=== PATIENT | female | born 1960 | race Two or more races ===

== ENCOUNTER 2020-06-26 14:01 | Outpatient (REF) | payer MEDICARE, MEDICAID, SELFPAY ==
--- NOTE | 2020-06-26 14:07 | MM_ITS ---
EXAMINATION: MM SCREENING DIGITAL BREAST TOMOSYNTHESIS, BILATERAL CLINICAL INFORMATION: Screening. Asymptomatic. The lifetime risk of breast cancer based on the Tyrer-Cuzick Model is 5.3%. COMPARISON: Mammography: August 06, 2018 and studies dating back to March 30, 2012 TECHNIQUE: Digital breast tomosynthesis is performed in both the craniocaudal and mediolateral oblique views along with computer-aided detection (CAD). Synthesized 2D images are generated from the tomosynthesis. FINDINGS: There are scattered areas of fibroglandular density (ACR BI-RADS breast composition Category b). There are no significant masses, abnormal calcifications, or other abnormalities. MM/MM tomosynthesis screening BI IMPRESSION: There are no significant changes from prior study. ASSESSMENT: BI-RADS 1: Negative RECOMMENDATION: Routine annual mammography screening. This patient's information was entered into a reminder system with a target due date for their next mammogram.
== END 2020-06-26 14:02 | disposition home or self-care (01) ==
LOC: HO.MAMMO 14:01
PROVIDERS: PCP Nurse Practitioner Family; Visit Provider Nurse Practitioner Family
DX: Z12.31 Encounter for screening mammogram for malignant neoplasm of breast (principal)
CPT/HCPCS: 77063; 77067

== ENCOUNTER 2020-08-30 14:37 | Outpatient (REF) | payer MEDICARE, MEDICAID, SELFPAY | END 2020-08-30 14:38 | disposition home or self-care (01) | LOC: HO.LAB 14:37 | PROVIDERS: PCP Nurse Practitioner Family; Visit Provider Internal Medicine | DX: Z20.828 Contact with and (suspected) exposure to other viral communicable diseases (principal) | CPT/HCPCS: 36415; C9803; U0003 ==

== ENCOUNTER 2020-09-06 16:05 | Outpatient (REF) | payer MEDICARE, MEDICAID, SELFPAY | END 2020-09-06 16:06 | disposition home or self-care (01) | LOC: HO.LAB 16:05 | PROVIDERS: Visit Provider Internal Medicine | DX: Z20.822 Contact with and (suspected) exposure to COVID-19 (principal) | CPT/HCPCS: 36415; C9803; U0003 ==

== ENCOUNTER → 2020-10-16 14:38 | Outpatient (BNVA) | payer MEDICARE, MEDICAID, SELFPAY | PROVIDERS: PCP Nurse Practitioner Family; Visit Provider Urology | DX: Z76.89 Persons encountering health services in other specified circumstances (principal) | CPT/HCPCS: Q3014 ==

== ENCOUNTER 2021-04-09 13:24 | Emergency (ER) | payer OTHER, MEDICARE, MEDICAID, SELFPAY ==
[2021-04-09 14:34] VITALS: BP 124/81; PULSE 82; RESP 18; TEMP 36.1; O2SAT 99; BMI 34.9
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
== END 2021-04-09 17:03 | disposition home or self-care (01) ==
PROVIDERS: Emergency Provider Emergency Medicine; PCP Internal Medicine
DX: S39.012D Strain of muscle, fascia and tendon of lower back, subsequent encounter (principal); V49.60XD Unspecified car occupant injured in collision with unspecified motor vehicles in traffic accident, subsequent encounter; M54.6 Pain in thoracic spine
CPT/HCPCS: 99283

== ENCOUNTER 2021-06-12 17:49 | Emergency (ER) | payer MEDICARE, MEDICAID, SELFPAY ==
--- NOTE | ~2021-06-12 | CT_ITS ---
EXAMINATION: CT HEAD WITHOUT CONTRAST CLINICAL INFORMATION: Trauma COMPARISON: None TECHNIQUE: Contiguous axial imaging was performed from the skull base to vertex without intravenous administration of contrast. This CT examination was performed using dose optimization techniques as appropriate, variously including the following: *Automated exposure control *Adjustment of mA and/or kV according to patient size (this includes techniques or standardized protocols for targeted exams where dose is matched to indication/reason for exam; i.e. extremities or head) *Use of iterative reconstruction technique DLP: 770 mGy-cm FINDINGS: There is no evidence of acute intracranial hemorrhage or territorial infarction. No abnormal mass effect or midline shift is seen. Cruz to white matter differentiation is well preserved. No extra-axial fluid collections are identified. The ventricles are normal in size. There is no abnormal attenuation within the brain parenchyma. The osseous structures and soft tissues are normal. Mucous retention cyst or polyps in the maxillary sinuses CT/CT head/brain wo con IMPRESSION: No acute intracranial pathology.
[2021-06-12 17:58] VITALS: BP 137/80; PULSE 91; RESP 18; TEMP 35.9; O2SAT 98; BMI 33.6
[2021-06-12] MEDS: Butalb/Acetamin/Caff 50/325/40 TABLET 1 TAB PO (19:34)
[2021-06-12 20:42] VITALS: BP 138/89; PULSE 80; RESP 20; TEMP 36.9; O2SAT 98
--- NOTE | 2021-06-12 21:16 | ED.HEATRA ---
HPI - Head Injury General Chief complaint: Head Injury Stated complaint: Fall/Head injury Time Seen by Provider: 06/12/21 18:58 Source: patient Mode of arrival: ambulatory History of Present Illness HPI Narrative: 60-year-old female with a past medical history of asthma, arthritis, diabetes, renal calculi, presenting to the ED complaining of right occipital headache, mild nausea/ photophobia, neck and low back pain s/p mechanical fall off chair last night. Patient reports stood on chair to grab something on shelf and fell backwards, hitting head on table. Denies vomiting, vision change/loss, CP/SOB, abdominal pain, numbness, tingling, weakness, urinary incontinence/retention. Denies taking anticoagulation MD Complaint: head injury Related Data Home Medications Medication Instructions Recorded Confirmed dulaglutide 0.75 mg/0.5 mL 0.75 mg SUBCUT QWEEK 10/16/20 10/18/20 subcutaneous pen injector gabapentin 300 mg capsule 300 mg PO TID 10/16/20 10/18/20 ibuprofen 800 mg tablet 800 mg PO TID 10/16/20 10/18/20 lisinopril 10 mg tablet 10 mg PO DAILY 10/16/20 10/18/20 meclizine 12.5 mg tablet 12.5 mg PO BID PRN 10/16/20 10/18/20 tramadol 50 mg tablet 50 mg PO BID PRN 10/16/20 10/18/20 zolpidem 5 mg tablet 5 mg PO BEDTIME 10/16/20 10/18/20 metformin 500 mg tablet 500 mg PO BID 10/18/20 10/18/20 Previous Rx's Medication Instructions Recorded allopurinol 100 mg tablet 100 mg PO DAILY 90 Days #90 tab 01/22/21 pyridoxine (vitamin B6) 50 mg 50 mg PO DAILY 90 Days #90 tab 03/01/21 tablet cyclobenzaprine 10 mg tablet 10 mg PO TID PRN #10 tab 04/09/21 ibuprofen 600 mg tablet 600 mg PO Q8H PRN #14 tab 04/09/21 lidocaine 5 % topical patch 1 patch TOPICAL DAILY #15 ea 04/09/21 (Lidoderm) tramadol 50 mg tablet 50 mg PO Q8H PRN #6 tab 04/09/21 Allergies Allergy/AdvReac Type Severity Reaction Status Date / Time duloxetine [From Cymbalta] Allergy Intermediate Itching Verified 06/12/21 17:58 pollen extracts [POLLEN] Allergy Mild SINUS Verified 06/12/21 17:58 PROBLEMS Review of Systems Review of Systems: Constitutional: No Fever, No Chills, No Fatigue, No Malaise ENT/Mouth: No Ear Pain, No Nasal Congestion, No Sinus Pain, No sore throat, No Rhinorrhea, No Swallowing Difficulty Eyes: No Eye Pain, No Swelling, No Redness, + mild photophobia, No Vision Changes Cardiovascular: No Chest Pain, No SOB Respiratory: No Cough, No Dyspnea Gastrointestinal: + Nausea, No Vomiting, No Diarrhea, No Constipation, No Abdominal pain Genitourinary: No Dysuria, No Urinary Frequency, No Hematuria,No Urinary Incontinence/retention No Urgency, No Flank Pain Musculoskeletal: + joint pain, No Myalgias, No Joint Swelling Skin: No Skin Lesions, No rash Neuro: No Weakness, No Numbness, No Paresthesias, No Loss of Consciousness, No Dizziness, + Headache Yes all other systems are reviewed and are negative Neurologic: Denies Abnormal speech present and Denies Sensory deficit (Neuro) [facility] Past Medical History Attestation statement: The following information was validated with the patient. Medical History (Updated 06/12/21 @ 21:18 by PAZ Vasquez) Arthritis Asthma Bilateral nephrolithiasis Constipation Diabetes History of postoperative nausea and vomiting HTN (hypertension) Lab test negative for COVID-19 virus Renal calculi Surgical History H/O colonoscopy Hx of cystoscopy Hx of hand surgery Hx of lithotripsy Social History Social History (Updated 10/16/20 @ 14:42 by Gianna Rodriguez Fred) Are you a primary point of care specialist to a significant other at home: No Do you presently have visiting nurse or other home services: No Advance Directives: No Advance Directives Information Provided: No Patient : No Physical Exam Vital Signs: Vital Signs: Last Vital Signs Temp 98.5 F 06/12/21 20:42 Pulse 80 06/12/21 20:42 Resp 20 06/12/21 20:42 BP 138/89 06/12/21 20:42 Pulse Ox 98 06/12/21 20:42 Body Mass Index 33.6 Const: General: cooperative, healthy appearing, no acute distress, well developed, alert, awake and Physically active Orientation/consciousness: patient oriented x3 Limitations: no limitations HENMT: Other: + hematoma noted to right occipital region that is tender to palpation. No ecchymosis, no skull depression/step-off, no laceration Head: No Duran's sign and No raccoon eyes Ears: hearing grossly normal bilaterally General nose exam: Normal external nose present Face and sinus: Yes normal facial exam Mouth: Normal oral and palatal mucosa present Throat: Yes posterior oropharynx normal and Yes uvula midline Eyes: General: appearance normal, both eyes and all related structures EOM: EOMs intact bilaterally Neck: Other: No midline cervical spinous tenderness/step-off or deformity Neck: Yes normal visual inspection and Yes no meningeal signs Resp: Effort & Inspection: normal respiratory effort and no respiratory distress Cardio: Rate: regular rate GI: Inspection: Yes normal to inspection Palpation (GI): Soft to palpation and nontender Back/Spine/Pelvis: Other: No midline thoracic/lumbar spinous tenderness. + bilateral lumbar MSK tenderness to palpation Skin: Rashes: no rashes Wounds: no wounds Neuro: Other: SILT. No saddle anesthesia, ambulating with steady gait, strength intact throughout General: patient oriented x3, gait normal, tone normal, moves all extremities, no meningeal signs, no focal motor deficits and CN's II-XI intact bilaterally Cranial nerves: Yes CN's II-XII intact bilaterally Cognition (Neuro): normal cognition Speech: No Abnormal speech present Gait exam (Neuro): Normal gait present Motor exam (neuro): 5/5 motor strength present throughout Sensory Exam: No Sensory deficit (Neuro) Coordination: [id number] test normal Romberg Test: Negative Extrem: General: Yes normal to inspection Course Course Course Narrative: CT head/brain wo con IMPRESSION: No acute intracranial pathology >> results discussed with patient including worrisome signs and symptoms and strict return precautions MDM - Head Injury MDM Narrative Medical decision making narrative: 60-year-old female with a past medical history of asthma, arthritis, diabetes, renal calculi, presenting to the ED complaining of right occipital headache, mild nausea/ photophobia, neck and low back pain s/p mechanical fall off chair last night. On exam VSS, NAD/well-appearing, no focal neuro deficits, no midline spinous tenderness throughout, no red flag symptoms. Lower concern for ICH/fracture but will obtain head CT due to falling from a height. Low concern for cauda equina/cord compression, likely MSK pain Plan: Head CT Medical Records Attestation: I reviewed the patient's medical records. Lab Data Attestation: I reviewed the patient's lab results. Discharge Plan Discharge Clinical Impression: Closed head injury Qualifiers: Encounter type: initial encounter Qualified Code(s): S09.90XA - Unspecified injury of head, initial encounter Patient Disposition: Home, Self-Care Instructions: Head Injury (ED) Additional Instructions: Your head CT was unremarkable. Take Tylenol and Motrin at home for headache Ice painful area Please follow-up with her doctor If you develop constant worsening headache, nausea/vomiting, lightheadedness/dizziness or weakness food return to the ED Prescriptions: No Action allopurinol 100 mg tablet 100 mg PO DAILY 90 Days Qty: 90 RF: 2 pyridoxine (vitamin B6) 50 mg tablet 50 mg PO DAILY 90 Days Qty: 90 RF: 1 metformin 500 mg tablet 500 mg PO BID RF: 0 cyclobenzaprine 10 mg tablet 10 mg PO TID PRN (Reason: muscle spasm) Qty: 10 RF: 0 lidocaine [Lidoderm] 5 % adhesive patch,medicated 1 patch topical DAILY Qty: 15 RF: 0 ibuprofen 600 mg tablet 600 mg PO Q8H PRN (Reason: pain) Qty: 14 RF: 0 tramadol 50 mg tablet 50 mg PO Q8H PRN (Reason: pain) Qty: 6 RF: 0 Referrals: Lesa Talbot NP [Primary Care Provider] - 2 days
== END 2021-06-12 21:33 | disposition home or self-care (01) ==
PROVIDERS: Emergency Provider Emergency Medicine; PCP Nurse Practitioner Family
DX: S09.90XA Unspecified injury of head, initial encounter (principal); E11.9 Type 2 diabetes mellitus without complications; I10 Essential (primary) hypertension; J45.909 Unspecified asthma, uncomplicated; W07.XXXA Fall from chair, initial encounter; Y93.9 Activity, unspecified; Y92.9 Unspecified place or not applicable; Y99.9 Unspecified external cause status
CPT/HCPCS: 70450; 99284

== ENCOUNTER 2021-11-08 12:46 | Emergency (ER) | payer MEDICARE, MEDICAID, SELFPAY ==
[2021-11-08 13:08] VITALS: BP 162/87; PULSE 74; RESP 18; TEMP 36.8; O2SAT 98; BMI 33.0
--- NOTE | 2021-11-08 13:36 | ED_ITS ---
HPI - General Adult General Chief complaint: Headache Stated complaint: throat/left ear pain/severe headaches Time Seen by Provider: 11/08/21 13:14 Source: patient Mode of arrival: ambulatory Limitations: no limitations History of Present Illness HPI narrative: Patient is a 61 year old female presenting to the emergency department today with left ear pain and a sore throat. Patient states that starting 2 days ago she began having a sore throat and a left ear ache. Patient denies any dizziness, lightheadedness, abdominal pain, nausea, vomiting, fever, chills, blurry vision, double vision, loss of vision, chest pain, difficulty breathing, shortness of breath, back pain, night sweats, pain with urination, increased urinary frequency, increased urinary urgency, blood in her urine or stool, syncope or a near syncopal episode, recent trauma or falls, bowel incontinence, bladder incontinence, bowel retention, bladder retention, or any other complaints at this time. Onset (ago): day(s) (2) Radiation: non-radiation Severity: mild Severity scale (1-10): 3 Quality: dull Pain Consistency: constant Relieving factors: none Exacerbating factors: none Associated symptoms: denies other symptoms Related Data Home Medications Medication Instructions Recorded Confirmed dulaglutide 0.75 mg/0.5 mL 0.75 mg SUBCUT QWEEK 10/16/20 10/18/20 subcutaneous pen injector gabapentin 300 mg capsule 300 mg PO TID 10/16/20 10/18/20 ibuprofen 800 mg tablet 800 mg PO TID 10/16/20 10/18/20 lisinopril 10 mg tablet 10 mg PO DAILY 10/16/20 10/18/20 meclizine 12.5 mg tablet 12.5 mg PO BID PRN 10/16/20 10/18/20 tramadol 50 mg tablet 50 mg PO BID PRN 10/16/20 10/18/20 zolpidem 5 mg tablet 5 mg PO BEDTIME 10/16/20 10/18/20 metformin 500 mg tablet 500 mg PO BID 10/18/20 10/18/20 Previous Rx's Medication Instructions Recorded allopurinol 100 mg tablet 100 mg PO DAILY 90 Days #90 tab 01/22/21 pyridoxine (vitamin B6) 50 mg 50 mg PO DAILY 90 Days #90 tab 03/01/21 tablet cyclobenzaprine 10 mg tablet 10 mg PO TID PRN #10 tab 04/09/21 ibuprofen 600 mg tablet 600 mg PO Q8H PRN #14 tab 04/09/21 lidocaine 5 % topical patch 1 patch TOPICAL DAILY #15 ea 04/09/21 (Lidoderm) tramadol 50 mg tablet 50 mg PO Q8H PRN #6 tab 04/09/21 amoxicillin 875 mg tablet 875 mg PO BID 7 Days #14 tab 11/08/21 Allergies Allergy/AdvReac Type Severity Reaction Status Date / Time duloxetine [From Cymbalta] Allergy Intermediate Itching Verified 06/12/21 17:58 pollen extracts [POLLEN] Allergy Mild SINUS Verified 06/12/21 17:58 PROBLEMS Review of Systems Constitutional: Constitutional: Reports no additional constitutional complaints, Denies chills, Denies fever(s) and Denies night sweats Eyes: Eyes: Reports no additional eye complaints, Denies blurry vision, Denies change in vision, Denies diplopia, Denies eye discharge, Denies loss of vision and Denies eye pain ENT: Denies dizziness and Reports sore throat Comments: left ear pain Cardiovascular: Cardiovascular: Reports no additional cardiovascular complaints, Denies chest pain, Denies lightheadedness, Denies Loss of Consciousness and Denies dyspnea Respiratory: Respiratory: Reports no additional respiratory complaints and Denies dyspnea Gastrointestinal: Gastrointestinal: Reports no additional gastrointestinal complaints, Denies abdominal pain, Denies melena, Denies hematochezia, Denies change in bowel habits and Denies change in stool character Genitourinary: Genitourinary: Denies hematuria, Denies urinary frequency, Denies dysuria, Denies urinary incontinence, Denies urinary hesitancy and Denies urinary urgency Musculoskeletal: Musculoskeletal: Reports no additional musculoskeletal complaints, Denies numbness and Denies tingling Neurologic: Denies dizziness, Denies loss of vision, Denies numbness and Denies tingling Psychiatric: Psychiatric: Reports no additional psychiatric complaints Endocrine: Endocrine: Reports no additional endocrine complaints Hematologic/Lymphatic: Hematologic/Lymphatic: Reports no additional hematologic/lymphatic complaints Allergic/Immunologic: Allergic/Immunologic: Reports no additional allergic/immunologic complaints PMFSH Past Medical History Attestation statement: The following information was validated with the patient. Source: old records reviewed Medical History Arthritis Asthma Bilateral nephrolithiasis Constipation Diabetes History of postoperative nausea and vomiting HTN (hypertension) Lab test negative for COVID-19 virus Renal calculi Surgical History H/O colonoscopy Hx of cystoscopy Hx of hand surgery Hx of lithotripsy Social History Social History Are you a primary laboratory animal care veterinarian to a significant other at home: No Do you presently have visiting nurse or other home services: No Advance Directives: No Advance Directives Information Provided: No Physical Exam ED Vital Signs: Vital Signs - 24 hr 11/08/21 13:08 Temperature 98.3 F Pulse Rate 74 Respiratory Rate 18 Blood Pressure 162/87 H Pulse Oximetry 98 BMI result Body Mass Index 33.0 Const General: cooperative, no acute distress, alert and awake Nutritional Appearance: well nourished Orientation/consciousness: patient oriented x3 Limitations: no limitations HENMT Head: Yes normal to inspection and Yes atraumatic Ears: hearing grossly normal bilaterally, external ears normal and TM abnormal erythematous on the left General nose exam: Normal external nose present, no nasal discharge noted and no epistaxis Face and sinus: Yes normal facial exam, No abrasion and No laceration Mouth: Normal oral and palatal mucosa present, no drooling and no muffled voice Eyes General: appearance normal, both eyes and all related structures Periorbital: periorbital findings normal Eyelids: Yes eyelids normal Conjunctivae: conjunctivae normal Pupils: Equal, round and reactive pupils present EOM: EOMs intact bilaterally Neck Neck: Yes normal visual inspection, Yes full ROM and Yes no lymphadenopathy Chest Chest palpation & inspection: normal inspection of the chest Resp Effort & Inspection: normal respiratory effort and able to speak in complete sentences Auscultation: clear to auscultation bilaterally Cardio Rate: regular rate Rhythm: regular rhythm GI Inspection: Yes normal to inspection Neuro General: patient oriented x3 and moves all extremities Cranial nerves: Yes Equal, round and reactive pupils present Cognition (Neuro): normal cognition Motor exam (neuro): 5/5 motor strength present throughout Sensory Exam: Normal double simultaneous stimulation for sensation Coordination: [id number] test normal Extrem General: Yes normal to inspection, Yes full ROM and Yes capillary refill normal Psych Appearance: grossly normal Mental Status: mental status grossly normal Affect: normal affect Attitude: cooperative Thought process: Normal thought process present Thought content: Normal thought content present Insight: Good insight present (Psych) Medical Decision Making MDM Narrative Medical decision making narrative: Patient is a 61 year old female presenting to the emergency department today with left ear pain and a sore throat. Patient's physical exam showed erythema to the left TM but was otherwise unremarkable. Patient's rapid COVID-19 and influenza swabs were negative. I explained my physical exam findings as well as all test results to the patient. I answered all questions asked by the patient. I stressed the importance of the patient taking her medication as prescribed. I stressed the importance of the patient following up with her primary care prov ider. I stressed the importance of the patient returning to the emergency department immediately if her symptoms were to worsen or if she were to develop any dizziness, shortness of breath, difficulty breathing, chest pain, blurry vision, loss of vision, nausea, vomiting, abdominal pain, fever, chills, back pain, or any other complaints. Patient verbalized agreement and understanding with this treatment plan and discharge. Differential Diagnosis Differential Diagnosis: otitis media, viral illness Medical Records Medical records reviewed: Yes I reviewed the patient's medical records. Lab Data Lab results reviewed: Yes I reviewed the patient's lab results. Labs: Lab Results 11/08/21 11/08/21 Range/Units 13:36 13:36 COVID-19 ([place]) Negative (Negative) COVID-19 Clin Com See Note Influenza Type A (JAMES) Negative (Negative) Influenza Type B (JAMES) Negative (Negative) Influenza A & B Note See Note Discharge Plan Discharge Clinical Impression: Otitis media, Headache Patient Disposition: Home, Self-Care Instructions: Ear Infection (ED), Acute Headache (DC) Additional Instructions: Call [phone] to follow up with an ENT specialist. Follow up with your primary care provider. Return to the emergency department immediately if your symptoms worsen or if you develop any dizziness, shortness of breath, difficulty breathing, chest pain, blurry vision, loss of vision, nausea, vomiting, abdominal pain, fever, chills, back pain, or any other complaints. Prescriptions: New amoxicillin 875 mg tablet 875 mg PO BID 7 Days Qty: 14 0RF No Action allopurinol 100 mg tablet 100 mg PO DAILY 90 Days Qty: 90 2RF pyridoxine (vitamin B6) 50 mg tablet 50 mg PO DAILY 90 Days Qty: 90 1RF metformin 500 mg tablet 500 mg PO BID 0RF cyclobenzaprine 10 mg tablet 10 mg PO TID PRN (Reason: muscle spasm) Qty: 10 0RF lidocaine [Lidoderm] 5 % adhesive patch,medicated 1 patch topical DAILY Qty: 15 0RF Rx Instructions: leave on most painful area for up to 12 hrs ibuprofen 600 mg tablet 600 mg PO Q8H PRN (Reason: pain) Qty: 14 0RF tramadol 50 mg tablet 50 mg PO Q8H PRN (Reason: pain) Qty: 6 0RF Referrals: Lesa Talbot FLATTENING MACHINE OPERATOR [Primary Care Provider] - 2 days Interventions: ED Discharge Assessment Last Done: 11/08/21 14:17 Discharge Date/Time: 11/08/21 14:19 Print Language: Salvadorean
[2021-11-08 13:57] LABS: COVID-19 Test Negative (Negative); Influenza A Negative (Negative); Influenza B2 Negative (Negative)
== END 2021-11-08 14:19 | disposition home or self-care (01) ==
PROVIDERS: Physician Assistant Medical; Emergency Provider Emergency Medicine; PCP Nurse Practitioner Family
DX: R51.9 Headache, unspecified (principal); H66.92 Otitis media, unspecified, left ear; Z20.822 Contact with and (suspected) exposure to COVID-19; I10 Essential (primary) hypertension
CPT/HCPCS: 87502; 87635; 99283

== ENCOUNTER → 2021-12-25 09:10 | Outpatient (RCR) | payer MEDICARE, MEDICAID, SELFPAY | END | disposition home or self-care (01) | LOC: HO.PTCHIC 05-29 14:51 | PROVIDERS: PCP Nurse Practitioner Family; Visit Provider Orthopaedic Surgery | DX: M89.49 Other hypertrophic osteoarthropathy, multiple sites (principal); Z11.59 Encounter for screening for other viral diseases | CPT/HCPCS: 36415; 97014; 97110; 97140; C9803; U0003 ==

== ENCOUNTER 2022-04-02 12:06 | Outpatient (REF) | payer MEDICARE, MEDICAID, SELFPAY ==
[2022-04-02 13:35] LABS: Hematocrit 43.3 % (37.0-47.0); Hemoglobin 14.2 g/dl (12.0-16.0); Mean Corpuscular HGB Conc 32.8 g/dl (31.0-35.0); Mean Corpuscular Hemoglobin 30.1 pg (27.0-33.0); Mean Corpuscular Volume 91.7 fL (80.0-98.0); Mean Platelet Volume 10.4 fL (9.4-12.3); Platelet Count 399 X10*3/uL (160-400); Red Blood Count 4.72 X10*6/uL (4.20-5.50); Red Cell Distribution Width 12.2 % (11.0-16.0); White Blood Count 10.5 X10*3/uL (4.8-10.8)
[2022-04-02 14:09] LABS: Estimated Average Glucose 154 mg/dL
[2022-04-02 14:15] LABS: Alanine Aminotransferase 42 U/L (0-31); Alkaline Phosphatase 97 U/L (39-117); Anion Gap 19 (12-20); Aspartate Amino Transferase 39 U/L (5-31); Bilirubin Total 0.5 mg/dL (0.0-1.0); Blood Urea Nitrogen 12 mg/dL (9-16); C Reactive Protein 0.91 mg/dL (< or = 0.50); Calcium 9.5 mg/dL (8.4-10.2); Carbon Dioxide 24 mmol/L (22-29); Chloride 101 mmol/L (96-108); Cholesterol 221 mg/dL; Estimated Glomerular Filt Rate > 60; Glucose Fasting 164 mg/dL (60-99); HDL Cholesterol 49 mg/dL; LDL Cholesterol Calculated 132 mg/dl; Potassium 4.6 mmol/L (3.3-5.1); Rheumatoid Factor < 15.0 IU/mL (<15.0); Sodium 139 mmol/L (135-145); Total Protein 6.8 g/dL (6.5-8.0); Triglycerides 203 mg/dL; Uric Acid 5.4 mg/dL (2.4-5.7)
[2022-04-02 14:39] LABS: Vitamin D 25-OH Total 31.9 ng/mL (>30)
[2022-04-03 18:31] LABS: Cyclic Citrullinated Peptide <16 UNITS
== END 2022-04-02 12:07 | disposition home or self-care (01) ==
LOC: HO.LAB 12:06
PROVIDERS: PCP Nurse Practitioner Family; Visit Provider Nurse Practitioner Family
DX: E78.2 Mixed hyperlipidemia (principal); E55.9 Vitamin D deficiency, unspecified; I10 Essential (primary) hypertension; E11.9 Type 2 diabetes mellitus without complications; M25.50 Pain in unspecified joint; M10.9 Gout, unspecified
CPT/HCPCS: 36415; 80053; 80061; 82306; 83036; 84550; 85027; 86140; 86200; 86431

== ENCOUNTER 2022-05-06 12:58 | Emergency (ER) | payer MEDICARE, MEDICAID, SELFPAY ==
--- NOTE | 2022-05-06 | ECG_ITS ---
Test Reason : lest sided chest pain Blood Pressure : / mmHG Vent. Rate : 086 BPM Atrial Rate : 086 BPM P-R Int : 146 ms QRS Dur : 086 ms QT Int : 352 ms P-R-T Axes : 056 069 044 degrees QTc Int : 421 ms Poor data quality, interpretation may be adversely affected Normal sinus rhythm Normal ECG When compared with ECG of 04-OCT-2011 21:49, Questionable change in QRS axis Referred By: Vinny Gonsales Electronically Signed By:ADA CHERRY
--- NOTE | ~2022-05-06 | XR_ITS ---
EXAMINATION: XR RIBS, LEFT CLINICAL INFORMATION: Fall, trauma, pain COMPARISON: Chest radiographs 05/04/2020, 06/13/2019 TECHNIQUE: Frontal view chest is performed along with 3 views of the left ribs for a total of 4 views. FINDINGS: There is no visible rib fracture or rib destructive process. The lungs are clear. There is no pneumothorax or pleural reaction. No airspace consolidation or groundglass opacity or effusion. The costophrenic sulci are clear. The heart is normal in size. The hilar and mediastinal contours are unremarkable. There are 2 orthopedic anchors again seen overlying the left humeral head similar to prior exams. XR/XR ribs LT min 3V w CXR1V IMPRESSION: -No visible left rib fracture or rib destructive process. -No pneumothorax, airspace opacity, or effusion.
[2022-05-06 14:59] VITALS: BP 119/78; PULSE 91; RESP 16; TEMP 36.6; O2SAT 98; BMI 34.1
[2022-05-06] MEDS: Acetaminophen 325 MG TABLET 650 MG PO (15:09)
[2022-05-06 15:34] LABS: MANUAL DIFF FLAG NO
[2022-05-06 15:35] LABS: Basophils Absolute Auto 0.1 X10*3/uL (0.0-0.2); Basophils Percent Auto 0.5 % (0-2); Eosinophils Absolute Auto 0.1 X10*3/uL (0.0-0.4); Hematocrit 41.7 % (37.0-47.0); Hemoglobin 13.5 g/dl (12.0-16.0); Imm Gran Abs Auto 0.15 X10*3/uL (0.00-0.03); Lymphocytes Absolute Auto 3.6 X10*3/uL (1.2-4.9); Mean Corpuscular HGB Conc 32.4 g/dl (31.0-35.0); Mean Corpuscular Hemoglobin 30.2 pg (27.0-33.0); Mean Corpuscular Volume 93.3 fL (80.0-98.0); Mean Platelet Volume 9.4 fL (9.4-12.3); Monocytes Percent Auto 7.1 % (2-11); Neutrophils Absolute Auto 9.4 x10*3/uL (2.0-8.3); Neutrophils Percent Auto 65.4 % (45-73); Platelet Count 371 X10*3/uL (160-400); Red Blood Count 4.47 X10*6/uL (4.20-5.50); Red Cell Distribution Width 13.1 % (11.0-16.0); White Blood Count 14.4 X10*3/uL (4.8-10.8)
[2022-05-06 16:00] LABS: Troponin-I High Sensitivity < 3.5 ng/L (<3.5-17.0)
--- NOTE | 2022-05-06 17:32 | ED_ITS ---
HPI - Chest Pain General Chief Complaint: Chest Pain Stated Complaint: fall from bed/ rib pain Time Seen by Provider: 05/06/22 17:32 Source: patient Mode of arrival: ambulatory Limitations: no limitations History of Present Illness HPI narrative: 61-year-old female who presents emergency department for evaluation of left- sided chest pain after falling. The patient states that at around 11:00 which got out of bed she tripped on her blankets falling forward. She states she landed flat on her chest. She did not hit her face or her head when she fell. She states that she immediately developed left-sided chest pain. The patient points to her left lateral aspect of her chest when asked to localize the pain. She states the pain is a constant, sharp pain which is worse with breathing, coughing and movement. The pain is 10/10. She states that she has had no headache, nausea, vomiting numbness or weakness since the fall. She states that over the past 3 days she has had a cough which is mainly nonproductive. She has also noted right ear pain x3 days. The patient does have arthritis of her shoulders and knees and takes gabapentin and tramadol. MD complaint: chest pain Onset (ago): hour(s) (6) Timing of current episode: constant Prior episodes: No Onset: other (Occurred after fallen) Pain location: left chest (Lateral aspect) Pain radiation: none Severity: severe Pain scale (0-10): 10 Quality: sharp Relieving factors: movement and other (Breathing, cough) Exacerbating factors: nothing Context: other (Occurred after fall) Treatment prior to arrival: none Risk Factors Coronary artery disease risk factors: diabetes Related Data On Oral Contraceptives: No Home Medications Medication Instructions Recorded Confirmed dulaglutide 0.75 mg/0.5 mL 0.75 mg subcut QWEEK 10/16/20 10/18/20 subcutaneous pen injector gabapentin 300 mg capsule 300 mg PO TID 10/16/20 10/18/20 ibuprofen 800 mg tablet 800 mg PO TID 10/16/20 10/18/20 lisinopril 10 mg tablet 10 mg PO DAILY 10/16/20 10/18/20 meclizine 12.5 mg tablet 12.5 mg PO BID PRN nausea 10/16/20 10/18/20 tramadol 50 mg tablet 50 mg PO BID PRN Pain 10/16/20 10/18/20 zolpidem 5 mg tablet 5 mg PO BEDTIME 10/16/20 10/18/20 metformin 500 mg tablet 500 mg PO BID 10/18/20 10/18/20 Previous Rx's Medication Instructions Recorded allopurinol 100 mg tablet 100 mg PO DAILY 90 days #90 tabs 01/22/21 pyridoxine (vitamin B6) 50 mg 50 mg PO DAILY 90 days #90 tabs 03/01/21 tablet cyclobenzaprine 10 mg tablet 10 mg PO TID PRN muscle spasm #10 04/09/21 tabs ibuprofen 600 mg tablet 600 mg PO Q8H PRN pain #14 tabs 04/09/21 lidocaine 5 % topical patch 1 patch topical DAILY #15 ea 04/09/21 (Lidoderm) tramadol 50 mg tablet 50 mg PO Q8H PRN pain #6 tabs 04/09/21 amoxicillin 875 mg tablet 875 mg PO BID 7 days #14 tabs 11/08/21 oxycodone 5 mg tablet 5 mg PO Q4H PRN pain #14 tabs 05/06/22 Allergies Allergy/AdvReac Type Severity Reaction Status Date / Time duloxetine [From Cymbalta] Allergy Intermediate Itching Verified 06/12/21 17:58 pollen extracts [POLLEN] Allergy Mild SINUS Verified 06/12/21 17:58 PROBLEMS Review of Systems Review of Systems: Yes all other systems are reviewed and are negative [facility] Past Medical History [facility] Narrative: Social history: Patient denies tobacco, alcohol and drug use. Medical History Arthritis Asthma Bilateral nephrolithiasis Constipation Diabetes History of postoperative nausea and vomiting HTN (hypertension) Lab test negative for COVID-19 virus Renal calculi Surgical History H/O colonoscopy Hx of cystoscopy Hx of hand surgery Hx of lithotripsy Social History Social History Are you a primary home care specialist to a significant other at home: No Do you presently have visiting nurse or other home services: No Advance Directives: No Advance Directives Information Provided: No Physical Exam Vital Signs: Vital Signs: Last Vital Signs Temp 98 F 05/06/22 14:59 Pulse 91 05/06/22 14:59 Resp 16 05/06/22 14:59 BP 119/78 05/06/22 14:59 Pulse Ox 98 05/06/22 14:59 O2 Del Method 05/06/22 14:59 BMI result Body Mass Index 34.1 Const: Other: Awake, alert, female patient, appears to be in distress secondary to her left- sided chest pain. HEENT: Head: Yes normal to inspection, Yes normocephalic and Yes atraumatic Ears: external ears normal General nose exam: Normal external nose present Face and sinus: Yes normal facial exam Mouth: Normal oral and palatal mucosa present Throat: Yes posterior oropharynx normal Eyes: General: appearance normal, both eyes and all related structures Pupils: Equal, round and reactive pupils present Neck: Neck: Yes normal visual inspection, Yes no lymphadenopathy, Yes trachea midline and Yes supple Chest: Other: Patient has a area of ecchymosis to her left breast, tender palpation over this area Chest palpation & inspection: normal inspection of the chest and tender ness (Left anterior chest) Resp: Effort & Inspection: normal respiratory effort and able to speak in complete sentences Auscultation: clear to auscultation bilaterally Cardio: Rate: regular rate Rhythm: regular rhythm Heart sounds: S1 normal heart sound present, S2 normal heart sound present and no murmurs GI: Inspection: Yes normal to inspection Palpation (GI): Soft to palpation, nontender and no guarding Auscultation: normal bowel sounds : General: Yes no CVA tenderness Back/Spine/Pelvis: Back: no CVA tenderness Skin: General skin exam: no rashes or lesions noted Neuro: Cranial nerves: Yes Equal, round and reactive pupils present Cognition (Neuro): normal cognition Extrem: General: Yes normal to inspection Psych: Appearance: grossly normal Speech and movement: Normal speech and movement present Affect: normal affect Attitude: cooperative Course Course Course Narrative: 61-year-old female who presents emergency department for evaluation of accidental trip and fall at 11:00 on the day presentation with injury to her chest from the fall pain. Patient's physical examination did reveal localize left lateral chest wall tenderness with ecchymosis to her left breast. The patient's laboratory evaluation revealed a below detectable limits high sensitivity troponin I. Chest x-ray with left rib series revealed no pneumothorax, no pneumonia and no nondisplaced rib fractures. CT scan of the head revealed no acute findings. Twelve EKG was unremarkable. Patient's presentation is consistent with nondisplaced rib fractures of her left chest. The patient was wrapped with a 6 in Yash wrap to create a rib belt. I told her if this Yash wrap was helping then she can purchase a rib belt for any pharmacy. She was given ibuprofen, Tylenol and oxycodone 10 mg orally every 4-6 hours as needed for pain not relieved by ibuprofen Tylenol. She was given printed and verbal instructions and is reviewed with her and her daughter prior to discharge. MDM - Chest Pain Lab Data Result diagrams: 05/06/22 15:22 Labs: Lab Results 05/06/22 05/06/22 Range/Units 15:22 15:22 WBC 14.4 H (4.8-10.8) X10*3/uL RBC 4.47 (4.20-5.50) X10*6/uL Hgb 13.5 (12.0-16.0) g/dl Hct 41.7 (37.0-47.0) % MCV 93.3 (80.0-98.0) fL MCH 30.2 (27.0-33.0) pg MCHC 32.4 (31.0-35.0) g/dl RDW 13.1 (11.0-16.0) % Plt Count 371 (160-400) X10*3/uL MPV 9.4 (9.4-12.3) fL Immature Gran % (Auto) 1.0 H (0.0-0.4) % Neut % (Auto) 65.4 (45-73) % Lymph % (Auto) 25.0 (20-40) % Schuyler % (Auto) 7.1 (2-11) % Eos % (Auto) 1.0 (0-4) % Baso % (Auto) 0.5 (0-2) % Lymph # (Auto) 3.6 (1.2-4.9) X10*3/uL Schuyler # (Auto) 1.0 (0.1-1.2) X10*3/uL Eos # (Auto) 0.1 (0.0-0.4) X10*3/uL Baso # (Auto) 0.1 (0.0-0.2) X10*3/uL Abs Immat Gran (auto) 0.15 H (0.00-0.03) X10*3/uL Absolute Neuts (auto) 9.4 H (2.0-8.3) x10*3/uL Absolute Nucleated RBC 0.000 (0.0-0.012) X10*3/uL Nucleated RBC % (auto) 0.0 (0.0-0.2) /100WBC Troponin I High Sens < 3.5 (<3.5-17.0) ng/L Discharge Plan Discharge Clinical Impression: Fracture, rib Qualifiers: Encounter type: initial encounter Rib fracture type: multiple ribs Fracture type: closed Laterality: left Qualified Code(s): S22.42XA - Multiple fractures of ribs, left side, initial encounter for closed fracture Fall Qualifiers: Encounter type: initial encounter Qualified Code(s): W19.XXXA - Unspecified fall, initial encounter Patient Disposition: Home, Self-Care Instructions: Rib Fracture (ED) Additional Instructions: The CT scan of your head revealed no broken bones/fracture of your skull and no bleeding in the brain. Your chest x-ray revealed no evidence of pneumonia or a popped lung (pneumothorax) Your left-sided rib x-rays did not reveal any displaced rib fractures however your examination is consistent with nondisplaced rib fractures. I wrapped the with a 6 in Yash wrap to create a rib belt. If this is helping then you can continue to use the Yash wrap or you can purchase a rib belt from any pharmacy. Take ibuprofen 200 mg pills, 3 pills every 6 hours as needed for pain. Take Tylenol (acetaminophen) 500 mg pills, 2 pills every 4-6 hours as needed for pain. For pain not relieved by ibuprofen or Tylenol take oxycodone 5 mg pills, 1 pill every 4 to 6 hours as needed for pain. Do not drive or work while taking this medication since they can cause sleepiness. Oxycodone is a narcotic medication that can be addicting. If you are concerned about addiction you can ask the pharmacist for less pills or do not get this prescription filled. While your taking oxycodone you need to stop taking your tramadol since this is also narcotic medication and the 2 medications together can make you very sleepy and can affect your breathing. Follow-up with your doctor in 2 days. Please return to the emergency department if your symptoms get worse or if you develop any symptoms that are concerning to you. Prescriptions: New oxycodone 5 mg tablet 5 mg PO Q4H PRN (Reason: pain) Qty: 14 0RF Rx Instructions: Patient may request partial fill; Partial Fill upon patient request. No Action allopurinol 100 mg tablet 100 mg PO DAILY 90 Days Qty: 90 2RF pyridoxine (vitamin B6) 50 mg tablet 50 mg PO DAILY 90 Days Qty: 90 1RF metformin 500 mg tablet 500 mg PO BID cyclobenzaprine 10 mg tablet 10 mg PO TID PRN (Reason: muscle spasm) Qty: 10 0RF lidocaine [Lidoderm] 5 % adhesive patch,medicated 1 patch topical DAILY Qty: 15 0RF Rx Instructions: leave on most painful area for up to 12 hrs ibuprofen 600 mg tablet 600 mg PO Q8H PRN (Reason: pain) Qty: 14 0RF tramadol 50 mg tablet 50 mg PO Q8H PRN (Reason: pain) Qty: 6 0RF amoxicillin 875 mg tablet 875 mg PO BID 7 Days Qty: 14 0RF
[2022-05-06] MEDS: oxyCODONE HCl Immed Release 5 MG TABLET 10 MG PO (17:55)
[2022-05-06] MEDS: Ibuprofen 600 MG TABLET PO (18:09)
== END 2022-05-06 18:31 | disposition home or self-care (01) ==
PROVIDERS: Emergency Medicine; Emergency Provider Emergency Medicine Emergency Medical Services; PCP Nurse Practitioner Family
DX: S22.42XA Multiple fractures of ribs, left side, initial encounter for closed fracture (principal); W06.XXXA Fall from bed, initial encounter; E11.9 Type 2 diabetes mellitus without complications; I10 Essential (primary) hypertension; Y93.84 Activity, sleeping; Y92.032 Bedroom in apartment as the place of occurrence of the external cause; Y99.9 Unspecified external cause status; Z79.84 Long term (current) use of oral hypoglycemic drugs; Z79.899 Other long term (current) drug therapy
CPT/HCPCS: 36415; 71101; 84484; 85025; 93005; 99283

== ENCOUNTER 2022-05-25 14:26 | Emergency (ER) | payer MEDICARE, MEDICAID, SELFPAY ==
--- NOTE | ~2022-05-25 | XR_ITS ---
EXAMINATION: XR RIBS, LEFT, PA CHEST CLINICAL INFORMATION: Shortness of breath, pain. COMPARISON: 05/06/2022 chest and rib radiographs. TECHNIQUE: 3 views of the left ribs were obtained along with a PA view of the chest. A skin marker overlies the inferior left ribs. FINDINGS: Lungs are clear. No consolidation, pneumothorax, or pleural effusion. The cardiomediastinal silhouette and pulmonary vasculature are normal. There is a minimally displaced fracture of the lateral left seventh rib. XR/XR ribs LT min 3V w CXR1V IMPRESSION: 1. No acute cardiopulmonary process. 2. Acute left lateral seventh rib fracture.
[2022-05-25 14:29] VITALS: BP 134/70; PULSE 112; RESP 20; TEMP 36.6; O2SAT 98; BMI 34.0
--- NOTE | 2022-05-25 17:06 | ED.GENADULT ---
HPI - General Adult General Chief complaint: General Medical Stated complaint: Rib pain Time Seen by Provider: 05/25/22 17:06 Source: patient Mode of arrival: ambulatory Limitations: no limitations History of Present Illness HPI narrative: Patient is a 61 year old female presenting to the emergency department today with left sided rib pain. Patient states that 2 weeks ago, she was seen for a left sided broken rib. Patient states that she ran out of medication and she is still having a lot of pain. Patient denies any dizziness, lightheadedness, abdominal pain, nausea, vomiting, fever, chills, blurry vision, double vision, loss of vision, chest pain, difficulty breathing, shortness of breath, back pain, night sweats, pain with urination, increased urinary frequency, increased urinary urgency, blood in her urine or stool, syncope or a near syncopal episode, bowel incontinence, bladder incontinence, bowel retention, bladder retention, or any other complaints at this time. Onset (ago): week(s) (2) Location: left (torso) Radiation: non-radiation Severity: mild Severity scale (1-10): 2 Quality: dull Pain Consistency: constant Relieving factors: none Exacerbating factors: other (deep breaths) Associated symptoms: denies other symptoms Treatments prior to arrival: none Related Data Home Medications Medication Instructions Recorded Confirmed dulaglutide 0.75 mg/0.5 mL 0.75 mg subcut QWEEK 10/16/20 10/18/20 subcutaneous pen injector gabapentin 300 mg capsule 300 mg PO TID 10/16/20 10/18/20 ibuprofen 800 mg tablet 800 mg PO TID 10/16/20 10/18/20 lisinopril 10 mg tablet 10 mg PO DAILY 10/16/20 10/18/20 meclizine 12.5 mg tablet 12.5 mg PO BID PRN nausea 10/16/20 10/18/20 tramadol 50 mg tablet 50 mg PO BID PRN Pain 10/16/20 10/18/20 zolpidem 5 mg tablet 5 mg PO BEDTIME 10/16/20 10/18/20 metformin 500 mg tablet 500 mg PO BID 10/18/20 10/18/20 Previous Rx's Medication Instructions Recorded allopurinol 100 mg tablet 100 mg PO DAILY 90 days #90 tabs 01/22/21 pyridoxine (vitamin B6) 50 mg 50 mg PO DAILY 90 days #90 tabs 03/01/21 tablet cyclobenzaprine 10 mg tablet 10 mg PO TID PRN muscle spasm #10 04/09/21 tabs ibuprofen 600 mg tablet 600 mg PO Q8H PRN pain #14 tabs 04/09/21 lidocaine 5 % topical patch 1 patch topical DAILY #15 ea 04/09/21 (Lidoderm) tramadol 50 mg tablet 50 mg PO Q8H PRN pain #6 tabs 04/09/21 amoxicillin 875 mg tablet 875 mg PO BID 7 days #14 tabs 11/08/21 oxycodone 5 mg tablet 5 mg PO Q4H PRN pain #14 tabs 05/06/22 oxycodone 5 mg tablet 5 mg PO Q4H PRN pain #14 tabs 05/25/22 Allergies Allergy/AdvReac Type Severity Reaction Status Date / Time duloxetine [From Cymbalta] Allergy Intermediate Itching Verified 06/12/21 17:58 pollen extracts [POLLEN] Allergy Mild SINUS Verified 06/12/21 17:58 PROBLEMS Review of Systems Constitutional: Constitutional: Reports no additional constitutional complaints, Denies chills, Denies fever(s) and Denies night sweats Eyes: Eyes: Reports no additional eye complaints, Denies blurry vision, Denies change in vision, Denies diplopia, Denies eye discharge, Denies loss of vision and Denies eye pain ENT: Denies dizziness Cardiovascular: Cardiovascular: Reports no additional cardiovascular complaints, Denies chest pain, Denies lightheadedness, Denies Loss of Consciousness and Denies dyspnea Respiratory: Respiratory: Reports no additional respiratory complaints and Denies dyspnea Gastrointestinal: Gastrointestinal: Reports no additional gastrointestinal complaints, Denies abdominal pain, Denies melena, Denies hematochezia, Denies change in bowel habits and Denies change in stool character Genitourinary: Genitourinary: Denies hematuria, Denies urinary frequency, Denies dysuria, Denies urinary incontinence, Denies urinary hesitancy and Denies urinary urgency Musculoskeletal: Musculoskeletal: Reports no additional musculoskeletal complaints, Denies numbness and Denies tingling Comments: left sided torso pain Neurologic: Denies dizziness, Denies loss of vision, Denies numbness and Denies tingling Psychiatric: Psychiatric: Reports no additional psychiatric complaints Endocrine: Endocrine: Reports no additional endocrine complaints Hematologic/Lymphatic: Hematologic/Lymphatic: Reports no additional hematologic/lymphatic complaints Allergic/Immunologic: Allergic/Immunologic: Reports no additional allergic/immunologic complaints [facility] Past Medical History Attestation statement: The following information was validated with the patient. Source: old records reviewed Medical History Arthritis Asthma Bilateral nephrolithiasis Constipation Diabetes History of postoperative nausea and vomiting HTN (hypertension) Lab test negative for COVID-19 virus Renal calculi Surgical History H/O colonoscopy Hx of cystoscopy Hx of hand surgery Hx of lithotripsy Social History Social History Are you a primary reservoir caretaker to a significant other at home: No Do you presently have visiting nurse or other home services: No Advance Directives: No Advance Directives Information Provided: Yes Physical Exam ED Vital Signs: Vital Signs - 24 hr 05/25/22 14:29 Temperature 97.9 F Pulse Rate 112 H Respiratory Rate 20 Blood Pressure 134/70 Pulse Oximetry 98 Oxygen Delivery Method Room Air BMI result Body Mass Index 34.0 Const General: cooperative, no acute distress, alert and awake Nutritional Appearance: well nourished Orientation/consciousness: patient oriented x3 Limitations: no limitations HENMT Head: Yes normal to inspection and Yes atraumatic Ears: hearing grossly normal bilaterally and external ears normal General nose exam: Normal external nose present, no nasal discharge noted and no epistaxis Face and sinus: Yes normal facial exam, No abrasion and No laceration Mouth: Normal oral and palatal mucosa present, no drooling and no muffled voice Eyes General: appearance normal, both eyes and all related structures Periorbital: periorbital findings normal Eyelids: Yes eyelids normal Conjunctivae: conjunctivae normal Pupils: Equal, round and reactive pupils present EOM: EOMs intact bilaterally Neck Neck: Yes normal visual inspection, Yes full ROM and Yes no lymphadenopathy Chest Chest palpation & inspection: normal inspection of the chest Resp Effort & Inspection: normal respiratory effort and able to speak in complete sentences Auscultation: clear to auscultation bilaterally Cardio Rate: regular rate Rhythm: regular rhythm GI Inspection: Yes normal to inspection Neuro General: patient oriented x3 and moves all extremities Cranial nerves: Yes Equal, round and reactive pupils present Cognition (Neuro): normal cognition Motor exam (neuro): 5/5 motor strength present throughout Sensory Exam: Normal double simultaneous stimulation for sensation Coordination: [id number] test normal Extrem General: Yes normal to inspection, Yes full ROM and Yes capillary refill normal Psych Appearance: grossly normal Mental Status: mental status grossly normal Affect: normal affect Attitude: cooperative Thought process: Normal thought process present Thought content: Normal thought content present Insight: Good insight present (Psych) Medical Decision Making MDM Narrative Medical decision making narrative: Patient is a 61 year old female presenting to the emergency department today with left sided rib pain. Patient's physical exam was unremarkable. Patient's chest x-ray showed a left 7th rib fracture. I explained my physical exam findings as well as all test results to the patient. I answered all questions asked by the patient. I stressed the importance of the patient taking her medication as prescribed. I stressed the importance of the patient following up with her primary care provider. I stressed the importance of the patient returning to the emergency department immediately if her symptoms were to worsen or if she were to develop any dizziness, shortness of breath, difficulty breathing, chest pain, blurry vision, loss of vision, nausea, vomiting, abdominal pain, fever, chills, back pain, or any other complaints. Patient verbalized agreement and understanding with this treatment plan and discharge. Differential Diagnosis Differential Diagnosis: rib fracture Medical Records Medical records reviewed: Yes I reviewed the patient's medical records. Imaging Data Chest x-ray: Attestation: I personally reviewed and interpreted this imaging study as follows: My impression: Left 7th rib fracture. Radiologist's impression: EXAMINATION: XR RIBS, LEFT, PA CHEST CLINICAL INFORMATION: Shortness of breath, pain. COMPARISON: 05/06/2022 chest and rib radiographs. TECHNIQUE: 3 views of the left ribs were obtained along with a PA view of the chest. A skin marker overlies the inferior left ribs. FINDINGS: Lungs are clear. No consolidation, pneumothorax, or pleural effusion. The cardiomediastinal silhouette and pulmonary vasculature are normal. There is a minimally displaced fracture of the lateral left seventh rib. XR/XR ribs LT min 3V w CXR1V IMPRESSION: 1. No acute cardiopulmonary process. 2. Acute left lateral seventh rib fracture. Dictated By: Casper Reyes MD Signed By: Electronically signed by Casper Reyes MD 05/25/22 1547 Discharge Plan Discharge Clinical Impression: Fracture of rib Patient Disposition: Home, Self-Care Instructions: Rib Fracture (ED) Additional Instructions: Follow up with your primary care provider. Return to the emergency department immediately if your symptoms worsen or if you develop any dizziness, shortness of breath, difficulty breathing, chest pain, blurry vision, loss of vision, nausea, vomiting, abdominal pain, fever, chills, back pain, or any other complaints. Prescriptions: New oxycodone 5 mg tablet 5 mg PO Q4H PRN (Reason: pain) Qty: 14 0RF Rx Instructions: Partial Fill upon patient request. No Action allopurinol 100 mg tablet 100 mg PO DAILY 90 Days Qty: 90 2RF pyridoxine (vitamin B6) 50 mg tablet 50 mg PO DAILY 90 Days Qty: 90 1RF metformin 500 mg tablet 500 mg PO BID cyclobenzaprine 10 mg tablet 10 mg PO TID PRN (Reason: muscle spasm) Qty: 10 0RF lidocaine [Lidoderm] 5 % adhesive patch,medicated 1 patch topical DAILY Qty: 15 0RF Rx Instructions: leave on most painful area for up to 12 hrs ibuprofen 600 mg tablet 600 mg PO Q8H PRN (Reason: pain) Qty: 14 0RF tramadol 50 mg tablet 50 mg PO Q8H PRN (Reason: pain) Qty: 6 0RF oxycodone 5 mg tablet 5 mg PO Q4H PRN (Reason: pain) Qty: 14 0RF Rx Instructions: Patient may request partial fill; Partial Fill upon patient request. amoxicillin 875 mg tablet 875 mg PO BID 7 Days Qty: 14 0RF Referrals: Lesa Talbot NP [Primary Care Provider] - Interventions: ED Discharge Assessment Last Done: 05/25/22 17:25 Discharge Date/Time: 05/25/22 17:27 Print Language: Malay
[2022-05-25] MEDS: Ketorolac Tromethamine 15 MG/ML VIAL IM (17:21)
== END 2022-05-25 17:27 | disposition home or self-care (01) ==
PROVIDERS: Emergency Provider Internal Medicine; PCP Nurse Practitioner Family
DX: S22.42XA Multiple fractures of ribs, left side, initial encounter for closed fracture (principal); R06.02 Shortness of breath; X58.XXXA Exposure to other specified factors, initial encounter; Y93.9 Activity, unspecified; Y92.9 Unspecified place or not applicable; Y99.9 Unspecified external cause status; Z79.899 Other long term (current) drug therapy
CPT/HCPCS: 71101; 96372; 99283; 99284; J1885

== ENCOUNTER 2022-08-19 14:27 | Outpatient (REF) | payer MEDICARE, MEDICAID, SELFPAY ==
--- NOTE | ~2022-08-19 | XR_ITS ---
EXAMINATION: CHEST X-RAY AND LEFT RIB X-RAY CLINICAL INFORMATION: Left-sided chest wall pain COMPARISON: Previous chest and left rib x-ray May 2022 TECHNIQUE: 3 views of the left ribs and 2 views of the chest FINDINGS: There is a healing left anterior lateral seventh rib fracture. There is some focal pleural thickening or periosteal reaction adjacent to the anterior lateral left fifth rib. The cardiac and mediastinal contours are stable. The lungs are clear. There is no pleural effusion or pneumothorax. There are degenerative changes of the spine. There are postsurgical changes to the left shoulder. XR/XR ribs LT 2V IMPRESSION: Healing left anterior lateral seventh rib fracture.
--- NOTE | ~2022-08-19 | XR_ITS ---
EXAMINATION: CHEST X-RAY AND LEFT RIB X-RAY CLINICAL INFORMATION: Left-sided chest wall pain COMPARISON: Previous chest and left rib x-ray May 2022 TECHNIQUE: 3 views of the left ribs and 2 views of the chest FINDINGS: There is a healing left anterior lateral seventh rib fracture. There is some focal pleural thickening or periosteal reaction adjacent to the anterior lateral left fifth rib. The cardiac and mediastinal contours are stable. The lungs are clear. There is no pleural effusion or pneumothorax. There are degenerative changes of the spine. There are postsurgical changes to the left shoulder. XR/XR chest 2V IMPRESSION: Healing left anterior lateral seventh rib fracture.
== END 2022-08-19 14:28 | disposition home or self-care (01) ==
LOC: HO.XRAY 14:27
PROVIDERS: PCP Nurse Practitioner Family; Visit Provider Internal Medicine
DX: R07.89 Other chest pain (principal)
CPT/HCPCS: 71046; 71100

== ENCOUNTER 2022-10-24 12:50 | Emergency (ER) | payer MEDICARE, MEDICAID, SELFPAY ==
--- NOTE | ~2022-10-24 | CT_ITS ---
EXAMINATION: CT ABDOMEN AND PELVIS WITHOUT CONTRAST CLINICAL INFORMATION: Right flank pain. History of calculi. COMPARISON: Renal ultrasound 03/27/[address] 12/26/2018. TECHNIQUE: Multidetector volumetric imaging was performed from the superior aspect of the liver through the pubic symphysis. Sagittal and coronal reformatted images were obtained on the technologist's workstation. This CT examination was performed using dose optimization techniques as appropriate, variously including the following: *Automated exposure control *Adjustment of mA and/or kV according to patient size (this includes techniques or standardized protocols for targeted exams where dose is matched to indication/reason for exam; i.e. extremities or head) *Use of iterative reconstruction technique DLP: 596 mGy-cm FINDINGS: LUNG BASES: The visualized lung bases are unremarkable. LIVER, GALLBLADDER, AND BILIARY TREE: The liver is normal in size, shape, and attenuation. No focal hepatic lesion or biliary ductal dilatation is present. The gallbladder is contracted with no evidence of radiopaque gallstones, gallbladder wall thickening, or obvious pericholecystic inflammatory changes. PANCREAS: Unremarkable. SPLEEN: Unremarkable. ADRENAL GLANDS: Unremarkable. KIDNEYS AND URETERS: The kidneys are normal in size, shape, and attenuation. No hydronephrosis or hydroureter. Right lower pole 0.3 cm calculus is 13 cm from the posterior axillary line. Left upper pole 0.4 cm calculus is 10 cm from the posterior axillary line. BLADDER: Unremarkable. GASTROINTESTINAL TRACT: The stomach is unremarkable. Normal caliber small bowel. No obstruction. Normal appendix. No colonic wall thickening or inflammation. No free air or free fluid. ABDOMINAL WALL: No significant hernia is appreciated. LYMPH NODES: Normal. VASCULAR: Normal caliber aorta with mild atherosclerotic calcifications. Circumaortic left renal vein. PELVIC VISCERA: The uterus and adnexa are unremarkable. OSSEOUS STRUCTURES: No acute or suspicious osseous abnormality. Degenerative changes throughout the spine. Vacuum disc phenomenon at L5-S1. Degenerative changes along the sacroiliac joints. CT/CT abdomen pelvis wo IV con IMPRESSION: No acute findings in the abdomen or pelvis. No hydronephrosis. Nonobstructing bilateral renal calculi. Fleischner guidelines were followed.
--- NOTE | ~2022-10-24 | CT_ITS ---
EXAMINATION: CT ABDOMEN AND PELVIS WITH CONTRAST CLINICAL INFORMATION: Possible acute abdomen. COMPARISON: 10/24/2022 TECHNIQUE: Multidetector volumetric images were obtained from the superior aspect of the liver through the pubic symphysis following administration 85 mL of Omnipaque 350 intravenous contrast. Sagittal and coronal reformatted images were obtained on the technologist's workstation. Oral contrast: No This CT examination was performed using dose optimization techniques as appropriate, variously including the following: *Automated exposure control *Adjustment of mA and/or kV according to patient size (this includes techniques or standardized protocols for targeted exams where dose is matched to indication/reason for exam; i.e. extremities or head) *Use of iterative reconstruction technique DLP: 680 mGy-cm FINDINGS: LUNG BASES: The visualized lung bases are unremarkable. LIVER, GALLBLADDER, AND BILIARY TREE: The liver is normal in size, shape, and attenuation. No focal hepatic lesion or biliary ductal dilatation is present. The gallbladder is unremarkable with no evidence of radiopaque gallstones, gallbladder wall thickening, or obvious pericholecystic inflammatory changes. PANCREAS: Unremarkable. SPLEEN: Unremarkable. ADRENAL GLANDS: Unremarkable. KIDNEYS AND URETERS: The kidneys are normal in size, shape, and attenuation. No hydronephrosis or hydroureter. Right lower pole 0.3 cm calculus is 12 cm from the posterior axillary line. Left upper pole 0.4 cm calculus is 8 cm from the posterior axillary line. BLADDER: Unremarkable. GASTROINTESTINAL TRACT: The stomach is unremarkable. Normal caliber of the small bowel. No obstruction. No colonic wall thickening or inflammation. Normal appendix. No free air. No free fluid. ABDOMINAL WALL: No significant hernia is appreciated. LYMPH NODES: Normal. VASCULAR: Normal caliber aorta with mild atherosclerotic calcification. Circumaortic left renal vein. PELVIC VISCERA: The uterus and adnexa are unremarkable. OSSEOUS STRUCTURES: No acute or suspicious osseous abnormality. Degenerative change throughout the spine. Vacuum disc phenomenon at the lumbar spine. Diffuse disc space loss and facet arthropathy. CT/CT abdomen pelvis w IV con IMPRESSION: 1. No acute findings in the abdomen or pelvis. No inflammatory changes. No free air. 2. Nonobstructing bilateral renal calculi. Fleischner guidelines were followed.
--- NOTE | 2022-10-24 12:57 | ED_ITS ---
HPI - Abdominal Pain General Chief Complaint: Urogenital-Female <Lana Torres CNP - Last Filed: 10/24/22 13:02> Stated Complaint: R flank pain/Kidney stone? <Lana Torres CNP - Last Filed: 10/24/22 13:02> Time Seen by Provider: 10/24/22 14:22 <Lana Torres CNP - Last Filed: 10/24/22 13:02> Source: patient <PAZ Moreno - Last Filed: 10/24/22 19:18> Mode of arrival: ambulatory <PAZ Moreno - Last Filed: 10/24/22 19:18> Limitations: no limitations <PAZ Moreno - Last Filed: 10/24/22 19:18> History of Present Illness HPI narrative: Patient is a 62 year old assigned female at with a history of kidney stones presenting to the emergency department today with right sided flank pain. Patient states that before COVID she was following with Dr. Carlin the urologist and was told then she needed stent to help pass some kidney stones but she did not follow through with it. Patient states that starting last night she began to have right flank pain, nausea, and blood in her urine. Patient denies any dizziness, lightheadedness, vomiting, fever, chills, blurry vision, double vision, loss of vision, chest pain, difficulty breathing, shortness of breath, back pain, night sweats, pain with urination, increased urinary frequency, increased urinary urgency, blood in her stool, syncope or a near syncopal episode, recent trauma or falls, bowel incontinence, bladder incontinence, bowel retention, bladder retention, or any other complaints at this time. <PAZ Moreno - Last Filed: 10/24/22 19:18> MD elicited complaint: flank pain <PAZ Moreno - Last Filed: 10/24/22 19:18> Pertinent past history: kidney stones <PAZ Moreno - Last Filed: 10/24/22 19:18> Onset (ago): day(s) (1) <PAZ Moreno Last Filed: 10/24/22 19:18> Pain Consistency: constant <PAZ Moreno - Last Filed: 10/24/22 19:18> Location: R flank <PAZ Moreno - Last Filed: 10/24/22 19:18> Severity: moderate <PAZ Moreno - Last Filed: 10/24/22 19:18> Pain scale (0-10): 5 <PAZ Moreno - Last Filed: 10/24/22 19:18> Quality: stabbing <PAZ Moreno - Last Filed: 10/24/22 19:18> Exacerbating factors: nothing <PAZ Moreno - Last Filed: 10/24/22 19:18> Relieving factors: nothing <PAZ Moreno - Last Filed: 10/24/22 19:18> Associated symptoms: nausea and hematuria <PAZ Moreno - Last Filed: 10/24/22 19:18> Related Data Home Medications: Home Medications Medication Instructions Recorded Confirmed dulaglutide 0.75 mg/0.5 mL 0.75 mg subcut QWEEK 10/16/20 10/18/20 subcutaneous pen injector gabapentin 300 mg capsule 300 mg PO TID 10/16/20 10/18/20 ibuprofen 800 mg tablet 800 mg PO TID 10/16/20 10/18/20 lisinopril 10 mg tablet 10 mg PO DAILY 10/16/20 10/18/20 meclizine 12.5 mg tablet 12.5 mg PO BID PRN nausea 10/16/20 10/18/20 tramadol 50 mg tablet 50 mg PO BID PRN Pain 10/16/20 10/18/20 zolpidem 5 mg tablet 5 mg PO BEDTIME 10/16/20 10/18/20 metformin 500 mg tablet 500 mg PO BID 10/18/20 10/18/20 Previous Rx's Medication Instructions Recorded allopurinol 100 mg tablet 100 mg PO DAILY 90 days #90 tabs 01/22/21 pyridoxine (vitamin B6) 50 mg 50 mg PO DAILY 90 days #90 tabs 03/01/21 tablet cyclobenzaprine 10 mg tablet 10 mg PO TID PRN muscle spasm #10 04/09/21 tabs ibuprofen 600 mg tablet 600 mg PO Q8H PRN pain #14 tabs 04/09/21 lidocaine 5 % topical patch 1 patch topical DAILY #15 ea 04/09/21 (Lidoderm) tramadol 50 mg tablet 50 mg PO Q8H PRN pain #6 tabs 04/09/21 amoxicillin 875 mg tablet 875 mg PO BID 7 days #14 tabs 11/08/21 oxycodone 5 mg tablet 5 mg PO Q4H PRN pain #14 tabs 05/06/22 oxycodone 5 mg tablet 5 mg PO Q4H PRN pain #14 tabs 05/25/22 <Lana Torres CNP - Last Filed: 10/24/22 13:02> Allergies/Adverse Reactions: Allergies Allergy/AdvReac Type Severity Reaction Status Date / Time duloxetine [From Cymbalta] Allergy Intermediate Itching Verified 10/24/22 13:02 pollen extracts [POLLEN] Allergy Mild SINUS Verified 10/24/22 13:02 PROBLEMS <Lana Torres CNP - Last Filed: 10/24/22 13:02> Review of Systems Constitutional: Reports no additional constitutional complaints, Denies chills, Denies fever(s) and Denies night sweats <PAZ Moreno - Last Filed: 10/24/22 19:18> Eyes: Reports no additional eye complaints, Denies blurry vision, Denies change in vision, Denies diplopia, Denies eye discharge, Denies loss of vision and Denies eye pain <PAZ Moreno - Last Filed: 10/24/22 19:18> Denies dizziness <PAZ Moreno - Last Filed: 10/24/22 19:18> Cardiovascular: Reports no additional cardiovascular complaints, Denies chest pain, Denies lightheadedness, Denies Loss of Consciousness and Denies dyspnea <PAZ Moreno - Last Filed: 10/24/22 19:18> Respiratory: Reports no additional respiratory complaints and Denies dyspnea <PAZ Moreno - Last Filed: 10/24/22 19:18> Gastrointestinal: Reports no additional gastrointestinal complaints, Denies abdominal pain, Denies melena, Denies hematochezia, Denies change in bowel habits, Denies change in stool character and Reports nausea <PAZ Moreno - Last Filed: 10/24/22 19:18> Genitourinary: Reports hematuria, Denies urinary frequency, Denies dysuria, Reports flank pain (right), Denies urinary incontinence, Denies urinary hesitancy and Denies urinary urgency <PAZ Moreno - Last Filed: 10/24/22 19:18> Musculoskeletal: Reports no additional musculoskeletal complaints, Denies numbness and Denies tingling <PAZ Moreno - Last Filed: 10/24/22 19:18> Denies dizziness, Denies loss of vision, Denies numbness and Denies tingling <PAZ Moreno - Last Filed: 10/24/22 19:18> Psychiatric: Reports no additional psychiatric complaints <PAZ Moreno - Last Filed: 10/24/22 19:18> Endocrine: Reports no additional endocrine complaints <PAZ Moreno - Last Filed: 10/24/22 19:18> Hematologic/Lymphatic: Reports no additional hematologic/lymphatic complaints <PAZ Moreno - Last Filed: 10/24/22 19:18> Allergic/Immunologic: Reports no additional allergic/immunologic complaints <PAZ Moreno - Last Filed: 10/24/22 19:18> [facility] Past Medical History Attestation statement: The following information was validated with the patient. <PAZ Moreno - Last Filed: 10/24/22 19:18> Source: old records reviewed and nursing notes reviewed <PAZ Moreno - Last Filed: 10/24/22 19:18> Medical History: Medical History Arthritis Asthma Bilateral nephrolithiasis Constipation Diabetes History of postoperative nausea and vomiting HTN (hypertension) Lab test negative for COVID-19 virus Renal calculi <Lana Torres CNP - Last Filed: 10/24/22 13:02> Surgical History: Surgical History H/O colonoscopy Hx of cystoscopy Hx of hand surgery Hx of lithotripsy <Lana Torres CNP - Last Filed: 10/24/22 13:02> Social History Social History: Social History Are you a primary rn acute care to a significant other at home: No Do you presently have visiting nurse or other home services: No Smoked in Last 30 Days: No Use of substances other than those prescribed or required for medical reasons: No Any prior treatment program specific to substance use: No Advance Directives: Yes Advance Directives Information Provided: Yes Advance Directives on File: No Patient : No <Lana Torres CNP - Last Filed: 10/24/22 13:02> Physical Exam ED Vital Signs: Vital Signs - 24 hr 10/24/22 12:59 10/24/22 16:34 Temperature 97.8 F 98.9 F Pulse Rate 91 70 Respiratory Rate 18 16 Blood Pressure 137/71 109/62 Pulse Oximetry 97 96 Oxygen Delivery Method Room Air Room Air BMI result Body Mass Index 34.0 <Lana Torres CNP - Last Filed: 10/24/22 13:02> Vital Signs - 24 hr 10/24/22 12:59 10/24/22 16:34 Temperature 97.8 F 98.9 F Pulse Rate 91 70 Respiratory Rate 18 16 Blood Pressure 137/71 109/62 Pulse Oximetry 97 96 Oxygen Delivery Method Room Air Room Air BMI result Body Mass Index 34.0 <PAZ Moreno - Last Filed: 10/24/22 19:18> Const General: cooperative, no acute distress, alert and awake <PAZ Moreno - Last Filed: 10/24/22 19:18> Nutritional Appearance: well nourished <PAZ Moreno - Last Filed: 10/24/22 19:18> Orientation/consciousness: patient oriented x3 <PAZ Mroeno - Last Filed: 10/24/22 19:18> Limitations: no limitations <PAZ Moreno - Last Filed: 10/24/22 19:18> HENMT Head: Yes normal to inspection and Yes atraumatic <PAZ Moreno - Last Filed: 10/24/22 19:18> Ears: hearing grossly normal bilaterally and external ears normal <PAZ Teresa - Last Filed: 10/24/22 19:18> General nose exam: Normal external nose present, no nasal discharge noted and no epistaxis < PAZ Moreno - Last Filed: 10/24/22 19:18> Face and sinus: Yes normal facial exam, No abrasion and No laceration <Julieth Martinez MA - Last Filed: 10/24/22 19:18> Mouth: Normal oral and palatal mucosa present, no drooling and no muffled voice <Julieth Martinez MA - Last Filed: 10/24/22 19:18> Eyes General: appearance normal, both eyes and all related structures <Julieth Martinez MA - Last Filed: 10/24/22 19:18> Periorbital: periorbital findings normal <Julieth Martinez MA - Last Filed: 10/24/22 19:18> Eyelids: Yes eyelids normal <Julieth Martinez MA - Last Filed: 10/24/22 19:18> Conjunctivae: conjunctivae normal <Julieth Martinez MA - Last Filed: 10/24/22 19:18> Pupils: Equal, round and reactive pupils present <Julieth Martinez MA - Last Filed: 10/24/22 19:18> EOM: EOMs intact bilaterally <Julieth Martinez MA - Last Filed: 10/24/22 19:18> Neck Neck: Yes normal visual inspection, Yes full ROM and Yes no lymphadenopathy <Julieth Martinez MA - Last Filed: 10/24/22 19:18> Chest Chest palpation & inspection: normal inspection of the chest <Julieth Martinez MA - Last Filed: 10/24/22 19:18> Resp Effort & Inspection: normal respiratory effort and able to speak in complete sentences <Julieth Martinez MA - Last Filed: 10/24/22 19:18> Auscultation: clear to auscultation bilaterally <Julieth Martinez MA - Last Filed: 10/24/22 19:18> Cardio Rate: regular rate <Julieth Martinez MA - Last Filed: 10/24/22 19:18> Rhythm: regular rhythm <Julieth Martinez MA - Last Filed: 10/24/22 19:18> GI Inspection: Yes normal to inspection <Julieth Martinez MA - Last Filed: 10/24/22 19:18> Palpation (GI): Soft to palpation, not firm, nontender, no guarding and not rigid <Julieth Martinez MA - Last Filed: 10/24/22 19:18> General: Yes no CVA tenderness <Julieth Mclaughlinmel PA - Last Filed: 10/24/22 19:18> Back/Spine/Pelvis Back: no CVA tenderness <Julieth Mclaughlinmel PA - Last Filed: 10/24/22 19:18> Neuro General: patient oriented x3 and moves all extremities <Julieth Mclaughlinmel PA - Last Filed: 10/24/22 19:18> Cranial nerves: Yes Equal, round and reactive pupils present <Julieth Mclaughlinmel PA - Last Filed: 10/24/22 19:18> Cognition (Neuro): normal cognition <Julieth Mclaughlinmel PA - Last Filed: 10/24/22 19:18> Motor exam (neuro): 5/5 motor strength present throughout <Julieth Mclaughlinmel PA - Last Filed: 10/24/22 19:18> Sensory Exam: Normal double simultaneous stimulation for sensation <Juliethtelly Mclaughlinmel PA - Last Filed: 10/24/22 19:18> Coordination: [id number] test normal <Julieth Martinez PA - Last Filed: 10/24/22 19:18> Extrem General: Yes normal to inspection, Yes full ROM and Yes capillary refill normal <Julieth Michelle PA - Last Filed: 10/24/22 19:18> Psych Appearance: grossly normal <Juliethtelly Mclaughlinmel PA - Last Filed: 10/24/22 19:18> Mental Status: mental status grossly normal <Juliethtelly MclaughlinPAZ leal - Last Filed: 10/24/22 19:18> Affect: normal affect <PAZ Moreno - Last Filed: 10/24/22 19:18> Attitude: cooperative <Julieth Martinez PA - Last Filed: 10/24/22 19:18> Thought process: Normal thought process present <PAZ Moreno - Last Filed: 10/24/22 19:18> Thought content: Normal thought content present <PAZ Moreno - Last Filed: 19:18> Insight: Good insight present (Psych) <PAZ Moreno - Last Filed: 10/24/22 19:18> Course Course Course Narrative: This is an RME: Additional HPI, ROS, PE not included below will be deferred to primary provider. Patient is a 62-year-old female who presents to the emergency department for evaluation of right flank pain with reported history of nephrolithiasis. She states she has been seen in the past by urology at [facility], Dr. Carlin. Pain began last night, feels consistent with prior episodes, has associated hematuria, dysuria, nausea. Denies fevers, chills. Plan: labs, U/A, CT abdomen and pelvis <Lana Torres CNP - Last Filed: 10/24/22 13:02> Medical Decision Making Medical Decision Making [facility] Narrative: Patient is a 62 year old assigned female at with a history of kidney stones presenting to the emergency department today with right sided flank pain. Patient's physical exam showed an individual with right flank pain who was obviously uncomfortable. Patient's blood work showed a mildly elevated WBC count however, this is likely attributed to a stress reaction rather than an acute infectious pathology. Patient's clinical presentation is not consistent with sepsis (@1430). Patient's urine showed no acute process. Patient's abdominal / pelvic CT without contrast showed no acute process. Patient's abdominal / pelvic CT with IV contrast also showed no acute process. Patient was given IV Dilaudid and Toradol which helped her pain significantly. I explained my physical exam findings as well as all test results to the patient. I answered all questions asked by the patient. I stressed the importance of the patient taking her medication as prescribed. I stressed the importance of the patient following up with her primary care provider and her urologist. I stressed the importance of the patient returning to the emergency department immediately if her symptoms were to worsen or if she were to develop any dizziness, shortness of breath, difficulty breathing, chest pain, blurry vision, loss of vision, nausea, vomiting, abdominal pain, fever, chills, back pain, or any other complaints. Patient verbalized agreement and understanding with this treatment plan and discharge. <PAZ Moreno - Last Filed: 10/24/22 19:18> Differential Diagnosis Differential Diagnoses: The differential diagnosis associated with the presentation includes <PAZ Moreno - Last Filed: 10/24/22 19:18> flank pain, recently passed kidney stone <PAZ Moreno - Last Filed: 10/24/22 19:18> Lab Data [facility] Lab Attestation statement: I reviewed the patient's lab results. <PAZ Moreno - Last Filed: 10/24/22 19:18> Result Diagrams: 10/24/22 14:07 10/24/22 14:07 <Lana Torres CNP - Last Filed: 10/24/22 13:02> Labs: Lab Results 10/24/22 10/24/22 10/24/22 Range/Units 14:07 14:07 14:14 WBC 15.3 H (4.8-10.8) X10*3/uL RBC 4.48 (4.20-5.50) X10*6/uL Hgb 14.0 (12.0-16.0) g/dl Hct 42.1 (37.0-47.0) % MCV 94.0 (80.0-98.0) fL MCH 31.3 (27.0-33.0) pg MCHC 33.3 (31.0-35.0) g/dl RDW 12.4 (11.0-16.0) % Plt Count 432 H (160-400) X10*3/uL MPV 9.5 (9.4-12.3) fL Immature Gran % (Auto) 0.6 H (0.0-0.4) % Neut % (Auto) 65.1 (45-73) % Lymph % (Auto) 25.2 (20-40) % [place] % (Auto) 7.4 (2-11) % Eos % (Auto) 0.8 (0-4) % Baso % (Auto) 0.9 (0-2) % Lymph # (Auto) 3.9 (1.2-4.9) X10*3/uL [place] # (Auto) 1.1 (0.1-1.2) X10*3/uL Eos # (Auto) 0.1 (0.0-0.4) X10*3/uL Baso # (Auto) 0.1 (0.0-0.2) X10*3/uL Abs Immat Gran (auto) 0.09 H (0.00-0.03) X10*3/uL Absolute Neuts (auto) 9.9 H (2.0-8.3) x10*3/uL Absolute Nucleated RBC 0.000 (0.0-0.012) X10*3/uL Nucleated RBC % (auto) 0.0 (0.0-0.2) /100WBC Sodium 139 (135-145) mmol/L Potassium 4.8 (3.3-5.1) mmol/L Chloride 105 (96-108) mmol/L Carbon Dioxide 26 (22-29) mmol/L Anion Gap 13 (12-20) BUN 25 H (9-16) mg/dL Creatinine 0.85 (0.5-1.4) mg/dL Estim Creat Clear Calc 68.1 Estimated GFR > 60 Random Glucose 208 H (60-115) mg/dL Calcium 9.5 (8.4-10.2) mg/dL Total Bilirubin 0.5 (0.0-1.0) mg/dL AST 32 H (5-31) U/L ALT 63 H (0-31) U/L Alkaline Phosphatase 100 (39-117) U/L Total Protein 6.5 (6.5-8.0) g/dL Albumin 4.0 (3.5-5.0) g/dL Urine Color Yellow Urine Appearance Clear Urine pH 6.0 (5.0-9.0) Ur Specific [place] >= 1.030 H (1.005-1.025) Urine Protein Trace (Neg-Trace) mg/dL Urine Glucose (UA) 100 H (Negative) mg/dL Urine Ketones Trace (Negative) mg/dL Urine Blood Negative (Negative) Urine Nitrite Negative (Negative) Ur Leukocyte Esterase Negative (Negative) <Lana Torres CNP - Last Filed: 10/24/22 13:02> Lab Results 10/24/22 10/24/22 10/24/22 Range/Units 14:07 14:07 14:14 WBC 15.3 H (4.8-10.8) X10*3/uL RBC 4.48 (4.20-5.50) X10*6/uL Hgb 14.0 (12.0-16.0) g/dl Hct 42.1 (37.0-47.0) % MCV 94.0 (80.0-98.0) fL MCH 31.3 (27.0-33.0) pg MCHC 33.3 (31.0-35.0) g/dl RDW 12.4 (11.0-16.0) % Plt Count 432 H (160-400) X10*3/uL MPV 9.5 (9.4-12.3) fL Immature Gran % (Auto) 0.6 H (0.0-0.4) % Neut % (Auto) 65.1 (45-73) % Lymph % (Auto) 25.2 (20-40) % [place] % (Auto) 7.4 (2-11) % Eos % (Auto) 0.8 (0-4) % Baso % (Auto) 0.9 (0-2) % Lymph # (Auto) 3.9 (1.2-4.9) X10*3/uL [place] # (Auto) 1.1 (0.1-1.2) X10*3/uL Eos # (Auto) 0.1 (0.0-0.4) X10*3/uL Baso # (Auto) 0.1 (0.0-0.2) X10*3/uL Abs Immat Gran (auto) 0.09 H (0.00-0.03) X10*3/uL Absolute Neuts (auto) 9.9 H (2.0-8.3) x10*3/uL Absolute Nucleated RBC 0.000 (0.0-0.012) X10*3/uL Nucleated RBC % (auto) 0.0 (0.0-0.2) /100WBC Sodium 139 (135-145) mmol/L Potassium 4.8 (3.3-5.1) mmol/L Chloride 105 (96-108) mmol/L Carbon Dioxide 26 (22-29) mmol/L Anion Gap 13 (12-20) BUN 25 H (9-16) mg/dL Creatinine 0.85 (0.5-1.4) mg/dL Estim Creat Clear Calc 68.1 Estimated GFR > 60 Random Glucose 208 H (60-115) mg/dL Calcium 9.5 (8.4-10.2) mg/dL Total Bilirubin 0.5 (0.0-1.0) mg/dL AST 32 H (5-31) U/L ALT 63 H (0-31) U/L Alkaline Phosphatase 100 (39-117) U/L Total Protein 6.5 (6.5-8.0) g/dL Albumin 4.0 (3.5-5.0) g/dL Urine Color Yellow Urine Appearance Clear Urine pH 6.0 (5.0-9.0) Ur Specific [place] >= 1.030 H (1.005-1.025) Urine Protein Trace (Neg-Trace) mg/dL Urine Glucose (UA) 100 H (Negative) mg/dL Urine Ketones Trace (Negative) mg/dL Urine Blood Negative (Negative) Urine Nitrite Negative (Negative) Ur Leukocyte Esterase Negative (Negative) <PAZ Moreno - Last Filed: 10/24/22 19:18> Independent Interpretation I performed an independent interpretation of an: CT Scan <PAZ Moreno - Last Filed: 10/24/22 19:18> Interpretation: My interpretation is in agreement with the radiologist's impression of these imaging studies. EXAMINATION: CT ABDOMEN AND PELVIS WITHOUT CONTRAST? CLINICAL INFORMATION: Right flank pain. History of calculi.? COMPARISON: Renal ultrasound 03/27/[address] 12/26/2018.? TECHNIQUE: Multidetector volumetric imaging was performed from the superior aspect of the liver through the pubic symphysis. Sagittal and coronal reformatted images were obtained on the technologist's workstation.? This CT examination was performed using dose optimization techniques as appropriate, variously including the following: *Automated exposure control *Adjustment of mA and/or kV according to patient size (this includes techniques or standardized protocols for targeted exams where dose is matched to indication/reason for exam; i.e. extremities or head) *Use of iterative reconstruction technique DLP: 596 mGy-cm FINDINGS: LUNG BASES: The visualized lung bases are unremarkable.? LIVER, GALLBLADDER, AND BILIARY TREE: The liver is normal in size, shape, and attenuation. No focal hepatic lesion or biliary ductal dilatation is present. The gallbladder is contracted with no evidence of radiopaque gallstones, gallbladder wall thickening, or obvious pericholecystic inflammatory changes.? PANCREAS: Unremarkable.? SPLEEN: Unremarkable.? ADRENAL GLANDS: Unremarkable.? KIDNEYS AND URETERS: The kidneys are normal in size, shape, and attenuation. No hydronephrosis or hydroureter. Right lower pole 0.3 cm calculus is 13 cm from the posterior axillary line. Left upper pole 0.4 cm calculus is 10 cm from the posterior axillary line. BLADDER: Unremarkable.? GASTROINTESTINAL TRACT: The stomach is unremarkable. Normal caliber small bowel. No obstruction. Normal appendix. No colonic wall thickening or inflammation. No free air or free fluid.? ABDOMINAL WALL: No significant hernia is appreciated.? LYMPH NODES: Normal. VASCULAR: Normal caliber aorta with mild atherosclerotic calcifications. Circumaortic left renal vein. PELVIC VISCERA: The uterus and adnexa are unremarkable.? OSSEOUS STRUCTURES: No acute or suspicious osseous abnormality. Degenerative changes throughout the spine. Vacuum disc phenomenon at L5-S1. Degenerative changes along the sacroiliac joints.? CT/CT abdomen pelvis wo IV con IMPRESSION: No acute findings in the abdomen or pelvis. No hydronephrosis. Nonobstructing bilateral renal calculi. ? Fleischner guidelines were followed. Dictated By: Wilmer Mayer MD Signed By: Electronically signed by Wilmer Mayer MD 10/24/22 7217 EXAMINATION: CT ABDOMEN AND PELVIS WITH CONTRAST? CLINICAL INFORMATION: Possible acute abdomen.? COMPARISON: 10/24/2022? TECHNIQUE: Multidetector volumetric images were obtained from the superior aspect of the liver through the pubic symphysis following administration 85 mL of Omnipaque 350 intravenous contrast. Sagittal and coronal reformatted images were obtained on the technologist's workstation.? Oral contrast: No This CT examination was performed using dose optimization techniques as appropriate, variously including the following: *Automated exposure control *Adjustment of mA and/or kV according to patient size (this includes techniques or standardized protocols for targeted exams where dose is matched to indication/reason for exam; i.e. extremities or head) *Use of iterative reconstruction technique DLP: 680 mGy-cm FINDINGS: LUNG BASES: The visualized lung bases are unremarkable.? LIVER, GALLBLADDER, AND BILIARY TREE: The liver is normal in size, shape, and attenuation. No focal hepatic lesion or biliary ductal dilatation is present. The gallbladder is unremarkable with no evidence of radiopaque gallstones, gallbladder wall thickening, or obvious pericholecystic inflammatory changes.? PANCREAS: Unremarkable.? SPLEEN: Unremarkable.? ADRENAL GLANDS: Unremarkable.? KIDNEYS AND URETERS: The kidneys are normal in size, shape, and attenuation. No hydronephrosis or hydroureter. Right lower pole 0.3 cm calculus is 12 cm from the posterior axillary line. Left upper pole 0.4 cm calculus is 8 cm from the posterior axillary line. BLADDER: Unremarkable.? GASTROINTESTINAL TRACT: The stomach is unremarkable. Normal caliber of the small bowel. No obstruction. No colonic wall thickening or inflammation. Normal appendix. No free air. No free fluid.? ABDOMINAL WALL: No significant hernia is appreciated.? LYMPH NODES: Normal. VASCULAR: Normal caliber aorta with mild atherosclerotic calcification. Circumaortic left renal vein. PELVIC VISCERA: The uterus and adnexa are unremarkable.? OSSEOUS STRUCTURES: No acute or suspicious osseous abnormality. Degenerative change throughout the spine. Vacuum disc phenomenon at the lumbar spine. Diffuse disc space loss and facet arthropathy.? CT/CT abdomen pelvis w IV con IMPRESSION: 1.? No acute findings in the abdomen or pelvis. No inflammatory changes. No free air. 2.? Nonobstructing bilateral renal calculi. ? Fleischner guidelines were followed. Dictated By: Wilmer Mayer MD Signed By: Electronically signed by Wilmer Mayer MD 10/24/22 1607 <PAZ Moreno - Last Filed: 10/24/22 19:18> Medications Administered Discontinued Medications Generic Name Dose Route Start Last Admin Trade Name Freq PRN Reason Stop Dose Admin Hydromorphone HCl 1 mg 10/24/22 14:48 10/24/22 14:56 Hydromorphone Hcl 1 Mg/Ml Syringe IVPUSH 10/24/22 14:49 1 mg ONCE ONE Administration Protocol Iohexol 100 ml 10/24/22 15:19 10/24/22 15:20 Iohexol 350 Mg/Ml 100 Ml Infus..Btl IV 10/24/22 15:20 85 ml ONCE ONE Administration Ketorolac Tromethamine 15 mg 10/24/22 16:23 10/24/22 16:27 Ketorolac Tromethamine 15 Mg/Ml Vial IVPUSH 10/24/22 16:24 15 mg ONCE ONE Administration Ondansetron HCl 4 mg 10/24/22 14:48 10/24/22 14:56 Ondansetron Hcl 4 Mg/2 Ml Vial IVPUSH 10/24/22 14:49 4 mg ONCE ONE Administration <Lana Torres CNP - Last Filed: 10/24/22 13:02> Medications Administered Discontinued Medications Generic Name Dose Route Start Last Admin Trade Name Freq PRN Reason Stop Dose Admin Hydromorphone HCl 1 mg 10/24/22 14:48 10/24/22 14:56 Hydromorphone Hcl 1 Mg/Ml Syringe IVPUSH 10/24/22 14:49 1 mg ONCE ONE Administration Protocol Iohexol 100 ml 10/24/22 15:19 10/24/22 15:20 Iohexol 350 Mg/Ml 100 Ml Infus..Btl IV 10/24/22 15:20 85 ml ONCE ONE Administration Ketorolac Tromethamine 15 mg 10/24/22 16:23 10/24/22 16:27 Ketorolac Tromethamine 15 Mg/Ml Vial IVPUSH 10/24/22 16:24 15 mg ONCE ONE Administration Ondansetron HCl 4 mg 10/24/22 14:48 10/24/22 14:56 Ondansetron Hcl 4 Mg/2 Ml Vial IVPUSH 10/24/22 14:49 4 mg ONCE ONE Administration <PAZ Moreno - Last Filed: 10/24/22 19:18> Discharge Plan Discharge Clinical Impression: Flank pain <Lana Torres CNP - Last Filed: 10/24/22 13:02> Patient Disposition: Home, Self-Care <Lana Torres CNP - Last Filed: 10/24/22 13:02> Instructions: Kidney Stones (ED) <Lana Torres CNP - Last Filed: 10/24/22 13:02> Additional Instructions: Follow up with your primary care provider and your urologist, Dr. Carlin. Return to the emergency department immediately if your symptoms worsen or if you develop any dizziness, shortness of breath, difficulty breathing, chest pain, blurry vision, loss of vision, nausea, vomiting, abdominal pain, fever, chills, back pain, or any other complaints. <Lana Torres CNP - Last Filed: 10/24/22 13:02> Prescriptions: No Action allopurinol 100 mg tablet 100 mg PO DAILY 90 Days Qty: 90 2RF pyridoxine (vitamin B6) 50 mg tablet 50 mg PO DAILY 90 Days Qty: 90 1RF metformin 500 mg tablet 500 mg PO BID cyclobenzaprine 10 mg tablet 10 mg PO TID PRN (Reason: muscle spasm) Qty: 10 0RF lidocaine [Lidoderm] 5 % adhesive patch,medicated 1 patch topical DAILY Qty: 15 0RF Rx Instructions: leave on most painful area for up to 12 hrs ibuprofen 600 mg tablet 600 mg PO Q8H PRN (Reason: pain) Qty: 14 0RF tramadol 50 mg tablet 50 mg PO Q8H PRN (Reason: pain) Qty: 6 0RF oxycodone 5 mg tablet 5 mg PO Q4H PRN (Reason: pain) Qty: 14 0RF Rx Instructions: Patient may request partial fill; Partial Fill upon patient request. amoxicillin 875 mg tablet 875 mg PO BID 7 Days Qty: 14 0RF oxycodone 5 mg tablet 5 mg PO Q4H PRN (Reason: pain) Qty: 14 0RF Rx Instructions: Partial Fill upon patient request. <Lana Torres CNP - Last Filed: 10/24/22 13:02> Referrals: [facility] [Provider Group] Lesa Talbot NP [Primary Care Provider] - <Lana Torres CNP - Last Filed: 10/24/22 13:02> Interventions: ED Discharge Assessment Last Done: 10/24/22 16:35 <Lana Torres CNP - Last Filed: 10/24/22 13:02> Discharge Date/Time: 10/24/22 16:35 <Lana Torres CNP - Last Filed: 10/24/22 13:02> Print Language: [place]an <Lana Torres CNP - Last Filed: 10/24/22 13:02>
[2022-10-24 12:59] VITALS: BP 137/71; PULSE 91; RESP 18; TEMP 36.6; O2SAT 97; BMI 34.0
[2022-10-24 14:09] LABS: MANUAL DIFF FLAG NO
[2022-10-24 14:12] LABS: Basophils Absolute Auto 0.1 X10*3/uL (0.0-0.2); Basophils Percent Auto 0.9 % (0-2); Eosinophils Absolute Auto 0.1 X10*3/uL (0.0-0.4); Eosinophils Percent Auto 0.8 % (0-4); Hematocrit 42.1 % (37.0-47.0); Imm Gran Abs Auto 0.09 X10*3/uL (0.00-0.03); Imm Gran Pct Auto 0.6 % (0.0-0.4); Lymphocytes Absolute Auto 3.9 X10*3/uL (1.2-4.9); Lymphocytes Percent Auto 25.2 % (20-40); Mean Corpuscular HGB Conc 33.3 g/dl (31.0-35.0); Mean Corpuscular Hemoglobin 31.3 pg (27.0-33.0); Mean Platelet Volume 9.5 fL (9.4-12.3); Monocytes Absolute Auto 1.1 X10*3/uL (0.1-1.2); Monocytes Percent Auto 7.4 % (2-11); Neutrophils Absolute Auto 9.9 x10*3/uL (2.0-8.3); Neutrophils Percent Auto 65.1 % (45-73); Platelet Count 432 X10*3/uL (160-400); Red Blood Count 4.48 X10*6/uL (4.20-5.50); Red Cell Distribution Width 12.4 % (11.0-16.0); White Blood Count 15.3 X10*3/uL (4.8-10.8)
[2022-10-24 14:25] LABS: Appearance Urine Clear; Color Urine Yellow; Glucose Urine UA 100 mg/dL (Negative); Leukocyte Esterase Urine Negative (Negative); Nitrite Urine Negative (Negative); Specific Gravity - Urine >= 1.030 (1.005-1.025); Urine Blood Negative (Negative); Urine Ketones Trace mg/dL (Negative); Urine Protein Trace mg/dL (Neg-Trace)
[2022-10-24 14:34] LABS: Alanine Aminotransferase 63 U/L (0-31); Alkaline Phosphatase 100 U/L (39-117); Anion Gap 13 (12-20); Aspartate Amino Transferase 32 U/L (5-31); Bilirubin Total 0.5 mg/dL (0.0-1.0); Blood Urea Nitrogen 25 mg/dL (9-16); Calcium 9.5 mg/dL (8.4-10.2); Carbon Dioxide 26 mmol/L (22-29); Chloride 105 mmol/L (96-108); Creatinine Clr Calc Pharmacy 68.1; Estimated Glomerular Filt Rate > 60; Glucose Random 208 mg/dL (60-115); Potassium 4.8 mmol/L (3.3-5.1); Sodium 139 mmol/L (135-145); Total Protein 6.5 g/dL (6.5-8.0)
[2022-10-24] MEDS: ondansetron HCL 4 MG/2 ML VIAL IVPUSH (14:56)
[2022-10-24] MEDS: HYDROmorphone HCl 1 MG/ML SYRINGE IVPUSH (14:56)
[2022-10-24] MEDS: iohexoL 350 MG/ML 100 ML INFUS..BTL IV (15:20)
[2022-10-24] MEDS: Ketorolac Tromethamine 15 MG/ML VIAL IVPUSH (16:27)
[2022-10-24 16:34] VITALS: BP 109/62; PULSE 70; RESP 16; TEMP 37.2; O2SAT 96
== END 2022-10-24 16:35 | disposition home or self-care (01) ==
PROVIDERS: Nurse Practitioner Family; Emergency Provider Emergency Medicine Emergency Medical Services; PCP Nurse Practitioner Family
DX: R10.9 Unspecified abdominal pain (principal); R10.31 Right lower quadrant pain; Z87.442 Personal history of urinary calculi; Z79.899 Other long term (current) drug therapy
CPT/HCPCS: 36415; 74176; 74177; 80053; 81003; 85025; 96374; 96375; 99284; J1170; J1885; J2405; Q9967

== ENCOUNTER 2022-11-10 18:07 | Emergency (ER) | payer MEDICARE, MEDICAID, SELFPAY ==
[2022-11-10 19:04] VITALS: BP 116/75; PULSE 114; RESP 20; TEMP 36.1; BMI 34.0
--- NOTE | 2022-11-10 19:04 | ED_ITS ---
HPI - Back Pain/Injury General Chief Complaint: Back Pain/Injury Stated Complaint: pinched nerve lower back Source: patient Mode of arrival: ambulatory Limitations: no limitations History of Present Illness HPI Narrative: This is a 62-year-old female presenting to the emergency department with complaints of a traumatic left-sided flank pain with radiation into the buttocks, patient tells me this feels like her typical back pain that she has an right-hand side however today having it on the left, worse with movement better rest. Denies numbness, tingling, weakness, saddle paresthesias, urine/bowel incontinence/retention, fevers, chills, nausea, vomiting, abdominal pain, urinary symptoms, constipation, chest pain, shortness of breath. No blunt trauma to the area. Related Data Home Medications Medication Instructions Recorded Confirmed dulaglutide 0.75 mg/0.5 mL 0.75 mg subcut QWEEK 10/16/20 10/18/20 subcutaneous pen injector gabapentin 300 mg capsule 300 mg PO TID 10/16/20 10/18/20 ibuprofen 800 mg tablet 800 mg PO TID 10/16/20 10/18/20 lisinopril 10 mg tablet 10 mg PO DAILY 10/16/20 10/18/20 meclizine 12.5 mg tablet 12.5 mg PO BID PRN nausea 10/16/20 10/18/20 tramadol 50 mg tablet 50 mg PO BID PRN Pain 10/16/20 10/18/20 zolpidem 5 mg tablet 5 mg PO BEDTIME 10/16/20 10/18/20 metformin 500 mg tablet 500 mg PO BID 10/18/20 10/18/20 Previous Rx's Medication Instructions Recorded allopurinol 100 mg tablet 100 mg PO DAILY 90 days #90 tabs 01/22/21 pyridoxine (vitamin B6) 50 mg 50 mg PO DAILY 90 days #90 tabs 03/01/21 tablet cyclobenzaprine 10 mg tablet 10 mg PO TID PRN muscle spasm #10 04/09/21 tabs ibuprofen 600 mg tablet 600 mg PO Q8H PRN pain #14 tabs 04/09/21 lidocaine 5 % topical patch 1 patch topical DAILY #15 ea 04/09/21 (Lidoderm) tramadol 50 mg tablet 50 mg PO Q8H PRN pain #6 tabs 04/09/21 amoxicillin 875 mg tablet 875 mg PO BID 7 days #14 tabs 11/08/21 oxycodone 5 mg tablet 5 mg PO Q4H PRN pain #14 tabs 05/06/22 oxycodone 5 mg tablet 5 mg PO Q4H PRN pain #14 tabs 05/25/22 cyclobenzaprine 10 mg tablet 10 mg PO BEDTIME PRN muscle spasm 11/10/22 #7 tabs ketorolac 10 mg tablet 10 mg PO TID PRN pain 5 days #15 11/10/22 tabs lidocaine 5 % topical patch 1 patch topical DAILY PRN pain #15 11/10/22 ea prednisone 20 mg tablet 40 mg PO DAILY 5 days #10 tabs 11/10/22 Allergies Allergy/AdvReac Type Severity Reaction Status Date / Time duloxetine [From Cymbalta] Allergy Intermediate Itching Verified 11/10/22 19:07 pollen extracts [POLLEN] Allergy Mild SINUS Verified 11/10/22 19:07 PROBLEMS Review of Systems Review of Systems: Constitutional : No Weight loss, No Fever, No Chills, ENT/Mouth : No Hearing loss, No Ear Pain, No Nasal Congestion, No Sinus Pain, No Hoarseness, No sore throat, No Rhinorrhea, No Swallowing Difficulty Cardiovascular : No Chest Pain, No SOB Respiratory : No Cough, No Dyspnea Gastrointestinal : No Nausea, No Vomiting, No Diarrhea, No abdominal Pain, No Hematochezia, No Melena Genitourinary : No Dysuria, No Urinary Frequency, No Hematuria, No Urinary Incontinence, Musculoskeletal : positive back pain Skin : No Skin Lesions, No rash Neuro : No Weakness, No Numbness, No Paresthesias, no loss of bowel or bladder incontinence, no saddle anesthesia Yes all other systems are reviewed and are negative [facility] Past Medical History Attestation statement: The following information was validated with the patient. Source: old records reviewed and nursing notes reviewed Medical History Arthritis Asthma Bilateral nephrolithiasis Constipation Diabetes History of postoperative nausea and vomiting HTN (hypertension) Lab test negative for COVID-19 virus Renal calculi Surgical History H/O colonoscopy Hx of cystoscopy Hx of hand surgery Hx of lithotripsy Social History Social History Are you a primary healthcare educator to a significant other at home: No Do you presently have visiting nurse or other home services: No Physical Exam Vital Signs: Vital Signs: vss Appearance: Alert.? Oriented X3.? No acute distress.? Patient appears uncomfortable Head: Normocephalic, atraumatic, no step-offs or deformities Eyes: Pupils equal, round and reactive to light.? CVS: Normal heart rate and rhythm.? Pulses normal.?(on my exam patient is not tachycardic heart rate 90.) Respiratory: No respiratory distress.? Breath sounds normal.? Abdomen: Soft and nontender.? Skin: Skin warm and dry.? Normal skin color.? Normal skin turgor.? Extremities: No lower extremity edema.? No calf ttp. 5/5 strength to bilateral upper and lower extremities Back: No midline tenderness, no C-spine tenderness, full range of motion, no CVA tenderness bilaterally + pain to L. lumbar paraspinous muscles with radiation into left buttocks. Positive straight leg raise on the left. Neuro: Oriented X 3.? No motor deficit.? No sensory deficit. CN 2-12 intact . Ambulating with steady gait with normal coordination. No saddle paresthesias. Course Reevaluation(s) Reevaluation #1: Patient given Toradol and Lidoderm patch. Will be discharged home with same. Educated patient on diagnosis and treatment plan, answered all question, patient verbalizes understanding. At this time patient will be discharged home, advised to return with new or worsening symptoms. Educated on worrisome signs and symptoms and when to return. At this time I feel comfortable discharge home. Time: 19:11 Medical Decision Making Medical Decision Making [facility] Narrative: 190 62-year-old female presents with left lumbar back pain with radiation to left lower extremity above the knee, has been going on for few days. No red flag symptoms. No urinary symptoms. Physical exam significant for pain to L. lumbar paraspinous muscles with radiation into left buttocks. No midline tenderness. No saddle paresthesias. Ambulatory with steady gait normal coordination. Normal reflexes to lower extremities. Likely lumbar radiculopathy versus sciatica versus herniated disc. No signs of epidural abscess or cauda equina. Unlikely compression fracture, dislocation, subluxations this injuries atraumatic. No urinary symptoms, unlikely UTI, cystitis or pyelonephritis. Tachycardia likely secondary to pain Plan at this time Toradol, Lidoderm patch. Pain is atraumatic therefore no need for imaging at this time. Patient states Toradol has worked in the past. Differential Diagnosis Differential Diagnoses: The differential diagnosis associated with the presentation includes Likely lumbar radiculopathy versus sciatica versus herniated disc. No signs of epidural abscess or cauda equina. Unlikely compression fracture, dislocation, subluxations this injuries atraumatic. No urinary symptoms, unlikely UTI, cystitis or pyelonephritis. Tachycardia likely secondary to pain Admission/Observation Consideration of admission/observation: Escalation of care including admission/observation considered Not indicated Tests considered The following testing was considered but not selected: Considered imaging of back however no red flag symptoms, neuro nonfocal, no trauma. No need for x-ray or MRI. Prescription Management I considered prescription management with: Pain Medication Core Measures AMI core measures followed: Yes Measure exclusions: not indicated Critical Care Time Critical Care Time Critical Care Time: No Discharge Plan Discharge Clinical Impression: Left lumbar radiculopathy Patient Disposition: Home, Self-Care Instructions: Acute Low Back Pain (ED), Back Pain (ED), Lower Back Exercises (ED), Lumbar Radiculopathy (ED) Additional Instructions: Take your medications as prescribed. If you were prescribed antibiotics today, it is important that you take your medication to their entirety, do not skip any doses, do not finish them early. Follow-up with your primary care provider this week. Return to the emergency department with new or worsening symptoms. Such as fevers, chills, chest pain, shortness of breath, nausea, vomiting, dizziness, headache, vision changes, lethargy In case of emergency call 911 Prescriptions: New cyclobenzaprine 10 mg tablet 10 mg PO BEDTIME PRN (Reason: muscle spasm) Qty: 7 0RF ketorolac 10 mg tablet 10 mg PO TID PRN (Reason: pain) 5 Days Qty: 15 0RF lidocaine 5 % adhesive patch,medicated 1 patch topical DAILY PRN (Reason: pain) Qty: 15 0RF Rx Instructions: leave on most painful area for up to 12 hrs prednisone 20 mg tablet 40 mg PO DAILY 5 Days Qty: 10 0RF No Action allopurinol 100 mg tablet 100 mg PO DAILY 90 Days Qty: 90 2RF pyridoxine (vitamin B6) 50 mg tablet 50 mg PO DAILY 90 Days Qty: 90 1RF metformin 500 mg tablet 500 mg PO BID cyclobenzaprine 10 mg tablet 10 mg PO TID PRN (Reason: muscle spasm) Qty: 10 0RF lidocaine [Lidoderm] 5 % adhesive patch,medicated 1 patch topical DAILY Qty: 15 0RF Rx Instructions: leave on most painful area for up to 12 hrs ibuprofen 600 mg tablet 600 mg PO Q8H PRN (Reason: pain) Qty: 14 0RF tramadol 50 mg tablet 50 mg PO Q8H PRN (Reason: pain) Qty: 6 0RF oxycodone 5 mg tablet 5 mg PO Q4H PRN (Reason: pain) Qty: 14 0RF Rx Instructions: Patient may request partial fill; Partial Fill upon patient request. amoxicillin 875 mg tablet 875 mg PO BID 7 Days Qty: 14 0RF oxycodone 5 mg tablet 5 mg PO Q4H PRN (Reason: pain) Qty: 14 0RF Rx Instructions: Partial Fill upon patient request. Referrals: [facility] [Provider Group] - 2 days Physician,Unknown J [Primary Care Provider] - 2 days Stand Alone Forms: Work/School Release
[2022-11-10] MEDS: Ketorolac Tromethamine 15 MG/ML VIAL 30 MG IM (19:32)
[2022-11-10] MEDS: Lidocaine 4 % Patch ADH..PATCH 1 PATCH TRANSDERMA (19:33)
== END 2022-11-10 20:03 | disposition home or self-care (01) ==
PROVIDERS: Emergency Provider Internal Medicine; PCP Nurse Practitioner Family
DX: M54.16 Radiculopathy, lumbar region (principal); R10.9 Unspecified abdominal pain
CPT/HCPCS: 96372; 99283; 99284; J1885

== ENCOUNTER → 2022-11-11 08:44 | Outpatient (BNVA) | payer MEDICARE, MEDICAID, SELFPAY | PROVIDERS: PCP Nurse Practitioner Family; Visit Provider Nurse Practitioner Family | DX: N20.0 Calculus of kidney (principal) | CPT/HCPCS: 99202 ==

== ENCOUNTER 2022-11-26 13:19 | Outpatient (REF) | payer MEDICARE, MEDICAID, SELFPAY ==
[2022-11-29 15:44] LABS: HCV RNA PCR Qn <1.18 NOT DETECTED Log IU/mL (NOT DETECTED); HCV RNA PCR Qn <15 NOT DETECTED IU/mL (NOT DETECTED)
== END 2022-11-26 13:20 | disposition home or self-care (01) ==
LOC: HO.LAB 13:19
PROVIDERS: PCP Nurse Practitioner Family; Visit Provider Nurse Practitioner Family
DX: R76.8 Other specified abnormal immunological findings in serum (principal)
CPT/HCPCS: 36415; 87522; 87902

== ENCOUNTER 2022-12-17 18:29 | Emergency (ER) | payer MEDICARE, MEDICAID, SELFPAY ==
[2022-12-17 19:11] VITALS: BP 149/91; PULSE 80; RESP 18; TEMP 36; O2SAT 98; BMI 34.0
--- NOTE | 2022-12-17 19:11 | ED.GENADULT ---
HPI - General Adult General Chief complaint: Nausea/Vomiting/Diarrhea <PAZ Damon Last Filed: 12/17/22 19:15> Stated complaint: dehydration/vomiting/dizziness/weakness <PAZ Damon Last Filed: 12/17/22 19:15> Time Seen by Provider: 12/17/22 21:26 <PAZ Damon Last Filed: 12/17/22 19:15> Source: patient <DO Marychuy Santos Last Filed: 12/17/22 22:02> Mode of arrival: ambulatory <DO Marychuy Santos Last Filed: 12/17/22 22:02> Limitations: no limitations <DO Marychuy Santos Last Filed: 12/17/22 22:02> History of Present Illness HPI narrative: 62 year old female presents to the ER with vomiting diarrhea and concerned she is dehydrated. Seen in triage labs drawn which look okay. She denies fever chills or abdomional pain. NO falls or injuries. She states this has gone on for three weeks. <DO Marychuy Santos Last Filed: 12/17/22 22:02> Onset (ago): week(s) <DO Marychuy Santos Last Filed: 12/17/22 22:02> Related Data Home medications: Home Medications Medication Instructions Recorded Confirmed dulaglutide 0.75 mg/0.5 mL 0.75 mg subcut QWEEK 10/16/20 10/18/20 subcutaneous pen injector gabapentin 300 mg capsule 300 mg PO TID 10/16/20 10/18/20 lisinopril 10 mg tablet 10 mg PO DAILY 10/16/20 10/18/20 meclizine 12.5 mg tablet 12.5 mg PO BID PRN nausea 10/16/20 10/18/20 tramadol 50 mg tablet 50 mg PO BID PRN Pain 10/16/20 10/18/20 metformin 500 mg tablet 500 mg PO BID 10/18/20 10/18/20 lorazepam 0.5 mg tablet 0.5 mg PO anxiety 11/11/22 simvastatin 40 mg tablet 40 mg PO BEDTIME 11/11/22 Previous Rx's Medication Instructions Recorded allopurinol 100 mg tablet 100 mg PO DAILY 90 days #90 tabs 01/22/21 pyridoxine (vitamin B6) 50 mg 50 mg PO DAILY 90 days #90 tabs 03/01/21 tablet cyclobenzaprine 10 mg tablet 10 mg PO TID PRN muscle spasm #10 04/09/21 tabs ibuprofen 600 mg tablet 600 mg PO Q8H PRN pain #14 tabs 04/09/21 oxycodone 5 mg tablet 5 mg PO Q4H PRN pain #14 tabs 05/25/22 ketorolac 10 mg tablet 10 mg PO TID PRN pain 5 days #15 11/10/22 tabs lidocaine 5 % topical patch 1 patch topical DAILY PRN pain #15 11/10/22 ea ondansetron 4 mg disintegrating 4 mg PO Q6H #14 tabs 12/17/22 tablet <PAZ Damon Last Filed: 12/17/22 19:15> Allergies/adverse reactions: Allergies Allergy/AdvReac Type Severity Reaction Status Date / Time duloxetine [From Cymbalta] Allergy Intermediate Itching Verified 11/11/22 09:37 pollen extracts [POLLEN] Allergy Mild SINUS Verified 11/11/22 09:37 PROBLEMS <PAZ Damon Last Filed: 12/17/22 19:15> Review of Systems Review of Systems: Review of systems: General: Patient denies any fever chills recent illness or falls Musculoskeletal: Denies back pain or body aches or other injuries HEENT: denies headache, runny nose, ear pain Respiratory: denies shortness of breath, cough Cardiovascular: no chest pain or palpitations : denies dysuria, frequency Abdomen: diarrhea nausea vomiting denies abdominal pain Extremities: no swelling, no pain Skin: no diaphoresis <Austen Guerrero DO - Last Filed: 12/17/22 22:02> Yes all other systems are reviewed and are negative <Austen Guerrero DO - Last Filed: 12/17/22 22:02> [facility] Past Medical History Medical History: Medical History Arthritis Asthma Bilateral nephrolithiasis Constipation Diabetes History of postoperative nausea and vomiting HTN (hypertension) Lab test negative for COVID-19 virus Renal calculi <PAZ Damon Last Filed: 12/17/22 19:15> Surgical History: Surgical History H/O colonoscopy Hx of cystoscopy Hx of hand surgery Hx of lithotripsy <PAZ Damon - Last Filed: 12/17/22 19:15> Social History Social History: Social History Are you a primary acute care physician to a significant other at home: No Do you presently have visiting nurse or other home services: No Advance Directives: No Advance Directives Information Provided: No <PAZ Damon - Last Filed: 12/17/22 19:15> Physical Exam ED Vital Signs: Vital Signs - 24 hr 12/17/22 19:11 12/17/22 21:30 12/17/22 21:57 Temperature 96.8 F 97.6 F 98.4 F Pulse Rate 80 77 72 Respiratory Rate 18 18 16 Blood Pressure 149/91 H 144/87 H 135/87 Pulse Oximetry 98 98 97 Oxygen Delivery Method Room Air Room Air Room Air BMI result Body Mass Index 34.0 <PAZ Damon - Last Filed: 12/17/22 19:15> Vital Signs - 24 hr 12/17/22 19:11 12/17/22 21:30 12/17/22 21:57 Temperature 96.8 F 97.6 F 98.4 F Pulse Rate 80 77 72 Respiratory Rate 18 18 16 Blood Pressure 149/91 H 144/87 H 135/87 Pulse Oximetry 98 98 97 Oxygen Delivery Method Room Air Room Air Room Air BMI result Body Mass Index 34.0 <Austen Guerrero DO - Last Filed: 12/17/22 22:02> General: Well-appearing well-nourished in no signs of distress HEENT: Normocephalic atraumatic Neck: No signs of JVD, no masses no tenderness or lymphadenopathy Cardiovascular: Regular rate and rhythm Respiratory: Clear to auscultation bilaterally Abdomen: Soft nontender no masses rectal exam performed guiac negative quality assurance tech confirmed. Extremities: Normal pedal pulses no signs of edema Skin: Dry warm no rashes Back: No tenderness full ROM <Austen Guerrero DO - Last Filed: 12/17/22 22:02> Course Course Course Narrative: This is an RME: Additional HPI, ROS, PE not included below will be deferred to primary provider. 62 year old F presents with diarrhea and vomiting that started 3 days ago. Patient reports she is unable to keep anything down. Patient reports she recently started ozempic and her symptoms started soon after. PE: global weakness Plan: labs <PAZ Damon - Last Filed: 12/17/22 19:15> Medications Administered Discontinued Medications Generic Name Dose Route Start Last Admin Trade Name Freq PRN Reason Stop Dose Admin Ondansetron HCl 4 mg 12/17/22 21:27 12/17/22 21:33 Ondansetron Odt 4 Mg Tab.Rapdis TRANSLINGU 12/17/22 21:28 4 mg ONCE ONE Administration <PAZ Damon - Last Filed: 12/17/22 19:15> Medications Administered Discontinued Medications Generic Name Dose Route Start Last Admin Trade Name Freq PRN Reason Stop Dose Admin Ondansetron HCl 4 mg 12/17/22 21:27 12/17/22 21:33 Ondansetron Odt 4 Mg Tab.Rapdis TRANSLINGU 12/17/22 21:28 4 mg ONCE ONE Administration <Austen Guerrero DO - Last Filed: 12/17/22 22:02> Medical Decision Making Medical Decision Making MDM Narrative: I will give patient some Zofran trial rehydration. Patient tolerated oral medications urine did result patient has quite a few epithelial cells I do think this is not a UTI she has no urinary symptoms I will discharge patient home with PCP follow-up. <Austen Guerrero DO - Last Filed: 12/17/22 22:02> Differential Diagnosis Differential Diagnoses: The differential diagnosis associated with the presentation includes <DO Marychuy Santos Last Filed: 12/17/22 22:02> Dehydration medication reaction as she did switch diabetes medications this could lead to her diarrhea as well as vomiting. <Austen Guerrero DO - Last Filed: 12/17/22 22:02> Admission/Observation Consideration of admission/observation: Escalation of care including admission/observation considered <Austen Guerrero DO - Last Filed: 12/17/22 22:02> Lab Data Result Diagrams: 12/17/22 19:56 12/17/22 19:56 <PAZ Damon - Last Filed: 12/17/22 19:15> Labs: Lab Results 12/17/22 12/17/22 12/17/22 Range/Units 19:56 19:56 19:56 WBC 13.3 H (4.8-10.8) X10*3/uL RBC 5.05 (4.20-5.50) X10*6/uL Hgb 15.7 (12.0-16.0) g/dl Hct 47.5 H (37.0-47.0) % MCV 94.1 (80.0-98.0) fL MCH 31.1 (27.0-33.0) pg MCHC 33.1 (31.0-35.0) g/dl RDW 12.5 (11.0-16.0) % Plt Count 415 H (160-400) X10*3/uL MPV 9.9 (9.4-12.3) fL Immature Gran % (Auto) 0.5 H (0.0-0.4) % Neut % (Auto) 62.9 (45-73) % Lymph % (Auto) 28.4 (20-40) % [place] % (Auto) 7.2 (2-11) % Eos % (Auto) 0.3 (0-4) % Baso % (Auto) 0.7 (0-2) % Lymph # (Auto) 3.8 (1.2-4.9) X10*3/uL [place] # (Auto) 1.0 (0.1-1.2) X10*3/uL Eos # (Auto) 0.0 (0.0-0.4) X10*3/uL Baso # (Auto) 0.1 (0.0-0.2) X10*3/uL Abs Immat Gran (auto) 0.06 H (0.00-0.03) X10*3/uL Absolute Neuts (auto) 8.3 (2.0-8.3) x10*3/uL Absolute Nucleated RBC 0.000 (0.0-0.012) X10*3/uL Nucleated RBC % (auto) 0.0 (0.0-0.2) /100WBC Sodium 137 (135-145) mmol/L Potassium 5.4 H (3.3-5.1) mmol/L Chloride 101 (96-108) mmol/L Carbon Dioxide 26 (22-29) mmol/L Anion Gap 15 (12-20) BUN 11 (9-16) mg/dL Creatinine 0.84 (0.5-1.4) mg/dL Estim Creat Clear Calc 68.9 Estimated GFR > 60 Random Glucose 131 H (60-115) mg/dL Calcium 10.5 H D (8.4-10.2) mg/dL Magnesium 1.9 (1.6-2.6) mg/dL Total Bilirubin 0.5 (0.0-1.0) mg/dL AST 40 H (5-31) U/L ALT 61 H (0-31) U/L Alkaline Phosphatase 85 (39-117) U/L B-Natriuretic Peptide < 10 (<100) pg/mL Total Protein 7.1 (6.5-8.0) g/dL Albumin 4.3 (3.5-5.0) g/dL Lipase 27 (8-78) U/L Urine Color Urine Appearance Urine pH (5.0-9.0) Ur Specific [place] (1.005-1.025) Urine Protein (Neg-Trace) mg/dL Urine Glucose (UA) (Negative) mg/dL Urine Ketones (Negative) mg/dL Urine Blood (Negative) Urine Nitrite (Negative) Ur Leukocyte Esterase (Negative) Urine RBC (0-2) /HPF Urine WBC (0-5) /HPF Ur Squamous Epith Cells (0-2) /HPF Urine Bacteria (None Seen) Hyaline Casts (0-2) /LPF 12/17/22 Range/Units 21:28 WBC (4.8-10.8) X10*3/uL RBC (4.20-5.50) X10*6/uL Hgb (12.0-16.0) g/dl Hct (37.0-47.0) % MCV (80.0-98.0) fL MCH (27.0-33.0) pg MCHC (31.0-35.0) g/dl RDW (11.0-16.0) % Plt Count (160-400) X10*3/uL MPV (9.4-12.3) fL Immature Gran % (Auto) (0.0-0.4) % Neut % (Auto) (45-73) % Lymph % (Auto) (20-40) % [place] % (Auto) (2-11) % Eos % (Auto) (0-4) % Baso % (Auto) (0-2) % Lymph # (Auto) (1.2-4.9) X10*3/uL [place] # (Auto) (0.1-1.2) X10*3/uL Eos # (Auto) (0.0-0.4) X10*3/uL Baso # (Auto) (0.0-0.2) X10*3/uL Abs Immat Gran (auto) (0.00-0.03) X10*3/uL Absolute Neuts (auto) (2.0-8.3) x10*3/uL Absolute Nucleated RBC (0.0-0.012) X10*3/uL Nucleated RBC % (auto) (0.0-0.2) /100WBC Sodium (135-145) mmol/L Potassium (3.3-5.1) mmol/L Chloride (96-108) mmol/L Carbon Dioxide (22-29) mmol/L Anion Gap (12-20) BUN (9-16) mg/dL Creatinine (0.5-1.4) mg/dL Estim Creat Clear Calc Estimated GFR Random Glucose (60-115) mg/dL Calcium (8.4-10.2) mg/dL Magnesium (1.6-2.6) mg/dL Total Bilirubin (0.0-1.0) mg/dL AST (5-31) U/L ALT (0-31) U/L Alkaline Phosphatase (39-117) U/L B-Natriuretic Peptide (<100) pg/mL Total Protein (6.5-8.0) g/dL Albumin (3.5-5.0) g/dL Lipase (8-78) U/L Urine Color Yellow Urine Appearance Clear Urine pH 6.5 (5.0-9.0) Ur Specific [place] 1.015 (1.005-1.025) Urine Protein Negative (Neg-Trace) mg/dL Urine Glucose (UA) Negative (Negative) mg/dL Urine Ketones Negative (Negative) mg/dL Urine Blood Negative (Negative) Urine Nitrite Negative (Negative) Ur Leukocyte Esterase Moderate (2+) H (Negative) Urine RBC 0-2 (0-2) /HPF Urine WBC 21-50 H (0-5) /HPF Ur Squamous Epith Cells 11-20 (0-2) /HPF Urine Bacteria 2+ (None Seen) Hyaline Casts 0-2 (0-2) /LPF <PAZ Damon - Last Filed: 12/17/22 19:15> Lab Results 12/17/22 12/17/22 12/17/22 Range/Units 19:56 19:56 19:56 WBC 13.3 H (4.8-10.8) X10*3/uL RBC 5.05 (4.20-5.50) X10*6/uL Hgb 15.7 (12.0-16.0) g/dl Hct 47.5 H (37.0-47.0) % MCV 94.1 (80.0-98.0) fL MCH 31.1 (27.0-33.0) pg MCHC 33.1 (31.0-35.0) g/dl RDW 12.5 (11.0-16.0) % Plt Count 415 H (160-400) X10*3/uL MPV 9.9 (9.4-12.3) fL Immature Gran % (Auto) 0.5 H (0.0-0.4) % Neut % (Auto) 62.9 (45-73) % Lymph % (Auto) 28.4 (20-40) % [place] % (Auto) 7.2 (2-11) % Eos % (Auto) 0.3 (0-4) % Baso % (Auto) 0.7 (0-2) % Lymph # (Auto) 3.8 (1.2-4.9) X10*3/uL [place] # (Auto) 1.0 (0.1-1.2) X10*3/uL Eos # (Auto) 0.0 (0.0-0.4) X10*3/uL Baso # (Auto) 0.1 (0.0-0.2) X10*3/uL Abs Immat Gran (auto) 0.06 H (0.00-0.03) X10*3/uL Absolute Neuts (auto) 8.3 (2.0-8.3) x10*3/uL Absolute Nucleated RBC 0.000 (0.0-0.012) X10*3/uL Nucleated RBC % (auto) 0.0 (0.0-0.2) /100WBC Sodium 137 (135-145) mmol/L Potassium 5.4 H (3.3-5.1) mmol/L Chloride 101 (96-108) mmol/L Carbon Dioxide 26 (22-29) mmol/L Anion Gap 15 (12-20) BUN 11 (9-16) mg/dL Creatinine 0.84 (0.5-1.4) mg/dL Estim Creat Clear Calc 68.9 Estimated GFR > 60 Random Glucose 131 H (60-115) mg/dL Calcium 10.5 H D (8.4-10.2) mg/dL Magnesium 1.9 (1.6-2.6) mg/dL Total Bilirubin 0.5 (0.0-1.0) mg/dL AST 40 H (5-31) U/L ALT 61 H (0-31) U/L Alkaline Phosphatase 85 (39-117) U/L B-Natriuretic Peptide < 10 (<100) pg/mL Total Protein 7.1 (6.5-8.0) g/dL Albumin 4.3 (3.5-5.0) g/dL Lipase 27 (8-78) U/L Urine Color Urine Appearance Urine pH (5.0-9.0) Ur Specific [place] (1.005-1.025) Urine Protein (Neg-Trace) mg/dL Urine Glucose (UA) (Negative) mg/dL Urine Ketones (Negative) mg/dL Urine Blood (Negative) Urine Nitrite (Negative) Ur Leukocyte Esterase (Negative) Urine RBC (0-2) /HPF Urine WBC (0-5) /HPF Ur Squamous Epith Cells (0-2) /HPF Urine Bacteria (None Seen) Hyaline Casts (0-2) /LPF 12/17/22 Range/Units 21:28 WBC (4.8-10.8) X10*3/uL RBC (4.20-5.50) X10*6/uL Hgb (12.0-16.0) g/dl Hct (37.0-47.0) % MCV (80.0-98.0) fL MCH (27.0-33.0) pg MCHC (31.0-35.0) g/dl RDW (11.0-16.0) % Plt Count (160-400) X10*3/uL MPV (9.4-12.3) fL Immature Gran % (Auto) (0.0-0.4) % Neut % (Auto) (45-73) % Lymph % (Auto) (20-40) % [place] % (Auto) (2-11) % Eos % (Auto) (0-4) % Baso % (Auto) (0-2) % Lymph # (Auto) (1.2-4.9) X10*3/uL [place] # (Auto) (0.1-1.2) X10*3/uL Eos # (Auto) (0.0-0.4) X10*3/uL Baso # (Auto) (0.0-0.2) X10*3/uL Abs Immat Gran (auto) (0.00-0.03) X10*3/uL Absolute Neuts (auto) (2.0-8.3) x10*3/uL Absolute Nucleated RBC (0.0-0.012) X10*3/uL Nucleated RBC % (auto) (0.0-0.2) /100WBC Sodium (135-145) mmol/L Potassium (3.3-5.1) mmol/L Chloride (96-108) mmol/L Carbon Dioxide (22-29) mmol/L Anion Gap (12-20) BUN (9-16) mg/dL Creatinine (0.5-1.4) mg/dL Estim Creat Clear Calc Estimated GFR Random Glucose (60-115) mg/dL Calcium (8.4-10.2) mg/dL Magnesium (1.6-2.6) mg/dL Total Bilirubin (0.0-1.0) mg/dL AST (5-31) U/L ALT (0-31) U/L Alkaline Phosphatase (39-117) U/L B-Natriuretic Peptide (<100) pg/mL Total Protein (6.5-8.0) g/dL Albumin (3.5-5.0) g/dL Lipase (8-78) U/L Urine Color Yellow Urine Appearance Clear Urine pH 6.5 (5.0-9.0) Ur Specific [place] 1.015 (1.005-1.025) Urine Protein Negative (Neg-Trace) mg/dL Urine Glucose (UA) Negative (Negative) mg/dL Urine Ketones Negative (Negative) mg/dL Urine Blood Negative (Negative) Urine Nitrite Negative (Negative) Ur Leukocyte Esterase Moderate (2+) H (Negative) Urine RBC 0-2 (0-2) /HPF Urine WBC 21-50 H (0-5) /HPF Ur Squamous Epith Cells 11-20 (0-2) /HPF Urine Bacteria 2+ (None Seen) Hyaline Casts 0-2 (0-2) /LPF <Austen Guerrero DO - Last Filed: 12/17/22 22:02> Discharge Plan Discharge Clinical Impression: Drug-induced nausea and vomiting, Diarrhea, Dehydration <PAZ Damon - Last Filed: 12/17/22 19:15> Patient Disposition: Home, Self-Care <PAZ Damon - Last Filed: 12/17/22 19:15> Instructions: Dehydration (ED), Acute Nausea and Vomiting (ED), Acute Diarrhea (ED) <PAZ Damon - Last Filed: 12/17/22 19:15> Additional Instructions: Please call follow-up to . please take the Zofran as needed for nausea vomiting if you have any other concerns please do not hesitate to come back to emergency department. <PAZ Damon - Last Filed: 12/17/22 19:15> Prescriptions: New ondansetron 4 mg tablet,disintegrating 4 mg PO Q6H Qty: 14 0RF No Action allopurinol 100 mg tablet 100 mg PO DAILY 90 Days Qty: 90 2RF pyridoxine (vitamin B6) 50 mg tablet 50 mg PO DAILY 90 Days Qty: 90 1RF metformin 500 mg tablet 500 mg PO BID cyclobenzaprine 10 mg tablet 10 mg PO TID PRN (Reason: muscle spasm) Qty: 10 0RF ibuprofen 600 mg tablet 600 mg PO Q8H PRN (Reason: pain) Qty: 14 0RF oxycodone 5 mg tablet 5 mg PO Q4H PRN (Reason: pain) Qty: 14 0RF Rx Instructions: Partial Fill upon patient request. ketorolac 10 mg tablet 10 mg PO TID PRN (Reason: pain) 5 Days Qty: 15 0RF lidocaine 5 % adhesive patch,medicated 1 patch topical DAILY PRN (Reason: pain) Qty: 15 0RF Rx Instructions: leave on most painful area for up to 12 hrs tramadol 50 mg tablet 50 mg PO BID PRN (Reason: Pain) Trulicity 0.75 mg/0.5 mL pen injector 0.75 mg subcut QWEEK meclizine 12.5 mg tablet 12.5 mg PO BID PRN (Reason: nausea) gabapentin 300 mg capsule 300 mg PO TID lisinopril 10 mg tablet 10 mg PO DAILY lorazepam 0.5 mg tablet 0.5 mg PO simvastatin 40 mg tablet 40 mg PO BEDTIME <PAZ Damon - Last Filed: 12/17/22 19:15>
[2022-12-17 20:18] LABS: MANUAL DIFF FLAG NO
[2022-12-17 20:19] LABS: Basophils Absolute Auto 0.1 X10*3/uL (0.0-0.2); Basophils Percent Auto 0.7 % (0-2); Eosinophils Percent Auto 0.3 % (0-4); Hematocrit 47.5 % (37.0-47.0); Hemoglobin 15.7 g/dl (12.0-16.0); Imm Gran Abs Auto 0.06 X10*3/uL (0.00-0.03); Imm Gran Pct Auto 0.5 % (0.0-0.4); Lymphocytes Absolute Auto 3.8 X10*3/uL (1.2-4.9); Lymphocytes Percent Auto 28.4 % (20-40); Mean Corpuscular HGB Conc 33.1 g/dl (31.0-35.0); Mean Corpuscular Hemoglobin 31.1 pg (27.0-33.0); Mean Corpuscular Volume 94.1 fL (80.0-98.0); Mean Platelet Volume 9.9 fL (9.4-12.3); Monocytes Percent Auto 7.2 % (2-11); Neutrophils Absolute Auto 8.3 x10*3/uL (2.0-8.3); Neutrophils Percent Auto 62.9 % (45-73); Platelet Count 415 X10*3/uL (160-400); Red Blood Count 5.05 X10*6/uL (4.20-5.50); Red Cell Distribution Width 12.5 % (11.0-16.0); White Blood Count 13.3 X10*3/uL (4.8-10.8)
[2022-12-17 20:49] LABS: Alanine Aminotransferase 61 U/L (0-31); Albumin Level 4.3 g/dL (3.5-5.0); Alkaline Phosphatase 85 U/L (39-117); Anion Gap 15 (12-20); Aspartate Amino Transferase 40 U/L (5-31); Bilirubin Total 0.5 mg/dL (0.0-1.0); Blood Urea Nitrogen 11 mg/dL (9-16); Calcium 10.5 mg/dL (8.4-10.2); Carbon Dioxide 26 mmol/L (22-29); Chloride 101 mmol/L (96-108); Creatinine Clr Calc Pharmacy 68.9; Estimated Glomerular Filt Rate > 60; Glucose Random 131 mg/dL (60-115); Lipase 27 U/L (8-78); Magnesium 1.9 mg/dL (1.6-2.6); Potassium 5.4 mmol/L (3.3-5.1); Sodium 137 mmol/L (135-145); Total Protein 7.1 g/dL (6.5-8.0)
[2022-12-17 21:10] LABS: B Type Natriuretic Peptide < 10 pg/mL (<100)
[2022-12-17 21:30] VITALS: BP 144/87; PULSE 77; RESP 18; TEMP 36.4; O2SAT 98
[2022-12-17] MEDS: Ondansetron ODT 4 MG TAB.RAPDIS TRANSLINGU (21:33)
[2022-12-17 21:43] LABS: Appearance Urine Clear; Color Urine Yellow; Glucose Urine UA Negative (Negative); Leukocyte Esterase Urine Moderate (2+) (Negative); Nitrite Urine Negative (Negative); PH 6.5 (5.0-9.0); Specific Gravity - Urine 1.015 (1.005-1.025); UMIC TRIGGER UACC YES; Urine Blood Negative (Negative); Urine Ketones Negative (Negative); Urine Protein Negative (Neg-Trace)
[2022-12-17 21:55] LABS: Bacteria Urine 2+ (None Seen); Hyaline Casts Urine 0-2 /LPF (0-2); RBC Urine 0-2 /HPF (0-2); UACC Culture Trigger YES; WBC Urine 21-50 /HPF (0-5)
[2022-12-17 21:57] VITALS: BP 135/87; PULSE 72; RESP 16; TEMP 36.9; O2SAT 97
== END 2022-12-17 22:14 | disposition home or self-care (01) ==
PROVIDERS: Physician Assistant; Emergency Provider Student in an Organized Health Care Education/Training Program; PCP Nurse Practitioner Family
DX: E86.0 Dehydration (principal); R11.2 Nausea with vomiting, unspecified; R19.7 Diarrhea, unspecified; R06.02 Shortness of breath; Z79.899 Other long term (current) drug therapy
CPT/HCPCS: 36415; 80053; 81001; 83690; 83735; 83880; 85025; 87086; 99283

== ENCOUNTER 2023-02-16 12:48 | Outpatient (REF) | payer MEDICARE, MEDICAID, SELFPAY ==
--- NOTE | ~2023-02-16 | US_ITS ---
EXAMINATION: US RETROPERITONEAL LIMITED (RENAL ONLY) CLINICAL INFORMATION: Calculus of kidney. COMPARISON: CT abdomen and pelvis with contrast 10/24/2022. Ultrasound retroperitoneal limited (renal only) 03/27/2020 and 04/04/2019. X-ray abdomen KUB 04/27/2019 and 04/13/2019. TECHNIQUE: Real-time imaging of the kidneys. FINDINGS: RIGHT KIDNEY: 10.9 x 5.0 x 4.8 cm (SAG x AP x TRV). The kidney is normal in size, contour, and echogenicity. Renal cortical thickness is normal. No focal parenchymal lesions or hydronephrosis. At the lower pole, a 5 mm nonobstructing calculus is seen. LEFT KIDNEY: 11.4 x 5.1 x 5.5 cm (SAG x AP x TRV). The kidney is normal in size, contour, and echogenicity. Renal cortical thickness is normal. No focal parenchymal lesions or hydronephrosis. At the upper pole, a 6 mm nonobstructing calculus is seen. US/US renal BI IMPRESSION: There are nonobstructing bilateral renal calculi, as detailed. No hydronephrosis is noted.
== END 2023-02-16 12:49 | disposition home or self-care (01) ==
LOC: HO.US 12:48
PROVIDERS: PCP Nurse Practitioner Family; Visit Provider Nurse Practitioner Family
DX: N20.0 Calculus of kidney (principal)
CPT/HCPCS: 76775

== ENCOUNTER 2023-03-12 15:25 | Outpatient (AMB) | payer OTHER, MEDICAID, SELFPAY ==
--- NOTE | 2023-03-12 15:26 | MHC.OFFVIS ---
Intake Intake Visit Reasons: 3m/US(SET) Intake Note: Patient presents for follow up kidney stones (imaging 02/16) Urology Medications: vitamin b6 Blood Thinner: none Dump Grounds Checker Required: No Accompanied by: Self / Same As Patient Allergies duloxetine [From Cymbalta] Allergy (Intermediate, Verified 03/12/23 15:30) Itching pollen extracts [POLLEN] Allergy (Mild, Verified 03/12/23 15:30) SINUS PROBLEMS HPI HPI Comments History of Present Illness Details Vinita is a pleasant 62-year-old female patient of Dr. Talbot who is accompanied by her daughter at todays visit. She has a past medical history of arthritis, asthma, nephrolithiasis, constipation, diabetes, and hypertension. She presents to the office today for a follow up of her recurrent nephrolithiasis. Of note, patient was seen approximately 3 months ago for ongoing nephrolithiasis at which time a renal ultrasound was ordered for further assessment evaluation. These results reviewed with the patient today. Right kidney with no lesions or hydronephrosis. At the lower pole of 5 mm nonobstructing calculus is seen. Left kidney with no lesions or hydronephrosis. At the upper pole a 6 mm nonobstructing calculus is seen. Patient has surgical history for nephrolithiasis. 01/09 calcium oxalate-monohydrate 80%. Prior treatments include 01/09 right ureteroscopy distal, 03/11 left ureteroscopy, / right ESWL. When asked patient continues with bilateral intermittent flank pain right sided greater than left. She otherwise denies urinary urgency, urinary frequency, incontinence, nocturia, hematuria, dysuria, foul smelling urine, changes to urinary stream, fever, and or chills. In office urinalysis results reviewed with the patient today. Discussed obtaining KUB for further assessment evaluation. Patient is agreeable. PFSH Medical History Arthritis Asthma Bilateral nephrolithiasis Constipation Diabetes History of postoperative nausea and vomiting HTN (hypertension) Lab test negative for COVID-19 virus Renal calculi Surgical History H/O colonoscopy Hx of cystoscopy Hx of hand surgery Hx of lithotripsy Social History Are you a primary clinical care coordinator to a significant other at home: No Do you presently have visiting nurse or other home services: No Review of Systems Const Reports as per HPI Eyes Reports no additional complaints ENT Reports no additional complaints Card Reports as per HPI Resp Reports as per HPI GI Reports as per HPI Reports as per HPI Musc Reports no additional complaints Neuro Reports no additional complaints Psych Reports no additional complaints Endo Reports as per HPI Jose/Lymph Reports no additional complaints Aller/Immun Reports no additional complaints Physical Exam Const General: cooperative, healthy appearing, comfortable, no acute distress, well developed, alert and awake Orientation/consciousness: patient oriented x3 Limitations: no limitations HEENT Head: Yes normal to inspection, Yes normocephalic and Yes atraumatic Ears: hearing grossly normal bilaterally Eyes General: appearance normal, both eyes and all related structures Neck Neck: Yes normal visual inspection and Yes trachea midline Chest Chest palpation & inspection: normal inspection of the chest Resp Effort & Inspection: normal respiratory effort and able to speak in complete sentences Cardio Rate: regular rate GI Inspection: Yes normal to inspection General: Yes no CVA tenderness Back/Spine/Pelvis Back: no CVA tenderness Skin General skin exam: no rashes or lesions noted Neuro General: patient oriented x3 Extrem General: Yes normal to inspection Psych Appearance: grossly normal and well kempt Mental Status: mental status grossly normal Speech and movement: Normal speech and movement present and Clear speech present Affect: normal affect Attitude: cooperative Thought process: Normal thought process present Thought content: Normal thought content present Insight: Fair insight present (Psych) Judgement: Fair judgement present (Psych) Results AMB Urinalysis, Automated UA Leukoctes 70 Donald/uL Last Edit by [employer] Yuliana on 03/12/23 15:45 UA Nitrite Last Edit by [employer] on 03/12/23 15:45 UA Urobilinogen 0.2 mg/dL Last Edit by quitchen on 03/12/23 15:45 UA Protein 30 mg/dL Last Edit by [employer] on 03/12/23 15:45 UA pH 6.0 Last Edit by [employer] on 03/12/23 15:45 UA Blood 0 Segundo/uL Last Edit by [employer] Yuliana on 03/12/23 15:45 UA Specific [place] 1.030 Last Edit by Brittani Fierromil on 03/12/23 15:45 UA Ketone Last Edit by [employer] Srimil on 03/12/23 15:45 UA Bilirubin 0 mg/dL Last Edit by [employer]ahch[employer] Srimil on 03/12/23 15:45 UA Glucose 0 mg/dL Last Edit by Brittani Srimil on 03/12/23 15:45 Results Reviewed Results Reviewed: Laboratory Last Values Urine pH (Auto) 6.0 03/12/23 15:32 Specific [place] (Auto) 1.030 03/12/23 15:32 Urine Protein (Auto) 30 mg/dL 03/12/23 15:32 Glucose (UA)(Auto) 0 mg/dL 03/12/23 15:32 Urine Blood (Auto) 0 Segundo/uL 03/12/23 15:32 Urine Bilirubin (Auto) 0 mg/dL 03/12/23 15:32 Urine Urobilinogen (Auto) 0.2 mg/dL 03/12/23 15:32 Leukocyte Esterase (Auto) 70 Donald/uL 03/12/23 15:32 Date of Service: 02/16/23 EXAMINATION: US RETROPERITONEAL LIMITED (RENAL ONLY)? FINDINGS: RIGHT KIDNEY: 10.9 x 5.0 x 4.8 cm (SAG x AP x TRV). The kidney is normal in size, contour, and echogenicity. Renal cortical thickness is normal. No focal parenchymal lesions or hydronephrosis. At the lower pole, a 5 mm nonobstructing calculus is seen. LEFT KIDNEY: 11.4 x 5.1 x 5.5 cm (SAG x AP x TRV). The kidney is normal in size, contour, and echogenicity. Renal cortical thickness is normal. No focal parenchymal lesions or hydronephrosis. At the upper pole, a 6 mm nonobstructing calculus is seen. IMPRESSION: There are nonobstructing bilateral renal calculi, as detailed. No hydronephrosis is noted. Assessment & Plan Assessment & Plan (1) Bilateral nephrolithiasis: Code(s): N20.0 - Calculus of kidney (2) Flank pain: Code(s): R10.9 - Unspecified abdominal pain Plan In office urinalysis results reviewed with the patient today; as noted above. Recent renal imaging results reviewed with the patient today; as noted above. Patient continues to report bilateral intermittent flank pain right side greater than left. Will obtain KUB for further assessment evaluation. Continue vitamin B6 as discussed and prescribed. Continue adding 1 oz of lemon juice to water daily. Continue drinking plenty of water daily. Follow-up in 1-2 weeks with imaging to be completed prior or sooner with any issues, concerns, and or questions. Orders: Orders XR KUB 03/12/23 N20.0 - Calculus of kidney AMB Urinalysis Automated 03/12/23 Z13.9 - Encounter for screening, unspecified Patient Instructions: The patient had an opportunity to ask questions regarding the treatment plan. All questions were answered. Physical exam, labs, and imaging were discussed and reviewed in detail. As well as risks, benefits, and discussion of treatment choices. No major barriers to understanding were identified. The patient expressed understanding and agreement with the above treatment plan. The patient was made aware they should contact our office by phone for worsening of their current condition, the appearance of new symptoms, or with any questions or concerns. Compliance is encouraged with any medications and follow up testing that is ordered. It is a privilege to be allowed the opportunity to participate in? your urological care.? Again, if you have any questions or concerns If you have any questions or concerns please do not hesitate to contact me. The office is [phone]. This note is constructed using voice recognition software. While every effort has been made to ensure accuracy clipper machine errors may have been included. Yours sincerely, DARREN Bradshaw Coding Level of Care Code Est Pt Level 3 (58735) Diagnoses Bilateral nephrolithiasis N20.0 Flank pain R10.9
== END 2023-03-12 15:54 | disposition home or self-care (01) ==
PROVIDERS: Visit Provider Nurse Practitioner Family
DX: N20.0 Calculus of kidney (principal); R10.9 Unspecified abdominal pain
CPT/HCPCS: 99213

== ENCOUNTER → 2023-03-12 15:25 | Outpatient (BNVA) | payer OTHER, SELFPAY | PROVIDERS: Visit Provider Nurse Practitioner Family | DX: N20.0 Calculus of kidney (principal); R10.9 Unspecified abdominal pain | CPT/HCPCS: 99212 ==

== ENCOUNTER 2023-03-27 12:16 | Outpatient (REF) | payer MEDICARE, MEDICAID, SELFPAY ==
--- NOTE | ~2023-03-27 | XR_ITS ---
EXAMINATION: XR ABDOMEN COMPLETE CLINICAL INDICATION: Renal stones COMPARISON: KUB 04/27/2019, CT of abdomen pelvis 10/24/2022 TECHNIQUE: AP view of the abdomen. FINDINGS: Lines or devices: None. Nonobstructive bowel gas pattern. Mild colonic stool burden. Supine technique limits evaluation for extraluminal air although no secondary findings are appreciated. 4 mm calcification overlying the right lower renal pole which may reflect a stone and several calcifications overlying the left upper renal shadow measuring up to 5 mm which may reflect stones. Atherosclerotic vascular calcifications in the pelvis. Calcified phleboliths in the pelvis similar to remote priors. XR/XR KUB IMPRESSION: 4 mm calcification overlying the right lower renal pole which may reflect a stone and several calcifications overlying the left upper renal shadow measuring up to 5 mm which may reflect stones.
== END 2023-03-27 12:17 | disposition home or self-care (01) ==
LOC: HO.XRAY 12:16
PROVIDERS: PCP Nurse Practitioner Family; Visit Provider Nurse Practitioner Family
DX: N20.0 Calculus of kidney (principal)
CPT/HCPCS: 74018

== ENCOUNTER 2023-04-02 14:20 | Outpatient (AMB) | payer MEDICARE, MEDICAID, SELFPAY ==
--- NOTE | 2023-04-02 14:20 | MHC.OFFVIS ---
Intake Intake Visit Reasons: 2w/KUB Intake Note: Patient presents for tele visit follow up bilateral nephrolithiasis/KUB (imaging 03/27) Urology Medications: Vitamin B6 Blood Thinner: none Craft Coordinator Required: No Allergies duloxetine [From Cymbalta] Allergy (Intermediate, Verified 04/02/23 14:41) Itching pollen extracts [POLLEN] Allergy (Mild, Verified 04/02/23 14:41) SINUS PROBLEMS Medication List - Last Reconciled 04/02/23 by MARQUITA Bradshaw- allopurinol 100 mg PO DAILY 90 days cyclobenzaprine 10 mg PO TID PRN dulaglutide 0.75 mg subcut QWEEK escitalopram oxalate 0 mg PO fluticasone propion-salmeterol 250-50 mcg/dose (Advair Diskus) 1 ea inhalation BID fluticasone propionate 50 mcg/actuation 2 sprays intranasal DAILY PRN gabapentin 300 mg PO TID ibuprofen 600 mg PO Q8H PRN ketorolac 10 mg PO TID PRN 5 days lidocaine 5% 1 patch topical DAILY PRN lisinopril 10 mg PO DAILY lorazepam 0.5 mg PO meclizine 12.5 mg PO BID PRN melatonin 5 mg PO BEDTIME metformin 500 mg PO BID ondansetron 4 mg PO Q6H oxycodone 5 mg PO Q4H PRN pyridoxine (vitamin B6) 50 mg PO DAILY 90 days semaglutide (Ozempic) 0.25 mg subcut QWEEK simvastatin 40 mg PO BEDTIME tramadol 50 mg PO BID PRN HPI HPI Comments History of Present Illness Details Vinita is a pleasant 62-year-old female patient of Dr. Talbot who is accompanied by her daughter at todays visit. She has a past medical history of arthritis, asthma, nephrolithiasis, constipation, diabetes, and hypertension. She is being followed up on today via telehealth for her recurrent nephrolithiasis. Of note, patient was seen approximately 2 weeks ago at which time a KUB was ordered for further assessment evaluation. These results were reviewed with the patient today. 4 mm calcification overlying the right lower renal pole which may reflect a stone and several calcifications overlying the left upper renal shadow measuring up to 5 mm which may reflect stones. When asked patient continues with bilateral intermittent flank pain right sided greater than left. She otherwise denies urinary urgency, urinary frequency, incontinence, nocturia, hematuria, dysuria, foul smelling urine, changes to urinary stream, fever, and or chills. Patient has surgical history for nephrolithiasis. 01/09 calcium oxalate-monohydrate 80%. Prior treatments include 01/09 right ureteroscopy distal, 03/11 left ureteroscopy, 04/11 right ESWL. When asked patient continues with bilateral intermittent flank pain right sided greater than left. However, states this is not bothersome at this time and episodes are very infrequent. She otherwise denies urinary urgency, urinary frequency, incontinence, nocturia, hematuria, dysuria, foul smelling urine, changes to urinary stream, fever, and or chills. She discusses needing to test herself for COVID as her son was at her house approximately 2 days ago in just tested positive for COVID. Discussed surgical intervention verses surveillance monitoring of nephrolithiasis at length. Patient otherwise denies any issues or concerns at this time. [facility] Medical History Arthritis Asthma Bilateral nephrolithiasis Constipation Diabetes History of postoperative nausea and vomiting HTN (hypertension) Lab test negative for COVID-19 virus Renal calculi Surgical History H/O colonoscopy Hx of cystoscopy Hx of hand surgery Hx of lithotripsy Social History Are you a primary home care manager rn to a significant other at home: No Do you presently have visiting nurse or other home services: No Review of Systems Const Reports as per HPI Eyes Reports no additional complaints ENT Reports no additional complaints Card Reports as per HPI Resp Reports as per HPI GI Reports as per HPI Reports as per HPI Musc Reports no additional complaints Neuro Reports no additional complaints Psych Reports no additional complaints Endo Reports as per HPI Jose/Lymph Reports no additional complaints Aller/Immun Reports no additional complaints Physical Exam Const General: cooperative Resp Effort & Inspection: able to speak in complete sentences Psych Speech and movement: Clear speech present Attitude: cooperative Thought process: Normal thought process present Insight: Good insight present (Psych) Judgement: Good judgement present (Psych) Results Reviewed Results Reviewed: Date of Service: 03/27/23 EXAMINATION: XR ABDOMEN COMPLETE FINDINGS: Lines or devices: None. Nonobstructive bowel gas pattern. Mild colonic stool burden. Supine technique limits evaluation for extraluminal air although no secondary findings are appreciated. 4 mm calcification overlying the right lower renal pole which may reflect a stone and several calcifications overlying the left upper renal shadow measuring up to 5 mm which may reflect stones. Atherosclerotic vascular calcifications in the pelvis. Calcified phleboliths in the pelvis similar to remote priors. IMPRESSION: 4 mm calcification overlying the right lower renal pole which may reflect a stone and several calcifications overlying the left upper renal shadow measuring up to 5 mm which may reflect stones. Assessment & Plan Assessment & Plan (1) Bilateral nephrolithiasis: Code(s): N20.0 - Calculus of kidney Plan Recent KUB imaging results reviewed with the patient today; as noted above. Discussed at length surgical intervention verses surveillance monitoring of nephrolithiasis. Discussed, educated, and encouraged on the importance of drinking plenty of water daily. Continue adding 1 oz of lemon juice to water daily. Continue vitamin B6 as discussed and prescribed. All questions were answered. Will continue with surveillance monitoring Renal ultrasound in 6 months. Follow-up in 6 months with imaging to be completed prior; or sooner with any issues, concerns, and or questions. Orders: Orders US renal BI 6 Months N20.0 - Calculus of kidney Patient Instructions: The patient had an opportunity to ask questions regarding the treatment plan. All questions were answered. Physical exam, labs, and imaging were discussed and reviewed in detail. As well as risks, benefits, and discussion of treatment choices. No major barriers to understanding were identified. The patient expressed understanding and agreement with the above treatment plan. The patient was made aware they should contact our office by phone for worsening of their current condition, the appearance of new symptoms, or with any questions or concerns. Compliance is encouraged with any medications and follow up testing that is ordered. It is a privilege to be allowed the opportunity to participate in? your urological care.? Again, if you have any questions or concerns If you have any questions or concerns please do not hesitate to contact me. The office is [phone]. This note is constructed using voice recognition software. While every effort has been made to ensure accuracy small business director errors may have been included. Yours sincerely, DARREN Bradshaw Telehealth Telehealth Location of provider rendering services: practice address Location of patient: address on file Patient Identification confirmed using: Name, : Yes Telehealth method: voice only Patient verbally consented to treatment: Yes Patient verbally consented to billing insurance company: Yes Patient informed of any privacy concerns related to visit: Yes Minutes spent on Phone/Video with Pt.: 15 Coding Level of Care Code Tele New Pt Level 3 (79778) Diagnoses Bilateral nephrolithiasis N20.0
== END 2023-04-02 14:50 | disposition home or self-care (01) ==
LOC: HO.HUSH 14:20
PROVIDERS: PCP Nurse Practitioner Family; Visit Provider Nurse Practitioner Family
DX: N20.0 Calculus of kidney (principal)
CPT/HCPCS: 99442

== ENCOUNTER → 2023-04-02 14:20 | Outpatient (BNVA) | payer MEDICARE, MEDICAID, SELFPAY | PROVIDERS: PCP Nurse Practitioner Family; Visit Provider Nurse Practitioner Family ==

== ENCOUNTER 2023-09-03 12:21 | Outpatient (REF) | payer MEDICARE, MEDICAID, SELFPAY ==
--- NOTE | ~2023-09-03 | US_ITS ---
EXAMINATION: US RETROPERITONEAL LIMITED (RENAL ONLY) CLINICAL INFORMATION: Calculus of kidney. COMPARISON: Renal ultrasound 02/16/2023. CT abdomen and pelvis with contrast 10/24/2022. Renal ultrasound 03/27/2020. TECHNIQUE: Real-time imaging of the kidneys. FINDINGS: RIGHT KIDNEY: 10.4 x 5.0 x 4.1 cm (SAG x AP x TRV). The kidney is normal in size, contour, and echogenicity. Renal cortical thickness is normal. No focal parenchymal lesions or hydronephrosis. There are 3 calculi, the largest measuring 5 mm in the lower pole. LEFT KIDNEY: 11.2 x 4.8 x 4.3 cm (SAG x AP x TRV). The kidney is normal in size, contour, and echogenicity. Renal cortical thickness is normal. No focal parenchymal lesions or hydronephrosis. There are 2 calculi, largest measuring 6 mm in the upper pole. US/US renal BI IMPRESSION: Nonobstructing bilateral renal calculi as measured above.
== END 2023-09-03 12:22 | disposition home or self-care (01) ==
LOC: HO.US 12:21
PROVIDERS: PCP Student in an Organized Health Care Education/Training Program; Visit Provider Nurse Practitioner Family
DX: N20.0 Calculus of kidney (principal)
CPT/HCPCS: 76775

== ENCOUNTER 2023-10-02 13:40 | Outpatient (REF) | payer MEDICARE, MEDICAID, SELFPAY | END 2023-10-02 13:41 | disposition home or self-care (01) | LOC: HO.LAB 13:40 | PROVIDERS: PCP Nurse Practitioner Family; Visit Provider Nurse Practitioner Family | DX: N39.0 Urinary tract infection, site not specified (principal); N20.0 Calculus of kidney; Z79.84 Long term (current) use of oral hypoglycemic drugs; Z79.899 Other long term (current) drug therapy | CPT/HCPCS: 81003; 87086; 99212 ==

== ENCOUNTER 2023-10-02 13:40 | Outpatient (AMB) | payer MEDICARE, MEDICAID, SELFPAY ==
--- NOTE | 2023-10-02 13:45 | A.OFFVIS_ITS ---
Intake Intake Visit Reasons: 6 mo follow up/ US(set) Intake Note: Patient presents for follow up visit bilateral nephrolithiasis and ultrasound Imagin09/03/23 Urology Medications: Vitamin B6 Blood Thinner: none Patient stated she has no pain when she urinates, however she always has pain in the right lower back. 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 Accompanied by: Self / Same As Patient Allergies duloxetine [From Cymbalta] Allergy (Intermediate, Verified 10/02/23 18:04) Itching pollen extracts [POLLEN] Allergy (Mild, Verified 10/02/23 18:04) SINUS PROBLEMS Medication List - Last Reconciled 10/02/23 by MARQUITA Bradshaw- allopurinol 100 mg PO DAILY 90 days cyclobenzaprine 10 mg PO TID PRN escitalopram oxalate 0 mg PO fluticasone propion-salmeterol 250-50 mcg/dose (Advair Diskus) 1 ea inhalation BID fluticasone propionate 50 mcg/actuation 2 sprays intranasal DAILY PRN gabapentin 300 mg PO TID ibuprofen 600 mg PO Q8H PRN lidocaine 5% 1 patch topical DAILY PRN lisinopril 10 mg PO DAILY lorazepam 0.5 mg PO meclizine 12.5 mg PO BID PRN melatonin 5 mg PO BEDTIME metformin 500 mg PO BID ondansetron 4 mg PO Q6H pyridoxine (vitamin B6) 50 mg PO DAILY 90 days semaglutide (Ozempic) 0.25 mg subcut QWEEK simvastatin 40 mg PO BEDTIME HPI HPI Comments History of Present Illness Details Vinita is a pleasant 62-year-old female patient of Dr. Talbot. She has a past medical history of arthritis, asthma, nephrolithiasis, constipation, diabetes, and hypertension. She presents to the office today for a follow up of her nephrolithiasis. Recent renal imaging results reviewed with the patient today. Right kidney with no lesions and or hydronephrosis. There are 3 calculi the largest measuring approximately 5 mm in the lower pole. Left kidney with no lesions or hydronephrosis. There are 2 calculi largest measuring 6 mm in the upper pole. In discussion with the patient today she reports to be doing and feeling well. She denies any bothersome urinary issues or concerns. In office urinalysis with 2+ leukocytes negative nitrates. She denies any UTI like symptoms. When asked she does report ongoing chronic low back pain however denies urinary urgency, urinary frequency, incontinence, nocturia, hematuria, dysuria, foul smelling urine, changes to urinary stream, fever, and or chills. Patient has surgical history for nephrolithiasis. 01/09 calcium oxalate- monohydrate 80%. Prior treatments include 01/09 right ureteroscopy distal, 03/11 left ureteroscopy, 04/11 right ESWL. Discussed further treatment options versus surveillance monitoring. When asked she reports compliance with vitamin B6 as prescribed. She otherwise denies any other issues or concerns at this time. [facility] Medical History HTN (hypertension) History of postoperative nausea and vomiting Arthritis Renal calculi Lab test negative for COVID-19 virus Diabetes Constipation Asthma Bilateral nephrolithiasis Surgical History H/O colonoscopy Hx of hand surgery Hx of cystoscopy Hx of lithotripsy Social History Are you a primary medical care administrator to a significant other at home: No Do you presently have visiting nurse or other home services: No Review of Systems Const Reports as per HPI Eyes Reports no additional complaints ENT Reports no additional complaints Card Reports as per HPI Resp Reports as per HPI GI Reports as per HPI Reports as per HPI Musc Reports no additional complaints Neuro Reports no additional complaints Psych Reports no additional complaints Endo Reports as per HPI Jose/Lymph Reports no additional complaints Aller/Immun Reports no additional complaints Physical Exam Const General: cooperative, healthy appearing, comfortable, no acute distress, well developed, alert and awake Orientation/consciousness: patient oriented x3 Limitations: no limitations HEENT Head: Yes normal to inspection, Yes normocephalic and Yes atraumatic Ears: hearing grossly normal bilaterally Eyes General: appearance normal, both eyes and all related structures Neck Neck: Yes normal visual inspection and Yes trachea midline Chest Chest palpation & inspection: normal inspection of the chest Resp Effort & Inspection: able to speak in complete sentences Cardio Rate: regular rate GI Inspection: Yes normal to inspection General: Yes no CVA tenderness Back/Spine/Pelvis Back: no CVA tenderness Skin General skin exam: no rashes or lesions noted Neuro General: patient oriented x3 Extrem General: Yes normal to inspection Psych Appearance: grossly normal and well kempt Mental Status: mental status grossly normal Speech and movement: Clear speech present Affect: normal affect Attitude: cooperative Thought process: Normal thought process present Thought content: Normal thought content present Insight: Fair insight present (Psych) Judgement: Fair judgement present (Psych) Results AMB Urinalysis, Automated UA Leukoctes 125 Donald/uL Last Edit by Almita Cardenaspurnima Cardenas [facility] [address] on 10/02/23 14:02 UA Nitrite Negative Last Edit by Almita Cardenaspurnima Cardenas [facility] [address] on 10/02/23 14: 02 UA Urobilinogen 0.2 mg/dL Last Edit by [facility] [address] on 4 14:02 UA Protein 15 mg/dL Last Edit by Almita Cardenaspurnima Cardenas [facility] [address] on 10/02/23 14:0 2 UA pH 6.0 Last Edit by Almita Cardenaspurnima Cardenas [facility] [address] on 10/02/23 14:02 UA Blood 0 Segundo/uL Last Edit by Almita Cardenaspurnima Cardenas [facility] [address] on 10/02/23 14:02 UA Specific [place] 1.025 Last Edit by [facility] [address] on 14:02 UA Ketone Positive Last Edit by Almita Cardenaspurnima Cardenas [facility] on 10/02/23 14:0 2 5mg/dl Almitaann Cardenas 10/02/23 14:02 UA Bilirubin 0 mg/dL Last Edit by Almita Cardenaspurnima Cardensa [facility] on 10/02/23 14: 02 UA Glucose 0 mg/dL Last Edit by Almita Cardenaspurnima Cardenas [facility] on 10/02/23 14:02 Results Reviewed Results Reviewed: Laboratory Last Values Urine pH (Auto) 6.0 10/02/23 13:53 Specific [place] (Auto) 1.025 10/02/23 13:53 Urine Protein (Auto) 15 mg/dL 10/02/23 13:53 Glucose (UA)(Auto) 0 mg/dL 10/02/23 13:53 Urine Ketones (Auto) Positive 10/02/23 13:53 Urine Blood (Auto) 0 Segundo/uL 10/02/23 13:53 Urine Nitrite (Auto) Negative 10/02/23 13:53 Urine Bilirubin (Auto) 0 mg/dL 10/02/23 13:53 Urine Urobilinogen (Auto) 0.2 mg/dL 10/02/23 13:53 Leukocyte Esterase (Auto) 125 Donald/uL 10/02/23 13:53 Date of Service: 09/03/23 EXAMINATION: US RETROPERITONEAL LIMITED (RENAL ONLY) FINDINGS: RIGHT KIDNEY: 10.4 x 5.0 x 4.1 cm (SAG x AP x TRV). The kidney is normal in size, contour, and echogenicity. Renal cortical thickness is normal. No focal parenchymal lesions or hydronephrosis. There are 3 calculi, the largest measuring 5 mm in the lower pole. LEFT KIDNEY: 11.2 x 4.8 x 4.3 cm (SAG x AP x TRV). The kidney is normal in size, contour, and echogenicity. Renal cortical thickness is normal. No focal parenchymal lesions or hydronephrosis. There are 2 calculi, largest measuring 6 mm in the upper pole. IMPRESSION: Nonobstructing bilateral renal calculi as measured above. Assessment & Plan Assessment & Plan (1) Bilateral nephrolithiasis: Code(s): N20.0 - Calculus of kidney Plan In office urinalysis results reviewed with the patient today; as noted above; will send for urine culture; will treat pending results. Recent renal ultrasound results reviewed with the patient today; as noted above. Will continue with surveillance monitoring as discussed. Discussed at length further treatment options versus surveillance monitoring. Patient currently denies any bothersome urinary issues or concerns. Patient reports be happy with current voiding parameters. Continue vitamin B6 as discussed and prescribed. Follow-up in 3 months; if not sooner with any issues, concerns, and or questions. Orders: Orders AMB Urinalysis Automated Today R33.9 - Retention of urine, unspecified Urine Culture Today N39.0 - Urinary tract infection, site not specified Patient Instructions: The patient had an opportunity to ask questions regarding the treatment plan. All questions were answered. Physical exam, labs, and imaging were discussed and reviewed in detail. As well as risks, benefits, and discussion of treatment choices. No major barriers to understanding were identified. The patient expressed understanding and agreement with the above treatment plan. The patient was made aware they should contact our office by phone for worsening of their current condition, the appearance of new symptoms, or with any questions or concerns. Compliance is encouraged with any medications and follow up testing that is ordered. It is a privilege to be allowed the opportunity to participate in? your urological care.? Again, if you have any questions or concerns If you have any questions or concerns please do not hesitate to contact me. The office is [phone]. This note is constructed using voice recognition software. While every effort has been made to ensure accuracy operations mgr errors may have been included. Yours sincerely, DARREN Bradshaw Coding Level of Care Code Est Pt Level 3 (77254) Diagnoses Bilateral nephrolithiasis N20.0
== END 2023-10-02 14:27 | disposition home or self-care (01) ==
PROVIDERS: PCP Nurse Practitioner Family; Visit Provider Nurse Practitioner Family
DX: N20.0 Calculus of kidney (principal)
CPT/HCPCS: 99213

== ENCOUNTER 2023-11-03 15:28 | Outpatient (REF) | payer MEDICARE, MEDICAID, SELFPAY ==
--- NOTE | ~2023-11-03 | MM_ITS ---
EXAMINATION: MM SCREENING DIGITAL BREAST TOMOSYNTHESIS, BILATERAL CLINICAL INFORMATION: Screening. Asymptomatic. COMPARISON: Mammography: This study is compared with prior exams dating back to 2017. TECHNIQUE: Digital breast tomosynthesis is performed in both the craniocaudal and mediolateral oblique views along with computer-aided detection (CAD). Synthesized 2D images are generated from the tomosynthesis. FINDINGS: There are scattered areas of fibroglandular density (ACR BI-RADS breast composition Category b). There are no significant masses, abnormal calcifications, or other abnormalities. There is a tissue marker in the left breast from prior benign percutaneous biopsy. MM/MM tomosynthesis screening BI IMPRESSION: No mammographic evidence of malignancy. ASSESSMENT: BI-RADS BI-RADS 2 - Benign Findings RECOMMENDATION: Routine annual mammography screening. 1 year F/U This examination should not preclude the clinical evaluation of a suspicious palpable abnormality. This patient's information was entered into a reminder system with a target due date for their next mammogram.
== END 2023-11-03 15:29 | disposition home or self-care (01) ==
LOC: HO.MAMMO 15:28
PROVIDERS: PCP Nurse Practitioner Family; Visit Provider Nurse Practitioner Family
DX: Z12.31 Encounter for screening mammogram for malignant neoplasm of breast (principal)
CPT/HCPCS: 77063; 77067

== ENCOUNTER → 2023-11-03 15:30 | Outpatient (BNV) | payer MEDICARE, MEDICAID, SELFPAY | PROVIDERS: PCP Nurse Practitioner Family; Visit Provider Radiology Diagnostic Radiology | DX: Z12.31 Encounter for screening mammogram for malignant neoplasm of breast (principal) | CPT/HCPCS: 77063; 77067 ==

== ENCOUNTER 2023-12-31 13:05 | Outpatient (AMB) | payer MEDICARE, MEDICAID, SELFPAY ==
--- NOTE | 2023-12-31 13:43 | A.OFFVIS_ITS ---
Intake Visit Reasons: 3m/PVR Intake Note: Patient is Present for PVR/ Urology Med:Vitamin B6 Antibiotic Allergy:None Blood Thinner: None Todays PVR:0 Allergies duloxetine [From Cymbalta] Allergy (Intermediate, Verified 12/31/23 14:14) Itching pollen extracts [POLLEN] Allergy (Mild, Verified 12/31/23 14:14) SINUS PROBLEMS HPI Comments Details: Vinita is a pleasant 63-year-old female patient of Dr. Talbot. She has a past medical history of arthritis, asthma, nephrolithiasis, constipation, diabetes, and hypertension. She presents to the office today for a follow up of her nephrolithiasis and lower urinary tract symptoms. In discussion with the patient today she reports to be doing and feeling well. She reports her upcoming right shoulder surgery within the next couple months. She currently denies any bothersome urinary issues or concerns. During last office visit urine was sent for urine culture for further assessment evaluation. These results were reviewed with the patient today. 10/17 urine culture: Mixed bacteria kyle. In office urinalysis results reviewed with the patient today. When asked she reports compliance with allopurinol and vitamin B6 as prescribed. Previous workup has included a renal ultrasound noting right kidney with no lesions and or hydronephrosis. There are 3 calculi the largest measuring approximately 5 mm in the lower pole. Left kidney with no lesions or hydronephrosis. There are 2 calculi largest measuring 6 mm in the upper pole. In discussion with the patient today she reports to be doing and feeling well. She denies any bothersome urinary issues or concerns. She denies urinary urgency, urinary frequency, incontinence, nocturia, hematuria, dysuria, foul smelling urine, changes to urinary stream, fever, and or chills. Patient has surgical history for nephrolithiasis. 01/09 calcium oxalate-monohydrate 80%. Prior treatments include 01/09 right ureteroscopy distal, 03/11 left ureteroscopy, / right ESWL. She otherwise denies any other issues or concerns at this time. [facility] Medical History HTN (hypertension) History of postoperative nausea and vomiting Arthritis Renal calculi Lab test negative for COVID-19 virus Diabetes Constipation Asthma Bilateral nephrolithiasis Surgical History H/O colonoscopy Hx of hand surgery Hx of cystoscopy Hx of lithotripsy Social History Are you a primary healthcare applications analyst to a significant other at home: No Do you presently have visiting nurse or other home services: No Review of Systems Const Reports as per [facility] Eyes Reports no additional complaints ENT Reports no additional complaints Card Reports as per HPI Resp Reports as per HPI GI Reports as per HPI Reports as per HPI Musc Reports as per HPI Neuro Reports no additional complaints Psych Reports no additional complaints Endo Reports as per HPI Jose/Lymph Reports no additional complaints Aller/Immun Reports no additional complaints Physical Exam Const General: cooperative, healthy appearing, comfortable, no acute distress, well developed, alert and awake Orientation/consciousness: patient oriented x3 Limitations: no limitations HEENT Head: Yes normal to inspection, Yes normocephalic and Yes atraumatic Ears: hearing grossly normal bilaterally Eyes General: appearance normal, both eyes and all related structures Neck Neck: Yes normal visual inspection and Yes trachea midline Chest Chest palpation & inspection: normal inspection of the chest Resp Effort & Inspection: able to speak in complete sentences Cardio Rate: regular rate GI Inspection: Yes normal to inspection General: Yes no CVA tenderness Back/Spine/Pelvis Back: no CVA tenderness Skin General skin exam: no rashes or lesions noted Neuro General: patient oriented x3 Extrem General: Yes normal to inspection Psych Appearance: grossly normal and well kempt Mental Status: mental status grossly normal Speech and movement: Clear speech present Affect: normal affect Attitude: cooperative Thought process: Normal thought process present Thought content: Normal thought content present Insight: Fair insight present (Psych) Judgement: Fair judgement present (Psych) Office Procedures Post Void Residual Post Residual Void Post Void Residual (PVR): 0 [id number] Void Residual by ultrasound Results AMB Urinalysis, Automated UA Leukoctes 0 Donald/uL Last Edit by TIMOTEO Duque on 12/31/23 13:51 UA Nitrite Negative Last Edit by TIMOTEO Duque on 12/31/23 13:51 UA Urobilinogen 0.2 mg/dL Last Edit by TIMOTEO Duque on 12/31/23 13:5 1 UA Protein 15 mg/dL Last Edit by TIMOTEO Duque on 12/31/23 13:51 UA pH 6.0 Last Edit by Gianna Rodriguez A on 12/31/23 13:51 UA Blood 0 Segundo/uL Last Edit by Gianna Rodriguez A on 12/31/23 13:51 UA Specific [place] 1.025 Last Edit by Gianna Rodriguez A on 12/31/23 13: 51 UA Ketone Positive Last Edit by Gianna Rodriguez A on 12/31/23 13:51 UA Bilirubin 0 mg/dL Last Edit by Gianna Rodriguez A on 12/31/23 13:51 UA Glucose 0 mg/dL Last Edit by Gianna Rodriguez A on 12/31/23 13:51 Results Reviewed Results Reviewed: Laboratory Last Values Urine pH (Auto) 6.0 12/31/23 13:46 Specific [place] (Auto) 1.025 12/31/23 13:46 Urine Protein (Auto) 15 mg/dL 12/31/23 13:46 Glucose (UA)(Auto) 0 mg/dL 12/31/23 13:46 Urine Ketones (Auto) Positive 12/31/23 13:46 Urine Blood (Auto) 0 Segundo/uL 12/31/23 13:46 Urine Nitrite (Auto) Negative 12/31/23 13:46 Urine Bilirubin (Auto) 0 mg/dL 12/31/23 13:46 Urine Urobilinogen (Auto) 0.2 mg/dL 12/31/23 13:46 Leukocyte Esterase (Auto) 0 Donald/uL 12/31/23 13:46 Assessment & Plan Assessment & Plan (1) Bilateral nephrolithiasis: Code(s): N20.0 - Calculus of kidney Category: Medical Plan In office urinalysis results reviewed with the patient today; as noted above Patient currently denies any bothersome urinary issues or concerns. Patient reports be happy with current voiding parameters. Continue allopurinol and vitamin B6 as discussed and prescribed. Will obtain renal ultrasound in 3 months. Discussed, educated, and stressed the importance of drinking water daily. Continue adding 1 oz of lemon juice to water daily. Follow-up in 3 months with imaging to be completed prior; if not sooner with any issues, concerns, and or questions. Orders: Orders US renal BI 3 Months N20.0 - Calculus of kidney AMB Urinalysis Automated Today Z13.9 - Encounter for screening, unspecified AMB Post Void Residual by ultrasound Today Z13.9 - Encounter for screening, unspecified Patient Instructions: The patient had an opportunity to ask questions regarding the treatment plan. All questions were answered. Physical exam, labs, and imaging were discussed and reviewed in detail. As well as risks, benefits, and discussion of treatment choices. No major barriers to understanding were identified. The patient expressed understanding and agreement with the above treatment plan. The patient was made aware they should contact our office by phone for worsening of their current condition, the appearance of new symptoms, or with any questions or concerns. Compliance is encouraged with any medications and follow up testing that is ordered. It is a privilege to be allowed the opportunity to participate in? your urological care.? Again, if you have any questions or concerns If you have any questions or concerns please do not hesitate to contact me. The office is [phone]. This note is constructed using voice recognition software. While every effort has been made to ensure accuracy director specialty errors may have been included. Yours sincerely, DARREN Bradshaw Coding Level of Care Code Est Pt Level 3 (19336) Diagnoses Bilateral nephrolithiasis N20.0 CPT Codes Post Residual Void - PVR CPT Code: 77279-Cwsx Void Residual by ultrasound ([id number])
== END 2023-12-31 14:16 | disposition home or self-care (01) ==
PROVIDERS: PCP Nurse Practitioner Family; Visit Provider Nurse Practitioner Family
DX: N20.0 Calculus of kidney (principal); Z13.9 Encounter for screening, unspecified
CPT/HCPCS: 99213

== ENCOUNTER → 2023-12-31 13:05 | Outpatient (BNVA) | payer MEDICARE, MEDICAID, SELFPAY | PROVIDERS: PCP Nurse Practitioner Family; Visit Provider Nurse Practitioner Family | DX: N20.0 Calculus of kidney (principal) | CPT/HCPCS: 51798; 81003; 99212 ==

== ENCOUNTER 2024-01-06 16:55 | Emergency (ER) | payer MEDICARE, MEDICAID, SELFPAY ==
[2024-01-06 18:14] VITALS: BP 134/90; PULSE 106; RESP 20; TEMP 36.2; O2SAT 100; BMI 28.4
--- NOTE | 2024-01-06 18:17 | ED.GENADULT ---
HPI - General Adult General Chief complaint: Neck Pain/Injury Stated complaint: nerve pain in neck and back Related Data Home Medications ?Medication ?Instructions ?Recorded ?Confirmed gabapentin 300 mg capsule 300 mg PO TID 10/16/20 10/02/23 lisinopril 10 mg tablet 10 mg PO DAILY 10/16/20 10/02/23 meclizine 12.5 mg tablet 12.5 mg PO BID PRN nausea 10/16/20 10/02/23 metformin 500 mg tablet 500 mg PO BID 10/18/20 10/02/23 lorazepam 0.5 mg tablet 0.5 mg PO anxiety 11/11/22 10/02/23 simvastatin 40 mg tablet 40 mg PO BEDTIME 11/11/22 10/02/23 escitalopram oxalate 10 mg tablet 0 mg PO 03/12/23 10/02/23 fluticasone 250 mcg-salmeterol 50 1 ea inhalation BID 03/12/23 10/02/23 mcg/dose blistr powdr for inhalation (Advair Diskus) fluticasone propionate 50 2 spray intranasal DAILY PRN 03/12/23 10/02/23 mcg/actuation nasal allergies spray,suspension melatonin 5 mg tablet 5 mg PO BEDTIME 03/12/23 10/02/23 semaglutide 0.25 mg or 0.5 mg (2 0.25 mg subcut QWEEK 03/12/23 10/02/23 mg/3 mL) subcutaneous pen injector (Ozempic) Previous Rx's ?Medication ?Instructions ?Recorded allopurinol 100 mg tablet 100 mg PO DAILY 90 days #90 tabs 01/22/21 pyridoxine (vitamin B6) 50 mg 50 mg PO DAILY 90 days #90 tabs 03/01/21 tablet cyclobenzaprine 10 mg tablet 10 mg PO TID PRN muscle spasm #10 04/09/21 tabs ibuprofen 600 mg tablet 600 mg PO Q8H PRN pain #14 tabs 04/09/21 lidocaine 5 % topical patch 1 patch topical DAILY PRN pain #15 11/10/22 ea ondansetron 4 mg disintegrating 4 mg PO Q6H #14 tabs 12/17/22 tablet Allergies Allergy/AdvReac Type Severity Reaction Status Date / Time duloxetine [From Cymbalta] Allergy Intermediate Itching Verified 01/06/24 18:15 pollen extracts [POLLEN] Allergy Mild SINUS Verified 01/06/24 18:15 PROBLEMS PMFSH Past Medical History Medical History HTN (hypertension) History of postoperative nausea and vomiting Arthritis Renal calculi Lab test negative for COVID-19 virus Diabetes Constipation Asthma Bilateral nephrolithiasis Surgical History H/O colonoscopy Hx of hand surgery Hx of cystoscopy Hx of lithotripsy Social History Social History Are you a primary lawn care professional to a significant other at home: No Do you presently have visiting nurse or other home services: No Advance Directives: No Advance Directives Information Provided: No Physical Exam ED Vital Signs: Vital Signs - 24 hr 01/06/24 18:14 Temperature 97.2 F Pulse Rate 106 H Respiratory Rate 20 Blood Pressure 134/90 H Pulse Oximetry 100 Oxygen Delivery Method Room Air BMI result Body Mass Index 28.4 Course Course Course Narrative: This is a rapid medical exam performed by Hannah Murphy NP: Additional HPI, ROS, PE not included below will be deferred to primary provider. Patient is a 63-year-old female with history of HTN, arthritis, renal calculi, DM, asthma presenting to the emergency department with complaint of pinched nerve in neck and lower back. States that she has been seen here for same in the past and symptoms improved with IM Toradol. She denies any recent falls or other trauma. Discharge Plan Discharge Clinical Impression: Diagnosis unknown Patient Disposition: Left W/O Completing Treatment Prescriptions: No Action allopurinol 100 mg tablet 100 mg PO DAILY 90 Days Qty: 90 2RF pyridoxine (vitamin B6) 50 mg tablet 50 mg PO DAILY 90 Days Qty: 90 1RF metformin 500 mg tablet 500 mg PO BID cyclobenzaprine 10 mg tablet 10 mg PO TID PRN (Reason: muscle spasm) Qty: 10 0RF ibuprofen 600 mg tablet 600 mg PO Q8H PRN (Reason: pain) Qty: 14 0RF lidocaine 5 % adhesive patch,medicated 1 patch topical DAILY PRN (Reason: pain) Qty: 15 0RF Rx Instructions: leave on most painful area for up to 12 hrs ondansetron 4 mg tablet,disintegrating 4 mg PO Q6H Qty: 14 0RF meclizine 12.5 mg tablet 12.5 mg PO BID PRN (Reason: nausea) gabapentin 300 mg capsule 300 mg PO TID lisinopril 10 mg tablet 10 mg PO DAILY lorazepam 0.5 mg tablet 0.5 mg PO simvastatin 40 mg tablet 40 mg PO BEDTIME Ozempic 0.25 mg or 0.5 mg (2 mg/3 mL) pen injector 0.25 mg subcut QWEEK fluticasone propionate 50 mcg/actuation spray,suspension 2 spray intranasal DAILY PRN (Reason: allergies) fluticasone propion-salmeterol [Advair Diskus] 250-50 mcg/dose blister with device 1 ea inhalation BID melatonin 5 mg tablet 5 mg PO BEDTIME escitalopram oxalate 10 mg tablet 0 mg PO Discharge Date/Time: 01/06/24 22:02
== END 2024-01-06 22:02 | disposition left against medical advice (07) ==
PROVIDERS: Emergency Provider Emergency Medicine
DX: M79.2 Neuralgia and neuritis, unspecified (principal); I10 Essential (primary) hypertension; E11.9 Type 2 diabetes mellitus without complications
CPT/HCPCS: 99281

== ENCOUNTER → 2024-02-09 13:47 | Outpatient (REF) | payer MEDICARE, MEDICAID, SELFPAY ==
--- NOTE | 2024-02-09 13:50 | CA_ITS ---
Transthoracic Echocardiogram Patient (Last, First, Middle): Vinita Recinos M Gender: Female Date of : 1960 Age: 63 Procedure Date: 02/09/2024 Procedure Type: Transthoracic Echocardiogram Location: OP Height: 154.94 cm Weight: 74.84 kg BSA: 1.74 m2 Heart Rate: bpm BP: 128 / 80 mmHg Cycle Touring Guide: Referring MD: Ann Watkins MD Symptoms: I10 HTN, Z82.49 FAMILY HISTORY OF CARDIOMYOPATHY Study Quality: Adequate ECG Rhythm: Sinus Conclusions: - The left ventricular systolic function is normal. The calculated ejection fraction is 55% by biplane method. - No obvious valvular pathology seen on this study. Findings Left Ventricle Normal left ventricular cavity size. There is mildly increased left ventricular wall thickness. The left ventricular systolic function is normal. The calculated ejection fraction is 55% by biplane method. There is no evidence of regional wall motion abnormalities. Evidence suggests grade I (mild) diastolic dysfunction. Right Ventricle Normal right ventricular cavity size and systolic function. Atria Both atria are normal in size. Aortic Valve The aortic valve was not well visualized. There is no aortic valve stenosis. There is no aortic valve regurgitation. Mitral Valve The mitral valve appears normal. There is no mitral valve regurgitation. There is no mitral valve stenosis. Pulmonic Valve The pulmonic valve is likely normal. Tricuspid Valve There is trace tricuspid valve regurgitation. There is no evidence of pulmonary hypertension. Great Vessels The asc aorta is normal in size. Venous The inferior vena cava is normal in size and collapses greater than 50% with inspiration. Pericardium/Pleural There is no evidence of pericardial effusion. Prior Study Comparison No prior study available for comparison. Recommendations, Care & Conclusions No obvious valvular pathology seen on this study. Measurements 2D Linear Measurements IVSd: 1.14 0.6-0.9/0.6-1.0 cm LVIDd: 3.61 3.9-5.3/4.2-5.9 cm LVIDd Index: 2.07 2.4-3.2/2.2-3.1 cm/m2 LVIDs: 2.19 2.0-3.6 cm LVPWd: 1.04 0.7-1.1 cm Ao Root: 3.30 2.1-3.5 cm LA Diam: 3.50 2.7-3.8/3.0-4.0 cm LAIDs Index: 2.01 1.5-2.3 cm/m2 LV Mass: 152.94 67-162/88-224 g LV Mass Index: 87.90 43-95/49-115 g/m2 LVOT Diam: 1.90 3.0+(-)1.3 cm 2D Systolic Function EF 4C: 57.20 >55% EF 2C: 53.30 >55% EF BiP: 55.20 >55% Mitral Valve MV Pk E: 0.62 MV PK A: 0.86 MV Decel Time: 143.00 E/A: 0.70 E'Lateral: 5.98 E'Medial: 4.24 E/E' Med: 14.70 E/E' Lat: 10.40 PHT: 42.00 MVA PHT: 5.24 Decel Winkler: 4.37 Aortic Valve AoV Pk Mayco: 1.35 AoV Mn Mayco: 0.89 AoV VTI: 0.27 AoV Pk Grad: 7.00 Aov Mn Grad: 4.00 JAM Cont.VTI: 2.23 LVOT LVOT Pk Mayco: 0.95 LVOT Mn Mayco: 0.59 LVOT VTI: 0.21 LVOT Pk Grad: 4.00 LVOT Mn Grad: 2.00 LVOT Diam: 1.90 LVOT Area: 2.84 Diastolic Function MV Pk E: 0.62 MV Pk A: 0.86 E/A: 0.70 E'Medial: 4.24 E/E' Med: 14.70 E' Laterial: 5.98 E/E' Lat: 10.40 Right Ventricle TAPSE (mm): 21.00 TVS' Mayco: 13.00 Tricuspid Valve TR Pk Mayco: 1.99 TR Pk Grad: 16.00 RA Press: 3.00 RVSP: 19.00 Great Vessels Aorta Ao Root-2D: 3.30 2.0-3.7 cm Ao Asc: 3.10 2.1-3.4 cm Pulmonary Valve PV Pk Mayco: 0.86 Peak PV Grad: 3.00 Updated in Other Vendor System with Status of Final Davis Santana MD electronically signed on 02/10/2024 8:35:22 AM with status of Final
== END ==
LOC: HO.CARD 13:47
PROVIDERS: Visit Provider Student in an Organized Health Care Education/Training Program
DX: I10 Essential (primary) hypertension (principal); Z82.49 Family history of ischemic heart disease and other diseases of the circulatory system
CPT/HCPCS: 93306

== ENCOUNTER → 2024-02-09 13:50 | Outpatient (BNV) | payer MEDICARE, MEDICAID, SELFPAY | PROVIDERS: Visit Provider Internal Medicine | DX: I10 Essential (primary) hypertension (principal); I51.89 Other ill-defined heart diseases; Z82.49 Family history of ischemic heart disease and other diseases of the circulatory system | CPT/HCPCS: 93306 ==

== ENCOUNTER 2024-02-21 13:08 | Inpatient (IN) | payer MEDICARE, MEDICAID, SELFPAY ==
--- NOTE | ~2024-02-21 | XR_ITS ---
EXAMINATION: XR SHOULDER, RIGHT. XR FOREARM, RIGHT. XR ELBOW, RIGHT. CLINICAL INFORMATION: Injury and pain COMPARISON: None. TECHNIQUE: 3 views of the right shoulder. 3 views of the right elbow. AP and lateral views of the right forearm. FINDINGS: Right shoulder: Superior subluxation of the humeral head and chronic erosion along the undersurface of the acromion likely reflects chronic rotator cuff arthropathy. No acute fracture or malalignment. Prominent marginal osteophytes lung the humeral head and neck junction. Right elbow and forearm: There is a large elbow joint effusion. Although no definite fracture is demonstrated, the presence of the effusion in the setting of trauma a suspicious for an occult fracture. There are moderate degenerative changes with marginal osteophytes as well as enthesopathy of the medial and lateral epicondyles. No forearm fracture or malalignment. XR/XR elbow RT 2V IMPRESSION: RIGHT SHOULDER: Chronic rotator cuff arthropathy with no acute osseous abnormality. RIGHT ELBOW/FOREARM: 1. Large elbow joint effusion. Although no definite fracture is demonstrated, the presence of the effusion is suspicious for an occult fracture. Consider further evaluation with CT. 2. Moderate degenerative changes of the elbow.
--- NOTE | ~2024-02-21 | CT_ITS ---
EXAMINATION: CT right elbow. CLINICAL INFORMATION: Bursitis or septic joint. COMPARISON: Plain film exam right elbow February 21, 2024 TECHNIQUE: Axial images obtained 10 through the elbow. Coronal and sagittal reformatted images are performed at CT scanner. Exam limited by patient positioning. FINDINGS: No fracture. No dislocation. No bone destruction. Joint effusion is better seen on plain film study February 21, 2024. There are marginal bone spurs of the distal humerus the ulna and the radius at the elbow joint spaces. No periarticular calcification. CT/CT elbow RT w IV con IMPRESSION: 1. No acute osseous abnormality of the right elbow. 2. Mild degenerative changes of the elbow joint.
--- NOTE | ~2024-02-21 | XR_ITS ---
EXAMINATION: XR SHOULDER, RIGHT. XR FOREARM, RIGHT. XR ELBOW, RIGHT. CLINICAL INFORMATION: Injury and pain COMPARISON: None. TECHNIQUE: 3 views of the right shoulder. 3 views of the right elbow. AP and lateral views of the right forearm. FINDINGS: Right shoulder: Superior subluxation of the humeral head and chronic erosion along the undersurface of the acromion likely reflects chronic rotator cuff arthropathy. No acute fracture or malalignment. Prominent marginal osteophytes lung the humeral head and neck junction. Right elbow and forearm: There is a large elbow joint effusion. Although no definite fracture is demonstrated, the presence of the effusion in the setting of trauma a suspicious for an occult fracture. There are moderate degenerative changes with marginal osteophytes as well as enthesopathy of the medial and lateral epicondyles. No forearm fracture or malalignment. XR/XR forearm RT 2V IMPRESSION: RIGHT SHOULDER: Chronic rotator cuff arthropathy with no acute osseous abnormality. RIGHT ELBOW/FOREARM: 1. Large elbow joint effusion. Although no definite fracture is demonstrated, the presence of the effusion is suspicious for an occult fracture. Consider further evaluation with CT. 2. Moderate degenerative changes of the elbow.
--- NOTE | ~2024-02-21 | XR_ITS ---
EXAMINATION: XR SHOULDER, RIGHT. XR FOREARM, RIGHT. XR ELBOW, RIGHT. CLINICAL INFORMATION: Injury and pain COMPARISON: None. TECHNIQUE: 3 views of the right shoulder. 3 views of the right elbow. AP and lateral views of the right forearm. FINDINGS: Right shoulder: Superior subluxation of the humeral head and chronic erosion along the undersurface of the acromion likely reflects chronic rotator cuff arthropathy. No acute fracture or malalignment. Prominent marginal osteophytes lung the humeral head and neck junction. Right elbow and forearm: There is a large elbow joint effusion. Although no definite fracture is demonstrated, the presence of the effusion in the setting of trauma a suspicious for an occult fracture. There are moderate degenerative changes with marginal osteophytes as well as enthesopathy of the medial and lateral epicondyles. No forearm fracture or malalignment. XR/XR shoulder RT min 2V IMPRESSION: RIGHT SHOULDER: Chronic rotator cuff arthropathy with no acute osseous abnormality. RIGHT ELBOW/FOREARM: 1. Large elbow joint effusion. Although no definite fracture is demonstrated, the presence of the effusion is suspicious for an occult fracture. Consider further evaluation with CT. 2. Moderate degenerative changes of the elbow.
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
[2024-02-21 13:34] VITALS: BP 136/86; PULSE 100; RESP 18; TEMP 36.3; O2SAT 96; BMI 30.7
[2024-02-21] MEDS: Acetaminophen 325 MG TABLET 975 MG PO (15:02)
[2024-02-21 17:36] LABS: MANUAL DIFF FLAG NO
[2024-02-21 17:38] LABS: Basophils Absolute Auto 0.1 X10*3/uL (0.0-0.2); Basophils Percent Auto 0.5 % (0-2); Eosinophils Percent Auto 0.2 % (0-4); Hematocrit 35.3 % (37.0-47.0); Hemoglobin 12.1 g/dl (12.0-16.0); Imm Gran Abs Auto 0.05 X10*3/uL (0.00-0.03); Imm Gran Pct Auto 0.3 % (0.0-0.4); Lymphocytes Absolute Auto 1.7 X10*3/uL (1.2-4.9); Lymphocytes Percent Auto 11.4 % (20-40); Mean Corpuscular HGB Conc 34.3 g/dl (31.0-35.0); Mean Corpuscular Hemoglobin 31.2 pg (27.0-33.0); Mean Platelet Volume 9.8 fL (9.4-12.3); Monocytes Absolute Auto 1.2 X10*3/uL (0.1-1.2); Monocytes Percent Auto 7.6 % (2-11); Neutrophils Absolute Auto 12.1 x10*3/uL (2.0-8.3); Platelet Count 435 X10*3/uL (160-400); Red Blood Count 3.88 X10*6/uL (4.20-5.50); Red Cell Distribution Width 11.8 % (11.0-16.0); White Blood Count 15.1 X10*3/uL (4.8-10.8)
[2024-02-21 17:50] LABS: Lactic Acid 0.8 mmol/L (0.5-2.0)
[2024-02-21] MEDS: 0.9 % Sodium Chloride 1,000 ML 999 ML IV (17:54)
[2024-02-21] MEDS: Ketorolac Tromethamine 15 MG/ML VIAL IVPUSH (17:54)
[2024-02-21 17:58] LABS: Alanine Aminotransferase 26 U/L (0-31); Albumin Level 3.6 g/dL (3.5-5.0); Alkaline Phosphatase 68 U/L (39-117); Anion Gap 13 (12-20); Aspartate Amino Transferase 28 U/L (5-31); Bilirubin Direct 0.2 mg/dL (0.0-0.5); Bilirubin Total 0.5 mg/dL (0.0-1.0); Blood Urea Nitrogen 13 mg/dL (9-16); C Reactive Protein 16.05 mg/dL (< or = 0.50); Calcium 9.8 mg/dL (8.4-10.2); Carbon Dioxide 23 mmol/L (22-29); Chloride 103 mmol/L (96-108); Creatinine Clr Calc Pharmacy 82.1; Estimated Glomerular Filt Rate > 60; Glucose Random 159 mg/dL (60-115); Potassium 3.6 mmol/L (3.3-5.1); Sodium 135 mmol/L (135-145); Total Protein 7.1 g/dL (6.5-8.0); Uric Acid 4.3 mg/dL (2.4-5.7)
[2024-02-21 18:14] LABS: Erythrocyte Sedimentation Rate 84 MM/HR (0-20)
[2024-02-21] MEDS: Morphine Sulfate 4 MG/ML CARTRIDGE IVPUSH ×2 (18:31→21:28)
[2024-02-21] MEDS: vancomycin HCL 1,000 MG, vancomycin HCL 750 MG in 0.9 % Sodium Chloride 500 ML 267.5 MG IV (18:35)
[2024-02-21] MEDS: iohexoL 350 MG/ML 100 ML INFUS..BTL IV (18:53)
[2024-02-21 22:07] LABS: MN% 3.1 %; PMN% 96.9 %; RBC Synovial Fluid 0.074 X10*6/uL
--- NOTE | 2024-02-21 22:14 | P.HPHOSP_ITS ---
History of Present Illness Date of Service: 02/21/24 Attending physician on admission: Ricco Mcleod Chief Complaint: Right elbow swelling and pain Pt is a 63-year-old female with a PMH significant for?HTN, HLD, [id number] type 2 diabetes, asthma, and peripheral neuropathy who presents to the ED with?elbow swelling and pain x1 week. Patient reports 1st noticed pain in her right shoulders which soon migrated to her right elbow. Patient is set to have right shoulder replacement surgery in March secondary to chronic arthritis. Denies any known trauma or injury to shoulder or elbow. No recent illnesses. Throughout the week pain and swelling of elbow increased, and patient became unable to fully extend or flex her elbow. Describes pain as a ?burning? sensation. Has also noticed swelling that extends throughout her forearm. Feels pain radiating up toward show and down towards wrist with movement of her elbow. Yesterday reported measured a fever of 101.0. Given the persistence of symptoms today, patient decided come to the ED for further evaluation. Denies any other systemic symptoms. Chronic peripheral neuropathy of RUE at baseline. Chronic nausea secondary to Ozempic use, at baseline. Chronic shortness of breath at baseline. No chest pain/pressure, palpitations. Denies vomiting, diarrhea, abdominal pain. In the ED pt was afebrile but tachycardic up to 100, vitals otherwise WNL. Labs were significant for leukocytosis of 15.1, ESR 84, and CRP 16.05 otherwise grossly unremarkable. Stable H& H. No significant electrolyte abnormalities. Renal and hepatic function baseline. Lactic acid WNL at 0.8. Right elbow synovial fluid pending. X-ray of elbow found large elbow joint effusion with no definitive fracture. X-ray of right shoulder and forearm negative for acute osseous abnormality. Right elbow CT found no acute osseous abnormality of the right elbow but showed mild degenerative changes. Joint effusion better seen on plain film. Pt was treated with acetaminophen, ketorolac, IVF, morphine, and vancomycin. Pt will be admitted to the hospital for treatment and further evaluation of right elbow joint effusion concerning for septic arthritis versus septic bursitis vs gout flare. [facility] Medical History HTN (hypertension) History of postoperative nausea and vomiting Arthritis Renal calculi Lab test negative for COVID-19 virus Diabetes Constipation Asthma Bilateral nephrolithiasis Surgical History H/O colonoscopy Hx of hand surgery Hx of cystoscopy Hx of lithotripsy Social History Are you a primary intensive care unit registered nurse to a significant other at home: No Do you presently have visiting nurse or other home services: No Meds Allergies Allergy/AdvReac Type Severity Reaction Status Date / Time duloxetine [From Cymbalta] Allergy Intermediate Itching Verified 02/21/24 13:34 pollen extracts [POLLEN] Allergy Mild SINUS Verified 02/21/24 13:34 PROBLEMS Home Medications ?Medication ?Instructions ?Recorded ?Confirmed ?Last Taken ?Type gabapentin 300 mg capsule 300 mg PO TID 10/16/20 10/02/23 Unknown History lisinopril 10 mg tablet 10 mg PO DAILY 10/16/20 10/02/23 Unknown History meclizine 12.5 mg tablet 12.5 mg PO BID PRN nausea 10/16/20 10/02/23 Unknown History metformin 500 mg tablet 500 mg PO BID 10/18/20 10/02/23 Unknown History lorazepam 0.5 mg tablet 0.5 mg PO anxiety 11/11/22 10/02/23 Unknown History simvastatin 40 mg tablet 40 mg PO BEDTIME 11/11/22 10/02/23 Unknown History escitalopram oxalate 10 mg tablet 0 mg PO 03/12/23 10/02/23 Unknown History fluticasone 250 mcg-salmeterol 50 1 ea inhalation BID 03/12/23 10/02/23 Unknown History mcg/dose blistr powdr for inhalation (Advair Diskus) fluticasone propionate 50 2 spray intranasal DAILY PRN 03/12/23 10/02/23 Unknown History mcg/actuation nasal allergies spray,suspension melatonin 5 mg tablet 5 mg PO BEDTIME 03/12/23 10/02/23 Unknown History semaglutide 0.25 mg or 0.5 mg (2 0.25 mg subcut QWEEK 03/12/23 10/02/23 Unknown History mg/3 mL) subcutaneous pen injector (Ozempic) Physical Exam 2 Vital Signs and Narrative: Vital Signs: Last Vital Signs Temp 97.3 F 02/21/24 13:34 Pulse 100 02/21/24 13:34 Resp 18 02/21/24 13:34 BP 136/86 02/21/24 13:34 Pulse Ox 96 02/21/24 13:34 O2 Del Method Room Air 02/21/24 13:34 BMI result Body Mass Index 30.7 General: AOx3, no acute distress Resp: CTA bilaterally CVS: S1, S2, RRR GI: +BS, NT, no distention Skin: Warm, dry Neuro: Cranial nerves II-XII grossly intact bilaterally. Motor grossly intact bilaterally Extremities: Minor swelling around right elbow extending to mid forearm. Elbow diffusely tender to palpation. Little warmth or erythema of elbow noted, though area covered in Betadine. ROM of elbow significantly reduced secondary to pain. Right financial aid advisor preserved. As pictured below. Psych: Appropriate affect Results Labs 02/21/24 17:24 02/21/24 17:24 Labs: Laboratory Results - last 24 hr 02/21/24 02/21/24 17:24 21:46 MCV 91.0 MCH 31.2 MCHC 34.3 RDW 11.8 Plt Count 435 H MPV 9.8 Immature Gran % (Auto) 0.3 Neut % (Auto) 80.0 H Lymph % (Auto) 11.4 L Bailey % (Auto) 7.6 Eos % (Auto) 0.2 Baso % (Auto) 0.5 Lymph # (Auto) 1.7 Bailey # (Auto) 1.2 Eos # (Auto) 0.0 Baso # (Auto) 0.1 Abs Immat Gran (auto) 0.05 H Absolute Neuts (auto) 12.1 H Absolute Nucleated RBC 0.000 Nucleated RBC % (auto) 0.0 ESR 84 H Anion Gap 13 Estim Creat Clear Calc 82.1 Estimated GFR > 60 Random Glucose 159 H Lactic Acid 0.8 Uric Acid 4.3 Calcium 9.8 D Total Bilirubin 0.5 Direct Bilirubin 0.2 AST 28 ALT 26 Alkaline Phosphatase 68 Total Creatine Kinase 96 C-Reactive Protein 16.05 H Total Protein 7.1 Albumin 3.6 Synovial Source right elbow Imaging Radiologist's Impressions: Impressions Elbow X-Ray 02/21/24 13:58 IMPRESSION: RIGHT SHOULDER: Chronic rotator cuff arthropathy with no acute osseous abnormality. RIGHT ELBOW/FOREARM: 1. Large elbow joint effusion. Although no definite fracture is demonstrated, the presence of the effusion is suspicious for an occult fracture. Consider further evaluation with CT. 2. Moderate degenerative changes of the elbow. Forearm X-Ray 02/21/24 13:58 IMPRESSION: RIGHT SHOULDER: Chronic rotator cuff arthropathy with no acute osseous abnormality. RIGHT ELBOW/FOREARM: 1. Large elbow joint effusion. Although no definite fracture is demonstrated, the presence of the effusion is suspicious for an occult fracture. Consider further evaluation with CT. 2. Moderate degenerative changes of the elbow. Shoulder X-Ray 02/21/24 13:58 IMPRESSION: RIGHT SHOULDER: Chronic rotator cuff arthropathy with no acute osseous abnormality. RIGHT ELBOW/FOREARM: 1. Large elbow joint effusion. Although no definite fracture is demonstrated, the presence of the effusion is suspicious for an occult fracture. Consider further evaluation with CT. 2. Moderate degenerative changes of the elbow. Elbow CT 02/21/24 18:50 IMPRESSION: 1. No acute osseous abnormality of the right elbow. 2. Mild degenerative changes of the elbow joint. Assessment and Plan (1) Effusion of right elbow: Status: Acute Plan Pt is a 63-year-old female with a PMH significant for?HTN, HLD, nne-[id number]-[id number] type 2 diabetes, asthma, and peripheral neuropathy who presents to the ED with?elbow swelling and pain x1 week. Pt will be admitted to the hospital for treatment and further evaluation of right elbow joint effusion concerning for septic arthritis versus septic bursitis vs gout flare. Right elbow joint pain and swelling XR and CT showing large elbow joint effusion but no acute osseous abnormality Patient with no known trauma or injury to the area Concerning for septic arthritis vs septic bursitis vs gout Patient meets sepsis criteria: Suspected infection, tachycardia, leukocytosis; lactic acid WNL Patient is started on broad-spectrum antibiotics in the ED Will treat with vancomycin and Zosyn, started 02/21/2024 Analgesics for pain management Follow synovial fluid analysis and cultures Orthopedic consult NPO after midnight for possible washout in the morning HTN Continue lisinopril HLD Continue statin Akg-qzjyfsp-pqgkqrlcw type 2 diabetes Hold metformin Sliding-scale insulin, diabetic diet once no longer NPO Peripheral neuropathy Continue gabapentin Full Code Attending:?Dr. Daniel DVT Prophylaxis: Pneumatic compression due to possible surgical procedure in the morning Med rec pending Pt will require a hospitalization of at least two nights for treatment of?right elbow effusion concerning for septic arthritis versus septic bursitis versus gout flare. Patient will require hospitalization for administration of IV antibiotics, analgesics, and specialist consultation with Orthopedics. Quality Stroke Does the patient have a stroke diagnosis?: No VTE Prior VTE?: No VTE Risk Level:: Medical - moderate - high VTE Device Contraindication: N/A - Device Ordered VTE Drug Contraindication: Treatment Not Indicated
[2024-02-21 22:40] LABS: BF Shift QC OK YES; Monocytes Synovial Fluid 2 %; Neutrophils Synovial Fluid 98 %
[2024-02-21 22:51] VITALS: BP 130/74; PULSE 85; RESP 16; TEMP 36.7; O2SAT 98
--- NOTE | 2024-02-21 23:07 | PC.NURSE ---
63 year old female coming from home after a right elbow injury involving a family member who pulled her arm during a medical emergency 1 week prior to arrival. Since then the patient had had limited range of motion to her right elbow with swelling. today the area appears red and warm to touch. pt blood work was significant for WBC of 15.1, ESR 84, and CRP 16.05, lactic was negative. XR was taken with joint effusion present. CT confirmed no fx to elbow. pt was given vancomycin 1750 in addition to 1L IVF. Cultures were drawn and Vanco 1750 was initiated. pt was given APAP, Toradol, Morphine, as well as local anessthetics. NALINI Fernandes aspirated approx 3mls of fluid from right elbow effusion, pending micro results. Sling was provided to pt for comfort. 20G IV present in Left forearm. pt as A&O x4 calm and cooperative, independent with ADL's. PZA Allen evaluated pt, plan is for admission for management of septic arthritis vs septic bursitis.
[2024-02-22] MEDS: Piperacillin Sodium/Tazobactam 3.375 GM in 0.9 % Sodium Chloride 50 ML IV ×2 (00:28→06:55)
[2024-02-22 02:55] VITALS: BP 107/59; PULSE 95; RESP 16; TEMP 37; O2SAT 95
--- NOTE | 2024-02-22 07:12 | PHA.PROG ---
Admission Date/Time: February 21, 2024 23:09 Indication: BONE AND JOINT Weight in k.7 kg Adjusted body weight in Kg: Thayne body weight in Kg: Obesity Dosing Indication % IBW: Serum Creatinine - Last 168 Hours 02/21/24 17:24 Creatinine 0.66 Estimated CrCl and GFR - Last 168 Hours 02/21/24 17:24 Estim Creat Clear Calc 82.1 Estimated GFR > 60 Vancomycin Loading Dose: 1750 MG Current Vancomycin Dosing Regimen: 750 MG Q8H Vancomycin Monitoring using AUC goal of 400 - 600 range with trough as surrogate marker: ABV=477 TROUGH=18.8 Date and Time for next Vancomycin Level to be drawn: 02/22/24@2100 Pharmacist Comments on Vancomycin Plan: Due to indication of bone and joint infection, starting vanco therapy aggressively to get pt to optimum level, may need to adjust once level come back after 3 doses. Vancomycin dosing will take advantage of [employer] as a clinical decision support tool that uses Bayesian modeling to calculate individual patient's pharmacokinetic parameters and forecast the patient's drug concentration time course with the target goal AUC 24 range of 400 - 600 mg/L/hr.
[2024-02-22] MEDS: Morphine Sulfate 4 MG/ML CARTRIDGE IVPUSH (07:21)
[2024-02-22] MEDS: vancomycin HCL 750 MG in 0.9 % Sodium Chloride 250 ML 265 MG IV (08:38)
[2024-02-22] MEDS: 0.9 % Sodium Chloride Flush 3 ML SYRINGE IVFLUSH (08:45)
[2024-02-22 09:50] VITALS: BP 121/72; PULSE 83; RESP 14; TEMP 36.3; O2SAT 96
[2024-02-22 09:51] LABS: Glucose, Whole Blood 110 mg/dL (60-115)
--- NOTE | 2024-02-22 09:52 | PM.CNOR ---
History of Present Illness HPI Consult date: 02/22/24 Chief complaint: R elbow swelling Narrative: 63 yo female admitted to the medical service with right elbow swelling, concerns for septic arthritis. Patient chart mentions h//o gout Patient denies trauma or recent illness Denies fever or chills joint was aspirated in the ED and medicine admited the patient and placed ortho consult Review of Systems Review of Systems: Yes all other systems are reviewed and are negative PMFSH Past Medical History Medical History HTN (hypertension) History of postoperative nausea and vomiting Arthritis Renal calculi Lab test negative for COVID-19 virus Diabetes Constipation Asthma Bilateral nephrolithiasis Surgical History Surgical History H/O colonoscopy Hx of hand surgery Hx of cystoscopy Hx of lithotripsy Social History Social History Are you a primary healthcare financial analyst to a significant other at home: No Do you presently have visiting nurse or other home services: No Smoked in Last 30 Days: No Advance Directives: No Advance Directives Information Provided: Yes Do you have a plan to hurt others: No Plan Patient : No Meds Allergies Allergy/AdvReac Type Severity Reaction Status Date / Time duloxetine [From Cymbalta] Allergy Intermediate Itching Verified 02/21/24 13:34 pollen extracts [POLLEN] Allergy Mild SINUS Verified 02/21/24 13:34 PROBLEMS Active Medications: Current Medications Acetaminophen (Acetaminophen 325 Mg Tablet) 650 mg PO Q6H PRN PRN Reason: Pain, Mild (Pain Scale 1-3), fever or headache Benzonatate (Benzonatate 100 Mg Capsule) 100 mg PO TID PRN PRN Reason: Cough Calcium Carbonate (Calcium Carbonate 750 Mg Tab.Chew) 750 mg PO Q4H PRN PRN Reason: Heartburn Glucose (Glucose Gel 15 Gm Gel..Gram.) 15 gm PO Q15M PRN; Protocol PRN Reason: per Hypoglycemia Standing Ord. Piperacillin Sod/Tazobactam (Sod 3.375 gm/ Sodium Chloride) 50 mls @ 100 mls/hr IV Q6H GAB Last Infusion: 02/22/24 08:37 Dose: Infused Vancomycin HCl 750 mg/ Sodium (Chloride) 265 mls @ 265 mls/hr IV Q8H [facility] Last Admin: 02/22/24 08:38 Dose: 265 mls/hr Dextrose (D10) 250 mls @ 750 mls/hr IV Q15M PRN; Protocol PRN Reason: per Hypoglycemia Standing Ord. Insulin Human Lispro (Insulin Lispro 100 Unit/Ml 3 Ml Vial) 0 unit SUBCUT QIDACHS [facility]; Protocol Magnesium Hydroxide (Milk Of Magnesia 30 Ml Oral.Susp) 30 ml PO DAILY PRN PRN Reason: Constipation Melatonin (Melatonin 3 Mg Tablet) 6 mg PO BEDTIME PRN PRN Reason: Insomnia Morphine Sulfate (Morphine Sulfate 4 Mg/Ml Cartridge) 4 mg IVPUSH Q4H PRN; Protocol PRN Reason: Pain, Severe (Pain Scale 7-10) Last Admin: 02/22/24 07:21 Dose: 4 mg Ondansetron HCl (Ondansetron Hcl 4 Mg/2 Ml Vial) 4 mg IVPUSH Q8H PRN PRN Reason: Nausea and Vomiting Pharmacy Consult (Consult Rx Vancomycin Dosing) 1 each MISCELLANE DAILY PRN PRN Reason: Consult order Sodium Chloride (0.9 % Sodium Chloride Flush 3 Ml Syringe) 3 ml IVFLUSH [facility] Last Admin: 02/22/24 08:45 Dose: 3 ml Home Medications ?Medication ?Instructions ?Recorded ?Confirmed ?Last Taken ?Type gabapentin 300 mg capsule 300 mg PO TID 10/16/20 10/02/23 Unknown History lisinopril 10 mg tablet 10 mg PO DAILY 10/16/20 10/02/23 Unknown History metformin 500 mg tablet 500 mg PO BID 10/18/20 10/02/23 Unknown History lorazepam 0.5 mg tablet 0.5 mg PO anxiety 11/11/22 10/02/23 Unknown History simvastatin 40 mg tablet 40 mg PO BEDTIME 11/11/22 10/02/23 Unknown History escitalopram oxalate 10 mg tablet 0 mg PO 03/12/23 10/02/23 Unknown History fluticasone 250 mcg-salmeterol 50 1 ea inhalation BID 03/12/23 10/02/23 Unknown History mcg/dose blistr powdr for inhalation (Advair Diskus) fluticasone propionate 50 2 spray intranasal DAILY PRN 03/12/23 10/02/23 Unknown History mcg/actuation nasal allergies spray,suspension melatonin 5 mg tablet 5 mg PO BEDTIME 03/12/23 10/02/23 Unknown History albuterol sulfate 90 mcg/actuation 2 puff inhalation Q4H PRN 02/22/24 Unknown History aerosol inhaler (Ventolin HFA) Shortness Of Breath Or Wheezing famotidine 20 mg tablet 20 mg PO BID 02/22/24 Unknown History meclizine 12.5 mg tablet 12.5 - 25 mg PO BID PRN nausea 02/22/24 Unknown History semaglutide 2 mg/dose (8 mg/3 mL) 2 mg subcut QWEEK 02/22/24 Unknown History subcutaneous pen injector (Ozempic) tramadol 50 mg tablet 50 mg PO Q4H PRN Pain 02/22/24 Unknown History Physical Exam Vital Signs: Vital Signs: Last Vital Signs Temp 97.3 F 02/22/24 09:50 Pulse 83 02/22/24 09:50 Resp 14 02/22/24 09:50 BP 121/72 02/22/24 09:50 Pulse Ox 96 02/22/24 09:50 O2 Del Method Room Air 02/22/24 09:50 BMI result Body Mass Index 30.7 Const: General: cooperative and no acute distress Orientation/consciousness: patient oriented x3 Resp: Effort & Inspection: normal respiratory effort and able to speak in complete sentences Cardio: Peripheral pulses: Peripheral pulses 2+ throughout Neuro: General: patient oriented x3 Extrem: Other: Right elbow normal to inspection No redness Mild swelling around the elbow i am able to range the elbow with mild discomfot NVI Results Labs 02/21/24 17:24 02/21/24 17:24 Labs: Abnormal lab results 02/21/24 Range/Units 17:24 WBC 15.1 H (4.8-10.8) X10*3/uL RBC 3.88 L D (4.20-5.50) X10*6/uL Hct 35.3 L D (37.0-47.0) % Plt Count 435 H (160-400) X10*3/uL Neut % (Auto) 80.0 H (45-73) % Lymph % (Auto) 11.4 L (20-40) % Abs Immat Gran (auto) 0.05 H (0.00-0.03) X10*3/uL Absolute Neuts (auto) 12.1 H (2.0-8.3) x10*3/uL ESR 84 H (0-20) MM/HR Random Glucose 159 H (60-115) mg/dL C-Reactive Protein 16.05 H (< or = 0.50) mg/dL H & H 02/21/24 Range/Units 17:24 Hgb 12.1 D (12.0-16.0) g/dl Hct 35.3 L D (37.0-47.0) % All other labs normal. Diagnostic results Elbow x-ray: image reviewed (RIGHT ELBOW/FOREARM: 1. Large elbow joint effusion. Although no definite fracture is demonstrated, the presence of the effusion is suspicious for an occult fracture. Consider further evaluation with CT. 2. Moderate degenerative changes of the elbow. ) Elbow CT: image reviewed (CT elbow RT w IV con IMPRESSION: 1. No acute osseous abnormality of the right elbow. 2. Mild degenerative changes of the elbow joint. ) Assessment and Plan (1) Pseudogout of right elbow: Status: Acute Plan Name: Vinita Recinos Age/Sex: 63/F : 1960 Unit#: [id number] Attend Dr: Leo Tariq MD Re02/21/24 Status: ADM IN Location: [place] [id number] Disch: Specimen: [id number] Collected: 02/21/24 Status: RES Req#: [id number] Received: 02/21/24 Source: Elbow Aspi Sp Desc: Right Subm Dr: Cande Fernandes Ordered: Syn[employer]ld Cult/Cry Procedure Result Verified Gram stain Final 02/22/24 Gram stain results: 4+ polys 4+ red blood cells No organisms seen Anaerobic Culture Preliminary 02/22/24 No growth to date. Appearance Final 02/22/24-813 Appearance Bloody Crystals Final 02/22/24 Crystals 1+ intracellular calcium pyrophosphate crystals Synovial fluid culture Preliminary 02/22/24-844 No growth to date. Aspirate consistant with pseudogout Recommend NSAIDS/Steroids Compression No further othopedic intervention Can see Rheumatology out patient Procedures Date of Service Date of Service: 02/22/24
[2024-02-22 10:43] LABS: Creatinine Clr Calc Pharmacy 79.7; Estimated Glomerular Filt Rate > 60
[2024-02-22] MEDS: Acetaminophen 325 MG TABLET 650 MG PO (10:49)
--- NOTE | 2024-02-22 11:04 | PM.DS ---
DS: Providers Provider Date of Service: 02/22/24 Date of admission: 02/21/24 23:09 Date of discharge: 02/22/24 Primary care physician: Unknown Physician Consults: 02/21/24 23:37 Consult to Orthopedics Routine Consulting Provider: [facility] Orthopedic Surgeons Reason for consultation: R. elbow joint effusion, ?septic arthri vs bursitis vs gout DS: Diagnosis Discharge Diagnosis (1) Pseudogout of right elbow: Status: Acute DS: Summary Hospital Course Hospital Course: From the history and physical by the admitting hospitalist, PAZ Paz, 02/21/24: Pt is a 63-year-old female with a PMH significant for?HTN, HLD, [id number] type 2 diabetes, asthma, and peripheral neuropathy who presents to the ED with?elbow swelling and pain x1 week. Patient reports 1st noticed pain in her right shoulders which soon migrated to her right elbow. Patient is set to have right shoulder replacement surgery in March secondary to chronic arthritis. Denies any known trauma or injury to shoulder or elbow. No recent illnesses. Throughout the week pain and swelling of elbow increased, and patient became unable to fully extend or flex her elbow. Describes pain as a ?burning? sensation. Has also noticed swelling that extends throughout her forearm. Feels pain radiating up toward show and down towards wrist with movement of her elbow. Yesterday reported measured a fever of 101.0. Given the persistence of symptoms today, patient decided come to the ED for further evaluation. Denies any other systemic symptoms. Chronic peripheral neuropathy of RUE at baseline. Chronic nausea secondary to Ozempic use, at baseline. Chronic shortness of breath at baseline. No chest pain/pressure, palpitations. Denies vomiting, diarrhea, abdominal pain. In the ED pt was afebrile but tachycardic up to 100, vitals otherwise WNL. Labs were significant for leukocytosis of 15.1, ESR 84, and CRP 16.05 otherwise grossly unremarkable. Stable H& H. No significant electrolyte abnormalities. Renal and hepatic function baseline. Lactic acid WNL at 0.8. Right elbow synovial fluid pending. X-ray of elbow found large elbow joint effusion with no definitive fracture. X-ray of right shoulder and forearm negative for acute osseous abnormality. Right elbow CT found no acute osseous abnormality of the right elbow but showed mild degenerative changes. Joint effusion better seen on plain film. Pt was treated with acetaminophen, ketorolac, IVF, morphine, and vancomycin. Pt will be admitted to the hospital for treatment and further evaluation of right elbow joint effusion concerning for septic arthritis versus septic bursitis vs gout flare. Crystal analysis of the aspirated synovial fluid revealed intracellular calcium pyrophosphate crystals consistent with pseudogout. Orthopedic Surgery was consulted and agreed with the diagnosis of pseudogout rather than septic arthritis. She was discharged home on naproxen [and to continue home dosing of tramadol] and should have outpatient Rheumatology consultation. Time Attestation Discharge Coordination Time (in mins): 35 Quality: Safe Use of Opioids Does Pt have an Active Cancer Diagnosis on the Problem List?: No Quality: Stroke Does the patient have a stroke diagnosis?: No Physical Exam Vital Signs: Vital Signs: Last Vital Signs Temp 97.3 F 02/22/24 09:50 Pulse 83 02/22/24 09:50 Resp 14 02/22/24 09:50 BP 121/72 02/22/24 09:50 Pulse Ox 96 02/22/24 09:50 O2 Del Method Room Air 02/22/24 09:50 BMI result Body Mass Index 30.7 Gen: in no acute distress HEENT: sclera anicteric, moist mucus membranes Neck: supple Lungs: clear to auscultation bilaterally Heart: regular rate and rhythm, no murmurs Abd: soft, non-tender, non-distended Ext: R elbow with some swelling, no redness; ROM limited by pain Skin: warm/well-perfused Neuro: alert and oriented x3, no focal findings Psych: appropriate affect DS: Data Data Completed and Pending Completed studies during hospitalization [Text1]: Laboratory Results WBC 15.1 X10*3/uL (4.8-10.8) H 02/21/24 17:24 RBC 3.88 X10*6/uL (4.20-5.50) L D 02/21/24 17:24 Hgb 12.1 g/dl (12.0-16.0) D 02/21/24 17:24 Hct 35.3 % (37.0-47.0) L D 02/21/24 17:24 MCV 91.0 fL (80.0-98.0) 02/21/24 17:24 MCH 31.2 pg (27.0-33.0) 02/21/24 17:24 MCHC 34.3 g/dl (31.0-35.0) 02/21/24 17:24 RDW 11.8 % (11.0-16.0) 02/21/24 17:24 Plt Count 435 X10*3/uL (160-400) H 02/21/24 17:24 MPV 9.8 fL (9.4-12.3) 02/21/24 17:24 Immature Gran % (Auto) 0.3 % (0.0-0.4) 02/21/24 17:24 Neut % (Auto) 80.0 % (45-73) H 02/21/24 17:24 Lymph % (Auto) 11.4 % (20-40) L 02/21/24 17:24 [place] % (Auto) 7.6 % (2-11) 02/21/24 17:24 Eos % (Auto) 0.2 % (0-4) 02/21/24 17:24 Baso % (Auto) 0.5 % (0-2) 02/21/24 17:24 Lymph # (Auto) 1.7 X10*3/uL (1.2-4.9) 02/21/24 17:24 [place] # (Auto) 1.2 X10*3/uL (0.1-1.2) 02/21/24 17:24 Eos # (Auto) 0.0 X10*3/uL (0.0-0.4) 02/21/24 17:24 Baso # (Auto) 0.1 X10*3/uL (0.0-0.2) 02/21/24 17:24 Abs Immat Gran (auto) 0.05 X10*3/uL (0.00-0.03) H 02/21/24 17:24 Absolute Neuts (auto) 12.1 x10*3/uL (2.0-8.3) H 02/21/24 17:24 Absolute Nucleated RBC 0.000 X10*3/uL (0.0-0.012) 02/21/24 17:24 Nucleated RBC % (auto) 0.0 /100WBC (0.0-0.2) 02/21/24 17:24 ESR 84 MM/HR (0-20) H 02/21/24 17:24 Sodium 135 mmol/L (135-145) 02/21/24 17:24 Potassium 3.6 mmol/L (3.3-5.1) 02/21/24 17:24 Chloride 103 mmol/L (96-108) 02/21/24 17:24 Carbon Dioxide 23 mmol/L (22-29) 02/21/24 17:24 Anion Gap 13 (12-20) 02/21/24 17:24 BUN 13 mg/dL (9-16) 02/21/24 17:24 Creatinine 0.68 mg/dL (0.5-1.4) 02/22/24 10:16 Estim Creat Clear Calc 79.7 02/22/24 10:16 Estimated GFR > 60 02/22/24 10:16 POC Glucose 110 mg/dL (60-115) 02/22/24 09:45 Random Glucose 159 mg/dL (60-115) H 02/21/24 17:24 Lactic Acid 0.8 mmol/L (0.5-2.0) 02/21/24 17:24 Uric Acid 4.3 mg/dL (2.4-5.7) 02/21/24 17:24 Calcium 9.8 mg/dL (8.4-10.2) D 02/21/24 17:24 Total Bilirubin 0.5 mg/dL (0.0-1.0) 02/21/24 17:24 Direct Bilirubin 0.2 mg/dL (0.0-0.5) 02/21/24 17:24 AST 28 U/L (5-31) 02/21/24 17:24 ALT 26 U/L (0-31) 02/21/24 17:24 Alkaline Phosphatase 68 U/L (39-117) 02/21/24 17:24 Total Creatine Kinase 96 U/L (26-140) 02/21/24 17:24 C-Reactive Protein 16.05 mg/dL (< or = 0.50) H 02/21/24 17:24 Total Protein 7.1 g/dL (6.5-8.0) 02/21/24 17:24 Albumin 3.6 g/dL (3.5-5.0) 02/21/24 17:24 Synovial Source right elbow 02/21/24 21:46 Synovial WBC 82.907 X10*3/uL 02/21/24 21:46 Synovial RBC 0.074 X10*6/uL 02/21/24 21:46 Synovial Neutrophils 98 % 02/21/24 21:46 Synovial Monocytes 2 % 02/21/24 21:46 Impressions Elbow X-Ray 02/21/24 13:58 IMPRESSION: RIGHT SHOULDER: Chronic rotator cuff arthropathy with no acute osseous abnormality. RIGHT ELBOW/FOREARM: 1. Large elbow joint effusion. Although no definite fracture is demonstrated, the presence of the effusion is suspicious for an occult fracture. Consider further evaluation with CT. 2. Moderate degenerative changes of the elbow. Forearm X-Ray 02/21/24 13:58 IMPRESSION: RIGHT SHOULDER: Chronic rotator cuff arthropathy with no acute osseous abnormality. RIGHT ELBOW/FOREARM: 1. Large elbow joint effusion. Although no definite fracture is demonstrated, the presence of the effusion is suspicious for an occult fracture. Consider further evaluation with CT. 2. Moderate degenerative changes of the elbow. Shoulder X-Ray 02/21/24 13:58 IMPRESSION: RIGHT SHOULDER: Chronic rotator cuff arthropathy with no acute osseous abnormality. RIGHT ELBOW/FOREARM: 1. Large elbow joint effusion. Although no definite fracture is demonstrated, the presence of the effusion is suspicious for an occult fracture. Consider further evaluation with CT. 2. Moderate degenerative changes of the elbow. Elbow CT 02/21/24 18:50 IMPRESSION: 1. No acute osseous abnormality of the right elbow. 2. Mild degenerative changes of the elbow joint. Microbiology 02/21/24 21:46 Elbow Right Gram Stain - Final 02/21/24 21:46 Elbow Right Routine Culture - Preliminary No growth to date. 02/21/24 21:46 Elbow Aspirate - Right Gram Stain - Final 02/21/24 21:46 Elbow Aspirate - Right Anaerobic Culture - Preliminary No growth to date. 02/21/24 21:46 Elbow Aspirate - Right Gross Specimen Examination - Final 02/21/24 21:46 Elbow Aspirate - Right Fluid Crystals - Final 02/21/24 21:46 Elbow Aspirate - Right Joint Fluid Culture - Preliminary No growth to date. Gram stain Final 02/22/24-0740 Gram stain results: 4+ polys 4+ red blood cells No organisms seen Anaerobic Culture Preliminary 02/22/24-0845 No growth to date. Appearance Final 02/22/24-0814 Appearance Bloody Crystals Final 02/22/24-813 Crystals 1+ intracellular calcium pyrophosphate crystals Synovial fluid culture Preliminary 02/22/24-844 No growth to date. Discharge Plan Discharge Anticipated Discharge Date/Time: 02/22/24 10:56 Patient Disposition: Home, Self-Care Discharge Diagnosis: Pseudogout Referrals: [facility] Rheumatology Service [Provider Group] - 1 Week Lesa Talbot [employer] [Nurse Practitioner] - 1 Week Physician,Unknown J [Primary Care Provider] - 1 Week Discharge Medications: New naproxen 250 mg tablet See Rx Instructions .ROUTE .COMPLEX PRN (Reason: elbow pain/swelling) Qty: 30 0RF Rx Instructions: 1-2 tabs PO bid prn elbow pain/swelling Continued allopurinol 100 mg tablet 100 mg PO DAILY 90 Days Qty: 90 2RF pyridoxine (vitamin B6) 50 mg tablet 50 mg PO DAILY 90 Days Qty: 90 1RF metformin 500 mg tablet 500 mg PO BID cyclobenzaprine 10 mg tablet 10 mg PO TID PRN (Reason: muscle spasm) Qty: 10 0RF ibuprofen 600 mg tablet 600 mg PO Q8H PRN (Reason: pain) Qty: 14 0RF lidocaine 5 % adhesive patch,medicated 1 patch topical DAILY PRN (Reason: pain) Qty: 15 0RF Rx Instructions: leave on most painful area for up to 12 hrs ondansetron 4 mg tablet,disintegrating 4 mg PO Q6H Qty: 14 0RF meclizine 12.5 mg tablet 12.5 - 25 mg PO BID PRN (Reason: nausea) tramadol 50 mg tablet 50 mg PO Q4H PRN (Reason: Pain) famotidine 20 mg tablet 20 mg PO BID albuterol sulfate [Ventolin HFA] 90 mcg/actuation HFA aerosol inhaler 2 puff inhalation Q4H PRN (Reason: Shortness Of Breath Or Wheezing) Ozempic 2 mg/dose (8 mg/3 mL) pen injector 2 mg subcut QWEEK gabapentin 300 mg capsule 300 mg PO TID lisinopril 10 mg tablet 10 mg PO DAILY lorazepam 0.5 mg tablet 0.5 mg PO simvastatin 40 mg tablet 40 mg PO BEDTIME fluticasone propionate 50 mcg/actuation spray,suspension 2 spray intranasal DAILY PRN (Reason: allergies) fluticasone propion-salmeterol [Advair Diskus] 250-50 mcg/dose blister with device 1 ea inhalation BID melatonin 5 mg tablet 5 mg PO BEDTIME escitalopram oxalate 10 mg tablet 0 mg PO Discharge Orders: Discharge Order (Routine); Ordered 02/22/24 Ordered By: Leo Tariq Diet: Diabetic diet Activity on Discharge: As tolerated Stand Alone Forms: Patient Portal Discharge page Print Language: [place] Care Plan Goals: pain control Health Concerns: pseudogout Plan of Treatment: take naproxen 250 mg, 1-2 tabs twice daily as needed for pain/swelling continue tramadol as needed for severe pain referral to [facility] Rheumatology for outpatient evaluation Please follow up with your primary care doctor within 1 week. Return to the hospital if you experience recurrent or worsening symptoms. Assessment: See Discharge Summary.
--- NOTE | 2024-02-22 11:25 | MHC.CM.PN ---
IMM delivered. Patient lives in an apartment alone. Has a [employer] 7day/wk, a few hours during the day and a few hours at night, cannot recall the exact # of hours. [employer] assist's w/ ADL's. Patient ambulates w/ cane, and uses walker PRN. PCP at [facility] Pt completed HCP naming HCA's: 1) sister Gricel Rice and 2) daughter Janette Bingham. Copy placed in chart and copy provided to patient. DP: Patient is medically cleared for dc home self care. Daughters are at beside to transport. RN aware.
[2024-02-22 11:59] LABS: Glucose, Whole Blood 103 mg/dL (60-115)
--- NOTE | 2024-02-22 13:37 | PHA.MEDREC ---
Pharmacy Consult ? Medication Reconciliation Pharmacy has completed the medication reconciliation. Patient states she take Ozempic 2 mg q Sundays. Patient also says she take metformin 500 mg bid but last fill date was 08-15-24 for 90 day supply.
[2024-02-23 15:05] LABS: Glucose Synovial Fluid 22; Total Protein Synovial Fluid 4.3
== END 2024-02-22 13:00 | disposition home or self-care (01) | DRG 554 ==
LOC: HO.ED 21:56 → HO.EDOVER 23:50 → HO.S3 02-22 05:22
PROVIDERS: Physician Assistant Medical; Admitting Provider Student in an Organized Health Care Education/Training Program; Emergency Provider Emergency Medicine; PCP Student in an Organized Health Care Education/Training Program; Visit Provider Family Medicine
DX: M10.9 Gout, unspecified (principal); I10 Essential (primary) hypertension; E78.5 Hyperlipidemia, unspecified; E11.42 Type 2 diabetes mellitus with diabetic polyneuropathy; Z79.84 Long term (current) use of oral hypoglycemic drugs; Z79.899 Other long term (current) drug therapy
CPT/HCPCS: 36415; 73030; 73070; 73090; 73201; 80048; 80076; 82550; 82565; 82945; 82947; 83605; 84157; 84550; 85025; 85652; 86140; 87040; 87070; 87073; 87205; 89051; 89060; 99285; J1885; J2270; J2543; J3370; Q9967

== ENCOUNTER → 2024-02-21 23:09 | Outpatient (BNV) | payer MEDICARE, MEDICAID, SELFPAY | PROVIDERS: Admitting Provider Student in an Organized Health Care Education/Training Program; Emergency Provider Emergency Medicine; Visit Provider Physician Assistant | DX: M11.221 Other chondrocalcinosis, right elbow (principal) | CPT/HCPCS: 99221 ==

== ENCOUNTER → 2024-02-21 23:09 | Outpatient (BNV) | payer MEDICARE, MEDICAID, SELFPAY | PROVIDERS: Admitting Provider Student in an Organized Health Care Education/Training Program; Emergency Provider Emergency Medicine; Visit Provider Family Medicine | DX: M25.421 Effusion, right elbow (principal) | CPT/HCPCS: 99223; 99239 ==

== ENCOUNTER 2024-02-25 10:02 | Inpatient (IN) | payer MEDICARE, MEDICAID, SELFPAY ==
--- NOTE | ~2024-02-25 | CT_ITS ---
EXAMINATION: CT ABDOMEN AND PELVIS WITHOUT CONTRAST CLINICAL INFORMATION: Flank pain. History of stones. COMPARISON: Renal ultrasound September 03, [address] abdomen pelvis October 24, 2022 TECHNIQUE: Multidetector volumetric imaging was performed from the superior aspect of the liver through the pubic symphysis. Sagittal and coronal reformatted images were obtained on the technologist's workstation. This CT examination was performed using dose optimization techniques as appropriate, variously including the following: *Automated exposure control *Adjustment of mA and/or kV according to patient size (this includes techniques or standardized protocols for targeted exams where dose is matched to indication/reason for exam; i.e. extremities or head) *Use of iterative reconstruction technique DLP: 558 mGy-cm FINDINGS: Visualized lung bases demonstrate mild dependent atelectasis. The liver is normal in size. The gallbladder is normal in appearance. The pancreas, spleen and adrenal glands are unremarkable. Small inferior splenule. There is mild left-sided hydronephrosis secondary to a 1 cm calculus within the proximal left ureter. This stone demonstrates Hounsfield units of approximately 1000. There is an additional 3 mm nonobstructing stone within the lower pole the left kidney. There is a single 5 mm nonobstructing stone within the lower pole the right kidney. There is no right-sided hydronephrosis present. Normal caliber loops of small and large bowel. Mild to moderate stool burden throughout the colon. Normal appendix. Normal caliber abdominal aorta demonstrating moderate atherosclerotic disease. No retroperitoneal lymphadenopathy. The bladder is decompressed and therefore not accurately evaluated. Unremarkable CT appearance of the uterus. No gross pelvic fluid. No inguinal lymphadenopathy. Moderate diffuse degenerative changes of the spine. Mild anterolisthesis of L5 on S1. CT/CT abdomen pelvis wo IV con IMPRESSION: Mild left-sided hydronephrosis secondary to a 1 cm calculus within the proximal left ureter. Fleischner guidelines were followed.
--- NOTE | ~2024-02-25 | FL_ITS ---
EXAMINATION: XR FLUOROSCOPY WITH IMAGES CLINICAL INFORMATION: Left ureteral stone, intraoperative procedure, left side, fluoroscopic guidance COMPARISON: None available. TECHNIQUE: Fluoroscopy Supervised By: Dr. Shaggy Carlin. Fluoroscopy Time: 10.8 seconds. Cumulative Dose: 2.81 mGy. DAP: None. Images: 3. FINDINGS: Fluoroscopic guidance was provided for a procedure. Left ureteral stent visualized. Please refer to operative report for detailed evaluation. FL/FL guidance in OR IMPRESSION: Fluoroscopic guidance was provided for a procedure. Left ureteral stent visualized. Please refer to operative report for detailed evaluation.
[2024-02-25 10:03] VITALS: BP 152/95; PULSE 88; RESP 16; O2SAT 98; BMI 30.8
--- NOTE | 2024-02-25 10:14 | ED_ITS ---
HPI - Female Genitourinary General Chief complaint: Urogenital-Female Stated complaint: Lower back pain Time Seen by Provider: 02/25/24 10:14 Source: patient Mode of arrival: ambulatory Limitations: no limitations History of Present Illness ED Provider: Julieth Martinez PA-C HPI Narrative: 63 year old female with a past medical history of HTN, renal calculi, diabetes, asthma, and arthritis presents to the ER due to left sided flank pain that radiates to left groin. States that 1 week ago she had flank pain and hematuria. The pain subsided 2 days later. This morning around 3 am she woke up due to 10/10 pain. Took tramadol with no relief. Has associated nausea and multiple episodes of vomiting. Has hematuria, urinary urgency but denies dysuria and frequency. Denies chest pain, dyspnea, palpitations, fever and chills. MD elicited complaint: flank pain Onset (ago): hour(s) Location of symptoms: LLQ, low back and flank Severity: severe Female Urogenital Radiation: Suprapubic and L Flank Severity scale (1-10): 7 Quality of pain: sharp and stabbing Consistency: constant and improved Urinary symptoms: Urgency, Hematuria and Flank Pain Relieving factors: medication Associated symptoms: abdominal pain, nausea and vomiting Related Data Home Medications ?Medication ?Instructions ?Recorded ?Confirmed gabapentin 300 mg capsule 300 mg PO TID 10/16/20 02/25/24 lisinopril 10 mg tablet 10 mg PO DAILY 10/16/20 02/25/24 metformin 500 mg tablet 500 mg PO BID 10/18/20 02/25/24 simvastatin 40 mg tablet 40 mg PO BEDTIME 11/11/22 02/25/24 escitalopram oxalate 10 mg tablet 10 mg PO DAILY 03/12/23 02/25/24 fluticasone propionate 50 2 spray intranasal DAILY PRN 03/12/23 02/25/24 mcg/actuation nasal allergies spray,suspension melatonin 5 mg tablet 5 mg PO BEDTIME PRN Sleep 03/12/23 02/25/24 albuterol sulfate 90 mcg/actuation 2 puff inhalation Q4H PRN 02/22/24 02/25/24 aerosol inhaler (Ventolin HFA) Shortness Of Breath Or Wheezing meclizine 12.5 mg tablet 25 mg PO BID PRN nausea 02/22/24 02/25/24 ondansetron 4 mg disintegrating 4 mg PO Q6H PRN Nausea 02/22/24 02/25/24 tablet semaglutide 2 mg/dose (8 mg/3 mL) 2 mg subcut WE 02/22/24 02/25/24 subcutaneous pen injector (Ozempic) tramadol 50 mg tablet 50 mg PO TID 02/22/24 02/25/24 Previous Rx's ?Medication ?Instructions ?Recorded allopurinol 100 mg tablet 100 mg PO DAILY 90 days #90 tabs 01/22/21 pyridoxine (vitamin B6) 50 mg 50 mg PO DAILY 90 days #90 tabs 03/01/21 tablet ibuprofen 600 mg tablet 600 mg PO Q8H PRN pain #14 tabs 04/09/21 Allergies Allergy/AdvReac Type Severity Reaction Status Date / Time duloxetine [From Cymbalta] Allergy Intermediate Itching Verified 02/25/24 10:07 pollen extracts [POLLEN] Allergy Mild SINUS Verified 02/25/24 10:07 PROBLEMS Review of Systems 2 Constitutional: Constitutional: Reports no additional constitutional complaints, Denies chills, Denies fever(s) and Denies night sweats Eyes: Eyes: Reports no additional eye complaints, Denies blurry vision, Denies change in vision, Denies diplopia, Denies eye discharge, Denies loss of vision and Denies eye pain ENT: Denies dizziness Cardiovascular: Cardiovascular: Reports no additional cardiovascular complaints, Denies chest pain, Denies lightheadedness, Denies Loss of Consciousness and Denies dyspnea Respiratory: Respiratory: Reports no additional respiratory complaints and Denies dyspnea Gastrointestinal: Gastrointestinal: Reports no additional gastrointestinal complaints, Denies abdominal pain, Denies melena, Denies hematochezia, Denies change in bowel habits, Denies change in stool character and Reports constipation Genitourinary: Genitourinary: Reports hematuria, Denies urinary frequency, Denies dysuria, Denies urinary incontinence, Denies urinary hesitancy and Reports urinary urgency Comments: left flank pain Musculoskeletal: Musculoskeletal: Reports no additional musculoskeletal complaints, Reports back pain, Denies numbness and Denies tingling Neurologic: Denies dizziness, Denies loss of vision, Denies numbness and Denies tingling Psychiatric: Psychiatric: Reports no additional psychiatric complaints Endocrine: Endocrine: Reports no additional endocrine complaints Hematologic/Lymphatic: Hematologic/Lymphatic: Reports no additional hematologic/lymphatic complaints Allergic/Immunologic: Allergic/Immunologic: Reports no additional allergic/immunologic complaints [facility] Past Medical History Attestation statement: The following information was validated with the patient. Source: old records reviewed and nursing notes reviewed Medical History HTN (hypertension) History of postoperative nausea and vomiting Arthritis Renal calculi Lab test negative for COVID-19 virus Diabetes Constipation Asthma Bilateral nephrolithiasis Surgical History H/O colonoscopy Hx of hand surgery Hx of cystoscopy Hx of lithotripsy Social History Social History Household Members: None Housing: Apartment Are you a primary coronary care unit nurse to a significant other at home: No Do you presently have visiting nurse or other home services: Yes Patient Tobacco Use Status: Never used Tobacco Advance Directives: No Advance Directives Information Provided: No service: No Physical Exam 2 Vital Signs: Vital Signs: Last Vital Signs Temp 97.8 F 02/25/24 13:42 Pulse 73 02/25/24 14:08 Resp 14 02/25/24 14:08 BP 106/65 02/25/24 14:08 Pulse Ox 100 02/25/24 14:08 O2 Del Method Nasal Cannula 02/25/24 14:08 O2 Flow Rate 1 02/25/24 13:42 BMI result Body Mass Index 30.8 Const: General: cooperative, no acute distress, alert and awake Nutritional Appearance: well nourished Orientation/consciousness: patient oriented x3 Limitations: no limitations HEENT: Head: Yes normal to inspection and Yes atraumatic Ears: hearing grossly normal bilaterally and external ears normal General nose exam: Normal external nose present, no nasal discharge noted and no epistaxis Face and sinus: Yes normal facial exam, No abrasion and No laceration Mouth: Normal oral and palatal mucosa present, no drooling and no muffled voice Eyes: General: appearance normal, both eyes and all related structures P eriorbital: periorbital findings normal Eyelids: Yes eyelids normal C onjunctivae: conjunctivae normal Pupils: Equal, round and reactive pupils present EOM: EOMs intact bilaterally Neck: Neck: Yes normal visual inspection, Yes full ROM and Yes no lymphadenopathy Chest: Chest palpation & inspection: normal inspection of the chest Resp: Effort & Inspection: normal respiratory effort and able to speak in complete sentences GI: Inspection: Yes normal to inspection Palpation (GI): Tenderness to palpation present (GI), no guarding and No Rebound tenderness present : General: Yes CVA tenderness Back/Spine/Pelvis: Back: CVA tenderness Neuro: General: patient oriented x3 and moves all extremities Cranial nerves: Yes Equal, round and reactive pupils present Cognition (Neuro): n ormal cognition Extrem: General: Yes normal to inspection, Yes full ROM and Yes capillary refill normal Psych: Appearance: grossly normal Mental Status: mental status grossly normal Affect: normal affect Attitude: cooperative Thought process: N ormal thought process present Thought content: Normal thought content present Insight: Good insight present (Psych) Medications Administered Discontinued Medications Generic Name Dose Route Start Last Admin Trade Name Freq PRN Reason Stop Dose Admin Hydromorphone HCl 2 mg 02/25/24 11:47 02/25/24 12:14 Hydromorphone Hcl 2 Mg/Ml Vial IVPUSH 02/25/24 11:48 2 mg ONCE ONE Administration Protocol Sodium Chloride 1,000 mls @ 999 mls/hr 02/25/24 10:30 02/25/24 12:14 Ns IV 02/25/24 11:30 Infused .Q1H1M GAB Infusion Sodium Chloride 1,000 mls @ 999 mls/hr 02/25/24 14:15 02/25/24 15:10 Ns IV 02/25/24 15:15 Infused .Q1H1M GAB Infusion Ketorolac Tromethamine 15 mg 02/25/24 10:16 02/25/24 10:28 Ketorolac Tromethamine 15 Mg/Ml Vial IVPUSH 02/25/24 10:17 15 mg ONCE ONE Administration Morphine Sulfate 4 mg 02/25/24 10:16 02/25/24 10:29 Morphine Sulfate 4 Mg/Ml Cartridge IVPUSH 02/25/24 10:17 4 mg ONCE ONE Administration Protocol Ondansetron HCl 4 mg 02/25/24 10:16 02/25/24 10:29 Ondansetron Hcl 4 Mg/2 Ml Vial IVPUSH 02/25/24 10:17 4 mg ONCE ONE Administration Medical Decision Making Medical Decision Making MDM Narrative: Patient is a 63 year old assigned female at with a history of kidney stones, HTN, DM, and asthma presenting to the emergency department today with left flank pain. Patient's physical exam was as noted in the physical exam portion of this note. Patient's blood work was unremarkable. Patient's urine showed blood. Patient's CT abdomen/pelvis showed a 1cm obstructing left kidney stone with mild left hydronephrosis. I spoke to Dr. Carlin who recommended medical admission and he would add her on to the surgical schedule tomorrow. I spoke to the hospitalist team who agreed to admission. I explained my physical exam findings as well as all test results to the patient. I answered all questions asked by the patient. Patient verbalized agreement and understanding with this treatment plan and admission. Differential Diagnosis Differential Diagnoses: The differential diagnosis associated with the presentation includes Hydronephrosis Obstructing kidney stone Admission/Observation Consideration of admission/observation: Escalation of care including admission/observation considered Patient admitted. Consult Healthcare Provider Management of the patient was discussed with: Hospitalist (agreed to admission as noted in the MDM Rationale portion of this note.) and Construction Safety Manager (spoke to the urologist as noted in the MDM Rationale portion of this note.) Lab Data [facility] Lab Attestation statement: I reviewed the patient's lab results. My interpretation of these results are in the MDM Rationale portion of this note. 02/25/24 10:26 02/25/24 10:26 Labs: Lab Results 02/25/24 Range/Units 10:26 WBC 8.0 (4.8-10.8) X10*3/uL RBC 4.18 L (4.20-5.50) X10*6/uL Hgb 12.9 (12.0-16.0) g/dl Hct 38.9 (37.0-47.0) % MCV 93.1 (80.0-98.0) fL MCH 30.9 (27.0-33.0) pg MCHC 33.2 (31.0-35.0) g/dl RDW 11.9 (11.0-16.0) % Plt Count 584 H D (160-400) X10*3/uL MPV 9.4 (9.4-12.3) fL Immature Gran % (Auto) 0.2 (0.0-0.4) % Neut % (Auto) 44.4 L (45-73) % Lymph % (Auto) 42.8 H (20-40) % [place] % (Auto) 7.5 (2-11) % Eos % (Auto) 4.0 (0-4) % Baso % (Auto) 1.1 (0-2) % Lymph # (Auto) 3.4 (1.2-4.9) X10*3/uL [place] # (Auto) 0.6 (0.1-1.2) X10*3/uL Eos # (Auto) 0.3 (0.0-0.4) X10*3/uL Baso # (Auto) 0.1 (0.0-0.2) X10*3/uL Abs Immat Gran (auto) 0.02 (0.00-0.03) X10*3/uL Absolute Neuts (auto) 3.6 (2.0-8.3) x10*3/uL Absolute Nucleated RBC 0.000 (0.0-0.012) X10*3/uL Nucleated RBC % (auto) 0.0 (0.0-0.2) /100WBC Sodium 142 (135-145) mmol/L Potassium 3.9 (3.3-5.1) mmol/L Chloride 106 (96-108) mmol/L Carbon Dioxide 26 (22-29) mmol/L Anion Gap 14 (12-20) BUN 16 (9-16) mg/dL Creatinine 0.78 (0.5-1.4) mg/dL Estim Creat Clear Calc 69.6 Estimated GFR > 60 Random Glucose 137 H (60-115) mg/dL Calcium 10.0 (8.4-10.2) mg/dL Total Bilirubin 0.3 (0.0-1.0) mg/dL AST 25 (5-31) U/L ALT 27 (0-31) U/L Alkaline Phosphatase 74 (39-117) U/L Total Protein 7.3 (6.5-8.0) g/dL Albumin 3.7 (3.5-5.0) g/dL Urine Color [place] A Urine Appearance Turbid Urine pH 5.5 (5.0-9.0) Ur Specific [place] >= 1.030 H (1.005-1.025) Urine Protein 100 (2+) H (Neg-Trace) mg/dL Urine Glucose (UA) Negative (Negative) mg/dL Urine Ketones Negative (Negative) mg/dL Urine Blood Large (3+) H (Negative) Urine Nitrite Negative (Negative) Ur Leukocyte Esterase Small (1+) H (Negative) Urine RBC >20 H (0-2) /HPF Urine WBC 11-20 H (0-5) /HPF Ur Squamous Epith Cells >20 (0-2) /HPF Urine Bacteria None Seen (None Seen) Hyaline Casts 0-2 (0-2) /LPF Independent Interpretation I performed an independent interpretation of an: CT Scan Interpretation: My interpretation is in agreement with the radiologist's impression of this imaging study. - EXAMINATION: CT ABDOMEN AND PELVIS WITHOUT CONTRAST CLINICAL INFORMATION: Flank pain. History of stones. COMPARISON: Renal ultrasound September 03, [address] abdomen pelvis October 24, 2022 TECHNIQUE: Multidetector volumetric imaging was performed from the superior aspect of the liver through the pubic symphysis. Sagittal and coronal reformatted images were obtained on the technologist's workstation. This CT examination was performed using dose optimization techniques as appropriate, variously including the following: *Automated exposure control *Adjustment of mA and/or kV according to patient size (this includes techniques or standardized protocols for targeted exams where dose is matched to indication/reason for exam; i.e. extremities or head) *Use of iterative reconstruction technique DLP: 558 mGy-cm FINDINGS: Visualized lung bases demonstrate mild dependent atelectasis. The liver is normal in size. The gallbladder is normal in appearance. The pancreas, spleen and adrenal glands are unremarkable. Small inferior splenule. There is mild left-sided hydronephrosis secondary to a 1 cm calculus within the proximal left ureter. This stone demonstrates Hounsfield units of approximately 1000. There is an additional 3 mm nonobstructing stone within the lower pole the left kidney. There is a single 5 mm nonobstructing stone within the lower pole the right kidney. There is no right-sided hydronephrosis present. Normal caliber loops of small and large bowel. Mild to moderate stool burden throughout the colon. Normal appendix. Normal caliber abdominal aorta demonstrating moderate atherosclerotic disease. No retroperitoneal lymphadenopathy. The bladder is decompressed and therefore not accurately evaluated. Unremarkable CT appearance of the uterus. No gross pelvic fluid. No inguinal lymphadenopathy. Moderate diffuse degenerative changes of the spine. Mild anterolisthesis of L5 on S1. CT/CT abdomen pelvis wo IV con IMPRESSION: Mild left-sided hydronephrosis secondary to a 1 cm calculus within the proximal left ureter. Fleischner guidelines were followed. Dictated By: Barrie Messina MD Signed By: Electronically signed by Barrie Messina MD 02/25/24 1120 Radiology Impression Discussion of test interpretation with radiology: I have reviewed the radiologist's reading. Chronic Conditions Patient?s care impacted by: Diabetes and Hypertension Critical Care Time Critical Care Time Critical Care Time: Yes Total Critical Care Time: 49 Attestation: I spent 49 minutes of Critical Care Time with this patient. This does not include time spent on separately reported billable procedures. Discharge Plan Discharge Clinical Impression: Hydronephrosis Patient Disposition: Admitted As Inpatient
[2024-02-25] MEDS: Ketorolac Tromethamine 15 MG/ML VIAL IVPUSH (10:28)
[2024-02-25] MEDS: 0.9 % Sodium Chloride 1,000 ML 999 ML IV ×2 (10:29→14:07)
[2024-02-25] MEDS: Morphine Sulfate 4 MG/ML CARTRIDGE IVPUSH ×3 (10:29→20:56)
[2024-02-25] MEDS: ondansetron HCL 4 MG/2 ML VIAL IVPUSH (10:29)
[2024-02-25 10:40] LABS: MANUAL DIFF FLAG NO
[2024-02-25 10:42] LABS: Basophils Absolute Auto 0.1 X10*3/uL (0.0-0.2); Basophils Percent Auto 1.1 % (0-2); Eosinophils Absolute Auto 0.3 X10*3/uL (0.0-0.4); Hematocrit 38.9 % (37.0-47.0); Hemoglobin 12.9 g/dl (12.0-16.0); Imm Gran Abs Auto 0.02 X10*3/uL (0.00-0.03); Imm Gran Pct Auto 0.2 % (0.0-0.4); Lymphocytes Absolute Auto 3.4 X10*3/uL (1.2-4.9); Lymphocytes Percent Auto 42.8 % (20-40); Mean Corpuscular HGB Conc 33.2 g/dl (31.0-35.0); Mean Corpuscular Hemoglobin 30.9 pg (27.0-33.0); Mean Corpuscular Volume 93.1 fL (80.0-98.0); Mean Platelet Volume 9.4 fL (9.4-12.3); Monocytes Absolute Auto 0.6 X10*3/uL (0.1-1.2); Monocytes Percent Auto 7.5 % (2-11); Neutrophils Absolute Auto 3.6 x10*3/uL (2.0-8.3); Neutrophils Percent Auto 44.4 % (45-73); Platelet Count 584 X10*3/uL (160-400); Red Blood Count 4.18 X10*6/uL (4.20-5.50); Red Cell Distribution Width 11.9 % (11.0-16.0)
[2024-02-25 10:44] LABS: Appearance Urine Turbid; Color Urine Orange; Glucose Urine UA Negative (Negative); Leukocyte Esterase Urine Small (1+) (Negative); Nitrite Urine Negative (Negative); PH 5.5 (5.0-9.0); Specific Gravity - Urine >= 1.030 (1.005-1.025); UMIC TRIGGER UACC YES; Urine Blood Large (3+) (Negative); Urine Ketones Negative (Negative); Urine Protein 100 (2+) mg/dL (Neg-Trace)
--- NOTE | 2024-02-25 10:45 | PC.NURSE ---
IV established, labs obtained and sent. patient medicated per the MAR w/ fluids infusing. states she has a history of kidney stones and this feels similar to previous stones. awaiting results of ct scan at this time, call hernandez within reach.
[2024-02-25 10:47] LABS: Bacteria Urine None Seen (None Seen); Hyaline Casts Urine 0-2 /LPF (0-2); RBC Urine >20 /HPF (0-2); Squamous Epithelial Cell Urine >20 /HPF (0-2); UACC Culture Trigger YES
[2024-02-25 11:09] LABS: Alanine Aminotransferase 27 U/L (0-31); Albumin Level 3.7 g/dL (3.5-5.0); Alkaline Phosphatase 74 U/L (39-117); Anion Gap 14 (12-20); Aspartate Amino Transferase 25 U/L (5-31); Bilirubin Total 0.3 mg/dL (0.0-1.0); Blood Urea Nitrogen 16 mg/dL (9-16); Carbon Dioxide 26 mmol/L (22-29); Chloride 106 mmol/L (96-108); Creatinine Clr Calc Pharmacy 69.6; Estimated Glomerular Filt Rate > 60; Glucose Random 137 mg/dL (60-115); Potassium 3.9 mmol/L (3.3-5.1); Sodium 142 mmol/L (135-145); Total Protein 7.3 g/dL (6.5-8.0)
[2024-02-25] MEDS: HYDROmorphone HCl 2 MG/ML VIAL IVPUSH (12:14)
--- NOTE | 2024-02-25 12:32 | PC.NURSE ---
continues to endorse pain, patient medicated per the MAR and placed on pigment mixer. patient states her last meal was last night. resting quietly in room, call hernandez within reach.
--- NOTE | 2024-02-25 13:34 | P.HPHOSP_ITS ---
History of Present Illness Date of Service: 02/25/24 Attending physician on admission: Leo Tariq Chief Complaint: Left flank pain Pt is a 63-year-old female with a PMH significant for?HTN, HLD, amp-[id number] type 2 diabetes, asthma, peripheral neuropathy, and hx of renal calculi who presents to the ED with?left-sided flank pain wrapping around to the abdomen. Patient reports she was awakened from sleep this morning with severe and constant left-sided flank pain wrapping around to her LLQ. Has been experiencing similar though less severe intermittent pain x1 month. Has noticed intermittent blood in her urine x2 weeks, including yesterday. Today has also experienced nausea and vomiting both at home and while in the ED. denies fever, chills. No polyuria or dysuria. Denies chest pain/pressure, palpitations. No shortness a breath or difficulty breathing. Of note, patient was previously admitted to the hospital 3 days prior for pseudogout of right elbow. Patient reports her elbows feeling much better with decreased pain and increased ROM. In the ED pt was no hypertensive up to 152/95, vitals otherwise WNL. Labs were grossly unremarkable and at baseline for patient no leukocytosis. Stable H& H. No significant electrolyte abnormalities. Renal and hepatic function baseline. UA positive for blood and small leukocyte esterase with 11-20 wbc's, epithelial cells >20, and no bacteria seen, likely contaminated. CT of abdomen and pelvis found mild left-sided hydronephrosis secondary to 1 cm calculus within the proximal left ureter. Pt was treated with ketorolac, morphine, ondansetron, IVF, and hydromorphone. Pt will be admitted to the hospital for treatment further evaluation of obstructing 1 cm left renal calculi that will require urologic surgical intervention. Review of Systems 2 Review of Systems: Left flank pain Hematuria Nausea and vomiting Denies fever, chills No shortness a breath or difficulty breathing Denies chest pain/pressure, palpitations [facility] Medical History HTN (hypertension) History of postoperative nausea and vomiting Arthritis Renal calculi Lab test negative for COVID-19 virus Diabetes Constipation Asthma Bilateral nephrolithiasis Surgical History H/O colonoscopy Hx of hand surgery Hx of cystoscopy Hx of lithotripsy Social History Household Members: None Housing: Apartment Are you a primary customer care consultant to a significant other at home: No Do you presently have visiting nurse or other home services: Yes Patient Tobacco Use Status: Never used Tobacco Advance Directives: No Advance Directives Information Provided: No service: No Meds Allergies Allergy/AdvReac Type Severity Reaction Status Date / Time duloxetine [From Cymbalta] Allergy Intermediate Itching Verified 02/25/24 10:07 pollen extracts [POLLEN] Allergy Mild SINUS Verified 02/25/24 10:07 PROBLEMS Home Medications ?Medication ?Instructions ?Recorded ?Confirmed ?Last Taken ?Type gabapentin 300 mg capsule 300 mg PO TID 10/16/20 02/25/24 02/24/24 History lisinopril 10 mg tablet 10 mg PO DAILY 10/16/20 02/25/24 02/24/24 History metformin 500 mg tablet 500 mg PO BID 10/18/20 02/25/24 02/24/24 History simvastatin 40 mg tablet 40 mg PO BEDTIME 11/11/22 02/25/24 02/24/24 History escitalopram oxalate 10 mg tablet 10 mg PO DAILY 03/12/23 02/25/24 02/24/24 History fluticasone propionate 50 2 spray intranasal DAILY PRN 03/12/23 02/25/24 Unknown History mcg/actuation nasal allergies spray,suspension melatonin 5 mg tablet 5 mg PO BEDTIME PRN Sleep 03/12/23 02/25/24 Unknown History albuterol sulfate 90 mcg/actuation 2 puff inhalation Q4H PRN 02/22/24 02/25/24 02/24/24 History aerosol inhaler (Ventolin HFA) Shortness Of Breath Or Wheezing meclizine 12.5 mg tablet 25 mg PO BID PRN nausea 02/22/24 02/25/24 Unknown History ondansetron 4 mg disintegrating 4 mg PO Q6H PRN Nausea 02/22/24 02/25/24 Unknown History tablet semaglutide 2 mg/dose (8 mg/3 mL) 2 mg subcut WE 02/22/24 02/25/24 02/24/24 History subcutaneous pen injector (Ozempic) tramadol 50 mg tablet 50 mg PO TID 02/22/24 02/25/24 02/24/24 History Physical Exam 2 Vital Signs and Narrative: Vital Signs: Last Vital Signs Pulse 88 02/25/24 10:03 Resp 16 02/25/24 10:03 BP 152/95 H 02/25/24 10:03 Pulse Ox 98 02/25/24 10:03 O2 Del Method Room Air 02/25/24 10:03 BMI result Body Mass Index 30.8 General: AOx3, no acute distress Resp: CTA bilaterally CVS: S1, S2, RRR GI: +BS, no distention, LLQ tenderness Back: Left CVA tenderness Skin: Warm, dry Neuro: Cranial nerves II-XII grossly intact bilaterally. Motor grossly intact bilaterally Extremities: No edema Psych: Appropriate affect Results Labs 02/25/24 10:26 02/25/24 10:26 Labs: Laboratory Results - last 24 hr 02/25/24 10:26 MCV 93.1 MCH 30.9 MCHC 33.2 RDW 11.9 Plt Count 584 H D MPV 9.4 Immature Gran % (Auto) 0.2 Neut % (Auto) 44.4 L Lymph % (Auto) 42.8 H [place] % (Auto) 7.5 Eos % (Auto) 4.0 Baso % (Auto) 1.1 Lymph # (Auto) 3.4 [place] # (Auto) 0.6 Eos # (Auto) 0.3 Baso # (Auto) 0.1 Abs Immat Gran (auto) 0.02 Absolute Neuts (auto) 3.6 Absolute Nucleated RBC 0.000 Nucleated RBC % (auto) 0.0 Anion Gap 14 Estim Creat Clear Calc 69.6 Estimated GFR > 60 Random Glucose 137 H Calcium 10.0 Total Bilirubin 0.3 AST 25 ALT 27 Alkaline Phosphatase 74 Total Protein 7.3 Albumin 3.7 Urine Color [place] A Urine Appearance Turbid Urine pH 5.5 Ur Specific [place] >= 1.030 H Urine Protein 100 (2+) H Urine Glucose (UA) Negative Urine Ketones Negative Urine Blood Large (3+) H Urine Nitrite Negative Ur Leukocyte Esterase Small (1+) H Urine RBC >20 H Urine WBC 11-20 H Ur Squamous Epith Cells >20 Urine Bacteria None Seen Hyaline Casts 0-2 Imaging Radiologist's Impressions: Impressions Abdomen/Pelvis CT 02/25/24 10:52 IMPRESSION: Mild left-sided hydronephrosis secondary to a 1 cm calculus within the proximal left ureter. Fleischner guidelines were followed. Assessment and Plan (1) Obstruction of left ureter: Status: Acute Plan Pt is a 63-year-old female with a PMH significant for?HTN, HLD, hru-xmflckj-xwiljjqmh type 2 diabetes, asthma, peripheral neuropathy, and hx of renal calculi who presents to the ED with?left-sided flank pain wrapping around to the abdomen. Pt will be admitted to the hospital for treatment further evaluation of obstructing 1 cm left renal calculi that will require urologic surgical intervention. Obstruction of ureter Patient with left flank pain, N/V, hematuria CT of abdomen and pelvis showed left-sided hydronephrosis secondary to 1 cm calculus within the proximal left ureter Analgesics for pain management Antiemetics NPO after midnight for likely surgical procedure in the morning Urology consult Recent right elbow pseudogout Continue ibuprofen p.r.n. HTN Continue lisinopril HLD Continue statin Ctu-nwipfsd-yskiuskqv type 2 diabetes Hold metformin, Ozempic Diabetic diet, sliding scale insulin Peripheral neuropathy Continue gabapentin Mood disorder Continue escitalopram Full Code Attending:?Dr. Tariq DVT Prophylaxis: Pneumatic compression due to surgical procedure in the morning Pt will require a hospitalization of at least two nights for treatment of?obstructive 1 cm left renal calculus that will require surgical intervention tomorrow. Quality Stroke Does the patient have a stroke diagnosis?: No VTE Prior VTE?: No VTE Risk Level:: Medical - moderate - high VTE Device Contraindication: N/A - Device Ordered VTE Drug Contraindication: Treatment Not Indicated
[2024-02-25 13:42] VITALS: BP 86/60; PULSE 74; RESP 12; TEMP 36.6; O2SAT 96
--- NOTE | 2024-02-25 13:43 | PC.NURSE ---
patient sleeping in room, placed on 1L nasal cannula. hypotensive s/p medication administration. verbal order from provider for second liter of fluids. patient reports that her pain has improved. drowsy but responds to verbal stimuli w/out issue. plan for admission, patient aware of plan
[2024-02-25 14:08] VITALS: BP 106/65; PULSE 73; RESP 14; O2SAT 100
--- NOTE | 2024-02-25 15:10 | PHA.MEDREC ---
Pharmacy Consult ? Medication Reconciliation Pharmacy has completed the medication reconciliation. Patient confirmed medications based on claim history. Reports taking metformin although no recent fill. Muna Wilson, PharmD
[2024-02-25] MEDS: Escitalopram Oxalate 10 MG TABLET PO (15:55)
[2024-02-25] MEDS: 0.9 % Sodium Chloride Flush 3 ML SYRINGE IVFLUSH ×2 (15:56→21:20)
--- NOTE | 2024-02-25 16:37 | PC.NURSE ---
patient offered PRN pain medications, patient declined at this time. medicated per the MAR. encouraged to utilize call hernandez and request pain medications if needed.
[2024-02-25 17:06] LABS: Glucose, Whole Blood 81 mg/dL (60-115)
[2024-02-25 17:11] VITALS: BP 145/81; PULSE 67; RESP 16; TEMP 36.4; O2SAT 100
[2024-02-25] MEDS: Acetaminophen 325 MG TABLET 650 MG PO (18:12)
[2024-02-25 18:26] VITALS: BMI 32.3
--- NOTE | 2024-02-25 19:11 | HO.SKINPHOTO ---
Wound located on middle back. Pt states wound on back is from heating pad use at home. Screven foam applied to protect area.
[2024-02-25 19:17] VITALS: BP 129/74; PULSE 76; RESP 12; TEMP 36.4; O2SAT 94
[2024-02-25 20:03] LABS: Glucose, Whole Blood 127 mg/dL (60-115)
[2024-02-25] MEDS: Gabapentin 300 MG CAPSULE PO (20:59)
[2024-02-25] MEDS: Atorvastatin Calcium 20 MG TABLET PO (20:59)
[2024-02-26] VITALS (13 sets, daily range): BP systolic 121–155; BP diastolic 67–97; PULSE 64–84; RESP 16–20; TEMP 36.1–37.3; O2SAT 94–98
[2024-02-26] MEDS: Morphine Sulfate 4 MG/ML CARTRIDGE IVPUSH ×4 (03:42→20:11)
[2024-02-26 06:51] LABS: Anion Gap 11 (12-20); Blood Urea Nitrogen 11 mg/dL (9-16); Calcium 8.9 mg/dL (8.4-10.2); Carbon Dioxide 24 mmol/L (22-29); Chloride 110 mmol/L (96-108); Creatinine Clr Calc Pharmacy 76.2; Estimated Glomerular Filt Rate > 60; Glucose Random 97 mg/dL (60-115); Potassium 3.8 mmol/L (3.3-5.1); Sodium 141 mmol/L (135-145)
[2024-02-26 07:20] LABS: Glucose, Whole Blood 94 mg/dL (60-115)
[2024-02-26] MEDS: Pyridoxine HCl (Vitamin B6) 50 MG TABLET PO (07:50)
[2024-02-26] MEDS: 0.9 % Sodium Chloride Flush 3 ML SYRINGE IVFLUSH (07:50)
[2024-02-26] MEDS: allopurinoL 100 MG TABLET PO (07:50)
[2024-02-26] MEDS: Gabapentin 300 MG CAPSULE PO ×2 (07:50→20:15)
[2024-02-26] MEDS: Escitalopram Oxalate 10 MG TABLET PO (07:50)
--- NOTE | 2024-02-26 08:51 | P.CNUR_ITS ---
History of Present Illness Consult details Consult date: 02/26/24 Narrative: CC: Left proximal ureteric stone 63-year-old female Known stone former Background of hypertension, nondistended dependent type 2 diabetes, peripheral neuropathy Presents with left-sided flank pain wrapping around her abdomen. Reports in year that she was awakened from sleep with severe and constant left- sided flank pain 210/10. Has been intermittent over past 2-3 weeks. Had noticed some blood in her urine including yesterday. Denied fever, chills. Has experienced nausea and vomiting. Labs normal creatinine 0.73, WBC 8.0 Imaging - Mild left-sided hydronephrosis secondary to a 1 cm calculus within the proximal left ureter. Stone unlikely to pass Recommendation for cystoscopy, left retrograde, left stent placement and deferred definitive stone therapy Review of Systems 2 Constitutional: Constitutional: Reports as per HPI and Reports no additional constitutional complaints Cardiovascular: Cardiovascular: Reports as per HPI and Reports no additional cardiovascular complaints Respiratory: Respiratory: Reports as per HPI and Reports no additional respiratory complaints Gastrointestinal: Gastrointestinal: Reports as per HPI and Reports no additional gastrointestinal complaints Genitourinary: Genitourinary: Reports as per HPI Musculoskeletal: Musculoskeletal: Reports no additional musculoskeletal complaints and Reports as per HPI Neurologic: Reports system reviewed and no additional complaints, except as documented and Reports as per HPI PMF Past Medical History Medical History HTN (hypertension) History of postoperative nausea and vomiting Arthritis Renal calculi Lab test negative for COVID-19 virus Diabetes Constipation Asthma Bilateral nephrolithiasis Surgical History Surgical History H/O colonoscopy Hx of hand surgery Hx of cystoscopy Hx of lithotripsy Social History Social History Household Members: None Housing: Apartment Are you a primary cattle care worker to a significant other at home: No Do you presently have 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 If so, by whom?: No Do you feel safe in your current relationship?: No Current Relationship Is there a partner from a previous relationship who is making you feel unsafe now?: No Advance Directives: No Advance Directives Information Provided: No Do you have a plan to hurt others: No Plan Recently lost weight without trying: No Patient : No : No Poor oral hygiene: No service: No Meds Allergies Allergy/AdvReac Type Severity Reaction Status Date / Time duloxetine [From Cymbalta] Allergy Intermediate Itching Verified 02/25/24 10:07 pollen extracts [POLLEN] Allergy Mild SINUS Verified 02/25/24 10:07 PROBLEMS Active Medications: Current Medications Acetaminophen (Acetaminophen 325 Mg Tablet) 650 mg PO Q6H PRN PRN Reason: Pain, Mild (Pain Scale 1-3), fever or headache Last Admin: 02/25/24 18:12 Dose: 650 mg Albuterol Sulfate (Albuterol Sulfate 90 Mcg 8 Gm Inhaler) 2 puff INHALE Q4H PRN PRN Reason: Shortness Of Breath Or Wheezing Allopurinol (Allopurinol 100 Mg Tablet) 100 mg PO DAILY [facility] Last Admin: 02/26/24 07:50 Dose: 100 mg Atorvastatin Calcium (Atorvastatin Calcium 20 Mg Tablet) 20 mg PO BEDTIME [facility] Last Admin: 02/25/24 20:59 Dose: 20 mg Benzonatate (Benzonatate 100 Mg Capsule) 100 mg PO TID PRN PRN Reason: Cough Calcium Carbonate (Calcium Carbonate 750 Mg Tab.Chew) 750 mg PO Q4H PRN PRN Reason: Heartburn Escitalopram Oxalate (Escitalopram Oxalate 10 Mg Tablet) 10 mg PO DAILY [facility] Last Admin: 02/26/24 07:50 Dose: 10 mg Fluticasone Propionate (Fluticasone Propionate Nasal 16 Gm [place]) 2 spray NOSTRIL-B DAILY PRN PRN Reason: allergies Gabapentin (Gabapentin 300 Mg Capsule) 300 mg PO TID [facility] Last Admin: 02/26/24 07:50 Dose: 300 mg Glucose (Glucose Gel 15 Gm Gel..Gram.) 15 gm PO Q15M PRN; Protocol PRN Reason: per Hypoglycemia Standing Ord. Dextrose (D10) 250 mls @ 750 mls/hr IV Q15M PRN; Protocol PRN Reason: per Hypoglycemia Standing Ord. Ibuprofen (Ibuprofen 600 Mg Tablet) 600 mg PO Q8H PRN PRN Reason: Right Elbow Swelling or Pain Insulin Human Lispro (Insulin Lispro 100 Unit/Ml 3 Ml Vial) 0 unit SUBCUT QIDACHS [facility]; Protocol Last Admin: 02/26/24 07:25 Dose: Not Given Lisinopril (Lisinopril 10 Mg Tablet) 10 mg PO DAILY [facility]; Protocol Last Admin: 02/26/24 07:49 Dose: Not Given Magnesium Hydroxide (Milk Of Magnesia 30 Ml Oral.Susp) 30 ml PO DAILY PRN PRN Reason: Constipation Meclizine HCl (Meclizine Hcl 25 Mg Tablet) 25 mg PO BID PRN PRN Reason: nausea Melatonin (Melatonin 3 Mg Tablet) 6 mg PO BEDTIME PRN PRN Reason: Insomnia Morphine Sulfate (Morphine Sulfate 4 Mg/Ml Cartridge) 4 mg IVPUSH Q4H PRN; Protocol PRN Reason: Pain, Severe (Pain Scale 7-10) Last Admin: 02/26/24 07:50 Dose: 4 mg Ondansetron HCl (Ondansetron Hcl 4 Mg/2 Ml Vial) 4 mg IVPUSH Q8H PRN PRN Reason: Nausea and Vomiting Pyridoxine HCl (Pyridoxine Hcl (Vitamin B6) 50 Mg Tablet) 50 mg PO DAILY [facility] Last Admin: 02/26/24 07:50 Dose: 50 mg Sodium Chloride (0.9 % Sodium Chloride Flush 3 Ml Syringe) [facility] Last Admin: 02/26/24 07:50 Dose: 3 ml Home Medications ?Medication ?Instructions ?Recorded ?Confirmed ?Last Taken ?Type gabapentin 300 mg capsule 300 mg PO TID 10/16/20 02/25/24 02/24/24 History lisinopril 10 mg tablet 10 mg PO DAILY 10/16/20 02/25/24 02/24/24 History metformin 500 mg tablet 500 mg PO BID 10/18/20 02/25/24 02/24/24 History simvastatin 40 mg tablet 40 mg PO BEDTIME 11/11/22 02/25/24 02/24/24 History escitalopram oxalate 10 mg tablet 10 mg PO DAILY 03/12/23 02/25/24 02/24/24 History fluticasone propionate 50 2 spray intranasal DAILY PRN 03/12/23 02/25/24 Unknown History mcg/actuation nasal allergies spray,suspension melatonin 5 mg tablet 5 mg PO BEDTIME PRN Sleep 03/12/23 02/25/24 Unknown History albuterol sulfate 90 mcg/actuation 2 puff inhalation Q4H PRN 02/22/24 02/25/24 02/24/24 History aerosol inhaler (Ventolin HFA) Shortness Of Breath Or Wheezing meclizine 12.5 mg tablet 25 mg PO BID PRN nausea 02/22/24 02/25/24 Unknown History ondansetron 4 mg disintegrating 4 mg PO Q6H PRN Nausea 02/22/24 02/25/24 Unknown History tablet semaglutide 2 mg/dose (8 mg/3 mL) 2 mg subcut WE 02/22/24 02/25/24 02/24/24 History subcutaneous pen injector (Ozempic) tramadol 50 mg tablet 50 mg PO TID 02/22/24 02/25/24 02/24/24 History Physical Exam 2 Vital Signs: Vital Signs: Last Vital Signs Temp 97.5 F 02/26/24 07:19 Pulse 73 02/26/24 07:19 Resp 18 02/26/24 07:50 BP 121/67 02/26/24 07:19 Pulse Ox 96 02/26/24 07:19 O2 Del Method Room Air 02/26/24 07:19 O2 Flow Rate 1 02/25/24 13:42 BMI result Body Mass Index 32.3 Const: General: cooperative, healthy appearing, comfortable and no acute distress Orientation/consciousness: patient oriented x3 HEENT: Face and sinus: Yes normal facial exam Mouth: moist mucous membranes Neck: Neck: Yes normal visual inspection, Yes full ROM and Yes trachea midline Chest: Chest palpation & inspection: normal inspection of the chest Resp: Effort & Inspection: normal respiratory effort, able to speak in complete sentences and no respiratory distress GI: Inspection: Yes normal to inspection Back/Spine/Pelvis: Cervical Spine: normal cervical lordosis Thoracic/Lumbar Spine: thoracic and lumbar spine normal to inspection Skin: General skin exam: no rashes or lesions noted Neuro: General: patient oriented x3, tone normal and moves all extremities Extrem: General: Yes normal to inspection and Yes capillary refill normal Results Labs 02/25/24 10:26 02/26/24 05:56 Labs: Abnormal lab results 02/25/24 02/25/24 02/26/24 Range/Units 10:26 19:59 05:56 RBC 4.18 L (4.20-5.50) X10*6/uL Plt Count 584 H D (160-400) X10*3/uL Neut % (Auto) 44.4 L (45-73) % Lymph % (Auto) 42.8 H (20-40) % Chloride 110 H (96-108) mmol/L Anion Gap 11 L (12-20) POC Glucose 127 H (60-115) mg/dL Random Glucose 137 H (60-115) mg/dL Urine Color [place] A Ur Specific [place] >= 1.030 H (1.005-1.025) Urine Protein 100 (2+) H (Neg-Trace) mg/dL Urine Blood Large (3+) H (Negative) Ur Leukocyte Esterase Small (1+) H (Negative) Urine RBC >20 H (0-2) /HPF Urine WBC 11-20 H (0-5) /HPF Short CBC 02/25/24 Range/Units 10:26 WBC 8.0 (4.8-10.8) X10*3/uL Hgb 12.9 (12.0-16.0) g/dl Hct 38.9 (37.0-47.0) % Plt Count 584 H D (160-400) X10*3/uL BMP 02/25/24 02/26/24 10:26 05:56 Sodium 142 141 Potassium 3.9 3.8 Chloride 106 110 H Carbon Dioxide 26 24 BUN 16 11 Creatinine 0.78 0.73 Calcium 10.0 8.9 D Liver Function 02/25/24 Range/Units 10:26 Total Bilirubin 0.3 (0.0-1.0) mg/dL AST 25 (5-31) U/L ALT 27 (0-31) U/L Alkaline Phosphatase 74 (39-117) U/L Albumin 3.7 (3.5-5.0) g/dL Urine 02/25/24 Range/Units 10:26 Urine Color [place] A Urine Appearance Turbid Urine pH 5.5 (5.0-9.0) Ur Specific [place] >= 1.030 H (1.005-1.025) Urine Protein 100 (2+) H (Neg-Trace) mg/dL Urine Glucose (UA) Negative (Negative) mg/dL All other labs normal. Assessment and Plan (1) Hydronephrosis: Status: Acute (2) Obstruction of left ureter: Status: Acute Plan Risks, benefits and alternatives to therapy were discussed. These include but are not limited to infection, bleeding, damage to local organs and tissues, need for further interventions. Anesthetic risks regarding cardiac arrhythmia, blood clots, and potential mortality were discussed. The patient understands the typical recovery time and the outpatient nature of the procedure. After consideration of these risks the patient gives full informed consent and they wish to move ahead with the procedure. Cystoscopy, left retrograde, left stent placement Procedures Date of Service Date of Service: 02/26/24
--- NOTE | 2024-02-26 10:24 | HO.PM.IMPN ---
Subjective Subjective Date of Service: 02/26/24 Interval History: c/o severe L flank pain no fever Review of Systems Review of Systems: Yes all other systems are reviewed and are negative Physical Exam Vital Signs: Vital Signs: Last Vital Signs Temp 97.5 F 02/26/24 07:19 Pulse 73 02/26/24 07:19 Resp 18 02/26/24 07:50 BP 121/67 02/26/24 07:19 Pulse Ox 96 02/26/24 07:19 O2 Del Method Room Air 02/26/24 07:19 O2 Flow Rate 1 02/25/24 13:42 BMI result Body Mass Index 32.3 Gen: in no acute distress HEENT: sclera anicteric, moist mucus membranes Neck: supple Lungs: clear to auscultation bilaterally Heart: regular rate and rhythm, no murmurs Abd: soft, non-tender, non-distended : L flank tenderness Ext: no edema Skin: warm/well-perfused Neuro: alert and oriented x3, no focal findings Psych: appropriate affect Objective Data Active Medications Acetaminophen (Acetaminophen 325 Mg Tablet) 650 mg PO Q6H PRN PRN Reason: Pain, Mild (Pain Scale 1-3), fever or headache Last Admin: 02/25/24 18:12 Dose: 650 mg Documented By: YUNG Albuterol Sulfate (Albuterol Sulfate 90 Mcg 8 Gm Inhaler) 2 puff INHALE Q4H PRN PRN Reason: Shortness Of Breath Or Wheezing Allopurinol (Allopurinol 100 Mg Tablet) 100 mg PO DAILY [facility] [place] Last Admin: 02/26/24 07:50 Dose: 100 mg Documented By: AHRRY Atorvastatin Calcium (Atorvastatin Calcium 20 Mg Tablet) 20 mg PO BEDTIME [facility] [place] Last Admin: 02/25/24 20:59 Dose: 20 mg Documented By: NELDA Benzonatate (Benzonatate 100 Mg Capsule) 100 mg PO TID PRN PRN Reason: Cough Calcium Carbonate (Calcium Carbonate 750 Mg Tab.Chew) 750 mg PO Q4H PRN PRN Reason: Heartburn Escitalopram Oxalate (Escitalopram Oxalate 10 Mg Tablet) 10 mg PO DAILY [facility] [place] Last Admin: 02/26/24 07:50 Dose: 10 mg Documented By: HARRY Fluticasone Propionate (Fluticasone Propionate Nasal 16 Gm [place]) 2 spray NOSTRIL-B DAILY PRN PRN Reason: allergies Gabapentin (Gabapentin 300 Mg Capsule) 300 mg PO TID [facility] [place] Last Admin: 02/26/24 07:50 Dose: 300 mg Documented By: RUIEMA Glucose (Glucose Gel 15 Gm Gel..Gram.) 15 gm PO Q15M PRN; Protocol PRN Reason: per Hypoglycemia Standing Ord. Dextrose (D10) 250 mls @ 750 mls/hr IV Q15M PRN; Protocol PRN Reason: per Hypoglycemia Standing Ord. Ibuprofen (Ibuprofen 600 Mg Tablet) 600 mg PO Q8H PRN PRN Reason: Right Elbow Swelling or Pain Insulin Human Lispro (Insulin Lispro 100 Unit/Ml 3 Ml Vial) 0 unit SUBCUT QIDACHS [facility] [place]; Protocol Last Admin: 02/26/24 07:25 Dose: Not Given Documented By: HARRY Non-Admin Reason: No Insulin Coverage Lisinopril (Lisinopril 10 Mg Tablet) 10 mg PO DAILY [facility] [place]; Protocol Last Admin: 02/26/24 07:49 Dose: Not Given Documented By: HARRY Non-Admin Reason: preop Magnesium Hydroxide (Milk Of Magnesia 30 Ml Oral.Susp) 30 ml PO DAILY PRN PRN Reason: Constipation Meclizine HCl (Meclizine Hcl 25 Mg Tablet) 25 mg PO BID PRN PRN Reason: nausea Melatonin (Melatonin 3 Mg Tablet) 6 mg PO BEDTIME PRN PRN Reason: Insomnia Morphine Sulfate (Morphine Sulfate 4 Mg/Ml Cartridge) 4 mg IVPUSH Q4H PRN; Protocol PRN Reason: Pain, Severe (Pain Scale 7-10) Last Admin: 02/26/24 07:50 Dose: 4 mg Documented By: HARRY Ondansetron HCl (Ondansetron Hcl 4 Mg/2 Ml Vial) 4 mg IVPUSH Q8H PRN PRN Reason: Nausea and Vomiting Pyridoxine HCl (Pyridoxine Hcl (Vitamin B6) 50 Mg Tablet) 50 mg PO DAILY [facility] [place] Last Admin: 02/26/24 07:50 Dose: 50 mg Documented By: HARRY Sodium Chloride (0.9 % Sodium Chloride Flush 3 Ml Syringe) [facility] Last Admin: 02/26/24 07:50 Dose: 3 ml Documented By: HARRY Labs 02/25/24 10:02/26/24 05:56 Labs: Laboratory Results - last 24 hr 02/25/24 02/25/24 02/25/24 10:26 17:03 19:59 MCV 93.1 MCH 30.9 MCHC 33.2 RDW 11.9 Plt Count 584 H D MPV 9.4 Immature Gran % (Auto) 0.2 Neut % (Auto) 44.4 L Lymph % (Auto) 42.8 H [place] % (Auto) 7.5 Eos % (Auto) 4.0 Baso % (Auto) 1.1 Lymph # (Auto) 3.4 [place] # (Auto) 0.6 Eos # (Auto) 0.3 Baso # (Auto) 0.1 Abs Immat Gran (auto) 0.02 Absolute Neuts (auto) 3.6 Absolute Nucleated RBC 0.000 Nucleated RBC % (auto) 0.0 Hold Purple Top Anion Gap 14 Estim Creat Clear Calc 69.6 Estimated GFR > 60 POC Glucose 81 127 H Random Glucose 137 H Calcium 10.0 Total Bilirubin 0.3 AST 25 ALT 27 Alkaline Phosphatase 74 Total Protein 7.3 Albumin 3.7 Urine Color [place] A Urine Appearance Turbid Urine pH 5.5 Ur Specific [place] >= 1.030 H Urine Protein 100 (2+) H Urine Glucose (UA) Negative Urine Ketones Negative Urine Blood Large (3+) H Urine Nitrite Negative Ur Leukocyte Esterase Small (1+) H Urine RBC >20 H Urine WBC 11-20 H Ur Squamous Epith Cells >20 Urine Bacteria None Seen Hyaline Casts 0-2 02/26/24 02/26/24 05:56 07:15 MCV MCH MCHC RDW Plt Count MPV Immature Gran % (Auto) Neut % (Auto) Lymph % (Auto) [place] % (Auto) Eos % (Auto) Baso % (Auto) Lymph # (Auto) [place] # (Auto) Eos # (Auto) Baso # (Auto) Abs Immat Gran (auto) Absolute Neuts (auto) Absolute Nucleated RBC Nucleated RBC % (auto) Hold Purple Top SEE NOTE Anion Gap 11 L Estim Creat Clear Calc 76.2 Estimated GFR > 60 POC Glucose 94 Random Glucose 97 Calcium 8.9 D Total Bilirubin AST ALT Alkaline Phosphatase Total Protein Albumin Urine Color Urine Appearance Urine pH Ur Specific [place] Urine Protein Urine Glucose (UA) Urine Ketones Urine Blood Urine Nitrite Ur Leukocyte Esterase Urine RBC Urine WBC Ur Squamous Epith Cells Urine Bacteria Hyaline Casts Impressions Abdomen/Pelvis CT 02/25/24 10:52 IMPRESSION: Mild left-sided hydronephrosis secondary to a 1 cm calculus within the proximal left ureter. Fleischner guidelines were followed. Microbiology Microbiology Results: Microbiology 02/25/24 Unknown Urine Culture - Final Urine clean catch - Clean Catch Midstream No growth. Assessment and Plan (1) Hydronephrosis: Status: Acute (2) Renal calculi: Status: Acute Assessment and Plan: d9 63yo F with HTN, HLD, DM2, asthma, peripheral neuropathy, renal calculi, recent admission for pseudogout flare of elbow presenting with acute L flank pain, found to have obstructing 1 cm left calculus with hydronephrosis ureterolithiasis, hydronephrosis - Urology consulted, NPO for operative intervention today, IV fluids, IV morphine HTN - lisinopril HLD - statin DM2 - rosalina-dose lispro peripheral neuropathy - gabapentin mood disorder - escitalopram VTE ppx - SCDs dispo - eventual home In my clinical judgment, the patient requires continued inpatient hospitalization for the following reasons: operative intervention Total time managing care of this patient today: 35 minutes. Quality Stroke Does the patient have a stroke diagnosis?: No VTE Prior VTE?: No VTE Risk Level:: Medical - moderate - high VTE Device Contraindication: N/A - Device Ordered VTE Drug Contraindication: Treatment Not Indicated
[2024-02-26 11:36] LABS: Glucose, Whole Blood 89 mg/dL (60-115)
[2024-02-26] MEDS: Lactated Ringers 1,000 ML 125 ML IVCONT ×2 (12:22→22:06)
[2024-02-26 15:19] LABS: Glucose, Whole Blood 94 mg/dL (60-115)
--- NOTE | 2024-02-26 15:30 | MHC.CM.PN ---
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
--- NOTE | 2024-02-26 16:08 | PC.NURSE ---
Patient arrived to preop. One PRN angio, #20 left wrist. Site asymptomatic, however very painful when flushed. Site removed. New IV placed, tolerated well.
--- NOTE | 2024-02-26 16:12 | MHC.SHP ---
Pre-Procedural Eval Section A - 24 Hr Update-Section A only Date of Service: 02/26/24 The patient is an INPATIENT: Yes Changes since office visit: No Cold of Flu in the past 2 weeks, No New Medical Problems, No Changes in Medication and No Patient answered all questions The patient has been examined within 24 hours of the surgical procedure. The History & Physical has been completed within 30 days and I have reviewed it.: Yes Section B - Complete if H&P > 30 days Chief Complaint: Obstructing renal calculi Allergies: Allergies Allergy/AdvReac Type Severity Reaction Status Date / Time duloxetine [From Cymbalta] Allergy Intermediate Itching Verified 02/26/24 15:52 pollen extracts [POLLEN] Allergy Mild SINUS Verified 02/26/24 15:52 PROBLEMS Plan Diagnosis/Plan: Unchanged (Three, left retrograde, left stent placement) I have reviewed the history and physical and performed a pertinent physical examination on my patient. No changes have occurred unless specified. Time Spent With Patient Time: Total time managing care of this patient today ____ minutes.
--- NOTE | 2024-02-26 16:21 | P.CONAN_ITS ---
HPI - Anesthesia Eval Consult details Narrative: 63 yo F presenting for cystoscopy & stent placement. Anesthesia Pre-Procedure Meds Is the patient on any of the following meds?: GLP1/DPP4 If yes to any meds - educate patient: Pt education - increased risk of aspiration and/or euvolemic DKA PMFSH Active Problems Active Problems: All Active Problems Hydronephrosis (Acute) Obstruction of left ureter (Acute) Pseudogout of right elbow (Acute) Effusion of right elbow (Acute) Septic joint of right elbow (Acute) Renal calculi (Acute) Bilateral nephrolithiasis (Acute) Past Medical History Medical History (Updated 02/26/24 @ 10:33 by Leo Tariq MD) HTN (hypertension) History of postoperative nausea and vomiting Arthritis Renal calculi Lab test negative for COVID-19 virus Diabetes Constipation Asthma Bilateral nephrolithiasis Family History Family history of problems with anesthesia: No Surgical History Surgical History (Updated 02/26/24 @ 15:52 by Digna Shaffer) Total knee replacement status H/O colonoscopy Hx of hand surgery Hx of cystoscopy Hx of lithotripsy History of Problems with Anesthesia: No Social History Social History Household Members: None Housing: Apartment Are you a primary health care coordinator to a significant other at home: No Do you presently have visiting nurse or other home services: Yes ([employer]) Patient Tobacco Use Status: Never used Tobacco Use of substances other than those prescribed or required for medical reasons: No Currently Displaying Signs/Symptoms of Drug Intoxication Withdrawal: No Have you been hit, kicked, punched, or otherwise hurt by someone within the past year? If so, by whom?: No Do you feel safe in your current relationship?: No Current Relationship Is there a partner from a previous relationship who is making you feel unsafe now?: No Are you DNR?: No Advance Directives: No Advance Directives Information Provided: No Do you have a plan to hurt others: No Plan Recently lost weight without trying: No Patient : No : No Poor oral hygiene: No service: No Meds Allergies Allergy/AdvReac Type Severity Reaction Status Date / Time duloxetine [From Cymbalta] Allergy Intermediate Itching Verified 02/26/24 15:52 pollen extracts [POLLEN] Allergy Mild SINUS Verified 02/26/24 15:52 PROBLEMS Active Medications: Current Medications Acetaminophen (Acetaminophen 325 Mg Tablet) 650 mg PO Q6H PRN PRN Reason: Pain, Mild (Pain Scale 1-3), fever or headache Last Admin: 02/25/24 18:12 Dose: 650 mg Albuterol Sulfate (Albuterol Sulfate 90 Mcg 8 Gm Inhaler) 2 puff INHALE Q4H PRN PRN Reason: Shortness Of Breath Or Wheezing Allopurinol (Allopurinol 100 Mg Tablet) 100 mg PO DAILY COUNT INCLUDES THE [facility] Last Admin: 02/26/24 07:50 Dose: 100 mg Atorvastatin Calcium (Atorvastatin Calcium 20 Mg Tablet) 20 mg PO BEDTIME COUNT INCLUDES THE [facility] Last Admin: 02/25/24 20:59 Dose: 20 mg Benzonatate (Benzonatate 100 Mg Capsule) 100 mg PO TID PRN PRN Reason: Cough Calcium Carbonate (Calcium Carbonate 750 Mg Tab.Chew) 750 mg PO Q4H PRN PRN Reason: Heartburn Escitalopram Oxalate (Escitalopram Oxalate 10 Mg Tablet) 10 mg PO DAILY COUNT INCLUDES THE [facility] Last Admin: 02/26/24 07:50 Dose: 10 mg Fluticasone Propionate (Fluticasone Propionate Nasal 16 Gm [place]) 2 spray NOSTRIL-B DAILY PRN PRN Reason: allergies Gabapentin (Gabapentin 300 Mg Capsule) 300 mg PO TID COUNT INCLUDES THE [facility] Last Admin: 02/26/24 13:57 Dose: Not Given Glucose (Glucose Gel 15 Gm Gel..Gram.) 15 gm PO Q15M PRN; Protocol PRN Reason: per Hypoglycemia Standing Ord. Dextrose (D10) 250 mls @ 750 mls/hr IV Q15M PRN; Protocol PRN Reason: per Hypoglycemia Standing Ord. Lactated Ringer's (Lr) 1,000 mls @ 125 mls/hr IVCONT .Q8H COUNT INCLUDES THE [facility] Last Admin: 02/26/24 14:59 Dose: Not Given Ibuprofen (Ibuprofen 600 Mg Tablet) 600 mg PO Q8H PRN PRN Reason: Right Elbow Swelling or Pain Insulin Human Lispro (Insulin Lispro 100 Unit/Ml 3 Ml Vial) 0 unit SUBCUT QIDACHS COUNT INCLUDES THE [facility]; Protocol Last Admin: 02/26/24 14:58 Dose: Not Given Lisinopril (Lisinopril 10 Mg Tablet) 10 mg PO DAILY COUNT INCLUDES THE [facility]; Protocol Last Admin: 02/26/24 07:49 Dose: Not Given Magnesium Hydroxide (Milk Of Magnesia 30 Ml Oral.Susp) 30 ml PO DAILY PRN PRN Reason: Constipation Meclizine HCl (Meclizine Hcl 25 Mg Tablet) 25 mg PO BID PRN PRN Reason: nausea Melatonin (Melatonin 3 Mg Tablet) 6 mg PO BEDTIME PRN PRN Reason: Insomnia Morphine Sulfate (Morphine Sulfate 4 Mg/Ml Cartridge) 4 mg IVPUSH Q4H PRN; Protocol PRN Reason: Pain, Severe (Pain Scale 7-10) Last Admin: 02/26/24 12:55 Dose: 4 mg Ondansetron HCl (Ondansetron Hcl 4 Mg/2 Ml Vial) 4 mg IVPUSH Q8H PRN PRN Reason: Nausea and Vomiting Pyridoxine HCl (Pyridoxine Hcl (Vitamin B6) 50 Mg Tablet) 50 mg PO DAILY COUNT INCLUDES THE [facility] Last Admin: 02/26/24 07:50 Dose: 50 mg Sodium Chloride (0.9 % Sodium Chloride Flush 3 Ml Syringe) [facility] Last Admin: 02/26/24 14:39 Dose: Not Given Home Medications ?Medication ?Instructions ?Recorded ?Confirmed ?Last Taken ?Type gabapentin 300 mg capsule 300 mg PO TID 10/16/20 02/25/24 02/24/24 History lisinopril 10 mg tablet 10 mg PO DAILY 10/16/20 02/25/24 02/24/24 History metformin 500 mg tablet 500 mg PO BID 10/18/20 02/25/24 02/24/24 History simvastatin 40 mg tablet 40 mg PO BEDTIME 11/11/22 02/25/24 02/24/24 History escitalopram oxalate 10 mg tablet 10 mg PO DAILY 03/12/23 02/25/24 02/24/24 History fluticasone propionate 50 2 spray intranasal DAILY PRN 03/12/23 02/25/24 Unknown History mcg/actuation nasal allergies spray,suspension melatonin 5 mg tablet 5 mg PO BEDTIME PRN Sleep 03/12/23 02/25/24 Unknown History albuterol sulfate 90 mcg/actuation 2 puff inhalation Q4H PRN 02/22/24 02/25/24 02/24/24 History aerosol inhaler (Ventolin HFA) Shortness Of Breath Or Wheezing meclizine 12.5 mg tablet 25 mg PO BID PRN nausea 02/22/24 02/25/24 Unknown History ondansetron 4 mg disintegrating 4 mg PO Q6H PRN Nausea 02/22/24 02/25/24 Unknown History tablet semaglutide 2 mg/dose (8 mg/3 mL) 2 mg subcut WE 02/22/24 02/25/24 02/24/24 History subcutaneous pen injector (Ozempic) tramadol 50 mg tablet 50 mg PO TID 02/22/24 02/25/24 02/24/24 History Exam Exam Date and Time: February 26, 2024 161 Height,Weight and Vital Signs: Height 5 ft 1 in Weight 77.6 kg Last Vital Signs Temp 99.1 F 02/26/24 15:55 Pulse 64 02/26/24 15:55 Resp 16 02/26/24 15:55 BP 155/74 H 02/26/24 15:55 Pulse Ox 98 02/26/24 15:55 O2 Del Method Room Air 02/26/24 15:55 O2 Flow Rate 1 02/25/24 13:42 Pertinent Lab Results Pertinent Lab Results: Laboratory Tests 02/25/24 02/25/24 02/25/24 10:26 17:03 19:59 WBC 8.0 RBC 4.18 L Hgb 12.9 Hct 38.9 MCV 93.1 MCH 30.9 MCHC 33.2 RDW 11.9 Plt Count 584 H D MPV 9.4 Immature Gran % (Auto) 0.2 Neut % (Auto) 44.4 L Lymph % (Auto) 42.8 H [place] % (Auto) 7.5 Eos % (Auto) 4.0 Baso % (Auto) 1.1 Lymph # (Auto) 3.4 [place] # (Auto) 0.6 Eos # (Auto) 0.3 Baso # (Auto) 0.1 Abs Immat Gran (auto) 0.02 Absolute Neuts (auto) 3.6 Absolute Nucleated RBC 0.000 Nucleated RBC % (auto) 0.0 Hold Purple Top Sodium 142 Potassium 3.9 Chloride 106 Carbon Dioxide 26 Anion Gap 14 BUN 16 Creatinine 0.78 Estim Creat Clear Calc 69.6 Estimated GFR > 60 POC Glucose 81 127 H Random Glucose 137 H Calcium 10.0 Total Bilirubin 0.3 AST 25 ALT 27 Alkaline Phosphatase 74 Total Protein 7.3 Albumin 3.7 Urine Color [place] A Urine Appearance Turbid Urine pH 5.5 Ur Specific [place] >= 1.030 H Urine Protein 100 (2+) H Urine Glucose (UA) Negative Urine Ketones Negative Urine Blood Large (3+) H Urine Nitrite Negative Ur Leukocyte Esterase Small (1+) H Urine RBC >20 H Urine WBC 11-20 H Ur Squamous Epith Cells >20 Urine Bacteria None Seen Hyaline Casts 0-2 02/26/24 02/26/24 02/26/24 05:56 07:15 11:30 WBC RBC Hgb Hct MCV MCH MCHC RDW Plt Count MPV Immature Gran % (Auto) Neut % (Auto) Lymph % (Auto) [place] % (Auto) Eos % (Auto) Baso % (Auto) Lymph # (Auto) [place] # (Auto) Eos # (Auto) Baso # (Auto) Abs Immat Gran (auto) Absolute Neuts (auto) Absolute Nucleated RBC Nucleated RBC % (auto) Hold Purple Top SEE NOTE Sodium 141 Potassium 3.8 Chloride 110 H Carbon Dioxide 24 Anion Gap 11 L BUN 11 Creatinine 0.73 Estim Creat Clear Calc 76.2 Estimated GFR > 60 POC Glucose 94 89 Random Glucose 97 Calcium 8.9 D Total Bilirubin AST ALT Alkaline Phosphatase Total Protein Albumin Urine Color Urine Appearance Urine pH Ur Specific [place] Urine Protein Urine Glucose (UA) Urine Ketones Urine Blood Urine Nitrite Ur Leukocyte Esterase Urine RBC Urine WBC Ur Squamous Epith Cells Urine Bacteria Hyaline Casts 02/26/24 15:15 WBC RBC Hgb Hct MCV MCH MCHC RDW Plt Count MPV Immature Gran % (Auto) Neut % (Auto) Lymph % (Auto) [place] % (Auto) Eos % (Auto) Baso % (Auto) Lymph # (Auto) [place] # (Auto) Eos # (Auto) Baso # (Auto) Abs Immat Gran (auto) Absolute Neuts (auto) Absolute Nucleated RBC Nucleated RBC % (auto) Hold Purple Top Sodium Potassium Chloride Carbon Dioxide Anion Gap BUN Creatinine Estim Creat Clear Calc Estimated GFR POC Glucose 94 Random Glucose Calcium Total Bilirubin AST ALT Alkaline Phosphatase Total Protein Albumin Urine Color Urine Appearance Urine pH Ur Specific [place] Urine Protein Urine Glucose (UA) Urine Ketones Urine Blood Urine Nitrite Ur Leukocyte Esterase Urine RBC Urine WBC Ur Squamous Epith Cells Urine Bacteria Hyaline Casts Airway Mallampati Class: II TM Dist: >3cm Neck ROM: Full Loose/Missing/Broken Teeth: No (Patient denies any loose or broken teeth) Heart: S1S2 Lungs: CTAB Assessment and Plan Assessment Anesthesia Assessment: Anesthesia Plan Discussed and Chart Reviewed Final Anesthetic Review Family History of Problems with Anesthesia: No History of Problems with Anesthesia: No NPO: Yes ASA Class: II Final Preanesthetic Review: No Changes in Pt Med Stat, Meds/Allgs Chart Reviewed, Consent Obtained/Reviewed and Anes Risks/Benef Reviewed Patient Risk: Low Procedure Risk: Low Anesthetic Plan Anesthetic Plan: GA and Agree w/ Assess. and Plan Disposition: Standard PACU
--- NOTE | 2024-02-26 16:32 | PC.NURSE ---
Patient last took ozempic subcutaneous [address] Perla at bedside and made aware.
--- NOTE | 2024-02-26 16:51 | W.PM.OPN ---
Operative Note Operative Note Date of Service: 02/26/24 Narrative: PreOperative Diagnosis: Left proximal obstructing stone Post Operative Diagnosis: Left proximal obstructing stone Procedure: Cystoscopy, left retrograde, left stent placement Surgeon: Dr Shaggy Carlin Anesthesia: Sedation Indications for procedure: Obstructing stone Procedure: After informed consent was verified the patient was brought to the operating room and placed in a supine position. Anesthesia was administered per protocol. The patient was placed in modified dorsal lithotomy position and prepped and draped in a sterile fashion. A safety pause time-out was performed. Laterality of procedure and antibiotics were confirmed, appropriate imaging was available A 22 [place] cystoscope was introduced per urethra. No abnormality was noted of urethra or bladder. Both ureteric orifices were seen in a normal position. The left ureter was cannulated with an open ended catheter and a retrograde examination was performed. Filling defect proximal ureter . A Sensor guidewire was placed under fluoroscopy and a good coil was seen within the renal pelvis. Debris was present and extruded by ureteric orifice. A 6 [place] by 22 cm double J stent was advanced over the wire and up to the level of the renal pelvis under fluoroscopic and direct visualization. The stent was seen with appropriate coil within the renal pelvis and in the bladder after deployment. Sixteen [place] Acosta catheter placed to allow drainage for 24 hours. The patient tolerated the procedure well and was transferred in a stable condition to the recovery area. Pathology: None Drains: Stent and Acosta as described
[2024-02-26 17:46] LABS: Glucose, Whole Blood 87 mg/dL (60-115)
[2024-02-26] MEDS: Acetaminophen 325 MG TABLET 650 MG PO (18:10)
[2024-02-26] MEDS: oxyCODONE HCl Immed Release 5 MG TABLET PO (18:10)
[2024-02-26 20:08] LABS: Glucose, Whole Blood 136 mg/dL (60-115)
[2024-02-26] MEDS: Atorvastatin Calcium 20 MG TABLET PO (20:15)
[2024-02-27] MEDS: Acetaminophen 325 MG TABLET 650 MG PO (00:16)
[2024-02-27] MEDS: Morphine Sulfate 4 MG/ML CARTRIDGE IVPUSH ×2 (00:19→07:40)
[2024-02-27 02:55] VITALS: BP 154/75; PULSE 79; RESP 18; TEMP 36.3; O2SAT 95
[2024-02-27] MEDS: Lactated Ringers 1,000 ML 125 ML IVCONT (05:33)
[2024-02-27 06:56] VITALS: BP 123/68; PULSE 74; RESP 16; TEMP 36.6; O2SAT 95
[2024-02-27 07:27] LABS: Glucose, Whole Blood 84 mg/dL (60-115)
[2024-02-27 08:53] VITALS: BP 129/71; PULSE 72; TEMP 36.6
[2024-02-27] MEDS: lisinopriL 10 MG TABLET PO (08:57)
[2024-02-27] MEDS: Escitalopram Oxalate 10 MG TABLET PO (08:57)
[2024-02-27] MEDS: Pyridoxine HCl (Vitamin B6) 50 MG TABLET PO (08:57)
[2024-02-27] MEDS: Gabapentin 300 MG CAPSULE PO ×3 (08:57→21:21)
[2024-02-27] MEDS: allopurinoL 100 MG TABLET PO (08:57)
--- NOTE | 2024-02-27 10:37 | P.PNIM_ITS ---
Subjective Subjective Date of Service: 02/27/24 Interval History: Still in significant pain on POD1, requiring 16 mg IV morphine in last 24hr. No N/V. Acosta with bloody urine. Review of Systems Review of Systems: Yes all other systems are reviewed and are negative Physical Exam 2 Vital Signs: Vital Signs: Last Vital Signs Temp 98 F 02/27/24 08:53 Pulse 72 02/27/24 08:53 Resp 16 02/27/24 06:56 BP 129/71 02/27/24 08:53 Pulse Ox 95 02/27/24 06:56 O2 Del Method Room Air 02/27/24 06:56 O2 Flow Rate 1 02/25/24 13:42 BMI result Body Mass Index 32.3 Gen: in no acute distress HEENT: sclera anicteric, moist mucus membranes Neck: supple Lungs: clear to auscultation bilaterally Heart: regular rate and rhythm, no murmurs Abd: soft, non-tender, non-distended : L flank tender, Acosta with bloody urine Ext: no edema Skin: warm/well-perfused Neuro: alert and oriented x3, no focal findings Psych: appropriate affect Objective Data Active Medications Acetaminophen (Acetaminophen 325 Mg Tablet) 650 mg PO Q6H PRN PRN Reason: Pain, Mild (Pain Scale 1-3), fever or headache Last Admin: 02/27/24 00:16 Dose: 650 mg Documented By: REZA Comments: pt requested to take Tylenol for for 9/10 pain along with PRN Morphine Albuterol Sulfate (Albuterol Sulfate 90 Mcg 8 Gm Inhaler) 2 puff INHALE Q4H PRN PRN Reason: Shortness Of Breath Or Wheezing Allopurinol (Allopurinol 100 Mg Tablet) 100 mg PO DAILY [facility] Last Admin: 02/27/24 08:57 Dose: 100 mg Documented By: CAIT Atorvastatin Calcium (Atorvastatin Calcium 20 Mg Tablet) 20 mg PO BEDTIME [facility] Last Admin: 02/26/24 20:15 Dose: 20 mg Documented By: REZA Benzonatate (Benzonatate 100 Mg Capsule) 100 mg PO TID PRN PRN Reason: Cough Calcium Carbonate (Calcium Carbonate 750 Mg Tab.Chew) 750 mg PO Q4H PRN PRN Reason: Heartburn Escitalopram Oxalate (Escitalopram Oxalate 10 Mg Tablet) 10 mg PO DAILY [facility] Last Admin: 02/27/24 08:57 Dose: 10 mg Documented By: CAIT Fluticasone Propionate (Fluticasone Propionate Nasal 16 Gm [place]) 2 spray NOSTRIL-B DAILY PRN PRN Reason: allergies Gabapentin (Gabapentin 300 Mg Capsule) 300 mg PO TID [facility] Last Admin: 02/27/24 08:57 Dose: 300 mg Documented By: CAIT Glucose (Glucose Gel 15 Gm Gel..Gram.) 15 gm PO Q15M PRN; Protocol PRN Reason: per Hypoglycemia Standing Ord. Dextrose (D10) 250 mls @ 750 mls/hr IV Q15M PRN; Protocol PRN Reason: per Hypoglycemia Standing Ord. Ibuprofen (Ibuprofen 600 Mg Tablet) 600 mg PO Q8H PRN PRN Reason: Right Elbow Swelling or Pain Insulin Human Lispro (Insulin Lispro 100 Unit/Ml 3 Ml Vial) 0 unit SUBCUT QIDACHS [facility]; Protocol Last Admin: 02/27/24 07:28 Dose: Not Given Documented By: CAIT Non-Admin Reason: No Insulin Coverage Lisinopril (Lisinopril 10 Mg Tablet) 10 mg PO DAILY [facility]; Protocol Last Admin: 02/27/24 08:57 Dose: 10 mg Documented By: CAIT Magnesium Hydroxide (Milk Of Magnesia 30 Ml Oral.Susp) 30 ml PO DAILY PRN PRN Reason: Constipation Meclizine HCl (Meclizine Hcl 25 Mg Tablet) 25 mg PO BID PRN PRN Reason: nausea Melatonin (Melatonin 3 Mg Tablet) 6 mg PO BEDTIME PRN PRN Reason: Insomnia Morphine Sulfate (Morphine Sulfate 4 Mg/Ml Cartridge) 4 mg IVPUSH Q4H PRN; Protocol PRN Reason: Pain, Severe (Pain Scale 7-10) Last Admin: 02/27/24 07:40 Dose: 4 mg Documented By: CAIT Ondansetron HCl (Ondansetron Hcl 4 Mg/2 Ml Vial) 4 mg IVPUSH Q8H PRN PRN Reason: Nausea and Vomiting Oxycodone HCl (Oxycodone Hcl Immed Release 5 Mg Tablet) 5 mg PO Q4H PRN PRN Reason: moderate pain Pyridoxine HCl (Pyridoxine Hcl (Vitamin B6) 50 Mg Tablet) 50 mg PO DAILY [facility] Last Admin: 02/27/24 08:57 Dose: 50 mg Documented By: CAIT Sodium Chloride (0.9 % Sodium Chloride Flush 3 Ml Syringe) 3 ml IVFLUSH QSHIFT G[facility] Last Admin: 02/27/24 07:28 Dose: Not Given Documented By: CAIT Non-Admin Reason: IV Running Labs 02/25/24 10:26 02/26/24 05:56 Labs: Laboratory Results - last 24 hr 02/26/24 02/26/24 02/26/24 11:30 15:15 17:42 POC Glucose 89 94 87 02/26/24 02/27/24 20:03 06:56 POC Glucose 136 H 84 Microbiology Microbiology Results: Microbiology 02/25/24 Unknown Urine Culture - Final Urine clean catch - Clean Catch Midstream No growth. Assessment and Plan (1) Hydronephrosis: Status: Acute (2) Obstruction of left ureter: Status: Acute Assessment and Plan: d3 63yo F with HTN, HLD, DM2, asthma, peripheral neuropathy, renal calculi, recent admission for pseudogout flare of elbow presenting with acute L flank pain, found to have obstructing 1 cm left calculus with hydronephrosis ureterolithiasis, hydronephrosis - s/p cystoscopy, left retrograde, left stent placement 02/27/24 - Acosta in place - try to transition from IV morphine to PO oxycodone HTN - lisinopril HLD - statin DM2 - rosalina-dose lispro peripheral neuropathy - gabapentin mood disorder - escitalopram VTE ppx - SCDs dispo - eventual home, likely tomorrow In my clinical judgment, the patient requires continued inpatient hospitalization for the following reasons: pain control, postop care, hematuria Total time managing care of this patient today: 35 minutes. Quality Stroke Does the patient have a stroke diagnosis?: No VTE Prior VTE?: No VTE Risk Level:: Medical - moderate - high VTE Device Contraindication: N/A - Device Ordered VTE Drug Contraindication: Treatment Not Indicated
--- NOTE | 2024-02-27 11:06 | PC.NURSE ---
Acosta catheter removed 02/27/2024 at 1100. Pt tolerated well. Due to void by 1700.
[2024-02-27 11:09] LABS: Glucose, Whole Blood 111 mg/dL (60-115)
--- NOTE | 2024-02-27 12:05 | HO.POSTANES ---
Post Anesthesia Evaluation Post Anesthesia Evaluation Date of Service: 02/27/24 Vital Signs: Vital Signs Temp Pulse Resp BP Pulse Ox O2 Del Method 02/27/24 08:53 98 F 72 129/71 02/27/24 06:56 98 F 74 16 123/68 95 Room Air 02/27/24 02:55 97.4 F 79 18 154/75 H 95 Room Air Anesthesia: TIVA Mental Status: Awake Pain Control: Satisfactory (poorly controlled) Nausea/Vomiting: None Hydration: Adequate Anesthesia-Related Issues: No Anes. Related Issues
[2024-02-27] MEDS: oxyCODONE HCl Immed Release 5 MG TABLET PO ×3 (14:10→23:07)
[2024-02-27 15:28] VITALS: BP 160/86; PULSE 73; RESP 18; TEMP 36.4; O2SAT 96
[2024-02-27] MEDS: 0.9 % Sodium Chloride Flush 3 ML SYRINGE IVFLUSH ×2 (15:47→21:22)
[2024-02-27 16:00] VITALS: BP 150/86; PULSE 75; RESP 18; TEMP 36.5; O2SAT 97
[2024-02-27 16:16] LABS: Glucose, Whole Blood 100 mg/dL (60-115)
[2024-02-27 19:57] VITALS: BP 129/73; PULSE 71; RESP 16; TEMP 36.4; O2SAT 94
[2024-02-27 20:25] LABS: Glucose, Whole Blood 124 mg/dL (60-115)
[2024-02-27] MEDS: Atorvastatin Calcium 20 MG TABLET PO (21:21)
[2024-02-27] MEDS: Milk of Magnesia 30 ML ORAL.SUSP PO (21:21)
[2024-02-28 03:54] VITALS: BP 139/79; PULSE 74; RESP 16; TEMP 36; O2SAT 95
[2024-02-28 06:52] VITALS: BP 126/81; PULSE 76; RESP 17; TEMP 36.6; O2SAT 95
[2024-02-28 07:14] LABS: Glucose, Whole Blood 93 mg/dL (60-115)
[2024-02-28 07:59] VITALS: BP 150/70
[2024-02-28] MEDS: Pyridoxine HCl (Vitamin B6) 50 MG TABLET PO (07:59)
[2024-02-28] MEDS: Gabapentin 300 MG CAPSULE PO (07:59)
[2024-02-28] MEDS: Escitalopram Oxalate 10 MG TABLET PO (07:59)
[2024-02-28] MEDS: allopurinoL 100 MG TABLET PO (07:59)
[2024-02-28] MEDS: lisinopriL 10 MG TABLET PO (07:59)
[2024-02-28] MEDS: oxyCODONE HCl Immed Release 5 MG TABLET PO (08:00)
[2024-02-28] MEDS: 0.9 % Sodium Chloride Flush 3 ML SYRINGE IVFLUSH (08:01)
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
--- NOTE | 2024-02-28 10:07 | MHC.CM.PN ---
PT WILL DC HOME TODAY WITH RESUMPTION OF [employer] FAMILY TO TRANSPORT
== END 2024-02-28 11:11 | disposition home or self-care (01) | DRG 661 ==
LOC: HO.ED 10:22 → HO.EDOVER 15:21 → HO.S3 17:21
PROVIDERS: Physician Assistant Medical; Urology; Admitting Provider Student in an Organized Health Care Education/Training Program; Emergency Provider Emergency Medicine; PCP Student in an Organized Health Care Education/Training Program; Visit Provider Family Medicine
PROC: 0T778DZ Dilation of Left Ureter with Intraluminal Device, Via Natural or Artificial Opening Endoscopic (ICD-10-PCS; principal; 2024-02-26 17:30)
DX: N13.2 Hydronephrosis with renal and ureteral calculous obstruction (principal); E11.42 Type 2 diabetes mellitus with diabetic polyneuropathy; I10 Essential (primary) hypertension; F39 Unspecified mood [affective] disorder; E78.5 Hyperlipidemia, unspecified; Z79.84 Long term (current) use of oral hypoglycemic drugs; Z79.899 Other long term (current) drug therapy
CPT/HCPCS: 36415; 74176; 80048; 80053; 81001; 82947; 85025; 87086; 99285; C1758; C1769; C2617; J0131; J1170; J1885; J1956; J2270; J2405; J2704; J7120; Q9967

== ENCOUNTER → 2024-02-25 15:07 | Outpatient (BNV) | payer MEDICARE, MEDICAID, SELFPAY | PROVIDERS: Admitting Provider Student in an Organized Health Care Education/Training Program; Emergency Provider Emergency Medicine; PCP Student in an Organized Health Care Education/Training Program; Visit Provider Urology | DX: N13.30 Unspecified hydronephrosis (principal); N13.5 Crossing vessel and stricture of ureter without hydronephrosis | CPT/HCPCS: 52332; 74420; 99222 ==

== ENCOUNTER → 2024-02-25 15:07 | Outpatient (BNV) | payer MEDICARE, MEDICAID, SELFPAY | PROVIDERS: Admitting Provider Student in an Organized Health Care Education/Training Program; Emergency Provider Emergency Medicine; PCP Student in an Organized Health Care Education/Training Program; Visit Provider Student in an Organized Health Care Education/Training Program | DX: N13.30 Unspecified hydronephrosis (principal); N20.0 Calculus of kidney; N13.5 Crossing vessel and stricture of ureter without hydronephrosis | CPT/HCPCS: 99223; 99232; 99239 ==

== ENCOUNTER 2024-03-30 05:46 | Day surgery (SDC) | payer MEDICARE, MEDICAID, SELFPAY ==
--- NOTE | 2024-03-29 09:51 | P.CONAN_ITS ---
Documented by User: Oneida Petersen NP 03/29/24 09:53 HPI - Anesthesia Eval Consult details Narrative: 63yo F for Left Lithotripsy ESW,with stent removal s/p cysto, stent 02/26/24 with TIVA Anesthesia Pre-Procedure Meds Is the patient on any of the following meds?: GLP1/DPP4 PMFSH Active Problems Active Problems: All Active Problems Ureterolithiasis (Acute) Hydronephrosis (Acute) Obstruction of left ureter (Acute) Pseudogout of right elbow (Acute) Effusion of right elbow (Acute) Renal calculi (Acute) Bilateral nephrolithiasis (Acute) Past Medical History Medical History HTN (hypertension) History of postoperative nausea and vomiting Arthritis Renal calculi Lab test negative for COVID-19 virus Diabetes Constipation Asthma Bilateral nephrolithiasis Family History Family history of problems with anesthesia: No Surgical History Surgical History Total knee replacement status H/O colonoscopy Hx of hand surgery Hx of cystoscopy Hx of lithotripsy History of Problems with Anesthesia: No Social History Social History Household Members: None Housing: Apartment Are you a primary managed care manager to a significant other at home: No Do you 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 have 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) Patient Tobacco Use Status: Never used Tobacco Use of substances other than those prescribed or required for medical reasons: No Are you DNR?: No Advance Directives: No Advance Directives Information Provided: Yes service: No Meds Allergies Allergy/AdvReac Type Severity Reaction Status Date / Time duloxetine [From Cymbalta] Allergy Intermediate Itching Verified 02/26/24 15:52 pollen extracts [POLLEN] Allergy Mild SINUS Verified 02/26/24 15:52 PROBLEMS Home Medications ?Medication ?Instructions ?Recorded ?Confirmed ?Last Taken ?Type gabapentin 300 mg capsule 300 mg PO TID 10/16/20 03/30/24 02/24/24 History lisinopril 10 mg tablet 10 mg PO DAILY 10/16/20 03/30/24 02/24/24 History metformin 500 mg tablet 500 mg PO BID 10/18/20 03/30/24 02/24/24 History simvastatin 40 mg tablet 40 mg PO BEDTIME 11/11/22 02/25/24 02/24/24 History escitalopram oxalate 10 mg tablet 10 mg PO DAILY 03/12/23 03/30/24 02/24/24 History fluticasone propionate 50 2 spray intranasal DAILY PRN 03/12/23 03/30/24 Unknown History mcg/actuation nasal allergies spray,suspension melatonin 5 mg tablet 5 mg PO BEDTIME PRN Sleep 03/12/23 03/30/24 Unknown History albuterol sulfate 90 mcg/actuation 2 puff inhalation Q4H PRN 02/22/24 03/30/24 02/24/24 History aerosol inhaler (Ventolin HFA) Shortness Of Breath Or Wheezing meclizine 12.5 mg tablet 25 mg PO BID PRN nausea 02/22/24 03/30/24 Unknown History ondansetron 4 mg disintegrating 4 mg PO Q6H PRN Nausea 02/22/24 03/30/24 Unknown History tablet semaglutide 2 mg/dose (8 mg/3 mL) 2 mg subcut WE 02/22/24 02/25/24 03/20/24 History subcutaneous pen injector (Ozempic) Exam Pertinent Lab Results Pertinent Lab Results: Laboratory Tests 02/25/24 02/26/24 10:26 05:56 WBC 8.0 Hgb 12.9 Hct 38.9 Plt Count 584 H D Sodium 141 Potassium 3.8 Chloride 110 H Carbon Dioxide 24 BUN 11 Creatinine 0.73 Narrative Narrative: ECHO 2023 Conclusions: - The left ventricular systolic function is normal. The calculated ejection fraction is 55% by biplane method. - No obvious valvular pathology seen on this study. Assessment and Plan Assessment Anesthesia Assessment: Chart Reviewed Final Anesthetic Review Family History of Problems with Anesthesia: No History of Problems with Anesthesia: No Documented by User: Nathalia William MD 03/30/24 09:31 HPI - Anesthesia Eval Anesthesia Pre-Procedure Meds Is the patient on any of the following meds?: GLP1/DPP4 (Ozempic. Last dose 03/20/24) [facility] Past Medical History Medical History HTN (hypertension) History of postoperative nausea and vomiting Arthritis Renal calculi Lab test negative for COVID-19 virus Diabetes Constipation Asthma Bilateral nephrolithiasis Family History Family history of problems with anesthesia: No Surgical History Surgical History Total knee replacement status H/O colonoscopy Hx of hand surgery Hx of cystoscopy Hx of lithotripsy History of Problems with Anesthesia: Yes (PONV) Social History Social History Household Members: None Housing: Apartment Are you a primary managed care manager to a significant other at home: No Do you presently have 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) Patient Tobacco Use Status: Never used Tobacco Use of substances other than those prescribed or required for medical reasons: No Are you DNR?: No Advance Directives: No Advance Directives Information Provided: Yes service: No Meds Allergies Allergy/AdvReac Type Severity Reaction Status Date / Time duloxetine [From Cymbalta] Allergy Intermediate Itching Verified 02/26/24 15:52 pollen extracts [POLLEN] Allergy Mild SINUS Verified 02/26/24 15:52 PROBLEMS Home Medications ?Medication ?Instructions ?Recorded ?Confirmed ?Last Taken ?Type gabapentin 300 mg capsule 300 mg PO TID 10/16/20 03/30/24 02/24/24 History lisinopril 10 mg tablet 10 mg PO DAILY 10/16/20 03/30/24 02/24/24 History metformin 500 mg tablet 500 mg PO BID 10/18/20 03/30/24 02/24/24 History simvastatin 40 mg tablet 40 mg PO BEDTIME 11/11/22 02/25/24 02/24/24 History escitalopram oxalate 10 mg tablet 10 mg PO DAILY 03/12/23 03/30/24 02/24/24 History fluticasone propionate 50 2 spray intranasal DAILY PRN 03/12/23 03/30/24 Unknown History mcg/actuation nasal allergies spray,suspension melatonin 5 mg tablet 5 mg PO BEDTIME PRN Sleep 03/12/23 03/30/24 Unknown History albuterol sulfate 90 mcg/actuation 2 puff inhalation Q4H PRN 02/22/24 03/30/24 02/24/24 History aerosol inhaler (Ventolin HFA) Shortness Of Breath Or Wheezing meclizine 12.5 mg tablet 25 mg PO BID PRN nausea 02/22/24 03/30/24 Unknown History ondansetron 4 mg disintegrating 4 mg PO Q6H PRN Nausea 02/22/24 03/30/24 Unknown History tablet semaglutide 2 mg/dose (8 mg/3 mL) 2 mg subcut WE 02/22/24 02/25/24 03/20/24 History subcutaneous pen injector (Ozempic) Exam Height,Weight and Vital Signs: Height 5 ft 1 in Weight 72.121 kg Vital Signs Temp Pulse Resp BP Pulse Ox O2 Del Method 03/30/24 07:45 97.0 F 70 16 131/73 99 Room Air Pertinent Lab Results Pertinent Lab Results: Laboratory Tests 02/25/24 02/26/24 10:26 05:56 WBC 8.0 Hgb 12.9 Hct 38.9 Plt Count 584 H D Sodium 141 Potassium 3.8 Chloride 110 H Carbon Dioxide 24 BUN 11 Creatinine 0.73 Lab Results 03/30/24 Range/Units 08:11 POC Glucose 103 (60-115) mg/dL Airway Mallampati Class: III TM Dist: >3cm Neck ROM: Full Loose/Missing/Broken Teeth: No (Denies broken, loose, missing teeth) Heart: RRR Lungs: CTAB Assessment and Plan Final Anesthetic Review Family History of Problems with Anesthesia: No History of Problems with Anesthesia: Yes (PONV) NPO: Yes ASA Class: II Final Preanesthetic Review: No Changes in Pt Med Stat, Meds/Allgs Chart Reviewed, Consent Obtained/Reviewed and Anes Risks/Benef Reviewed Patient Risk: Intermediate Procedure Risk: Low Assessment/Block/Sedation in SS: Assess/Block/Sedation-SS Anesthetic Plan Anesthetic Plan: GA Disposition: Standard PACU
[2024-03-30] VITALS (7 sets, daily range): BP systolic 119–142; BP diastolic 73–85; PULSE 70–776; RESP 16–17; TEMP 36.1–36.3; O2SAT 94–100
--- NOTE | ~2024-03-30 | XR_ITS ---
EXAMINATION: XR ABDOMEN KUB CLINICAL INDICATION: Preop left lithotripsy. COMPARISON: 03/27/2023. TECHNIQUE: 2 AP views of the abdomen. FINDINGS: Nonobstructive bowel gas pattern. Moderate amount of stool in the colon. Left ureteral stent with proximal tip curled over the left kidney and distal tip curled over central to right pelvis. Redemonstration of 4 mm calcification overlying the right renal lower pole. Previously identified calcifications measuring up to 5 mm overlying the left upper renal shadow are not clearly visualize, although visualization is limited due to overlying bowel. Degenerative changes in the imaged thoracolumbar spine. Multiple pelvic calcifications, at least some of which represent phleboliths. It is possible that there has been increase of calcifications adjacent to phleboliths in the pelvis medial to the distal ureter/UV junction component of the stent. XR/XR KUB IMPRESSION: 1. Left ureteral stent. 2. Redemonstration 4 mm calcification overlying the right renal lower pole. 3. Previously identified calcifications measuring up to 5 mm overlying the left upper renal shadow are not clearly visualize, although visualization is limited due to overlying bowel. 4. Multiple pelvic calcifications, at least some of which represent phleboliths. It is possible that there has been increase of calcifications adjacent to phleboliths in the pelvis medial to the distal ureter/UV junction component of the stent. This study was presented today March 30, 2024 for interpretation. Stat results provided at this time as requested by referring provider.
[2024-03-30 08:14] LABS: Glucose, Whole Blood 103 mg/dL (60-115)
--- NOTE | 2024-03-30 08:15 | PC.NURSE ---
Time out completed prior to block.
[2024-03-30] MEDS: Lactated Ringers 1,000 ML 100 ML IVCONT (08:33)
--- NOTE | 2024-03-30 08:34 | PC.NURSE ---
500 bolus given of LR
--- NOTE | 2024-03-30 09:47 | MHC.SHP ---
Pre-Procedural Eval Section A - 24 Hr Update-Section A only Date of Service: 03/30/24 The patient is an INPATIENT: No The patient has been examined within 24 hours of the surgical procedure. The History & Physical has been completed within 30 days and I have reviewed it.: Yes Section B - Complete if H&P > 30 days Chief Complaint: Calculus of ureter, s/p ureteral stent Allergies: Allergies Allergy/AdvReac Type Severity Reaction Status Date / Time duloxetine [From Cymbalta] Allergy Intermediate Itching Verified 02/26/24 15:52 pollen extracts [POLLEN] Allergy Mild SINUS Verified 02/26/24 15:52 PROBLEMS Plan Diagnosis/Plan: Unchanged I have reviewed the history and physical and performed a pertinent physical examination on my patient. No changes have occurred unless specified. Left ESWL. cystoscopy removal left ureteral stent. Discussed risks to include but not limited to, blood in the urine, bruising to the skin, kidney hematoma, possible need for another procedure if a stone fragment obstructs the ureter while passing, possible need to repeat procedure if stone is not completely fragmented. Time Spent With Patient Time: Total time managing care of this patient today ____ minutes.
--- NOTE | 2024-03-30 10:53 | W.PM.OPN ---
Operative Note Operative Note Date of Service: 03/30/24 Narrative: PreOperative Diagnosis:? ? Left nephrolithiasis, Left hydronephrosis s/p left ureteral stent Post Operative Diagnosis:?Left nephrolithiasis, Left hydronephrosis s/p left ureteral stent Procedure:?Left ESWL, cystoscopy stent removal, Disposible Flexible Cystoscope Used Surgeon:?Dr Dulce Whelan Anesthesia:? General Indications for procedure: The patient understands there is a risk of bruising or hematoma to the kidney, infection, and stone migration following the procedure and subsequent intervention may be required.? - Imaging 3x4 mm stone lower pole left kidney Procedure: After informed consent was verified the patient was brought to the operating room and placed in a supine position.? Anesthesia was performed per protocol. Safety pause time-out was performed. Imaging was displayed in the room and laterality confirmed. Fluoroscopy was performed along the stent, no calcifications noted. The patient was positioned in a frog-legged position, the genitalia was prepped, the disposable flexible cystoscope was passed into the bladder, the stent was visualized using a grasper the stent was removed without difficulty. The patient was repositioned supine position. Using the Ultrasound the left renal stone was identified in the lower pole. ESWL was performed.?Shockwave lithotripsy was performed, with a maximum rate of 120 hertz. After the first 300 shocks a pause for 3 minutes was completed.? A total of 2500 shocks to a maximum of power of 18 with a maximum rate of 120 hertz.?Good fragmentation of the stone was appreciated. The patient tolerated the procedure well and was transferred to the recovery area upon completion. Complications: None
== END 2024-03-30 13:00 | disposition home or self-care (01) ==
PROVIDERS: PCP Student in an Organized Health Care Education/Training Program; Visit Provider Urology
PROC: (CPT 50590; principal; 2024-03-30 09:30)
DX: N20.0 Calculus of kidney (principal); N13.30 Unspecified hydronephrosis; Z46.6 Encounter for fitting and adjustment of urinary device; Z87.442 Personal history of urinary calculi; I10 Essential (primary) hypertension; E11.9 Type 2 diabetes mellitus without complications; G62.9 Polyneuropathy, unspecified; J45.909 Unspecified asthma, uncomplicated; Z79.51 Long term (current) use of inhaled steroids; Z79.1 Long term (current) use of non-steroidal anti-inflammatories (NSAID); Z79.84 Long term (current) use of oral hypoglycemic drugs; Z79.85 Long-term (current) use of injectable non-insulin antidiabetic drugs; Z88.8 Allergy status to other drugs, medicaments and biological substances; Z98.890 Other specified postprocedural states; Z79.899 Other long term (current) drug therapy
CPT/HCPCS: 50590; 74018; 82947; J0131; J0690; J1100; J1940; J2250; J2371; J2405; J2704; J3010

== ENCOUNTER → 2024-03-30 05:46 | Outpatient (BNV) | payer MEDICARE, MEDICAID, SELFPAY | PROVIDERS: PCP Student in an Organized Health Care Education/Training Program; Visit Provider Urology | DX: N20.1 Calculus of ureter (principal); Z96.0 Presence of urogenital implants | CPT/HCPCS: 50590; 52310 ==

== ENCOUNTER 2024-07-19 14:00 | Outpatient (RCR) | payer MEDICARE, MEDICAID, SELFPAY | END 2024-08-09 08:19 | disposition home or self-care (01) | LOC: HO.PTCHIC 14:00 | PROVIDERS: PCP Student in an Organized Health Care Education/Training Program; Visit Provider Physician Assistant Medical | DX: M75.101 Unspecified rotator cuff tear or rupture of right shoulder, not specified as traumatic (principal); M12.811 Other specific arthropathies, not elsewhere classified, right shoulder | CPT/HCPCS: 97110; 97140; 97161 ==

== ENCOUNTER 2024-09-26 11:08 | Outpatient (REF) | payer MEDICARE, MEDICAID, SELFPAY ==
[2024-09-26 12:15] LABS: Estimated Average Glucose 128 mg/dL; Hemoglobin A1C 152.3652 umol/L; Hemoglobin A1c % 6.1 % (<6.0); Total Hemoglobin (HGBA1C) 3565.5098 umol/L
== END 2024-09-26 11:09 | disposition home or self-care (01) ==
LOC: HO.LAB 11:08
PROVIDERS: PCP Student in an Organized Health Care Education/Training Program; Visit Provider Student in an Organized Health Care Education/Training Program
DX: E11.9 Type 2 diabetes mellitus without complications (principal)
CPT/HCPCS: 36415; 83036

== ENCOUNTER 2024-11-16 09:13 | Outpatient (REF) | payer MEDICARE, MEDICAID, SELFPAY ==
[2024-11-16 09:45] LABS: MANUAL DIFF FLAG NO
[2024-11-16 10:45] LABS: Basophils Absolute Auto 0.1 X10*3/uL (0.0-0.2); Basophils Percent Auto 1.2 % (0-2); Eosinophils Absolute Auto 0.3 X10*3/uL (0.0-0.4); Eosinophils Percent Auto 4.6 % (0-4); Hemoglobin 12.9 g/dl (12.0-16.0); Imm Gran Abs Auto 0.02 X10*3/uL (0.00-0.03); Imm Gran Pct Auto 0.3 % (0.0-0.4); Lymphocytes Absolute Auto 3.3 X10*3/uL (1.2-4.9); Lymphocytes Percent Auto 44.4 % (20-40); Mean Corpuscular HGB Conc 33.1 g/dl (31.0-35.0); Mean Corpuscular Hemoglobin 30.1 pg (27.0-33.0); Mean Corpuscular Volume 91.1 fL (80.0-98.0); Mean Platelet Volume 9.9 fL (9.4-12.3); Monocytes Absolute Auto 0.8 X10*3/uL (0.1-1.2); Monocytes Percent Auto 10.2 % (2-11); Neutrophils Absolute Auto 2.9 x10*3/uL (2.0-8.3); Neutrophils Percent Auto 39.3 % (45-73); Platelet Count 419 X10*3/uL (160-400); Red Blood Count 4.28 X10*6/uL (4.20-5.50); Red Cell Distribution Width 13.2 % (11.0-16.0); White Blood Count 7.4 X10*3/uL (4.8-10.8)
[2024-11-16 11:06] LABS: Estimated Average Glucose 128 mg/dL; Hemoglobin A1C 146.7627 umol/L; Hemoglobin A1c % 6.1 % (<6.0)
[2024-11-16 11:57] LABS: Alanine Aminotransferase 23 U/L (0-31); Albumin Level 3.9 g/dL (3.5-5.0); Alkaline Phosphatase 96 U/L (39-117); Anion Gap 10 (12-20); Aspartate Amino Transferase 21 U/L (5-31); Bilirubin Total 0.5 mg/dL (0.0-1.0); Blood Urea Nitrogen 14 mg/dL (9-16); Calcium 9.4 mg/dL (8.4-10.2); Carbon Dioxide 27 mmol/L (22-29); Chloride 109 mmol/L (96-108); Cholesterol 195 mg/dL (<200); Estimated Glomerular Filt Rate > 60; Glucose Random 121 mg/dL (60-115); HDL Cholesterol 54 mg/dL (>40); LDL Cholesterol Calculated 118 mg/dL (<100); Sodium 142 mmol/L (135-145); TSH reflex Free T4 2.05 uIU/mL (0.32-4.0); Total Protein 6.7 g/dL (6.5-8.0); Triglycerides 119 mg/dL (<150); Vitamin D 25-OH Total 36.2 ng/mL (>30)
[2024-11-16 11:58] LABS: Vitamin B12 1438 pg/mL (200-900)
== END 2024-11-16 09:14 | disposition home or self-care (01) ==
LOC: HO.LAB 09:13
PROVIDERS: PCP Student in an Organized Health Care Education/Training Program; Visit Provider Student in an Organized Health Care Education/Training Program
DX: E11.9 Type 2 diabetes mellitus without complications (principal); E78.2 Mixed hyperlipidemia; R53.83 Other fatigue; Z86.2 Personal history of diseases of the blood and blood-forming organs and certain disorders involving the immune mechanism; Z68.31 Body mass index [BMI] 31.0-31.9, adult
CPT/HCPCS: 36415; 80053; 80061; 82306; 82607; 83036; 84443; 85025

== ENCOUNTER 2024-11-17 15:36 | Outpatient (REF) | payer MEDICARE, MEDICAID, SELFPAY ==
--- OUTSIDE RECORDS SUMMARY | 2024-11-17 19:07 | XMS_ITS | Data Portability ---
Author Organization [facility] [address] Address [address] [place] [address] Care Team Providers Care Healthcare Market Consultant Name Role Phone MICHELLE DA SILVANA Primary Care Provider Assessment No assessment recorded. Plan of Treatment Reminders Order Date Submit Date Provider Last Modified By Organization Details Last Modified Time Details Appointments None recorded. Lab None recorded. Referral None recorded. Procedures None recorded. Surgeries None recorded. Imaging None recorded. Medication Orders amoxicillin 875 mg-potassiu m clavulanate 125 mg tablet 2021 [facility] #[id number], [address] [place] [address], [id number], 19:47:12 albuterol sulfate HFA 90 mcg/actuati on aerosol inhaler 2021 [facility] #[id number], [address], [place], [id number], 19:47:13 benzonatate 200 mg capsule 2021 [facility] #[id number], [address], [place], [id number], 19:47:13 Patient TargetsNo targets recorded. Patient Instructions Encounter Date Encounter Id Patient Instructions Last Modified By Organization Details Last Modified Time 07/30/2022 [id number] bronchitis: care instructions [email or web address] Not available 07/30/2022 19:47:01 Based on your presentation and exam, you are being diagnosed with Sinusitis. Rhinosinusitis is most often viral and will resolve on its own in 7-10 days. Symptoms that last longer than 2 weeks an antibiotic could be considered. Based on your presentation, and antibiotic was written. The following are my recommendations to help your symptoms and to allow your condition to improve: 1. Drink plenty of fluids while you are ill- stay hydrated 2. Rest - don't overexert yourself - this includes sports and any gym routines. 3. I suggest taking an antihistamine - like Claritin, Zyrtec, or Benedryl 4. If you take OTC cold medication I would recommend Altagracia-Selzer Cold/Cough. 5. Mucinex with a lot of water is ok - if you are having trouble clearing your nasal passages of mucous. However, if you start to cough then discontinue - this can increase coughing due to a watery post nasal drip. 6. Saline Nasal [place] is recommended. Since an antibiotic was prescribed you need to complete the full course - this is important so you don't develop any antibiotic resistance to future infections. I advise taking a Probiotic like Florastor since you are on an antibiotic - this will help you re-colonize your body with the good bacteria. Typically, it will take 6 months for you to restore your normal body kyle after an antibiotic. Don't hesitate to be seen again if you develop: 1. Fever > 100.5 2. Worsening Headache 3. Stiff Neck 4. Worsening Cough or Shortness of breath 5. Visual Changes. The antibiotic should start to work in 4-5 days. You may not notice immediate response. Acute bronchitis is a common clinical condition characterized by an acute onset but persistent cough, with or without sputum production. It is typically self-limited, resolving within one to three weeks. Symptoms result from inflammation of the lower respiratory tract and are most frequently due to viral infection. Treatment is focused on patient education and supportive care. Antibiotics are not needed for the great majority of patients with acute bronchitis but are greatly overused for this condition. Reducing antibiotic use for acute bronchitis is a national and international health care priority. In most patients, the cough persists for 1 to 3 weeks, with a average duration of 18 days. The cough may be associated with either purulent or nonpurulent sputum production The presence of purulent sputum is a nonspecific finding and does not appear to be predictive of bacterial infection or that antibiotics are needed. For the great majority of patients, use of antibiotics does not hasten recovery or prevent complications but puts patients at increased risk of adverse effects including potentially severe complications such as Clostridioides difficile infection and anaphylaxis. Non-Pharmacological treatment for coughin. Throat lozenges 2. Hot tea 3. Honey 4. Smoking cessation 5. Avoidance of secondhand smoke. Pharmacological Treatment: 1. Robatussin or Guafenasin 2. Antihistamines 3. Dextromethoraphen I would plan on being seen again if any of the following symptoms develop: 1. Fever (100.5) 2. Shortness of breath 3. Wheezing 4. Worsening Cough. I would go to the ER if you develop: 1. Severe Shortness of breath 2. Chest Pain 3. Wheezing 4. Coughing up Blood [email or web address] Not available 07/30/2022 19:46:53 Reason for Referral None Reported. Problems Name Problem SNOMED Code Status Onset Date Resolution Date Notes Provider Name and Address Organization Details Recorded Time Hypertensiv e disorder 98731787 Active 2021 Azra Harika null, PA - [facility] 2 18:47:29 Diabetes mellitus 24902598 Active 2021 Azra Harika null, PA - [facility] 2 18:47:47 Hyperlipide adela 18702252 Active 2021 Azra Chandler null, PA - [facility] 2 18:47:53 Anxiety 31450216 Active 2021 Azra Chandler null, PA - [facility] 2 18:47:59 Depressive disorder 66552461 Active 2021 Azra Chandler null, PA - [facility] 2 18:48:05 Chronic neck pain 0068082885017 Active 2021 Azra Chandler null, PA - [facility] 2 18:48:39 Problem Notes None recorded. Procedures Surgical History Date Name Laterality Status Provider Name and Address Organization Details Recorded Time Shoulder joint surgery completed Azra Harika PA - [facility] 07/30/2022 18:49:52 Carpal tunnel surgery completed Azra Harika PA - [facility] 07/30/2022 18:50:02 total knee replacement completed Azra Shabazz PA - [facility] 07/30/2022 18:50:20 Imaging Results None recorded. Procedure Notes None recorded. Medical Equipment None Reported. Allergies Allergen ID Allergen Name Allergen Category Reaction Reaction Severity Criticality Documentation Date Start Date Code Code System Note Provider Name and Address Organization Details Recorded Time 49163 Cymbalta medicatio n rash Not available low 07/30/2022 89081 4 RxNorm Azra Shabazz mike PA - [facility] 18:45:43 Medications Name Sig Start Date Stop Date Status Note LastModified by Organization Details LastModified Time metformin 500 mg tablet active Not Available Not Available Not Available BD Alcohol Swabs USE DIRECTED TWICE DAILY 07/30 completed Not Available Not Available Not Available ibuprofen 800 mg tablet TAKE 1 TABLET BY MOUTH EVERY 8 HOURS WITH FOOD NEEDED FOR PAIN active Not Available Not Available No t Available benzonatate 200 mg capsule Take 1 capsule 3 times a day by oral route. 2021 active Not Available Not Available Not Avai lable carbamazepi ne ER 100 mg tablet,exte nded release,12 hr TAKE 1 TABLET BY MOUTH 2 TIMES PER DAY FOR 30 DAYS active Not Available Not Available No t Available meclizine 12.5 mg tablet TAKE 1 TO 2 TABLETS BY MOUTH TWICE DAILY NEEDED FOR NAUSEA active Not Available Not Available No t Available allopurinol 100 mg tablet TAKE 1 TABLET BY MOUTH DAILY active Not Available Not Available No t Available tramadol 50 mg tablet TAKE 2 TABLETS BY MOUTH THREE TIMES DAILY active Not Available Not Available No t Available simvastatin 40 mg tablet active Not Available Not Available Not Available amoxicillin 875 mg tablet TAKE 1 TABLET BY MOUTH TWICE DAILY FOR 7 DAYS 07/30 completed Not Available Not Available Not Available lorazepam 0.5 mg tablet active Not Available Not Available Not Available tamsulosin 0.4 mg capsule TAKE 1 CAPSULE BY MOUTH EVERY DAY FOR 10 DAYS active Not Available Not Available No t Available lisinopril 10 mg tablet active Not Available Not Available Not Available Advair Diskus 250 mcg-50 mcg/dose powder for inhalation INHALE 1 PUFF INTO THE LUNGS TWICE DAILY active Not Available Not Available No t Available docusate sodium 100 mg capsule TAKE 1 CAPSULE BY MOUTH TWICE DAILY NEEDED FOR CONSTIPAT ION active Not Available Not Available No t Available pyridoxine (vitamin B6) 50 mg tablet TAKE 1 TABLET BY MOUTH EVERY DAY active Not Available Not Available No t Available gabapentin 300 mg capsule active Not Available Not Available Not Available zolpidem 5 mg tablet 07/30 completed Not Available Not Available Not Available albuterol sulfate HFA 90 mcg/actuati on aerosol inhaler Inhale 2 puffs every 4 hours by inhalatio n route. 2021 active Not Available Not Available Not Avai lable fluticasone propionate 50 mcg/actuati on nasal spray,suspe nsion SHAKE LIQUID AND USE 2 SPRAYS IN EACH NOSTRIL DAILY NEEDED FOR ALLERGIES active Not Available Not Available No t Available amoxicillin 875 mg-potassiu m clavulanate 125 mg tablet Take 1 tablet every 12 hours by oral route for 10 days. 2021 active Not Available Not Available Not Avai lable oxycodone 5 mg tablet TAKE 1 TABLET BY MOUTH EVERY 4 HOURS NEEDED FOR PAIN 07/30 completed Not Available Not Available Not Available nitrofurant oin monohydrate /macrocryst als 100 mg capsule TAKE 1 CAPSULE BY MOUTH TWICE DAILY FOR 7 DAYS 07/30 completed Not Available Not Available Not Available Trulicity 0.75 mg/0.5 mL subcutaneou s pen injector ADMINISTE R 0.75 MG UNDER THE SKIN EVERY 7 DAYS active Not Available Not Available No t Available BinaxNOW COVID-19 Ag Self Test kit FOLLOW PACKAGE DIRECTION S 07/30 completed Not Available Not Available Not Available Vitals Date Recorded Body weight Body mass index (BMI) Body height Oxygen saturation Oxygen saturation in Arterial blood by Pulse oximetry Pain severity - 0-10 verbal numeric rating [Score] - Reported Heart rate Respiratory rate Body temperature Systolic blood pressure Diastolic blood pressure Provider Name and Address Organization Details Last Updated DateTime 2 62069.6 3 g 34 kg/m2 154.94 cm 97 % 97 % 7 105 /min 18 /min 98.1 [degF] 132 mm[Hg] 89 mm[Hg] Azra Perrin [facility] 2 18:51:47 Social History Question Answer Notes LastModified by Organizat ion Details LastModified Time Tobacco Smoking Status Never Smoker PAZ Knox [facility] 07/30/2022 18:49:14 What Is Your Level Of Alcohol Consumption? None Information not available 07/30/2022 What Is Your Water Source? City Information not available 07/30/2022 What Is Your Heat Source? Gas Information not available 07/30/2022 Have You Had Direct Contact, Or Contact During Intimacy, With Monkeypox Rash, Scabs, Or Body Fluids From A Person With Monkeypox? No Information not available 07/30/2022 Do You Use Any Illicit Or Recreational Drugs? No Information not available 07/30/2022 Have You Recently Traveled Abroad? No Information not available 07/30/2022 Do You Or Have You Ever Used Any Other Forms Of Tobacco Or Nicotine? No Information not available 07/30/2022 Sex: Unknown Functional Status None recorded. Mental Status None recorded. Family History Relationship Description Onset Age of this Age Resolved Age Notes LastModified by Organization Details LastModified Time Mother Heart disease Not available 2021 18:48:57 Medical History No medical history recorded. Gynecological HistoryNo gynecological history recorded. Obstetrics History GPAL:G 0 P 0 0 0 0 Past Encounters Encounter ID Performer Location Encounter Start Date Encounter Closed Date Diagnosis/Indication Diagnosis SNOMED-CT Code Diagnosis ICD10 Code Diagnosis Note [id number] [address] [address] 06/18/2018 13:59:54 06/18/2018 14:49:30 [id number] [address] [place] [address] 05/04/2020 14:58:58 05/04/2020 17:12:08 [id number] [address] [address] 11/23/2018 14:01:10 11/23/2018 14:28:18 [id number] [address] [address] 09/15/2018 13:35:58 09/15/2018 14:45:03 [id number] [address] [facility] [place] [address] 09/23/2017 13:28:19 09/23/2017 14:46:35 [id number] [address] [place] [address] 11/01/2020 15:25:24 11/01/2020 15:59:58 [id number] [address] [place] [address] 12/21/2021 17:49:12 12/21/2021 19:18:22 [id number] [address] [place] [address] 01/31/2021 12:39:30 01/31/2021 13:44:16 [id number] [address] [facility] [place] [address] 10/21/2017 12:52:20 10/21/2017 14:00:45 [id number] [address] [place] [address] 05/23/2019 16:55:30 05/23/2019 17:54:38 [id number] [address] [place] [address] 05/14/2022 16:46:49 05/14/2022 19:16:14 [id number] [address] [place] [address] 01/10/2021 14:29:06 01/10/2021 14:57:06 [id number] [address] [place] [address] 11/28/2020 13:57:34 11/28/2020 14:44:58 [id number] [address] [place] [address] 11/17/2018 18:41:13 11/17/2018 19:09:32 [id number] [address] [place] [address] 03/03/2018 16:28:46 03/03/2018 17:08:02 [id number] [address] [place] [address] 04/23/2022 15:32:03 04/23/2022 16:09:02 [id number] [address] [place] [address] 06/04/2018 12:40:44 06/04/2018 14:01:13 [id number] PAZ COLLINS [address] [place] [address] 07/30/2022 17:11:33 07/30/2022 19:47:37 Acute sinusitis 68354448 J01.90 Acute bronchitis 8570334 2 J20.9 Health Concerns Section Related Observation LastModified by Organization Detai ls LastModified Time None Recorded Concern Status LastModified by Organization Details LastModified Time None Recorded Advance Directives Directive None Recorded Payers Encounter Date Sequence Insurance Name Policy Number Policy Murphy Covered Member ID Murphy Member ID Guarantor Name 01/31/2021 1 [place] [employer] [employer] [id number] [employer] [employer] 01/31/2021 2 [place] [employer] [employer] [id number] [place] 12/21/2021 1 [place] [employer] [id number] [place] [employer] 12/21/2021 2 [place] [employer] [id number] [employer] 04/23/2022 1 [place] [employer] [id number] [employer] 04/23/2022 2 [place] [employer] [employer] [id number] [place] 05/14/2022 1 [place] [employer] [id number] [employer] 05/14/2022 2 [place] [employer] [employer] [id number] [employer] 07/30/2022 1 MED[place] [facility] [employer] [id number] [employer] 07/30/2022 2 [place] [facility] [employer] [id number] [employer] Notes Date Note Type Note Provider Name and Address Organization Details Recorded Time 07/30/2022 text/html Sinus Complaints UCReported bypatient.Location: pain behind the eyes both;sinus pain;facial pain;pain in the cheek Associated Symptoms:no fever;nasal discharge from both nostrils;difficulty breathing;headache forehead;sore throat;Post nasal drip;nasal passage blockage bilaterally Onset/Timing:initia lly started 10+days ago; progressively worse over last 2days Risk Factors:no current smoking or tobacco use Prior Treatmentoral decongestant; IbuprofenNotes:The patient reports had congestion and now the pressure of her face is intense. Worse on the right side. The patient now has a cough and she started wheezing this morning. This is what made her nervous. Productive at times. The patient is asthmatic. Took COVID test today and it was negative. Fever fever or bodyaches. No exposure to flu. PAZ COLLINS [address] [place], [address], [place] - [facility] 07/30/2022 19:50:33 OBGyn Episode No OBEpisode recorded.
== END 2024-11-17 15:37 | disposition home or self-care (01) ==
LOC: HO.MAMMO 15:36
PROVIDERS: PCP Student in an Organized Health Care Education/Training Program; Visit Provider Student in an Organized Health Care Education/Training Program
DX: Z12.31 Encounter for screening mammogram for malignant neoplasm of breast (principal)
CPT/HCPCS: 77063; 77067

== ENCOUNTER → 2024-11-17 15:45 | Outpatient (BNV) | payer MEDICARE, MEDICAID, SELFPAY | PROVIDERS: PCP Student in an Organized Health Care Education/Training Program; Visit Provider Internal Medicine | DX: Z12.31 Encounter for screening mammogram for malignant neoplasm of breast (principal) | CPT/HCPCS: 77063; 77067 ==

== ENCOUNTER 2025-08-22 17:36 | Outpatient (REF) | payer MEDICARE, MEDICAID, SELFPAY ==
--- NOTE | ~2025-08-22 | XR_ITS ---
CLINICAL HISTORY: MILD PERSISTENT ASTHMA WITH EXACERBATION 2 view chest x-ray Comparison: CR/SR - XR CHEST 2 VIEWS - 08/19/22 15:03 EST Findings: Normal size heart. Atherosclerotic vascular disease and tortuosity of descending thoracic aorta. No consolidation, pleural effusion or pneumothorax. Stable interstitial changes bilaterally. No acute fracture. Interval right shoulder arthroplasty. Stable postoperative changes left shoulder. Degenerative changes thoracic spine. IMPRESSION: 1. No acute findings. This document has been electronically signed by: Rosalia Ervin MD on 08/22/2025 18:30:31
--- OUTSIDE RECORDS SUMMARY | 2025-08-22 16:00 | XMS_ITS | Encounter Summary ---
Author Organization [facility] Address [address] [facility] [address] [place] [address] Phone Care Team Providers Care Health And Wellness Coordinator Name Role Phone Ann Watkins Primary Care Provider Ann Watkins Unavailable [phone] Encounter Details Date Type Department Care Team (Late st Contact Info) Description 08/22/2025 4:00 PM EST Office Visit [facility] [address] [place] [address] Wes Murray, SCUBA INSTRUCTOR [address] [facility], [address] [place] [address] [email or web address] Mild persistent asthma with exacerbation (Primary Dx) Social History Tobacco Use Types Packs/Day Years Used Date Smoking Tobacco: Former Cigarettes 0.3 3 0 08/24/2012 - 08/24/2015 Smokeless Tobacco: Never Alcohol Use Standard Drinks/Week Comments No 0 (1 standard drink = 0.6 oz pur e alcohol) Education Answer Date Recorded Are you interested in more education? Not on ervin e 12/19/2022 Are you concerned about learning? Not on file 12/19/2022 No 12/19/2022 No 12/19/2022 Food Answer Date Recorded Within the past 6 months we worried whether our food would run out before we got money to buy more. Never True 04/14/2024 Within the past 6 months the food we bought just didn't last and we didn't have enough money to get more. Never True Residential Stability Answer Date Recor ded What is your housing situation today? I have eugenie sing 04/14/2024 How many times have you move d in the past 12 months? Zero (I did not move) 04/14/2024 Paying for Meds Answer Date Recorded Do you have trouble paying for medicines? No 04/14/2024 Paying Utility Bills Answer Date Record ed Do you have trouble paying your heating or elect ricity bill? No 04/14/2024 Transportation Answer Date Recorded Has the lack of transportati on kept you from medical appointments or from getting medications? No 04/14/2024 Digital Access Answer Date Recorded No 04/14/2024 Yes 04/14/2024 Do you have reliable internet access at home? Ye s 04/14/2024 Do you have a device (e.g., phone, tablet, computer) with a working camera? Yes 04/14/2024 Intimate Partner Violence Answer Date R ecorded Are you denied basic needs s uch as food, clothing, or medical care? No 09/27/2024 In the past 12 months have y ou been in a relationship with a person who hurts, threatens, or tries to control you? No 09/27/2024 Are you denied basic needs s uch as food, clothing, or medical care? No 09/27/2024 In the past 12 months have y ou been in a relationship with a person who hurts, threatens, or tries to control you? 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 on file Not on file Not on file documented as of this encounter Last Filed Vital Signs Vital Sign Reading Time Taken Comments Blood Pressure - - Pulse 90 08/22/2025 4:12 PM EST Temperature - - Respiratory Rate - - Oxygen Saturation 96% 08/22/2025 4:12 PM EST Inhaled Oxygen Concentration - - Weight - - Height - - Body Mass Index - - documented in this encounter Patient Instructions * Patient Instructions* Wes Murray CNP - 08/22/2025 4:00 PM EST [facility] [employer] [facility] Where Our Customers Send Their Friends [address] [place] [phone] documented in this encounter Progress Notes * Wes Murray CNP - 08/22/2025 4:00 PM EST Subjective: Patient ID: Vinita Recinos is a 65 y.o. female. HPI Reports started with cough, wheezing, chest tightness 5 days ago, went to urgent care, negativeviral swab, given prednisone 20mg for 5 days and albuterol neb, has been doing this for last 4 days, without much relief. Last albuterol nebulizer was early this AM, she couldn't afford the copaymentof the 2.5mg albuterol solution, so she is using her brothers nebulizer solution but she is unclearon what dose it is or if its even albuterol. She presented to the office with GRACE with flight of stairs, audible wheezing, O2 91% with minimal ambulation, at rest O2 increased to 96%. Given albuterolneb and had marked improvement in her sx. Reports chest tightness has resolved with albuterol here. Normally when she has asthma exacerbation prednisone and advair inhaler relieve sx. Non smoker. Son is sick with similar sx and he doesn't have asthma. No fevers, chills, nasal congestion, dizziness, CP, WRIGHT, sore throat Objective: Physical Exam Eyes: Pupils: Pupils are equal, round, and reactive to light. Cardiovascular: Rate and Rhythm: Normal rate and regular rhythm. Pulmonary: Effort: Pulmonary effort is normal. Comments: Initially she had GRACE with minimal ambulation and exp wheeze, given albuterol neb and wheezing resolved Skin: General: Skin is warm. Neurological: Mental Status: She is alert. Assessment/Plan: 1. Mild persistent asthma with exacerbation (Primary) Comments: plan to check chest xray, she will go to [facility], increased prednisone, monitor blood sugar closely, new nebulizer machine, new rx albuterol neb solution to use Q6hr, she is advised to seek ER care with the GRACE and wheeze returns without relief with neb. Orders: - albuterol (ACCUNEB) 1.25 mg/3 mL nebulizer solution 2.5 mg - albuterol (ACCUNEB) 1.25 mg/3 mL nebulizer solution Dispense: 120 mL; Refill: 0 - predniSONE (DELTASONE) 10 MG tablet Dispense: 20 tablet; Refill: 0 - XR Chest - Nebulizer - DME/Supply (not in database) Other orders - blood pressure test kit-wrist Kit Dispense: 1 kit; Refill: 0 documented in this encounter Plan of Treatment Upcoming Encounters Date Type Department Care Team (Latest Contact Info) Description 09/05/2025 11:15 AM EST Office Visit [facility] [address] [place] [address] Ann Watkins [address] [place] [address], [address] [place] [address] [email or web address] 09/14/2025 10:00 AM EST Office Visit [facility] Orthopedics and Sports Medicine [address] [address] Riccardo Crawley PA-C [address] [place] [address] Orthopedics [address] [facility], [place] [address] [email or web address] 09/18/2025 8:40 AM EST Office Visit [facility] [address] [place] [address] Anatoliy Guerrero PA-C [address] [place] [address] Orthopedics Sports [facility], [place] [address] [email or web address] Hernandez PA-C [address] [place] [address] Orthopedics Sports [facility], [place], [place] [phone] [email or web address] 09/29/2025 3:30 PM EST Office Visit [facility] Primary Care [address] [address] Ann Watkins [address] [facility], [address] [place] [address] [email or web address] 10/11/2025 Procedure Pass OR Admitting Dept - Virtual Department [address] [place] [address] 10/11/2025 1:47 PM EST Hospital Encounter OR Admitting Dept - Virtual Department [address] [place] [address] Toi Lino MD [address] [place], [place] [address]s Sports [facility], [place], [place] [id number] [email or web address] 10/11/2025 1:47 PM EST - 10/11/2025 4:56 PM EST Surgery OR Admitting Dept - Virtual Department [address] [place] [address] Toi Lino MD [address] [place], [place] [address]s Sports [facility], [place] [address] [email or web address] ARTHROPLASTY TOTAL KNEE 10/26/2025 10:00 AM EST Office Visit [facility] Orthopedics and Sports [address] [address] Riccardo Crawley PA-C [address] [place] [address] [facility], [place] [address] [email or web address] 11/23/2025 10:15 AM EDT Office Visit [facility] Orthopedics [facility] Sports [address] [id number] Toi Lino MD [address] [place] [address] [facility] [place] [address] [email or web address] 10/26/2026 4:00 PM EST Office Visit [facility] [address] [place] [address] Ann Watkins [address] [facility] [place] [address] [email or web address] Scheduled Procedures Name Priority Associated Diagnoses Date/Ti me ARTHROPLASTY TOTAL KNEE Primary osteoarthritis of right knee 10/11/2025 1:47 PM EST COLONOSCOPY Special screening for malignant neoplasm of colon documented as of this encounter Goals Goal Patient Goal Type Associated Problems Recent Progress Patient-Stated? Author Autogenerat ed Goal Care Plan Autogenerated Problem No Toi Lino MD documented as of this encounter Procedures Procedure Name Priority Date/Time Associated Diagnosis Comments XR CHEST Urgent/patient waiting 08/22/2025 4:37 PM EST Mild persistent asthma with exacerbation documented in this encounter Visit Diagnoses Diagnosis Mild persistent asthma with exacerbation- Primary Unspecified asthma, with exacerbation Left shoulder pain- Primary Pain in joint, shoulder region Primary osteoarthritis of right knee documented in this encounter Additional Health Concerns Active Problems Noted Date Diagnosed Date Autogenerated Problem 07/11/2025 Assessment Noted Time PHQ-9 Depression Total Score: 7 11/22/19 23 1:14 PM EDT PHQ-2 Depression Total Score: 0 09/27/19 25 3:46 PM EST documented as of this encounter Care Teams Health And Wellness Coordinator Relationship Specialty Start Date End Date Ann Watkins [address] [place] [address], [address] [place] [address] [email or web address] PCP - General Family Medicine 10/27/23 Ann Watkins [address] [place] [address], [address] [place] [address] [email or web address] Insurance Assigned Provider 11/27/24 documented as of this encounter Additional Source Comments The information contained in this document represents components of the legal health record. It is not the complete legal health record.[facility]
--- OUTSIDE RECORDS SUMMARY | 2025-08-22 19:14 | XMS_ITS | Encounter Summary ---
Author Organization [facility] Address [address] [facility] [address] [place] [address] Phone Care Team Providers Care Shoe Salesperson Name Role Phone Ann Watkins Primary Care Provider [phone] Ann Watkins Unavailable [phone] Reason for Visit * Reason Onset Date Comments DME 08/22/2025 Nebulizer, O2 Sa t Encounter Details Date Type Department Care Team (Late st Contact Info) Description 08/22/2025 Telephone [facility] [address] [place] [address] Komal Marion LPN [address] [place] [address] [email or web address] DME (Nebulizer, O2 Sat) Social History Tobacco Use Types Packs/Day Years [...] on file documented as of this encounter Progress Notes * Komal Marion LPN - 08/22/2025 5:37 PM EST DME orders faxed to both [facility]. May also need [facility]. Please follow up on. documented in this encounter Plan of Treatment Upcoming Encounters Date Type Department Care Team (Latest Contact Info) Description 09/05/2025 11:15 AM EST Office Visit [address] [place] [address] Roland Ann [address] [place] [address], [address] [place] [address] [email or web address] 09/14/2025 10:00 AM EST Office Visit [facility] Orthopedics and Sports Medicine [address] [address] Riccardo Crawley PA-C [address] [place] [address] Orthopedics Sports [facility], [place] [address] [email or web address] 09/18/2025 8:40 AM EST Office Visit [facility] Orthopedics and Sports Medicine [address] [address] Anatoliy Guerrero PA-C [address] [place], [place] [address]s Sports [facility], [place] [address] [email or web address] Kristan Hernandez PA-C [address] [place] [address] Sports [facility], [place] [address] [email or web address] 09/29/2025 3:30 PM EST Office Visit [facility] [address] [place] [address] Ann Watkins [address] [place] [address], [address] [place] [address] [email or web address] 10/11/2025 Procedure Pass OR Admitting Dept - Virtual Department [address] [place] [address] 10/11/2025 1:47 PM EST Hospital Encounter OR Admitting Dept - Virtual Department [address] [place] [address] Toi Lino MD [address] [place], [place] [address] [facility], [place] [address] [email or web address] 10/11/2025 1:47 PM EST - 10/11/2025 4:56 PM EST Surgery OR Admitting Dept - Virtual Department [address] [place] [address] Toi Lino MD [address] [place] [address], [place] [address] [email or web address] ARTHROPLASTY TOTAL KNEE 10/26/2025 10:00 AM EST Office Visit [facility] Orthopedics [facility] Sports [address] [address] Riccardo Crawley PA-C [address] [place] [address], [place] [address] [email or web address] 11/23/2025 10:15 AM EDT Office Visit [facility] Orthopedics [facility] Sports [address] [address] Toi Lino MD [address] [place] [address], [place] [address] [email or web address] 10/26/2026 4:00 PM EST Office Visit [facility] [address] [place] [address] Ann Watkins [address] [place] [address], [address] [place] [address] [email or web address] Scheduled Procedures Name Priority Associated Diagnoses Date/Ti me ARTHROPLASTY TOTAL KNEE Primary osteoarthritis of right knee 10/11/2025 1:47 PM EST COLONOSCOPY Special screening for malignant neoplasm of colon documented as of this encounter Goals Goal Patient Goal Type Associated Problems Recent Progress Patient-Stated? Author Autogenerat ed Goal Care Plan Autogenerated Problem No Toi Lino MD documented as of this encounter Visit Diagnoses Not on filedocumented in this encounter Additional Health Concerns Active Problems Noted Date Diagnosed Date Autogenerated Problem 07/11/2025 Assessment Noted Time PHQ-9 Depression Total Score: 7 11/22/19 23 1:14 PM EDT PHQ-2 Depression Total Score: 0 09/27/19 25 3:46 PM EST documented as of this encounter Care Teams Shoe Salesperson Relationship Specialty Start Date End Date Ann Watkins [address] [place] [address], [address] [address] [email or web address] PCP - General Family Medicine 10/27/23 Ann aWtkins [address] [place] [address], [address] [place] [address] [email or web address] Insurance Assigned Provider 11/27/24 documented as of this encounter Additional Source Comments The information contained in this document represents components of the legal health record. It is not the complete legal health record.[facility]
--- OUTSIDE RECORDS SUMMARY | 2025-08-22 19:14 | XMS_ITS | Data Portability ---
Author Organization [facility] [address] [place] [address] Care Team Providers Care Material Control Specialist Name Role Phone FRANCK DA SILVA Primary Care Provider Assessment No assessment recorded. Plan of Treatment Reminders Order Date Submit Date Provider Last Modified By Organization Details Last Modified Time Details Appointments None recorded. Lab None recorded. Referral None recorded. Procedures None recorded. Surgeries None recorded. Imaging None recorded. Medication Orders amoxicillin 875 mg-potassiu m clavulanate 125 mg tablet 2021 [id number], [address], [place], [id number], 19:47:12 albuterol sulfate HFA 90 mcg/actuati on aerosol inhaler 2021 [facility][id number], [address], [place], [id number], 19:47:13 benzonatate 200 mg capsule 2021 [facility][id number], [address], [place], [id number], 19:47:13 Patient TargetsNo targets recorded. Patient Instructions Encounter Date Encounter Id Patient Instructions Last Modified By Organization Details Last Modified Time 07/30/2022 [id number] bronchitis: care instructions [email or web address] Not available 07/30/2022 19:47:01 Based on your [...] watery post nasal drip. 6. Saline Nasal [place] is recommended. Since an antibiotic was prescribed [...] Pain 3. Wheezing 4. Coughing up Blood [email or web address] Not available 07/30/2022 19:46:53 Reason for Referral None Reported. Problems Name Problem SNOMED Code Status Onset Date Resolution Date Notes Provider Name and Address Organization Details Recorded Time Hypertensiv e disorder 68929300 Active 2021 Azra Harika null, PA - [facility] 2 18:47:29 Diabetes mellitus 42993578 Active 2021 Azra Stanberry null, PA - [facility] 18:47:47 Hyperlipide adela 24782151 Active 2021 Azra Stanberry null, PA - [facility] 2 18:47:53 Anxiety 22543530 Active 2021 Azra Stanberry null, PA - [facility] 2 18:47:59 Depressive disorder 11060107 Active 2021 Azra Stanberry null, PA - [facility] 2 18:48:05 Chronic neck pain 1533926995005 Active 2021 Azra Harika null, PA - [facility] 2 18:48:39 Problem Notes None recorded. Procedures Surgical History Date Name Laterality Status Provider Name and Address Organization Details Recorded Time Arthrt acrmclv/strnclav jt completed Azra Stanberry PA - [facility] 07/30/2022 18:49:52 Carpal tunnel surgery completed Azra Shabazz PA - [facility] 07/30/2022 18:50:02 total knee replacement completed Azra Shabazz PA - [facility] 07/30/2022 18:50:20 Imaging Results None recorded. Procedure Notes None recorded. Medical Equipment None Reported. Allergies Allergen ID Allergen Name Allergen Category Reaction Reaction Severity Criticality Documentation Date Start Date Code Code System Note Provider Name and Address Organization Details Recorded Time 72001 Cymbalta medicatio n rash Not available low 07/30/2022 [address]9524 4 RxNorm Azra Shabazz mike, PA - [facility] 18:45:43 Medications Name [...] mass index (BMI) Body height Oxygen saturation Pain severity - 0-10 verbal numeric rating [Score] - Reported Heart rate Respiratory rate Body temperature Systolic And Diastolic Provider Name and Address Organization Details Last Updated DateTime 2 [address]19.6 3 g 34 kg/m2 154.94 cm 97 % 7 105 /min 18 /min 98.1 [degF] 132/89 mm[Hg] Azra MULLEN - [facility] 18:51:47 Social History Question Answer Notes LastModified by Organizat ion Details LastModified Time Tobacco Smoking Status Never Smoker AzraPAZ Hilton - [facility] 07/30/2022 18:49:14 What Is Your Water Source? City Information not available 07/30/2022 What Is Your Heat Source? Gas Information not available 07/30/2022 Have You Had Direct Contact, Or Contact During Intimacy, With Monkeypox Rash, Scabs, Or Body Fluids From A Person With Monkeypox? No Information not available 07/30/2022 Have You Recently Traveled Abroad? No Information not available 07/30/2022 Sex: Unknown Functional Status Question Answer Note LastModified by Organizat ion Details LastModified Time Do you use any illicit or recreational drugs? No Information not available 07/30/2022 Do you or have you ever used any other forms of tobacco or nicotine? No Information not available 07/30/2022 What is your level of alcohol consumption? None Information not available 07/30/2022 Mental Status None recorded. Family History Relationship [...] Diagnosis SNOMED-CT Code Diagnosis ICD10 Code Diagnosis IMO Codes Diagnosis Note [id number] [address] [facility] [address] [place] [address] 06/18/2018 13:59:54 06/18/2018 14:49:30 [id number] [address] [facility] [address] [place] [address] 05/04/2020 14:58:58 05/04/2020 17:12:08 [id number] [address] [facility] [address] [place] [address] 11/23/2018 14:01:10 11/23/2018 14:28:18 [id number] [address] [place] [address] 09/15/2018 13:35:58 09/15/2018 14:45:03 [id number] [address] [place] [address] 09/23/2017 13:28:19 09/23/2017 14:46:35 [id number] [address] [place] [address] 11/01/2020 15:25:24 11/01/2020 15:59:58 [id number] [address] [place] [address] 12/21/2021 17:49:12 12/21/2021 19:18:22 [id number] [address] [address] [place] [address] 01/31/2021 12:39:30 01/31/2021 13:44:16 [id number] [address] [address] [place] [address] 10/21/2017 12:52:20 10/21/2017 14:00:45 [id number] [address] [address] [address] [place] [address] 05/23/2019 16:55:30 05/23/2019 17:54:38 [id number] [address] [facility] [place] [address] 05/14/2022 16:46:49 05/14/2022 19:16:14 [id number] [address] [place] [address] 01/10/2021 14:29:06 01/10/2021 14:57:06 [id number] [address] [address] [place] [address] 11/28/2020 13:57:34 11/28/2020 14:44:58 [id number] [address] [address] [place] [address] 11/17/2018 18:41:13 11/17/2018 19:09:32 [id number] [address] [place] [address] 03/03/2018 16:28:46 03/03/2018 17:08:02 [id number] [address] [place] [address] 04/23/2022 15:32:03 04/23/2022 16:09:02 [id number] [address] [address] [address] [place] [address] 06/04/2018 12:40:44 06/04/2018 14:01:13 [id number] PAZ COLLINS [address] [address] [place] [address] 07/30/2022 17:11:33 07/30/2022 19:47:37 Acute sinusitis 95823878 J01.90 Acute bronchitis 1064347 2 J20.9 Health Concerns Section Related Observation LastModified by Organization Detai ls LastModified Time None Recorded Concern Status LastModified by Organization Details LastModified Time None Recorded Advance Directives Directive None Recorded Payers Insurance Date Sequence Insurance Name Policy Number Policy Murphy Covered Member ID Murphy Member ID Guarantor Name 07/30/2022 1 [place]: [employer] Vinita Recinos [id number] Vinita Recinos 07/30/2022 2 [place] [facility] Vinita Recinos [id number] Vinita Recinos Notes Date Note Type Note Provider Name and Address Organization Details Recorded Time 2 text/html Sinus Complaints UCReported by PatientHPIFor location, patient reportspain behind the eyes both,sinus pain,facial pain, andpain in the cheek. For associated symptoms, patient reportsnasal discharge from both nostrils,difficulty breathing,headache forehead,sore throat,post nasal drip, andnasal passage blockage bilaterallybut reportsno fever. For onset/timing, patient reportsinitially started 10+days agoandprogressively worse over last 2days. For risk factors, patient reportsno current smoking or tobacco use. For prior treatment, patient reportsoral decongestant(ibuprofen). The patient reports had congestion and now the [...] PAZ COLLINS [address] [place], [address], [place] - [facility] 07/30/2022 19:50:33 OBGyn Episode No OBEpisode recorded.
--- OUTSIDE RECORDS SUMMARY | 2025-08-22 19:14 | XMS_ITS ---
Author Name [facility] Organization Unknown Care Team Organization Name Specialty Phone Email Start Date End [facility]
--- OUTSIDE RECORDS SUMMARY | 2025-08-22 19:14 | XMS_ITS | Encounter Summary ---
Author Organization [facility] Address [address] [place] [phone] Phone Care Team Providers Care Import/Export Administrator Name Role Phone Barrie Young MD Primary Care Provider Lesa Talbot Primary Care Provider Barrie Young MD Unavailable [phone] Lesa Talbot FENCE INSTALLER Primary Care Provider Jennifer Rowe RN Unavailable [phone] Janie Galindo RN Unavailable [phone] Barrie Young MD Unavailable [phone] Ann Watkins Primary Care Provider [phone] Lesa Talbot FENCE INSTALLER Primary Care Provider [phone] Ann Watkins Primary Care Provider [phone] Ann Watkins Unavailable [phone] Encounter Details Date Type Department Care Team (Late st Contact Info) Description 06/22/2017 Ancillary Orders [address] [address] Aletha Turner MD [address] [place] [address] Orthopedics & Sports Medicine, [place] [address] [email or web address] Left shoulder pain, unspecified chronicity Social History Tobacco Use Types Packs/Day Years Used Date Smoking Tobacco: Never Assessed Comments Unknown Sex and Gender Information Value Date Recorded Sex Assigned at Female 10/10/2019 7:32 PM EST Legal Sex Female 9:45 PM EDT Gender Identity Female 10/10/2019 7:32 PM EST Sexual Orientation Straight 10/10/2019 7: 32 PM EST documented as of this encounter Plan of Treatment Upcoming Encounters Date Type Department Care Team (Latest Contact Info) Description 09/05/2025 11:15 AM EST Office Visit [facility] Care [address] [place] [address] Ann Watkins [address] [place] [address], [address] [place] [address] [email or web address] 09/14/2025 10:00 AM EST Office Visit [facility] Sports Medicine [address] [address] Riccardo Crawley PA-C [address] [place] [address] Orthopedics Sports [facility], [place] [address] [email or web address] 09/18/2025 8:40 AM EST Office Visit [facility] Sports [address] [address] Anatoliy Guerrero PA-C [address] [place] [address] Orthopedics Sports [facility], [place] [address] [email or web address] Kristan Hernandez PA-C [address] [place] [address] Orthopedics Sports [facility], [place] [address] [email or web address] 09/29/2025 3:30 PM EST Office Visit [facility] Primary [address] [place] [id number] Ann Watkins [address] [place] [address], [address] [place] [address] [email or web address] 10/11/2025 Procedure Pass OR Admitting Dept - Virtual Department [address] [place] [address] 10/11/2025 1:47 PM EST Hospital Encounter OR Admitting Dept - Virtual Department [address] [place] [address] Toi Lino MD [address] [place], [place] [address]s Sports [facility], [place] [address] [email or web address] 10/11/2025 1:47 PM EST - 10/11/2025 4:56 PM EST Surgery OR Admitting Dept - Virtual Department [address] [place] [address] Toi Lino MD [address] [place] [address], [place] [address] [email or web address] ARTHROPLASTY TOTAL KNEE 10/26/2025 10:00 AM EST Office Visit [facility] Sports [address] [address] Riccardo Crawley PA-C [address] [place] [address] [email or web address] 11/23/2025 10:15 AM EDT Office Visit [facility] Sports [address] [address] Toi Lino MD [address] [place] [address] [email or web address] 10/26/2026 4:00 PM EST Office Visit [facility] [address] [place] [address] Ann Watkins [address] [facility], [address] [place] [address] [email or web address] [email or web address] Results Name Type Priority Associated Diagnoses Date /Time FL Guidance Needle Placement Non-Spine Imaging Routine Left shoulder pain, unspecified chronicity 06/23/2017 10:03 AM EDT Scheduled Orders Name Type Priority Associated Diagnoses Orde r Schedule FL Guidance Needle Placement Non-Spine Imaging Routine Left shoulder pain, unspecified chronicity Expected: 06/22/2017, Expires: 06/22/2018 Scheduled Procedures Name Priority Associated Diagnoses Date/Ti me ARTHROPLASTY TOTAL KNEE Primary osteoarthritis of right knee 10/11/2025 1:47 PM EST COLONOSCOPY Special screening for malignant neoplasm of colon documented as of this encounter Visit Diagnoses Diagnosis Left shoulder pain, unspecified chronicity Left shoulder pain- Primary Pain in joint, shoulder region Primary osteoarthritis of right knee documented in this encounter Care Teams Import/Export Administrator Relationship Specialty Start Date End Date Barrie Young MD [address] [place] [address] PCP - General 06/11/17 06/22/17 Lesa Talbot [address] [place] [address] Dr [address] [facility] [place] [address] PCP - General 06/23/17 04/07/18 Lesa Talbot NP [address] [place] [address] PCP - General Family Medicine 04/08/18 08/24/23 Ann Watkins [address] [place] [address], [address] [place] [address] PCP - General Family Medicine 08/25/23 09/27/23 Lesa Talbot NP [address] [place] [address] PCP - General Family Medicine 10/13/23 10/26/23 Ann Watkins [address] [place] [address], [address] [place] [address] PCP - General Family Medicine 10/27/23 Barrie Young MD [address] [place] [address] Insurance Assigned Provider 11/21/17 03/05/19 Jennifer Rowe RN [address] [place] [phone] [facility] Centrifuge Operator 05/12/19 01/16/20 Janie Galindo RN [address] [place] [address] [facility] Centrifuge Operator 01/17/20 10/30/24 Barrie Young MD [address] [place] [phone] Insurance Assigned Provider 12/01/20 08/31/21 Ann Watkins [address] [place] [address], [address] [address] Insurance Assigned Provider 11/27/24 documented as of this encounter Additional Source Comments The information contained in this document represents components of the legal health record. It is not the complete legal health record.[facility]
--- OUTSIDE RECORDS SUMMARY | 2025-08-22 19:14 | XMS_ITS | Clinical Summary ---
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 Active blood pressure monitor KitIndications:Es sential hypertension 1 each by Miscellaneous route daily as needed. 1 kit 023 Active docusate sodium (COLACE) 100 MG capsuleIndication s:Constipation, unspecified constipation type TAKE 1 CAPSULE BY MOUTH TWICE DAILY NEEDED FOR CONSTIPATION 60 capsule 4 023 Active ondansetron (ZOFRAN-ODT) 4 MG disintegrating tabletIndications :Nausea Take 1 tablet (4 mg total) by mouth every 12 (twelve) hours as needed for nausea. 8 tablet 023 Active alcohol (BD ALCOHOL SWABS) PadM Apply topically 2 (two) times a day. 200 each 3 023 Active fluticasone propionate (FLONASE) 50 mcg/actuation nasal spray 2 sprays by Nasal route daily as needed for allergies. 48 g 3 024 Active blood-glucose meter kit Use as instructed 1 each 024 Active ONETOUCH DELICA LANCETS 30 gauge Misc 1 each by Miscellaneous route as needed. 200 each 3 024 Active ONETOUCH VERIO Strp stripsIndications :Type 2 diabetes mellitus without complications 1 each by Miscellaneous route daily. 100 strip 1 024 Active simvastatin (ZOCOR) 40 MG tabletIndications :Mixed hyperlipidemia TAKE 1 TABLET(40 MG) BY MOUTH EVERY NIGHT AT BEDTIME 90 tablet 3 024 Active meclizine (ANTIVERT) 12.5 mg tabletIndications :Vertigo TAKE 1 TO 2 TABLETS BY MOUTH TWICE DAILY NEEDED FOR NAUSEA 30 tablet 3 025 Active gabapentin (NEURONTIN) 300 MG capsule TAKE 1 CAPSULE(300 MG) BY MOUTH THREE TIMES DAILY 90 capsule 3 025 Active VITAMIN B-6 50 MG tablet Take 1 tablet (50 mg total) by mouth daily. 90 tablet 025 Active allopurinol (ZYLOPRIM) 100 MG tablet Take 1 tablet (100 mg total) by mouth daily. 90 tablet 025 Active melatonin 5 mg Tab TAKE 1 TABLET BY MOUTH EVERY NIGHT AT BEDTIME 30 tablet 4 025 Active metFORMIN (GLUCOPHAGE) 500 MG immediate release tabletIndications :Type 2 diabetes mellitus without complications TAKE 1 TABLET(500 MG) BY MOUTH TWICE DAILY WITH MEALS 180 tablet 3 025 Active albuterol (PROAIR HFA) 90 mcg/actuation inhalerIndication s:Mild intermittent asthma without complication Inhale 2 puffs into the lungs every 4 (four) hours as needed for wheezing. 18 g 3 025 2025 Active ADVAIR DISKUS 250-50 mcg/dose DISKUSIndications :Mild intermittent asthma without complication Inhale 1 puff into the lungs 2 (two) times a day. 60 each 11 025 Active ADVAIR HFA 230-21 mcg/actuation inhaler Inhale 2 puffs into the lungs 2 (two) times a day. 12 g 11 025 Active OZEMPIC 2 mg/dose (8 mg/3 mL) subcutaneous injection pen INJECT 2 MG SUBCUTANEOUS EVERY WEEK 3 mL 2 025 Active LORazepam (ATIVAN) 0.5 MG tabletIndications :Anxiety TAKE 1 TABLET BY MOUTH 3 TIMES EVERY WEEK NEEDED FOR ANXIETY 12 tablet 025 Active ibuprofen (ADVIL,MOTRIN) 800 MG tabletIndications :Complete tear of left rotator cuff TAKE 1 TABLET(800 MG) BY MOUTH EVERY 8 HOURS WITH FOOD NEEDED FOR PAIN 90 tablet Active traMADoL (ULTRAM) 50 mg tablet TAKE 2 TABLETS(100 MG) BY MOUTH EVERY 8 HOURS NEEDED FOR PAIN 168 tablet Active lisinopril (PRINIVIL,ZESTRIL ) 10 MG tabletIndications :Essential hypertension TAKE 1 TABLET(10 MG) BY MOUTH DAILY 90 tablet 3 Active albuterol (ACCUNEB) 1.25 mg/3 mL nebulizer solutionIndicatio ns:Mild persistent asthma with exacerbation Take 3 mL (1.25 mg total) by nebulization every 6 (six) hours as needed for wheezing. 120 mL 025 2025 Active predniSONE (DELTASONE) 10 MG tabletIndications :Mild persistent asthma with exacerbation Take 4 tablets (40 mg total) by mouth daily for 5 days. 20 tablet 2025 Active blood pressure test kit-wrist Kit 1 Application by Miscellaneous route daily. 1 kit Active lisinopril (PRINIVIL,ZESTRIL ) 10 MG tabletIndications :Essential hypertension TAKE 1 TABLET(10 MG) BY MOUTH DAILY 90 tablet 3 024 2024 Discontinued ibuprofen (ADVIL,MOTRIN) 800 MG tabletIndications :Complete tear of left rotator cuff TAKE 1 TABLET(800 MG) BY MOUTH EVERY 8 HOURS WITH FOOD NEEDED FOR PAIN 90 tablet 025 2024 Discontinued LORazepam (ATIVAN) 0.5 MG tabletIndications :Anxiety TAKE 1 TABLET BY MOUTH 3 TIMES EVERY WEEK NEEDED FOR ANXIETY 12 tablet 025 2024 Discontinued traMADoL (ULTRAM) 50 mg tablet TAKE 2 TABLETS(100 MG) BY MOUTH EVERY 8 HOURS NEEDED FOR PAIN 168 tablet 2024 Discontinued Hospital, Clinic, or Other Facility Administered Medication Ordered Dose Route Frequency Start Date End Date Status albuterol (ACCUNEB) 1.25 mg/3 mL nebulizer solution 2.5 mgIndications:Mil d persistent asthma with exacerbation 2.5 mg Nebu Every 6 hours PRN Active triamcinolone acetonide (KENALOG-40) 40 mg/mL injection 20 mgIndications:Acq uired trigger finger 20 mg IM See admin instructions 08/22/20 25 Discontinued BUPivacaine (PF) (MARCAINE) 0.25% injection 0.5 mLIndications:Acq uired trigger finger 0.5 mL See Adm Inst See admin instructions 08/22/20 25 Discontinued lidocaine (XYLOCAINE) 1% injection 0.5 mLIndications:Acq uired trigger finger 0.5 mL Infil See admin instructions 08/22/20 25 Discontinued Active Problems Problem Noted Date Diagnosed Date Trigger finger of thumb 06/26/2025 Assessment & Plan (06/26/2025 5:58 PM EST): Bilateral thumb locking consistent with trigger finger, present for about a month. Pain at the base of the thumbs with clicking in the distal joints. - Refer to Dr. Villegas, hand specialist, for evaluation and possible corticosteroid injection. Lower extremity pain 04/10/2025 Assessment & Plan (04/10/2025 12:09 PM EDT): Intermittent swelling and pain, particularly around ankles. Compression stockings provide minimal relief. Differential includes osteoarthritis and venous insufficiency. No vascular compromise observed. Pain exacerbated by walking, suggesting arthritis. - Continue compression stockings. - Elevate feet when possible. - Encourage ambulation despite discomfort. - Consider diuretic if symptoms worsen. Encounter for annual wellnes s visit (AWV) in Medicare patient 09/27/2024 Assessment & Plan (09/27/2024 4:26 PM EST): This is a 64 y.o. female who presents for a complete physical exam. Past medical history, surgical history, social history, family history and allergies reviewed and document in chart. -Blood pressure taken, no signs of hypertension. -General health screening appropriate for age reviewed -General nutrition recommendations reviewed: 5 servings of fruits and vegetables, adequate protein. -Exercise recommendations reviewed: 150 minutes of cardiovascular exercise weekly. At least two strength training sessions weekly for muscle mass and bone health. -Breast cancer screening discussed: Last mammogram: 2023. Result: BIRADS2 Any abnormal hx: clip in place s/p biopsy. Normal. Due now, will schedule. -Colon cancer screening discussed:Last colonoscopy: 2014 Result: unclear. 5 year return, due in 2019. Missed her colonoscopy that she had scheduled. Needs to reschedule. -Cervical cancer screening discussed: Last pap: 2022. Result: normal cotesting. Any abnormal hx: no. Due in 2027. -Smoking cessation: NA -Lung Cancer Screening: NA -Abdominal Aortic Aneurysm: NA -Osteoporosis screening discussed:Will screen at 65. -Prediabetes and Type 2 Diabetes Screening:Diabetic -Hyperlipidemia screening: Ordered -Cardiovascular disease prevention (statin): ASCVD score: Will calculate, on statin. -STI screening: Declines. -One lifetime HIV and Hep C test: Negative. -IPV screen: NA -PHQ2: 0, GAD7: 1 -ADLS: No limitations -Immunizations reviewed: Due for COVID- declines, shingles, will get, RSV- will get. Given flu and PCV20. -Labs as ordered -Regular vision and dental exams recommended: UTD with dental, needs vision exam. -Calcium with Vitamin D recommendations reviewed: 800 international units of vitamin D daily and 1200 mg elemental calcium in post menopausal women -Living will/MOLST/HCP: Paperwork completed. HCP is daughter MONI -Annual physical exam recommended Chronic headaches 09/27/2024 Assessment & Plan (09/27/2024 4:28 PM EST): More frequent headaches recently. Recommend Migrelief. Right rotator cuff tear arthropathy 04/14/2024 Assessment & Plan (04/14/2024 12:35 PM EDT): Status post surgery with Dr. Pacheco, no complications. Defer management to orthopedic surgery. Family history of cardiomyopathy 01/01/2024 Assessment & Plan (03/24/2024 4:23 PM EDT): Sister, brother and niece have cardiomyopathy and sister has a defibrillator in place, niece has one planned. Niece at 28 years old. Sister did genetic testing and it was the genetic kind . ECHO performed in January was normal. May consider cardiology consultation in the future. Assessment & Plan (01/01/2024 4:05 PM EDT): Sister and niece have cardiomyopathy and sister has a defibrillator in place, niece has one planned. Sister did genetic testing and it was the genetic kind . Will get echo. 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 Stable on gabapentin. Primary osteoarthritis of right knee 05/12/2019 Assessment & Plan (10/13/2019 9:20 AM EST): Status post left total knee replacement with Dr. Lino 10/10 Left elbow tendonitis 01/07/2019 Left knee pain 11/05/2018 Anxiety 10/12/2017 Assessment & Plan (11/24/2023 3:56 PM EDT): Stable on citalopram. Uses lorazepam as needed. Complete tear of left rotator cuff 10/12/2017 Assessment & Plan (06/24/2024 2:09 PM EDT): S/p rotator cuff surgery in March. Patient has had increased, fairly severe pain for the last 2 weeks and has noticed a new soft tissue swelling. On exam today, her incision site is well-healing with no signs of infection. She does have soft tissue swelling and there is a palpable lump though I would imagine this is normal swelling/scar tissue fairly soon after surgery. Still, her change from well-controlled, improving pain to now severe, sharp and stabbing pain 2 months postoperatively is concerning. I do think she needs evaluation by orthopedics. I am happy to assist with pain control and I did increase her tramadol to 100 mg 3 times a day. Still this is not a long-term solution for what ever is going on. I will ask our nurses to reach out to orthopedics to relay my evaluation. Assessment & Plan (01/01/2024 3:55 PM EDT): Has an upcoming shoulder surgery with Dr. Pacheco in March. Depression 10/12/2017 Essential hypertension 10/12/2017 Assessment & Plan (04/14/2024 12:36 PM EDT): Home medical regimen includes lisinopril 10 mg daily. Recommend hold with blood pressure soft at the time of admission. Assessment & Plan (01/01/2024 5:12 PM EDT): Stable on 10mg lisinopril daily. Assessment & Plan (10/13/2019 9:19 AM EST): Likely can restart lisinopril in 1 to 2 days when systolic BP is returning to baseline, recommend restart when systolic BP 130 Gastroesophageal reflux disease without esophagi tis 10/12/2017 Assessment & Plan (04/14/2024 12:54 PM EDT): Managed at home with famotidine 20 mg twice daily. Would continue. Low reflux diet. Assessment & Plan (01/01/2024 5:13 PM EDT): History of reflux, per patient has not been on any medications but chart review does reveal she has been on an H2 karishma in the past. She has chronic nausea which I suspect is 2/2 reflux for which she takes Zofran twice weekly. I prefer she avoid this medication if possible. Will start her on famotidine 20 mg twice daily. Assessment & Plan (10/13/2019 9:20 AM EST): Continue H2 karishma. Mild intermittent asthma without complication Assessment & Plan (01/04/2025 4:01 PM EDT): Stable though patient reports worsened effect since switching from discus to HFA. Will trial spacer. Orders: assist device for inhaler Luna; 1 each by See Administration Instructions route once for 1 dose. Assessment & Plan (04/14/2024 12:55 PM EDT): No signs or symptoms of acute exacerbation. Advair twice daily, albuterol inhaler as needed. Would continue home regimen. Assessment & Plan (01/01/2024 4:01 PM EDT): Stable on Advair. Using albuterol only around once a week as needed. Assessment & Plan (10/13/2019 9:20 AM EST): Continue as needed albuterol Mixed hyperlipidemia 10/12/2017 Assessment & Plan (01/01/2024 4:03 PM EDT): Lipid panel drawn today. Stable on simvastatin 40mg daily. Assessment & Plan (10/13/2019 9:20 AM EST): Continue atorvastatin. Primary osteoarthritis involving multiple joints 10/12/2017 Assessment & Plan (01/04/2025 4:01 PM EDT): Pain and swelling in knuckles likely due to arthritis. - Continue Tylenol and Motrin 800 mg as needed. - Encourage regular movement. Assessment & Plan (11/29/2023 3:01 PM EDT): Patient with chronic pain due to multiple musculoskeletal complaints. She uses 50 mg of tramadol twice daily. Pain is well-controlled. We did discuss that this is not an ideal medication for long-term pain control. Will continue to follow along and consider possible referral to pain management versus orthopedics for more definitive management. Type 2 diabetes mellitus without complications 0 10/12/2017 Assessment & Plan (06/26/2025 3:37 PM EST): Well-managed diabetic, HbA1c levels have been within the target range the last two times. No signs of diabetic complications such as retinopathy, neuropathy or nephropathy. -Continue metformin 500mg twice daily and ozempic 2mg weekly. I reinforced the importance of medication adherence. -Continue MARKIE and statin- may switch at next visit, cholesterol is above goal. -UTD with microalbumin creatinine ratio, lipid panel and A1c 04/2025. -Due for DM eye exam -Quarterly follow-up appointments to monitor HbA1c, blood pressure, feet check for neuropathy. -Annual screenings: lipid panel, DM eye examination, for neuropathy, microalbumin/cr for nephropathy. -I encouraged a healthy lifestyle, which includes regular physical activity and a balanced, diabetes-appropriate diet. If necessary, can arrange a consultation with a dietitian for further dietary counseling Assessment & Plan (03/24/2025 5:07 PM EDT): Well-managed diabetic, HbA1c levels have been within the target range the last two times. No signs of diabetic complications such as retinopathy, neuropathy or nephropathy. -Continue metformin 500mg twice daily and ozempic 2mg weekly. I reinforced the importance of medication adherence. -Continue MARKIE and statin. -Due for microalbumin creatinine ratio, lipid panel and A1c. -Due for DM eye exam -Quarterly follow-up appointments to monitor HbA1c, blood pressure, feet check for neuropathy. -Annual screenings: lipid panel, DM eye examination, for neuropathy, microalbumin/cr for nephropathy. -I encouraged a healthy lifestyle, which includes regular physical activity and a balanced, diabetes-appropriate diet. If necessary, can arrange a consultation with a dietitian for further dietary counseling. Assessment & Plan (01/04/2025 4:01 PM EDT): A1c 6.1 indicates well-controlled diabetes. Current treatment with Ozempic 2 mg weekly, metformin is effective. - Continue Ozempic 2 mg weekly and metformin. - Order A1c test and urine microalbumin at [place] before next follow-up per patient preference. -Follow up with PCP in three months. -Due for eye exam, her prior observer electrical prospecting closed, is looking for new one. Orders: Hemoglobin A1c; Future Microalbumin/creatinine ratio, random urine; Future Assessment & Plan (06/24/2024 2:10 PM EDT): Well-managed diabetic, HbA1c levels have been within the target range the last two times. No signs of diabetic complications such as retinopathy, neuropathy or nephropathy. -Continue metformin 500mg twice daily and ozempic 2mg weekly. I reinforced the importance of medication adherence. -Continue MARKIE and statin. -Up-to-date with microalbumin creatinine ratio, lipid panel and A1c. -Due for pneumococcal vaccine, DM eye exam -Quarterly follow-up appointments to monitor HbA1c, blood pressure, feet check for neuropathy. -Annual screenings: lipid panel, DM eye examination, for neuropathy, microalbumin/cr for nephropathy. -I encouraged a healthy lifestyle, which includes regular physical activity and a balanced, diabetes-appropriate diet. If necessary, can arrange a consultation with a dietitian for further dietary counseling. Assessment & Plan (04/14/2024 1:08 PM EDT): Medicine consult for comanagement of diabetes mellitus. As above, home regimen includes metformin, last taken yesterday, and Ozempic taken approximately 2 weeks ago. In hospital will manage with mealtime insulin conservatively dosed, and insulin sliding scale with meals and nightly, moderate dosing. Diabetic diet. After 24 hours once needs are assessed, basal insulin could also be considered if hospitalization will be prolonged. Expect her to resume home regimen on discharge. We did discuss the need for low-carb diet and tight control in the perioperative period to allow for wound healing, goal glucose less than 180. Assessment & Plan (10/13/2019 9:28 AM EST): Patient has a history of dietary noncompliance with sodas and white bread/jellies. A1c 6.3. Ongoing education/monitoring, dietary and insulin teaching needed. Agree with intensive perioperative insulin for optimal control in the setting of joint replacement surgery, patient will be transferring to rehab. Recommend continuing same regimen she is on right now for transfer, 10 units of Lantus daily with 10 units mealtime lispro TID and sliding scale, titrate to goal, optimally below 160. Trulicity and metformin are also on board, took Trulicity pre op. Resolved Problems Problem Noted Date Diagnosed Date Resolved Date Leukocytosis 03/24/2025 03/24/2025 Assessment & Plan (03/24/2025 5:06 PM EDT): Likely post op Preop examination 03/24/2024 09/27/2024 Assessment & Plan (03/24/2024 4:18 PM EDT): Clearance: Patient is for a medium for a medium risk procedure. Patient is medically cleared for this procedure. Diabetes mellitus 07/30/2022 06/24/2024 Assessment & Plan (03/24/2024 4:28 PM EDT): Well-managed diabetic, HbA1c levels have consistently been within the target range. Blood pressure and most recent cholesterol panel also within normal limits though not ideal. No signs of diabetic complications such as retinopathy, neuropathy or nephropathy. -Continue metformin 500mg twice daily and ozempic 2mg weekly. I reinforced the importance of medication adherence. -Continue MARKIE and statin. -Up-to-date with microalbumin creatinine ratio, lipid panel and A1c. -Due for pneumococcal vaccine, DM eye exam -Quarterly follow-up appointments to monitor HbA1c, blood pressure, feet check for neuropathy. -Annual screenings: lipid panel, DM eye examination, for neuropathy, microalbumin/cr for nephropathy. -I encouraged a healthy lifestyle, which includes regular physical activity and a balanced, diabetes-appropriate diet. If necessary, can arrange a consultation with a dietitian for further dietary counseling. Assessment & Plan (11/29/2023 2:59 PM EDT): Last A1c was in July and was 8.6. She previously been around 9. She reports that she knows that she had been lapsing in her diet and waking up even in the middle of the night to eat candy. She reports that since then she has made improvements in her diet and she is hopeful that her diabetes will again be well-controlled. No known complications from her diabetes, no retinopathy, neuropathy, nephropathy. She is on 10 mg of lisinopril daily and 40 mg of simvastatin. She has no recent microalbumin/creatinine ratio, last was in 2018. She also has no recent foot check or diabetic eye exam. We will get an A1c today and adjust medications as needed. She will return in 3 months for diabetic check. In the meantime, continue metformin 200 mg twice daily, Ozempic 2 mg weekly. History of total left knee replacement 11/22/2019 01/01/2024 Bilateral shoulder pain 06/03/201912/22 Onychomycosis with ingrown toenail 10/12/2017 01/01/2024 Tendinitis of right rotator cuff 10/12/2017 01/01/2024 Gross hematuria 10/12/2017 01/01/2024 Encounters Date Type Department Care Team Description 08/22/2025 4:00 PM EST Office Visit [facility] [address] [place] [address] Wes Murray, YOLANDA Mild persistent asthma with exacerbation (Primary Dx) 08/22/2025 Telephone [facility] [address] [place] [address] Komal Marion LPN DME (Nebulizer, O2 Sat) 08/22/2025 Telephone [facility] [address] [place] [address] Wes Murray CNP 08/22/2025 Telephone [facility] [address] [place] [address] Mikala Anthony Triage (Red + difficulty breathing + wheezing + chest tightness ) 08/21/2025 Refill [facility] [address] [place] [address] Flum-Luxor, Ann Medication Refill 08/07/2025 Refill [facility] [address] [place] [place] [address] Flum-Luxor, Ann Medication Refill 08/07/2025 Refill [facility] [address] [place] [address] Flum-Luxor, Ann Medication Refill 08/07/2025 Refill [facility] [address] [place] [address] Raven Chavira FNP Medication Refill 07/27/2025 Telephone [facility] [address] [place] [place] [address] Flum-Luxor, Ann Medication Refill 07/27/2025 Refill [facility] [address] [place] [place] [address] Fletcher Mujica PA-C, MARISOL Medication Refill 07/26/2025 Refill [facility] [address] [place] [address] Flum-Luxor, Ann Medication Refill 07/12/2025 1:30 PM EST Office Visit [facility] [address] [place] [address] Aletha Turner MD Acquired trigger finger (Primary Dx); Pain 07/12/2025 1:22 PM EST - 07/12/2025 11:59 PM EST Hospital Encounter [address] [address] Aletha Turner MD Discharge Disposition: Home or Self Care 07/12/2025 1:22 PM EST - 07/12/2025 11:59 PM EST Hospital Encounter [address] [address] Aletha Turner MD Discharge Disposition: Home or Self Care 07/12/[address] [place] [address] Ann Watkins Medication Refill 07/03/[address] [place] [address] Skylar Allen MA Medication Refill 06/30/[address] [place] [address] Ann Watkins Medication Refill 06/30/[address] [place] [address] Fletcher Mujica PA-C, MARISOL Medication Refill 06/28/[address] [place] [address] Linda Murillo MA 06/28/[address] [place] [address] Fletcher Mujica PA-C, MARISOL Medication Refill 06/27/[address] [place] [address] Linda Murillo MA 06/26/2025 3:30 PM EST Office Visit [facility] [address] [place] [address] Ann Watkins Type 2 diabetes mellitus without complication, without long-term current use of insulin; Trigger finger of thumb, unspecified laterality; Anxiety; Special screening for malignant neoplasm of colon; Mild intermittent asthma without complication; Need for prophylactic vaccination and inoculation against influenza 06/14/[address] [place] [address] Terri Weston CNP Medication Refill 06/12/[address] [place] [address] Ann Watkins Medication Refill 05/23/[address] [place] [address] Fletcher Mujica PA-C, MARISOL Medication Refill from Last 3 Months Immunizations Immunization Administration Dates Next Due INFLUENZA, SPLIT VIRUS, TRIVALENT PF 10/2024,09/27/2024,05/14/2016,07/27 INFLUENZA, SPLIT VIRUS, TRIV ALENT W/ PRESERVATIVE IM 06/01/2014 Influenza Quadrivalent Prese rvative Free IM 08/23/2019,05/27/2018,10/12/2017 Influenza trivalent preserva tive free intradermal 06/23/2013 Influenza, Unspecified Formulation 06/27/2010, Pneumococcal conjugate PCV20 09/27/2024 Pneumococcal polysaccharide PPSV23 04/18/2014 Tdap 10/12/2017 Family History Medical History Relation Comments Hyperlipidemia Brother Hypertension Brother No Known Problems Daughter 1 No Known Problems Daughter 2 Diabetes Daughter 3 Heart disease Daughter 3 High blood pressure Daughter 3 Diabetes mellitus Mother Heart disease Mother Hypertension Mother Cardiomyopathy Sister 1 Diabetes Sister 2 Hypertension Sister 2 No Known Problems Son 1 Hypertension Son 2 Relation Status Comments Brother Daughter 1 Alive Daughter 2 Alive Daughter 3 Alive Father Mother Sister 1 Alive Sister 2 Alive Son 1 Alive Son 2 Alive Social History Tobacco Use Types Packs/Day Years [...] file Not on file Not on file Last Filed Vital Signs Vital Sign Reading Time Taken Comments Blood Pressure 132/78 06/26/2025 3:15 PM EST Pulse 90 08/22/2025 4:12 PM EST Temperature 36.6 C (97.8 F) 06/26/2025 3:15 PM EST Respiratory Rate 18 06/24/2024 1:26 PM EDT Oxygen Saturation 96% 08/22/2025 4:12 PM EST Inhaled Oxygen Concentration - - Weight 74.8 kg (164 lb 12.8 oz) 06/26/2025 3:15 PM EST Height 152 cm (4' 11.84 ) 01/12/2025 9:17 AM EDT Body Mass Index 32.35 01/12/2025 9:17 AM EDT Plan of Treatment Upcoming Encounters Date Type Department Care Team (Latest Contact Info) Description 09/05/2025 11:15 AM EST Office Visit [facility] [address] [place] [address] Ann Watkins [address] [place] [address], [address] [place] [address] [email or web address] 09/14/2025 10:00 AM EST Office Visit [facility] [address] [place] [phone] Riccardo Crawley PA-C [address] [place] [address] Orthopedics Sports [facility], [place] [address] [email or web address] 09/18/2025 8:40 AM EST Office Visit [facility] [address] [place] [address] Anatoliy Guerrero PA-C [address] [place] [address] Orthopedics & Sports Medicine, [facility] [place] [address] [email or web address] Kristan Hernandez PA-C [address] [place] [address], [place] [address] [email or web address] 09/29/2025 3:30 PM EST Office Visit [facility] [address] [place] [address] Ann Watkins [address] [place] [address], [address] [place] [address] [email or web address] 10/11/2025 Procedure Pass OR Admitting Dept - Virtual Department [address] [place] [address] 10/11/2025 1:47 PM EST Hospital Encounter OR Admitting Dept - Virtual Department [address] [place] [address] Toi Lino MD [address] [place] [address] [email or web address] 10/11/2025 1:47 PM EST - 10/11/2025 4:56 PM EST Surgery OR Admitting Dept - Virtual Department [address] [place] [address] Toi Lino MD [address] [place] [address], [place] [address] [email or web address] ARTHROPLASTY TOTAL KNEE 10/26/2025 10:00 AM EST Office Visit [facility] Sports [facility] [address] [place] [address] Riccardo Crawley PA-C [address] [place] [address] Sports [facility], [place] [address] [email or web address] 11/23/2025 10:15 AM EDT Office Visit [facility] [address] [place] [address] Toi Lino MD [address] [place] [address] Orthopedics & Sports Medicine, [facility] [place] [address] [email or web address] 10/26/2026 4:00 PM EST Office Visit [facility] [address] [place] [address] Ann Watkins [address] [place] [address], [address] [place] [address] [email or web address] [email or web address] Procedures Name Priority Associated Diagnoses Date/Ti me ARTHROPLASTY TOTAL KNEE Primary osteoarthritis of right knee 10/11/2025 1:47 PM EST COLONOSCOPY Special screening for malignant neoplasm of colon Health Maintenance Due Date Last Done Comments COLOGUARD 2007 FIT TEST 2007 FOBT 2007 SIGMOIDOSCOPY 2007 VIRTUAL COLONOSCOPY 2007 RSV VACCINE (1 - Risk 50-74 years 1-dose series) 2012 ZOSTER VACCINES (1 of 2) 2012 DIABETIC EYE EXAM 12/15/2018 12/15/2017 COLONOSCOPY 04/19/2020 04/19/2015 COLORECTAL CANCER SCREENING 04/19/2020 COVID-19 VACCINE ( season) 2025 DEPRESSION SCREENING 09/27/2025 09/27/2024, 11/22/19 23 HEMOGLOBIN A1C 11/05/2025 05/08/2025, 11/0 08/2023, 02/24/2024, Additional history exists MAMMOGRAM 11/17/2025 11/17/2024, 10/22, 11/21/2022, Additional history exists BLOOD PRESSURE 12/24/2025 06/26/2025 CREATININE LEVEL 05/08/2026 05/08/2025, , 04/15/2024, Additional history exists POTASSIUM LEVEL 05/08/2026 05/08/2025, 03/25, 02/24/2024, Additional history exists Adult Td,Tdap Booster 10/12/2027 10/12/2017 PAP SMEAR 11/22/2027 11/21/2022, 04/25/2015 SMOKING STATUS SCREENING (Every 5 Years) 06/26/2030 06/26/2025 HIV ONE-TIME SCREENING (18-65 YEARS) Completed 04/24/2015 HEPATITIS C SCREENING Completed 12/01/2022 , 11/25/2022, 11/21/2022 PNEUMOCOCCAL VACCINES (50+ years) Completed 09/27/2024, 04/18/2014 INFLUENZA VACCINE Completed 06/26/2025, , 08/23/2019, Additional history exists HEPATITIS A VACCINES Aged Out No long er eligible based on patient's age to complete this topic HIB VACCINES Aged Out No longer eligi ble based on patient's age to complete this topic MENINGOCOCCAL VACCINES (ACWY) Aged Out No longer eligible based on patient's age to complete this topic MENINGOCOCCAL VACCINES (B) Aged Out N o longer eligible based on patient's age to complete this topic Goals Goal Patient Goal Type Associated Problems Recent Progress Patient-Stated? Author Autogenerat ed Goal Care Plan Autogenerated Problem No Toi Lino MD Medical Devices Implanted Type Area Invoice Control Clerk Device Identifier Shelf Expiration Date Model / Serial / Lot Peg 34x8.5mm Button Patella Knee Vanguard Uhmwpe 3 Series A Standard - [id number] Implanted:Qty : 1 on 10/10/2019 by Toi Lino MD at [facility] STANDARD Left: Knee [employer] 08/25/2024 [id number] / / [id number] Cement Bone Biomet Standard R 1x40 Us - [id number] Implanted:Qty : 1 on 10/10/2019 by Toi Lino MD at [facility] Left: Knee BURT / [employer]RISTOL [employer] 10/22/2023 [id number] / / [id number] Box Component 60mm Femoral Knee Vanguard [place] Posterior Stabilized Open Cemented Left - [id number] Implanted:Qty : 1 on 10/10/2019 by Toi Lino MD at [facility] Left: Knee [employer] 05/30/2029 [id number] / / [id number] Tray Beam 67mm Tibial Primary Vanguard [place] I Revision Interlock Cemented - [id number] Implanted:Qty : 1 on 10/10/2019 by Toi Lino MD at [facility] Left: Knee [employer] 06/29/2029 [id number] / / [id number] Knee Insert [id number] Implant Bring Vanguard 08 - [id number] Implanted:Qty : 1 on 10/10/2019 by Toi Lino MD at [facility] Left: Knee [employer] 07/13/2024 [id number] / / [id number] Screw Bone 5x18mm Perform Reverse - [id number] Implanted:Qty : 1 on 04/14/2024 by Truman Pacheco DO at [facility] Right: Shoulder [employer] [id number] / / Humeral Insert 12.5mm 36 Plus 6.0 Aequalis Ascend Flexible Reversed Angle B - [id number] Implanted:Qty : 1 on 04/14/2024 by Truman Pacheco DO at [facility] Right: Shoulder [employer] 09/30/2028 [id number] / [id number] / Humeral Stem 74mm Size 3 132.5deg Aequalis Ascend Flex Pure Titanium Coat Standard B - [id number] Implanted:Qty : 1 on 04/14/2024 by Truman Pacheco DO at [facility] Right: Shoulder [employer] 10/19/2028 [id number] / [id number] / Tray 1.5mm 0.0 Reversed Shoulder Ascend Flex Offset Plus - [id number] Implanted:Qty : 1 on 04/14/2024 by Truman Pacheco DO at [facility] Right: Shoulder [employer] 09/15/2027 [id number] / [id number] / Shoulder Baseplate 25mm 35 Degree Half Wedge - [id number] Implanted:Qty : 1 on 04/14/2024 by Truman Pacheco DO at [facility] Right: Shoulder [employer] 05/23/2028 [id number] / [id number] / Post Press-Fit Short 7mm Perform Reversed Threaded Aequalis - [id number] Implanted:Qty : 1 on 04/14/2024 by Truman Pacheoc, DO at [facility] Right: Shoulder [employer] 06/25/2028 [id number] / [id number] / Glenosphere Cannulated 36mm Cocr Standard - [id number] Implanted:Qty : 1 on 04/14/2024 by Truman Pacheco, DO at [facility] Right: Shoulder [employer] [id number] 01/28/2029 [id number] / [id number] / Screw Bone 5x26mm Perform Reverse - [id number] Implanted:Qty : 1 on 04/14/2024 by Truman Pacheco, DO at [facility] Right: Shoulder [employer] [id number] / / Screw Bone 5x38mm Peripheral - [id number] Implanted:Qty : 1 on 04/14/2024 by Truman aPcheco, DO at [facility] Right: Shoulder [employer] [id number] / / Procedures Procedure Name Priority Date/Time Associated Diagnosis Comments XR CHEST Urgent/patient waiting 08/22/2025 4:37 PM EST Mild persistent asthma with exacerbation XR HAND 3 OR MORE VIEWS (LEFT) Routine 07/12/2025 1:32 PM EST Pain XR HAND 3 OR MORE VIEWS (RIGHT) Routine 07/12/2025 1:32 PM EST Pain COMPREHENSIVE METABOLIC PANEL (CMP) Routine 05/08/2025 11:59 AM EDT Type 2 diabetes mellitus without complication, without long-term current use of insulin HEMOGLOBIN A1C Routine 05/08/2025 11:48 AM EDT Type 2 diabetes mellitus without complication, without long-term current use of insulin HM MAMMOGRAPHY Routine 11/17/2024 3:52 PM EDT HEPATITIS C VIRAL LOAD, PCR Routine 12/01/2022 2:44 PM EDT Positive hepatitis C antibody test PAP TEST Routine 11/21/2022 12:00 AM EDT DIABETES EYE EXAM FOR RESULT ENTRY ONLY Routine 12/15/2017 OUTSIDE HIV Routine 04/24/2015 from Last 3 Months or Most Recently Relevant to Health Maintenance Results * XR HAND 3 OR MORE VIEWS (LEFT) (07/12/2025 1:32 PM EST) Narrative SYSTEMGENERATED, DOCUMENTATION - 07/12/2025 1:32 PM EST This image report has been auto-finalized and has not been read by a Radiologist. Interpretation has been included in the provider encounter note for this date of service. Aletha Turner MD IMG XR UPPER EXTREMITY Fi nal Result * XR HAND 3 OR MORE VIEWS (RIGHT) (07/12/2025 1:32 PM EST) Narrative SYSTEMGENERATED, DOCUMENTATION - 07/12/2025 1:32 PM EST This image report has been auto-finalized and has not been read by a Radiologist. Interpretation has been included in the provider encounter note for this date of service. Aletha Turner MD IMG XR UPPER EXTREMITY Fi nal Result * (ABNORMAL) Comprehensive metabolic panel (05/08/2025 11:59 AM EDT) SODIUM 140 133 - 146 mmol/L [facility] POTASSIUM 4.2 3.3 - 5.1 mmol/L [facility] CHLORIDE 104 96 - 108 mmol/L [facility] CO2 26 21 - 35 mmol/L [facility] BUN 13 6 - 19 mg/dL [facility] CREATININE 0.60 0.5 - 1.5 mg/dL [facility] GLUCOSE 115(H) 70 - 99 mg/dL [facility] ALBUMIN 4.2 3.9 - 4.8 g/dL [facility] TOTAL PROTEIN 7.1 6.5 - 8.0 g/dL [facility] CALCIUM 9.6 8.4 - 10.3 mg/dL [facility] ALKALINE PHOSPHATASE 108 39 - 117 U/L [facility] TOTAL BILIRUBIN 0.3 0.0 - 1.2 mg/dL [facility] AST 19 0 - 37 U/L [facility] ALT 14 0 - 40 U/L [facility] GLOBULIN 2.9 1 - 4.8 g/dL [facility] EGFR 101 >59 mL/min/1.7 3m2 [facility] Comment:Estimated glomerular filtration rate calculated using the CKD-EPI refit equation. ANION GAP 14 10 - 20 mmol/L [facility] Blood 05/08/2025 11:5 9 AM EDT 05/08/2025 12:07 PM EDT [employer] LAB BLOOD BKR ORDERABLES Fi nal Result [address] [address] * (ABNORMAL) Hemoglobin A1c (05/08/2025 11:48 AM EDT) HEMOGLOBIN A1C 6.1(H) 4.3 - 5.8 % [facility] Blood 05/08/2025 11:4 8 AM EDT 05/08/2025 12:07 PM EDT [facility] LAB BLOOD BKR ORDERABLES Fi nal Result [address] [address] * HM MAMMOGRAPHY FOR RESULT ENTRY ONLY (11/17/2024 3:52 PM EDT) [facility] HEALTH MAINTENANCE Edited R esult - Final * Hepatitis C viral load (PCR) (12/01/2022 2:44 PM EDT) Blood (Blood) us Lesa Talbot NARCOTICS DETECTIVE LAB BLOOD BKR ORDERABLES Final Result EXTERNAL NON-INTERFACED REF LAB * Pap Test (11/21/2022 12:00 AM EDT) 11/21/2022 11/24/2022 8:5 9 AM EDT Narrative SEE NARRATIVE - 11/27/2022 9:50 AM EDT [address] [address] Animal Daycare Provider: Brea Carey MD [employer] Cytology Report FINAL DIAGNOSIS A. PAP SMEAR (SUREPATH) CE: SPECIMEN ADEQUACY: Satisfactory for evaluation; transformation zone present. INTERPRETATION: NEGATIVE FOR INTRAEPITHELIAL LESION OR MALIGNANCY. Electronically Signed Out By: IAN Fung(ASCP) The Pap test is a screening test primarily for squamous cancers and precursors and has associated false-negative and false-positive results. New technologies such as liquid-based preparations may decrease but will not eliminate all false-negative results. Regular sampling and follow-up of unexplained clinical signs and symptoms are recommended to minimize false negative results. PROCEDURES/ADDENDA HPV Testing (Requested) Ordered Date: 11/24/2022 A. PAP SMEAR (SUREPATH) CE: Human Papilloma Virus Test NEGATIVE for high-risk Human Papilloma Virus types 16, 18, 45 and the Other high risk probe set (Includes 31, 33, 35, 39, 51, 52, 56, 58, 59, 66, 68) Note: Testing performed by [employer] [facility] HR-HPV analysis. Clinical correlation is advised. This HPV test was performed at [facility], [address] [place] [address]. This test has been FDA approved for [facility]Path cervical cytology specimens. The accuracy and precision of this test for all other specimen sources has been verified in the Cytopathology Laboratory of the [facility] and has not been cleared or approved by the U.S. Food and Drug Administration. Clinical correlation is advised. CLINICAL HISTORY Date of Last Menstrual Period: Not Provided Menstrual History: Post Menopausal Other Clinical Conditions: Screening Pap SPECIMEN SOURCE A: PAP SMEAR (SUREPATH) CE Patient Name: VINITA JACKMAN : 1960 (Age: 62) Sex: F Institution: [facility] Location: [facility] Date of Collection: 11/21/2022 Date of Reported: 11/27/2022 09:50 Results to: Lesa Talbot MSN, BSN us Lesa Talbot NARCOTICS DETECTIVE CYTOLOGY ORDERABLES Final Resul t SEE NARRATIVE * DIABETES EYE EXAM FOR RESULT ENTRY ONLY (12/15/2017) HM EYE EXAM No Retinopathy Historical Provider HEALTH MAINTENANCE Final Result * OUTSIDE HIV TEST (04/24/2015) HIV - External Neg Historical Provider LAB BLOOD ORDERABLES Ambar l Result from Last 3 Months or Most Recently Relevant to Health Maintenance Additional Health Concerns Active Problems Noted Date Diagnosed Date Autogenerated Problem 07/11/2025 Insurance MEDICARE PART A & B Member Subscriber Plan / Payer (Ef fective 2005-Present) Name:Jorje Vinita Member ID:[id number] Relation to Subscriber:Self Name:Vinita Jackman Subscriber ID:[id number] Payer ID:[id number] Group ID:Not on file Type:Medicare Address: [facility] [employer]inging Weekly [employer] [facility] [address] [place] [address] [place] [phone] [facility] MEDICARE PART A & B Health Plan [employer] MEDICARE PART A & B Health Plan [employer] MEDICARE PART A & B Member Subscriber Plan / Payer (Ef fective 2005-Present) Name:JorjeMichelleen Member ID:[id number] Relation to Subscriber:Self Name:JorjeVinita Subscriber ID:[id number] Payer ID:[id number] Group ID:Not on file Type:Medicare Address: [place] [address] [employer] [address] [place] [phone] [facility] [address] [place] [address]HEALTH MEDICARE PART A & B [place] MED[place] PART A & B HEALTH MEDICARE PART A & [place] [address] [place] [address] INSURANCE MEDICARE PART A & B [facility] Advance Directives For more information, please contact: [phone] (9AM - 5PM [facility], Thursday-Thursday) Documents on File Type Date Recorded 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 10/14/2019 1:25 PM MOLST 10/24/2019 MOLST 08/12/19 * Full Code (Latest Code Status on File) Date Activated Date Inactivated Comments 04/14/2024 2:23 PM Question Answer Comments Code Status Confirmed With: Patient * Full Code (Presumed) Date Activated Date Inactivated Comments 10/10/2019 7:10 PM 10/13/2019 4:53 PM * Full Code (Presumed) Date Activated Date Inactivated Comments 10/10/2019 11:30 AM 10/10/2019 7:10 PM Care Teams 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 It is not the complete legal health record.[facility]
--- OUTSIDE RECORDS SUMMARY | 2025-08-22 19:14 | XMS_ITS | Encounter Summary ---
Author Organization [facility] Address [address] [place] [address] Phone Care Team Providers [employer] Librarian Name Role Phone Barrie Young MD Unavailable [phone] Lesa Talbot KITCHEN CHEF Primary Care Provider [phone] Jennifer Rowe RN Unavailable [phone] Janie Galindo RN Unavailable [phone] Barrie Young MD Unavailable [phone] Ann Watkins Primary Care Provider [phone] Lesa Talbot KITCHEN CHEF Primary Care Provider [phone] Ann Watkins Primary Care Provider [phone] Ann Watkins Unavailable [phone] Encounter Details Date Type Department Care Team (Late st Contact Info) Description 04/30/2018 Ancillary Orders [address] [address] Aletah Turner MD [address] [place] [address] Orthopedics & Sports Medicine, [place] [address] [email or web address] Right shoulder pain, unspecified chronicity Social History Tobacco Use Types Packs/Day Years Used Date Smoking Tobacco: Former Cigarettes 0.3 3 2 013 - 2016 Smokeless Tobacco: Never Alcohol Use Standard Drinks/Week Comments No 0 (1 standard drink = 0.6 oz pur e alcohol) Comments Unknown Sex and Gender Information Value Date Recorded Sex Assigned at Female 10/10/2019 7:32 PM EST Legal Sex Female 9:45 PM EDT Gender Identity Female 10/10/2019 7:32 PM EST Sexual Orientation Straight 10/10/2019 7: 32 PM EST documented as of this encounter Plan of Treatment Upcoming Encounters Date Type Department Care Team (Latest Contact Info) Description 09/05/2025 11:15 AM EST Office Visit [facility] [address] [place] [address] Ann Watkins [address] [place] [address], [address] [place] [address] [email or web address] 09/14/2025 10:00 AM EST Office Visit [facility] Orthopedics [facility] [address] [address] Riccardo Crawley PA-C [address] [place] [address] Orthopedics Sports [facility], [place] [address] [email or web address] 09/18/2025 8:40 AM EST Office Visit [facility] Orthopedics [facility] Sports [address] [address] Anatoliy Guerrero PA-C [address] [place], [place] [address]s Sports [facility], [place] [address] [email or web address] Kristan Hernandez PA-C [address] [place] [address] Orthopedics Sports [facility], [place] [address] [email or web address] 09/29/2025 3:30 PM EST Office Visit [address] [place] [address] Ann Watkins [address] [place] [address], [address] [place] [address] [email or web address] 10/11/2025 Procedure Pass OR Admitting Dept - Virtual Department [address] [place] [address] 10/11/2025 1:47 PM EST Hospital Encounter OR Admitting Dept - Virtual Department [address] [place] [address] Toi Lino MD [address] [place], [place] [address]s Sports [facility], [place] [address] [email or web address] 10/11/2025 1:47 PM EST - 10/11/2025 4:56 PM EST Surgery OR Admitting Dept - Virtual Department [address] [place] [address] Toi Lino MD [address] [place] [address] [email or web address] ARTHROPLASTY TOTAL KNEE 10/26/2025 10:00 AM EST Office Visit [facility] Orthopedics [facility] Sports [address] [address] Riccardo Crawley PA-C [address] [place] [address] [email or web address] 11/23/2025 10:15 AM EDT Office Visit [facility] Orthopedics [facility] Sports [address] [address] Toi Lino MD [address] [place] [address] [email or web address] 10/26/2026 4:00 PM EST Office Visit [facility] [address] [place] [address] Ann Watkins [address] [facility], [address] [place] [address] [email or web address] [email or web address] Results Name Type Priority Associated Diagnoses Date /Time FL Guidance Needle Placement Non-Spine Imaging Routine Right shoulder pain, unspecified chronicity 05/04/2018 9:01 AM EDT Scheduled Orders Name Type Priority Associated Diagnoses Orde r Schedule FL Guidance Needle Placement Non-Spine Imaging Routine Right shoulder pain, unspecified chronicity Expected: 04/30/2018, Expires: 07/30/2019 Scheduled Procedures Name Priority Associated Diagnoses Date/Ti me ARTHROPLASTY TOTAL KNEE Primary osteoarthritis of right knee 10/11/2025 1:47 PM EST COLONOSCOPY Special screening for malignant neoplasm of colon documented as of this encounter Visit Diagnoses Diagnosis Right shoulder pain, unspecified chronicity Left shoulder pain- Primary Pain in joint, shoulder region Primary osteoarthritis of right knee documented in this encounter Additional Health Concerns Assessment Noted Time PHQ-2 Depression Total Score: 0 10/24/19 18 2:10 PM EST documented as of this encounter Care Teams [employer] Librarian Relationship Specialty Start Date End Date Lesa Talbot KITCHEN CHEF [address] [place] [address] PCP - General Family Medicine 04/08/18 08/24/23 Ann Watikns [address] [place] [address], [address] [place] [address] [email or web address] PCP - General Family Medicine 08/25/23 09/27/23 Lesa Talbot KITCHEN CHEF [address] [place] [address] PCP - General Family Medicine 10/13/23 10/26/23 Ann Watkins [address] [place] [address], [address] [place] [address] [email or web address] PCP - General Family Medicine 10/27/23 Barrie Young MD [address] [place] [address] Insurance Assigned Provider 11/21/1703/05 Jennifer Rowe, [place] [address] [place] [address] [facility] Utilization Manager 05/12/19 01/16/20 Janie Galindo RN [address] [place] [address] [facility] Utilization Manager 01/17/20 10/30/24 Barrie Young MD [address] [place] [address] Insurance Assigned Provider 12/01/20 Ann Watkins [address] [facility], [address] [address] [email or web address] Insurance Assigned Provider 11/27/24 documented as of this encounter Additional Source Comments The information contained in this document represents components of the legal health record. It is not the complete legal health record.[facility]
--- OUTSIDE RECORDS SUMMARY | 2025-08-22 19:14 | XMS_ITS | Encounter Summary ---
Author Organization [facility] Address [address] [facility] [address] [place] [address] Phone Care Team Providers Care Tenterer Name Role Phone Ann Watkins Primary Care Provider [phone] Ann Watkins Unavailable [phone] Reason for Visit * Reason Comments Medication Refill Encounter Details Date Type Department Care Team (Late st Contact Info) Description 08/21/2025 Refill [facility] [address] [place] [address] Ann Watkins [address] [facility], [address] [place] [address] [email or web address] Medication Refill Social History Tobacco Use Types Packs/Day Years [...] your housing situation today? I have eugenie granados 04/14/2024 How many times have you move [...] as of this encounter Progress Notes * Magalys Salvador - 08/22/2025 2:36 PM EST Rx Care Gap Status - Instructions for Clinical Staff (prescriber discretion applies): > Mismatch review guide > N/a - No action needed Visit Info Last visit: 06/26/2025 Renan-Ann Malik - Family Medicine [facility] > Requested f/u: Not specified Upcoming visit: 08/22/2025 Wes Murray, YOLANDA - Family Medicine [facility] ACTIONS TAKEN BY Magalys SalvadorMAC - Criteria met. ACEi / ARBs / Diuretic Rx Protocol (on HTN Registry) - lisinopril Criteria met; renew for up to 12 months. Visit in the past 14 months: Yes Clinical criteria: - BP within last 6 months: 132/78 on 06/26/2025 - BMP within past year: Yes - Cr, GFR and K are normal: Yes Lab Results Component Value Date SODIUM 140 05/08/2025 POTASSIUM 4.2 05/08/2025 CHLORIDE 104 05/08/2025 CO2 26 05/08/2025 BUN 13 05/08/2025 CREATININE 0.60 05/08/2025 EGFR 101 05/08/2025 documented in this encounter Plan of Treatment Upcoming Encounters Date Type Department Care Team (Latest Contact Info) Description 09/05/2025 11:15 AM EST Office Visit [facility] [address] [place] [address] Ann Watkins [address] [place] [address], [address] [place] [address] [email or web address] 09/14/2025 10:00 AM EST Office Visit [facility] Orthopedics and Sports Medicine [address] [address] Riccardo Crawley PA-C [address] [place] [address] Orthopedics Sports [facility], [place] [address] [email or web address] 09/18/2025 8:40 AM EST Office Visit [facility] [address] [place] [address] Anatoliy Guerrero PA-C [address] [place] [address] Orthopedics Sports [facility], [place] [address] [email or web address] Kristan Harris PA-C [address] [place] [address] Sports [facility], [place] [address] [email or web address] 09/29/2025 3:30 PM EST Office Visit [facility] Primary Care [address] [address] Ann Watkins [address] [place] [address], [address] [place] [address] [email or web address] 10/11/2025 Procedure Pass OR Admitting Dept - Virtual Department [address] [place] [address] 10/11/2025 1:47 PM EST Hospital Encounter OR Admitting Dept - Virtual Department [address] [place] [address] Toi Lino MD [address] [place] [address] [email or web address] 10/11/2025 1:47 PM EST - 10/11/2025 4:56 PM EST Surgery OR Admitting Dept - Virtual Department [address] [place] [address] Toi Lino MD [address] [place], [place] [address]s Sports [facility], [place] [address] [email or web address] ARTHROPLASTY TOTAL KNEE 10/26/2025 10:00 AM EST Office Visit [facility]ics [facility] [address] [address] Riccardo Crawley PA-C [address] [place] [address] Sports [facility], [place] [address] [email or web address] 11/23/2025 10:15 AM EDT Office Visit [facility] [address] [place] [address] Toi Lino MD [address] [place] [address] Orthopedics & Sports Medicine, [facility] [place] [address] [email or web address] 10/26/2026 4:00 PM EST Office Visit [facility] [address] [place] [address] Ann Watkins [address] [place] [address], [address] [place] [address] [email or web address] Scheduled Procedures Name Priority Associated [...] as of this encounter Visit Diagnoses Diagnosis Essential hypertension Unspecified essential hypertension Left shoulder pain- Primary Pain in joint, shoulder region Primary osteoarthritis of right knee documented in this encounter Additional Health Concerns Active Problems Noted Date Diagnosed Date Autogenerated Problem 07/11/2025 Assessment Noted Time PHQ-9 Depression Total Score: 7 11/22/19 23 1:14 PM EDT PHQ-2 Depression Total Score: 0 09/27/19 25 3:46 PM EST documented as of this encounter Care Teams Tenterer Relationship Specialty Start Date End Date Ann Watkins [address] [place] [address], [address] [place] [address] [email or web address] PCP - General Family Medicine 10/27/23 Ann Watkins [address] [place] [address], [address] [place] [address] (work) [email or web address] Insurance Assigned Provider 11/27/24 documented as of this encounter Additional Source Comments The information contained in this document represents components of the legal health record. It is not the complete legal health record.[facility]
--- OUTSIDE RECORDS SUMMARY | 2025-08-22 19:14 | XMS_ITS | Encounter Summary ---
Author Organization [facility] Address [address] [facility] [address] [place] [address] Phone Care Team Providers Care Weapons Electrical Engineering Officer Name Role Phone Ann Watkins Primary Care Provider Ann Watkins Unavailable [phone] Encounter Details Date Type Department Care Team (Late st Contact Info) Description 08/22/2025 Telephone [facility] [address] [place] [address] Wes Murray, RUBBERIZING MECHANIC [address] [facility], [address] [place] [address] Social History Tobacco Use Types Packs/Day Years [...] as of this encounter Progress Notes * Wes Murray CNP - 08/22/2025 5:00 PM EST To triage, can you monitor for chest xray results tomorrow from [facility]? documented in this encounter Plan of Treatment Upcoming Encounters Date Type Department Care Team (Latest Contact Info) Description 09/05/2025 11:15 AM EST Office Visit [facility] [address] [place] [address] Ann Watkins [address] [place] [address], [address] [place] [address] [email or web address] 09/14/2025 10:00 AM EST Office Visit [facility] [address] [address] Riccardo Crawley PA-C [address] [place] [address] [email or web address] 09/18/2025 8:40 AM EST Office Visit [address] [address] Anatoliy Guerrero PA-C [address] [place] [address] [email or web address] Kristan Hernandez PA-C [address] [place] [address] [email or web address] 09/29/2025 3:30 PM EST Office Visit [address] [place] [address] Ann Watkins [address] [place] [address], [address] [place] [address] [email or web address] 10/11/2025 Procedure Pass OR Admitting Dept - Virtual Department [address] [place] [address] 10/11/2025 1:47 PM EST Hospital Encounter OR Admitting Dept - Virtual Department [address] [place] [address] Toi Lino MD [address] [place] [address] Orthopedics Sports [facility], [place] [address] [email or web address] 10/11/2025 1:47 PM EST - 10/11/2025 4:56 PM EST Surgery OR Admitting Dept - Virtual Department [address] [place] [address] Toi Lino MD [address] [place] [address] Orthopedics Sports [facility], [place] [address] [email or web address] ARTHROPLASTY TOTAL KNEE 10/26/2025 10:00 AM EST Office Visit [facility] Orthopedics [facility] Sports [address] [address] Riccardo Crawley PA-C [address] [place] [address] Orthopedics Sports [facility], [place] [address] [email or web address] 11/23/2025 10:15 AM EDT Office Visit [facility] Orthopedics [facility] Sports [address] [address] Toi Lino MD [address] [place] [address] [email or web address] 10/26/2026 4:00 PM EST Office Visit [facility] Clinic [address] [place] [address] Ann Watkins [address] [place] [address], [address] [place] [address] [email or web address] Scheduled Procedures Name Priority Associated [...] documented as of this encounter Care Teams Weapons Electrical Engineering Officer Relationship Specialty Start Date End Date Ann Watkins 22 [facility], [address] [place] [address] [email or web address] PCP - General Family Medicine 10/27/23 Ann Watkins 22 [facility], [address] [place] [address] [email or web address] Insurance Assigned Provider 11/27/24 documented as of this encounter Additional Source Comments The information contained in this document represents components of the legal health record. It is not the complete legal health record.[facility]
--- OUTSIDE RECORDS SUMMARY | 2025-08-22 19:14 | XMS_ITS | Encounter Summary ---
Author Organization [facility] Address [address] [place] [address] Phone Care Team Providers Care Dry Lumber Grader Name Role Phone Ann Watkins Primary Care Provider [phone] Ann Watkins Unavailable [phone] Reason for Visit * Reason Onset Date Comments Medication Refill 07/27/2025 Encounter Details Date Type Department Care Team (Late st Contact Info) Description 07/27/2025 Telephone [facility] Clinic [address] [place] [address] Ann Watkins [address] [facility], [address] [place] [address] [email or web address] Medication Refill Social History Tobacco Use Types [...] as of this encounter Progress Notes * Lynsey Goyal - 07/27/2025 9:17 AM EST [facility] PEN Top Smart Phrases: Patient called requesting a refill of Ibuprofen 800mg. Patient stated they have 0 left. Pt would like medication to be sent to [facility] in [place]. Central Support Column Precaster (Please do not reply to this user; this inbox is not monitored). Thank you. documented in this encounter Plan of Treatment Upcoming Encounters Date Type Department Care Team (Latest Contact Info) Description 09/05/2025 11:15 AM EST Office Visit [address] [place] [address] Ann Watkins [address] [place] [address], [address] [place] [address] [email or web address] 09/14/2025 10:00 AM EST Office Visit [facility] Orthopedics [facility] Sports [address] [address] Riccardo Crawley PA-C [address] [place] [address] [place] [address] [email or web address] 09/18/2025 8:40 AM EST Office Visit [facility] Orthopedics [facility] Sports [address] [address] Anatoliy Guerrero PA-C [address] [place] [address] [place] [address] [email or web address] Kristan Hernandez PA-C [address] [place] [address] Orthopedics Sports [facility], [place] [address] [email or web address] 09/29/2025 3:30 PM EST Office Visit [address] [place] [address] Ann Watkins [address] [place] [address], [address] [place] [address] [email or web address] 10/11/2025 Procedure Pass OR Admitting Dept - Virtual Department [address] [place] [address] 10/11/2025 1:47 PM EST Hospital Encounter OR Admitting Dept - Virtual Department [address] [place] [address] Toi Lino MD [address] [place] [address] Orthopedics Sports [facility], [place] [address] [email or web address] 10/11/2025 1:47 PM EST - 10/11/2025 4:56 PM EST Surgery OR Admitting Dept - Virtual Department [address] [place] [address] Toi Lino MD [address] [place] [address] Orthopedics Sports [facility], [place] [address] [email or web address] ARTHROPLASTY TOTAL KNEE 10/26/2025 10:00 AM EST Office Visit [facility] Orthopedics and Sports Medicine [address] [address] Riccardo Crawley PA-C [address] [place] [address] [facility], [place] [address] [email or web address] 11/23/2025 10:15 AM EDT Office Visit [facility] Clinic [address] [place] [address] Toi Lino MD [address] [place] [address], [place] [address] [email or web address] 10/26/2026 4:00 PM EST Office Visit [facility] Primary [facility] Clinic [address] [place] [address] Ann Watkins [address] [place] [address], [address] [place] [address] [email or web address] Scheduled Procedures Name Priority Associated Diagnoses Date/Ti [...] documented as of this encounter Care Teams Dry Lumber Grader Relationship Specialty Start Date End Date Ann Watkins [address] [place] [address], [address] [place] [address] [email or web address] PCP - General Family Medicine 10/27/23 Ann Watkins [address] [place] [address], [address] [place] [address] [email or web address] Insurance Assigned Provider 11/27/24 documented as of this encounter Additional Source Comments The information contained in this document represents components of the legal health record. It is not the complete legal health record.[facility]
--- OUTSIDE RECORDS SUMMARY | 2025-08-22 19:14 | XMS_ITS | Encounter Summary ---
Author Organization [facility] Address [address] [facility] [address] [place] [address] Phone Care Team Providers Care Tungsten Tender Name Role Phone Ann Watkins Primary Care Provider [phone] Ann Watkins Unavailable [phone] Reason for Visit * Reason Comments Medication Refill Encounter Details Date Type Department Care Team (Late st Contact Info) Description 08/07/2025 Refill [facility] Primary Care Clinic [address] [place] [address] Ann Watkins 22 [facility], [address] [place] [address] [email or web address] Medication Refill Social History Tobacco Use Types [...] Progress Notes * Komal Marion LPN - 08/07/2025 3:31 PM EST Duplicate request or too soon to request. documented in this encounter Plan of Treatment Upcoming Encounters Date Type Department Care Team (Latest Contact Info) Description 09/05/2025 11:15 AM EST Office Visit [facility] [place] [address] Ann Watkins [address] [place] [address], [address] [place] [address] [email or web address] 09/14/2025 10:00 AM EST Office Visit [facility] Orthopedics [facility] Sports [address] [address] Riccardo Crawley PA-C [address] [place] [address] [place] [address] [email or web address] 09/18/2025 8:40 AM EST Office Visit [address] [address] Anatoliy Guerrero PA-C [address] [place] [address] [email or web address] Kristan Hernandez PA-C [address] [place] [address] [email or web address] 09/29/2025 3:30 PM EST Office Visit [address] [place] [address] Ann Watkins [address] [place] [address], [address] [place] [address] [email or web address] 10/11/2025 Procedure Pass OR Admitting Dept - Virtual Department [address] [place] [address] 10/11/2025 1:47 PM EST Hospital Encounter OR Admitting Dept - Virtual Department [address] [place] [address] Toi Lino MD [address] [place] [address] Orthopedics Sports [facility], [place] [address] [email or web address] 10/11/2025 1:47 PM EST - 10/11/2025 4:56 PM EST Surgery OR Admitting Dept - Virtual Department [address] [place] [address] Toi Lino MD [address] [place] [address] Orthopedics Sports [facility], [place] [address] [email or web address] ARTHROPLASTY TOTAL KNEE 10/26/2025 10:00 AM EST Office Visit [facility] Orthopedics [facility] Sports [address] [address] Riccardo Crawley PA-C [address] [place] [address] Orthopedics Sports [facility], [place] [address] [email or web address] 11/23/2025 10:15 AM EDT Office Visit [facility] Orthopedics [address] [address] Toi Lino MD [address] [place] [address] [email or web address] 10/26/2026 4:00 PM EST Office Visit [facility] Primary Care Clinic [address] [place] [address] Ann Watkins [address] [place] [address], [address] [place] [address] [email or web address] Scheduled Procedures Name Priority Associated [...] as of this encounter Visit Diagnoses Diagnosis Anxiety Anxiety state, unspecified Left shoulder pain- Primary Pain in joint, shoulder region Primary osteoarthritis of right knee documented in this encounter Additional Health Concerns Active Problems Noted Date Diagnosed Date Autogenerated Problem 07/11/2025 Assessment Noted Time PHQ-9 Depression Total Score: 7 11/22/19 23 1:14 PM EDT PHQ-2 Depression Total Score: 0 09/27/19 25 3:46 PM EST documented as of this encounter Care Teams Tungsten Tender Relationship Specialty Start Date End Date Ann Watkins [address] [place] [address], [address] [place] [address] [email or web address] PCP - General Family Medicine 10/27/23 Ann Watkins [address] [place] [address], [address] [place] [address] [email or web address] Insurance Assigned Provider 11/27/24 documented as of this encounter Additional Source Comments The information contained in this document represents components of the legal health record. It is not the complete legal health record.[facility]
--- OUTSIDE RECORDS SUMMARY | 2025-08-22 19:14 | XMS_ITS | Encounter Summary ---
Author Organization [facility] Address [address] [facility] [address] [place] [address] Phone Care Team Providers Care Examining Chair Assembler Name Role Phone Lesa Talbot SENIOR INSTRUCTOR Primary Care Provider Jennifer Rowe RN Unavailable [phone] Janie Galindo RN Unavailable [phone] Barrie Young MD Unavailable [phone] Ann Watkins Primary Care Provider [phone] Lesa Talbot SENIOR INSTRUCTOR Primary Care Provider [phone] Ann Watkins Primary Care Provider [phone] Ann Watkins Unavailable [phone] Encounter Details Date Type Department Care Team (Late st Contact Info) Description 10/10/2019 Procedure Pass OR Admitting Dept - Virtual Department [address] [place] [address] Social History Tobacco Use Types Packs/Day Years [...] on file documented as of this encounter Plan of Treatment Upcoming Encounters Date Type Department Care Team (Latest Contact Info) Description 09/05/2025 11:15 AM EST Office Visit [address] [place] [address] Ann Watkins [address] [place] [address], [address] [place] [address] [email or web address] 09/14/2025 10:00 AM EST Office Visit [facility] Orthopedics [facility] Sports [address] [address] Riccardo Crawley PA-C [address] [place] [address] Orthopedics Sports [facility], [place] [address] [email or web address] 09/18/2025 8:40 AM EST Office Visit [facility] Orthopedics and Sports Medicine [address] [address] Anatoliy Guerrero PA-C [address] [place] [address] Orthopedics Sports [facility], [place] [address] [email or web address] Kristan Hernandez PA-C [address] [place], [place] [address]s Sports [facility], [place] [address] [email or web address] 09/29/2025 3:30 PM EST Office Visit [address] [place] [address] Ann Watkins [address] [place] [address], [address] [place] [address] [email or web address] 10/11/2025 Procedure Pass OR Admitting Dept - Virtual Department [address] [place] [address] 10/11/2025 1:47 PM EST Hospital Encounter OR Admitting Dept - Virtual Department [address] [place] [address] Toi Lino MD [address] [place] [address] Orthopedics Sports [facility], [place] [address] [email or web address] 10/11/2025 1:47 PM EST - 10/11/2025 4:56 PM EST Surgery OR Admitting Dept - Virtual Department [address] [place] [address] Toi Lino MD [address] [place] [address] Orthopedics Sports [facility], [place] [address] [email or web address] ARTHROPLASTY TOTAL KNEE 10/26/2025 10:00 AM EST Office Visit [facility] Orthopedics and Sports Medicine [address] [address] Riccardo Crawley PA-C [address] [place] [address] Sports [facility], [place] [address] [email or web address] 11/23/2025 10:15 AM EDT Office Visit [facility] Orthopedics [facility] Sports [address] [address] Toi Lino MD [address] [place] [address] Orthopedics Sports [facility], [place] [address] [email or web address] 10/26/2026 4:00 PM EST Office Visit [facility] Primary [facility] Clinic [address] [place] [address] Ann Watkins [address] [place] [address], [address] [place] [address] [email or web address] Scheduled Procedures Name Priority Associated Diagnoses Date/Ti me ARTHROPLASTY TOTAL KNEE Primary osteoarthritis of right knee 10/11/2025 1:47 PM EST COLONOSCOPY Special screening for malignant neoplasm of colon documented as of this encounter Visit Diagnoses Not on filedocumented in this encounter Additional Health Concerns Assessment Noted Time PHQ-2 Depression Total Score: 0 06/10/20 3:08 PM EDT documented as of this encounter Care Teams Examining Chair Assembler Relationship Specialty Start Date End Date Lesa Talbot SENIOR INSTRUCTOR PCP - General Family Medicine 04/08/18 08/24/23 Renan-Ann Malik [address] [place] [address], [address] [address] [email or web address] PCP - General Family Medicine 08/25/23 09/27/23 Lesa Talbot SENIOR INSTRUCTOR PCP - General Family Medicine 10/13/23 10/26/23 Ann Watkins [address] [place] [address], [address] [address] [email or web address] PCP - General Family Medicine 10/27/23 Jennifer Rowe RN [address] [place] [address] PHC [place] 05/12/19 01/16/20 Janie Galindo RN [address] [place] [address] PHC [place] 01/17/20 10/30/24 Barrie Young MD [address] [place] [address] Insurance Assigned Provider 12/01/20 Ann Watkins: [phone] [address] [place] [address], [address] [place] [address] [email or web address] Assigned Provider 11/27/24 documented as of this encounter Additional Source Comments The information contained in this document represents components of the legal health record. It is not the complete legal health record.[facility]
--- OUTSIDE RECORDS SUMMARY | 2025-08-22 19:14 | XMS_ITS | Encounter Summary ---
Author Organization [facility] Address [address] [place] [address] Phone Care Team Providers Care Physical Education Department Chair Name Role Phone Janie Galindo RN Unavailable [phone] Ann Watkins Primary Care Provider Ann Watkins Unavailable [phone] Encounter Details Date Type Department Care Team (Late st Contact Info) Description 04/14/2024 Procedure Pass OR Admitting Dept - Virtual Department [address] [place] [address] Social History Tobacco Use Types Packs/Day Years [...] as food, clothing, or medical care? No 04/14/2024 In the past 12 months have y ou been in a relationship with a person who hurts, threatens, or tries to control you? No 04/14/2024 Are you denied basic needs s uch as food, clothing, or medical care? No 04/14/2024 In the past 12 months have y ou been in a relationship with a person who hurts, threatens, or tries to control you? No 04/14/2024 Comments No Sex and Gender Information Value [...] Office Visit [facility] [address] [place] [address] Ann Watkins [address] [facility], [address] [place] [address] [email or web address] 09/14/2025 10:00 AM EST Office Visit [facility] [address] [place] [address] Riccardo Crawley PA-C 4 [facility] Orth[facility] Sports [facility], [place] [address] [email or web address] 09/18/2025 8:40 AM EST Office Visit [facility] [address] [address] Anatoliy Guerrero PA-C [address] [place] [address] [facility], [place] [address] [email or web address] Kristan Harris PA-C [address] [place] [address] Sports [facility], [place] [address] [email or web address] 09/29/2025 3:30 PM EST Office Visit [facility] [address] [place] [address] Ann Watkins [address] [place] [address], [address] [place] [address] [email or web address] 10/11/2025 Procedure Pass OR Admitting Dept - Virtual Department [address] [place] [address] 10/11/2025 1:47 PM EST Hospital Encounter OR Admitting Dept - Virtual Department [address] [place] [address] Toi Lino MD [address] [place] [address] Orthopedics Sports [facility], [place] [address] [email or web address] 10/11/2025 1:47 PM EST - 10/11/2025 4:56 PM EST Surgery OR Admitting Dept - Virtual Department [address] [place] [address] Toi Lino MD [address] [place] [address] Sports [facility], [place] [address] [email or web address] ARTHROPLASTY TOTAL KNEE 10/26/2025 10:00 AM EST Office Visit [facility] Sports [address] [address] Riccardo Crawley PA-C [address] [place] [address] [place] [address] [email or web address] 11/23/2025 10:15 AM EDT Office Visit [address] [address] Toi Lino MD [address] [place] [address] [id number] [email or web address] 10/26/2026 4:00 PM EST Office Visit [facility] [address] [place] [address] Ann Watkins [address] [place] [address], [address] [place] [address] [email or web address] Scheduled Procedures Name Priority Associated Diagnoses Date/Ti me ARTHROPLASTY TOTAL KNEE Primary osteoarthritis of right knee 10/11/2025 1:47 PM EST COLONOSCOPY Special screening for malignant neoplasm of colon documented as of this encounter Visit Diagnoses Not on filedocumented in this encounter Additional Health Concerns Assessment Noted Time PHQ-9 Depression Total Score: 7 11/22/19 23 1:14 PM EDT PHQ-2 Depression Total Score: 2 01/01/20 24 3:48 PM EDT documented as of this encounter Care Teams Physical Education Department Chair Relationship Specialty Start Date End Date Ann Watkins [address] [place] [address], [address] [place] [address] [email or web address] PCP - General Family Medicine 10/27/23 Janie Galindo, RN [address] [place] [address] [email or web address] [facility] Assistant Produce Manager 01/17/20 10/30/24 Ann Watkins [address] [place] [address], [address] [place] [address] [email or web address] Insurance Assigned Provider 11/27/24 documented as of this encounter Additional Source Comments The information contained in this document represents components of the legal health record. It is not the complete legal health record.[facility]
--- OUTSIDE RECORDS SUMMARY | 2025-08-22 19:14 | XMS_ITS | Encounter Summary ---
Author Organization [facility] Address [address] [facility] [address] [place] [address] Phone Care Team Providers Care Control Valve Technician Name Role Phone Lesa Talbot BROKERAGE PURCHASE AND SALE CLERK Primary Care Provider Janie Galindo RN Unavailable [phone] Barrie Young MD Unavailable [phone] Ann Watkins Primary Care Provider Lesa Talbot BROKERAGE PURCHASE AND SALE CLERK Primary Care Provider [phone] Ann Watkins Primary Care Provider Ann Watkins Unavailable [phone] Encounter Details Date Type Department Care Team (Late st Contact Info) Description 01/31/2020 Ancillary Orders [address] [address] Toi Lino MD [address] [place] [address] Orthopedics & Sports Medicine, [place] [address] [email or web address] Pain in both knees, unspecified chronicity Social History Tobacco Use Types Packs/Day Years Used Date Smoking Tobacco: Former Cigarettes 0.3 3 0 08/24/2012 - 08/24/2015 Smokeless Tobacco: Never Alcohol Use Standard Drinks/Week Comments No 0 (1 standard drink = 0.6 oz pur e alcohol) Comments No Sex and Gender Information Value [...] Description 09/05/2025 11:15 AM EST Office Visit [address] [place] [address] Ann Watkins [address] [place] [address], [address] [place] [address] [email or web address] 09/14/2025 10:00 AM EST Office Visit [facility] Orthopedics and Sports [address] [address] Riccardo Crawley PA-C [address] [place] [address] Orthopedics Sports [facility], [place] [address] [email or web address] 09/18/2025 8:40 AM EST Office Visit [facility] Orthopedics counts include 234 beds at the [facility] Sports Medicine [address] [address] Anatoliy Guerrero PA-C [address] [place] [address] Orthopedics Sports [facility], [place] [address] [email or web address] Kristan Hernandez PA-C [address] [place] [address] Orthopedics Sports [facility], [place] [address] [email or web address] 09/29/2025 3:30 PM EST Office Visit [address] [place] [address] Ann Watkins [address] [place] [address], [address] [place] [address] [email or web address] 10/11/2025 Procedure Pass OR Admitting Dept - Virtual Department [address] [place] [id number] 10/11/2025 1:47 PM EST Hospital Encounter OR Admitting Dept - Virtual Department [address] [place] [address] Tio Lino MD [address] [place] [address] Orthopedics Sports [facility], [place] [address] [email or web address] 10/11/2025 1:47 PM EST - 10/11/2025 4:56 PM EST Surgery OR Admitting Dept - Virtual Department [address] [place] [address] Toi Lino MD [address] [place] [address], [place] [address] [email or web address] ARTHROPLASTY TOTAL KNEE 10/26/2025 10:00 AM EST Office Visit [facility] Orthopedics counts include 234 beds at the [facility] Sports [address] [address] Riccardo Crawley PA-C [address] [place] [address] Sports [facility], [place] [address] [email or web address] 11/23/2025 10:15 AM EDT Office Visit [facility] [address] [place] [address] Toi Lino MD [address] [place] [address], [place] [address] [email or web address] 10/26/2026 4:00 PM EST Office Visit [facility] [address] [place] [address] Ann Watkins [address] [place] [address], [address] [place] [address] [email or web address] Scheduled Procedures Name Priority Associated Diagnoses Date/Ti me ARTHROPLASTY TOTAL KNEE Primary osteoarthritis of right knee 10/11/2025 1:47 PM EST COLONOSCOPY Special screening for malignant neoplasm of colon documented as of this encounter Results * XR KNEE 3 VIEW (BILATERAL) (01/31/2020 9:44 AM EDT) Narrative SYSTEMGENERATED, DOCUMENTATION - 01/31/2020 9:44 AM EDT This image report has been auto-finalized and has not been read by a Radiologist. Interpretation has been included in the provider encounter note for this date of service. us Toi Lino MD IMG XR LOWER EXTREMITY Final Result documented in this encounter Visit Diagnoses Diagnosis Pain in both knees, unspecified chronicity Pain in both knees, unspecified chronicity Left shoulder pain- Primary Pain in joint, shoulder region Primary osteoarthritis of right knee documented in this encounter Additional Health Concerns Assessment Noted Time PHQ-2 Depression Total Score: 0 12/06/19 20 2:50 PM EDT documented as of this encounter Care Teams Control Valve Technician Relationship Specialty Start Date End Date Lesa Talbot NP PCP - General Family Medicine 04/08/18 08/24/23 Ann Watkins [address] [place] [address], [address] [place] [address] [email or web address] PCP - General Family Medicine 08/25/23 09/27/23 Lesa Talbot BROKERAGE PURCHASE AND SALE CLERK PCP - General Family Medicine 10/13/23 10/26/23 Ann Watkins [address] [place] [address], [address] [place] [address] [email or web address] PCP - General Family Medicine 10/27/23 Janie Galindo, RN [address] [place] [address] [facility]sembl[facility] 01/17/20 10/30/24 Barrie Young MD [address] [place] [address] Insurance Assigned Provider 12/01/20 Ann Watkins [address] [place] [address], [address] [place] [address] [email or web address] Insurance Assigned Provider 11/27/24 documented as of this encounter Additional Source Comments The information contained in this document represents components of the legal health record. It is not the complete legal health record.[facility]
--- OUTSIDE RECORDS SUMMARY | 2025-08-22 19:14 | XMS_ITS | Encounter Summary ---
Author Organization [facility] Address [address] [place] [address] Phone Care Team Providers Care Promotional Marketing Analyst Name Role Phone Janie Galindo RN Unavailable [phone] Ann Watkins Primary Care Provider [phone] Ann Watkins Unavailable [phone] Encounter Details Date Type Department Care Team (Late st Contact Info) Description 12/30/2023 Procedure Pass [facility], Ct Scan - [facility] [address] [place] [address] Social History Tobacco Use Types Packs/Day Years [...] on file 12/19/2022 No 12/19/2022 No 12/19/2022 Digital Access Answer Date Recorded No 01/13/2023 No 01/13/2023 Reliable internet access at home? Not on file 01/13/2023 Device with a working camera? Not on file Comments No Sex and Gender Information Value [...] Description 09/05/2025 11:15 AM EST Office Visit [address] [place] [address] Ann Watkins [address] [place] [address], [address] [place] [address] [email or web address] 09/14/2025 10:00 AM EST Office Visit [facility] Orthopedics [facility] Sports [address] [address] Riccardo Crawley PA-C [address] [place] [address] [email or web address], [place] [address] [email or web address] 09/18/2025 8:40 AM EST Office Visit [facility] Orthopedics and Sports Medicine [address] [address] Anatoliy Guerrero PA-C [address] [place] [address] Orthopedics Sports [facility], [place] [address] [email or web address] Kristan Hernandez PA-C [address] [place] [address] Sports [facility], [place] [address] [email or web address] 09/29/2025 3:30 PM EST Office Visit [address] [place] [address] Ann Watkins [address] [place] [address], [address] [place] [address] [email or web address] 10/11/2025 Procedure Pass OR Admitting Dept - Virtual Department [address] [place] [address] 10/11/2025 1:47 PM EST Hospital Encounter OR Admitting Dept - Virtual Department [address] [place] [address] Toi Lino MD [address] [place] [address] Orthopedics Sports [facility], [place] [address] [email or web address] 10/11/2025 1:47 PM EST - 10/11/2025 4:56 PM EST Surgery OR Admitting Dept - Virtual Department [address] [place] [address] Toi Lino MD [address] [place] [address] Orthopedics Sports [facility], [place] [address] [email or web address] ARTHROPLASTY TOTAL KNEE 10/26/2025 10:00 AM EST Office Visit [facility] [address] [place] [address] Riccardo Crawley PA-C [address] [place] [address] [facility] Sports [facility], [place] [address] [email or web address] 11/23/2025 10:15 AM EDT Office Visit [facility] Orthopedics [facility] Sports Medicine [address] [address] Toi Lino MD [address] [place] [address] Orthopedics Sports [facility], [place] [address] [email or web address] 10/26/2026 4:00 PM EST Office Visit [facility] [address] [place] [address] Ann Watkins [address] [place] [address], [address] [place] [address] [email or web address] Scheduled Procedures Name Priority Associated [...] documented as of this encounter Care Teams Promotional Marketing Analyst Relationship Specialty Start Date End Date Ann Watkins [address] [place] [address], [address] [place] [address] [email or web address] PCP - General Family Medicine 10/27/23 Janie Galindo, RN [address] [place] [address] PHCM Geospatial Engineer 01/17/20 10/30/24 Ann Watkins [address] [place] [address], [address] [place] [address] [email or web address] Insurance Assigned Provider 11/27/24 documented as of this encounter Additional Source Comments The information contained in this document represents components of the legal health record. It is not the complete legal health record.[facility]
--- OUTSIDE RECORDS SUMMARY | 2025-08-22 19:14 | XMS_ITS | Encounter Summary ---
Author Organization [facility] Address [address] [place] [address] Phone Care Team Providers Care Supervisor Paper Coating Name Role Phone Lesa Talbot ASSISTANT MANAGER QUALITY MANAGEMENT Primary Care Provider [phone] Janie Galindo RN Unavailable [phone] Barrie Young MD Unavailable [phone] Ann Watkins Primary Care Provider Lesa Talbot ASSISTANT MANAGER QUALITY MANAGEMENT Primary Care Provider [phone] Ann Watkins Primary Care Provider Ann Watkins Unavailable [phone] Encounter Details Date Type Department Care Team (Late st Contact Info) Description 01/31/2020 Ancillary Orders [facility] [address] [place] [address] Toi Lino MD [address] [place] [address] Orthopedics & Sports Medicine, [facility] [address] [email or web address] Social History Tobacco Use Types Packs/Day Years [...] Description 09/05/2025 11:15 AM EST Office Visit [address] [place] [address] Ann Watkins [address] [place] [address], [address] [place] [address] [email or web address] 09/14/2025 10:00 AM EST Office Visit [facility] Orthopedics [facility] Sports [address] [address] Riccardo Crawley PA-C [address] [place] [address] Orthopedics Sports [facility], [place] [address] [email or web address] 09/18/2025 8:40 AM EST Office Visit [facility] Orthopedics [facility] Sports Medicine [address] [address] Anatoliy Guerrero PA-C [address] [place] [address] Orthopedics Sports [facility], [place] [address] [email or web address] Kristan Hernandez PA-C [address] [place] [address] Orthopedics Sports [facility], [place], [place] [id number] [email or web address] 09/29/2025 3:30 PM EST Office Visit [address] [place] [address] Ann Watkins [address] [place] [address], [address] [place] [address] [email or web address] 10/11/2025 Procedure Pass OR Admitting Dept - Virtual Department [address] [place] [address] 10/11/2025 1:47 PM EST Hospital Encounter OR Admitting Dept - Virtual Department [address] [place] [address] Toi Lino MD [address] [place] [address] Orthopedics Sports [facility], [place] [address] [email or web address] 10/11/2025 1:47 PM EST - 10/11/2025 4:56 PM EST Surgery OR Admitting Dept - Virtual Department [address] [place] [address] Toi Lino MD [address] [place] [address], [place] [address] [email or web address] ARTHROPLASTY TOTAL KNEE 10/26/2025 10:00 AM EST Office Visit [facility] Orthopedics [facility] Sports [address] [address] Riccardo Crawley PA-C [address] [place] [address] Orthopedics Sports [facility], [place] [address] [email or web address] 11/23/2025 10:15 AM EDT Office Visit [facility] Orthopedics and Sports Medicine [address] [address] Toi Lino MD [address] [place], [place] [address]s Sports [facility], [place] [address] [email or web address] 10/26/2026 4:00 PM EST Office Visit [facility] [address] [place] [address] Ann Watkins [address] [place] [address], [address] [place] [address] [email or web address] Scheduled Procedures Name Priority Associated Diagnoses Date/Ti me ARTHROPLASTY TOTAL KNEE Primary osteoarthritis of right knee 10/11/2025 1:47 PM EST COLONOSCOPY Special screening for malignant neoplasm of colon documented as of this encounter Visit Diagnoses Not on filedocumented in this encounter Additional Health Concerns Assessment Noted Time PHQ-2 Depression Total Score: 0 12/06/19 2:50 PM EDT documented as of this encounter Care Teams Supervisor Paper Coating Relationship Specialty Start Date End Date Lesa Talbot, ASSISTANT MANAGER QUALITY MANAGEMENT PCP - General Family Medicine 04/08/18 08/24/23 Ann Watkins [address] [place] [address], [address] [place] [address] [email or web address] PCP - General Family Medicine 08/25/23 09/27/23 Lesa Talbot NP PCP - General Family Medicine 10/13/23 10/26/23 Ann Watkins [address] [place] [address], [address] [place] [address] [email or web address] PCP - General Family Medicine 10/27/23 Janie Galindo, RN [address] [place] [id number] [facility] Water Resources Project Manager 01/17/20 10/30/24 Barrie Young MD [address] [place] [address] Insurance Assigned Provider 12/01/20 Ann Watkins [address] [place] [address], [address] [place] [address] [email or web address] Insurance Assigned Provider 11/27/24 documented as of this encounter Additional Source Comments The information contained in this document represents components of the legal health record. It is not the complete legal health record.[facility]
--- OUTSIDE RECORDS SUMMARY | 2025-08-22 19:14 | XMS_ITS | Encounter Summary ---
Author Organization [facility] Address [address] [place] [address] Phone Care Team Providers Care Nail Making Machine Setter Name Role Phone Ann Watkins Primary Care Provider [phone] Ann Watkins Unavailable [phone] Reason for Visit * Reason Onset Date Comments Triage 08/22/2025 Red + difficulty breathing + wheezing + chest tightness Encounter Details Date Type Department Care Team ([facility] st Contact Info) Description 08/22/2025 Telephone [facility] Primary Care Clinic [address] [place] [address] [email or web address] Triage (Red + difficulty breathing + wheezing + chest tightness ) Social History Tobacco Use Types Packs/Day Years [...] as of this encounter Progress Notes * Lucero Hutchison, RN - 08/22/2025 1:07 PM EST Spoke with patient who states she was seen at on Thursday. States she was told she has very bad asthma and they put her on prednisone. They only gave me 5 pills. . It feels like I have bronchitis. She is coughing a lot while talking. Reports a lot of wheezing. Chest is tight and burning. Wants to be seen. Advised she should go to the ED if not improving. Sounds sick on the phone. Patient declines to go the ED and wants to be seen in the office. SDV at 4 pm. Advised if worsening she needs go to the ED. * Mikala Anthony - 08/22/2025 1:[address] [facility] PEN Top Smart Phrases: Complete the Following for ALL Patient Symptoms [facility] Red Gaines Yellow Green Tool Call Back Number: (& caller's name if not the patient) [phone] Description of Symptoms: What symptoms are you experiencing? Difficulty breathing + chest tightness + wheezing When did the symptoms start? 5 days Has this happened before? N/A 1) Enter the Reason for Call (TRIAGE) & RFC Comment (COLOR + Symptom) (Ex: TRIAGE - YELLOW, tick bite ) 2) Select the color-based designation below before taking next steps & documenting the outcome Red Call Designation & Outcome Red Symptom(s): Triage (Red + difficulty breathing + wheezing + chest tightness ) Call Warm Transferred & TE Routed High Priority to Nurse: N/A DO NOT DISCONNECT THE CALL Warm transfer live call to the Triage Team & Route TE HIGH Priority to the Individual Performing Triage documented in this encounter Plan of Treatment Upcoming Encounters Date Type Department Care Team (Latest Contact Info) Description 09/05/2025 11:15 AM EST Office Visit [facility] Primary Care Clinic [address] [place] [address] [place] [address] Ann Watkins [address] [place] [address], [address] [place] [address] [email or web address] 09/14/2025 10:00 AM EST Office Visit [facility] [address] [place] [address] Riccardo Crawley PA-C [address] [place] [address] Orthopedics & Sports Medicine, [place] [address] [email or web address] 09/18/2025 8:40 AM EST Office Visit [facility] [address] [place] [address] Anatoliy Guerrero PA-C [address] [place] [address] Sports [facility], [place] [address] [email or web address] Kristan Harris PA-C [address] [place] [address] Sports [facility], [place] [address] [email or web address] 09/29/2025 3:30 PM EST Office Visit [facility] Primary Care Clinic [address] [place] [address] Ann Watkins [address] [place] [address], [address] [place] [address] [email or web address] 10/11/2025 Procedure Pass [place] Admitting Dept - Virtual Department [address] [place] [address] 10/11/2025 1:47 PM EST Hospital Encounter [place] Admitting Dept - Virtual Department [address] [place] [address] Toi Lino MD [address] [place], [place] [address]s Sports [facility], [place] [address] [email or web address] 10/11/2025 1:47 PM EST - 10/11/2025 4:56 PM EST Surgery OR Admitting Dept - Virtual Department [address] [place] [address] Toi Lino MD [address] [place] [address] Sports [facility], [place] [address] [email or web address] ARTHROPLASTY TOTAL KNEE 10/26/2025 10:00 AM EST Office Visit [facility] [address] [place] [address] Riccardo Crawely PA-C [address] [place] [address] Orthopedics Sports [place], [place] [phone] [email or web address] 11/23/2025 10:15 AM EDT Office Visit [facility] Orthopedics formerly [facility] Sports [address] [address] Toi Lino MD [address] [place] [address] [place], [place] [id number] [email or web address] 10/26/2026 4:00 PM EST Office Visit [facility] Primary Care Clinic [address] [place] [address] Ann Watkins [address] [place] [address], [address] [place] [address] [email or web address] Scheduled Procedures Name Priority Associated [...] documented as of this encounter Care Teams Nail Making Machine Setter Relationship Specialty Start Date End Date Ann Watkins [address] [place] [address], [address] [place] [address] [email or web address] PCP - General Family Medicine 10/27/23 Ann Watkins [address] [place] [address], [address] [place] [address] [email or web address] Insurance Assigned Provider 11/27/24 documented as of this encounter Additional Source Comments The information contained in this document represents components of the legal health record. It is not the complete legal health record.[facility]
--- OUTSIDE RECORDS SUMMARY | 2025-08-22 19:14 | XMS_ITS | Encounter Summary ---
Author Organization [facility] Address [address] [place] [address] Phone Care Team Providers Care Director Electrical Engineering Name Role Phone Barrie Young MD Unavailable [phone] Lesa Talbot INVESTIGATION DIVISION CAPTAIN Primary Care Provider [phone] Jennifer Rowe RN Unavailable [phone] Janie Galindo RN Unavailable [phone] Barrie Young MD Unavailable [phone] Ann Watkins Primary Care Provider Lesa Talbot INVESTIGATION DIVISION CAPTAIN Primary Care Provider [phone] Ann Watkins Primary Care Provider [phone] Ann Watkins Unavailable [phone] Encounter Details Date Type Department Care Team (Late st Contact Info) Description 04/30/2018 Ancillary Orders [facility] Clinic [address] [place] [address] Aletha Turner MD [address] [place] [address] Orthopedics & Sports Medicine, [place] [address] [email or web address] Social History Tobacco Use Types Packs/Day Years [...] Description 09/05/2025 11:15 AM EST Office Visit [facility] Primary Care [address] [place] [address] Ann Watkins [address] [place] [address], [address] [place] [address] [email or web address] 09/14/2025 10:00 AM EST Office Visit [facility] Orthopedics [facility] Sports [address] [address] Riccardo Crawley PA-C [address] [place] [address] Orthopedics Sports [facility], [place] [address] [email or web address] 09/18/2025 8:40 AM EST Office Visit [facility] Orthopedics [facility] Sports [address] [address] Anatoliy Guerrero PA-C [address] [place] [address] Orthopedics Sports [facility], [place] [address] [email or web address] Kristan Hernandez PA-C [address] [place] [address] Orthopedics Sports [facility], [place] [address] [email or web address] 09/29/2025 3:30 PM EST Office Visit [facility] Primary Care [address] [place] [address] Ann Watkins [address] [place] [address], [address] [place] [address] [email or web address] 10/11/2025 Procedure Pass OR Admitting Dept - Virtual Department [address] [place] [address] 10/11/2025 1:47 PM EST Hospital Encounter OR Admitting Dept - Virtual Department [address] [place] [address] Toi Lino MD [address] [place] [address] Orthopedics Sports [facility], [place] [address] [email or web address] 10/11/2025 1:47 PM EST - 10/11/2025 4:56 PM EST Surgery OR Admitting Dept - Virtual Department [address] [place] [address] Toi Lino MD [address] [place] [address], [place] [address] [email or web address] ARTHROPLASTY TOTAL KNEE 10/26/2025 10:00 AM EST Office Visit [facility] Orthopedics [facility] Sports [address] [address] Riccardo Crawley PA-C [address] [place] [address], [place] [address] [email or web address] 11/23/2025 10:15 AM EDT Office Visit [facility] Orthopedics and Sports [facility] Clinic [address] [place] [address] Toi Lino MD [address] [place] [address], [place] [address] [email or web address] 10/26/2026 4:00 PM EST Office Visit [facility] Primary Care Clinic [address] [place] [address] Ann Watkins [address] [place] [address], [address] [place] [address] [email or web address] Scheduled Procedures Name Priority Associated Diagnoses Date/Ti me ARTHROPLASTY TOTAL KNEE Primary osteoarthritis of right knee 10/11/2025 1:47 PM EST COLONOSCOPY Special screening for malignant neoplasm of colon documented as of this encounter Visit Diagnoses Not on filedocumented in this encounter Additional Health Concerns Assessment Noted Time PHQ-2 Depression Total Score: 0 10/24/19 2:10 PM EST documented as of this encounter Care Teams Director Electrical Engineering Relationship Specialty Start Date End Date Lesa Talbot NP [address] [place] [address] PCP - General Family Medicine 04/08/18 08/24/23 Ann Watkins [address] [place] [address], [address] [place] [address] [email or web address] PCP - General Family Medicine 08/25/23 09/27/23 Lesa Talbot INVESTIGATION DIVISION CAPTAIN [address] [place] [address] PCP - General Family Medicine 10/13/23 10/26/23 Ann Watkins [address] [place] [address], [address] [place] [address] [email or web address] PCP - General Family Medicine 10/27/23 Barrie Young MD [address] [place] [address] Insurance Assigned Provider 11/21/1703/05 Jennifer Rowe, [place] [address] [place] [address] [facility] Advertising Sales Associate 05/12/19 01/16/20 Janie Galindo RN [address] [place] [address] [facility] Advertising Sales Associate 01/17/20 10/30/24 Barrie Young MD [address] [place] [address] Insurance Assigned Provider 12/01/20 Ann Watkins [address] [place] [address], [address] [place] [address] [email or web address] Insurance Assigned Provider 11/27/24 documented as of this encounter Additional Source Comments The information contained in this document represents components of the legal health record. It is not the complete legal health record.[facility]
--- OUTSIDE RECORDS SUMMARY | 2025-08-22 19:14 | XMS_ITS | Encounter Summary ---
Author Organization [facility] Address [address] [place] [address] Phone Care Team Providers Care Shipping Specialist Name Role Phone Barrie Young MD Primary Care Provider [phone] Lesa Talbot Primary Care Provider Barrie Young MD Unavailable [phone] CLERK Primary Care Provider Jennifer Rowe RN Unavailable [phone] Janie Galindo RN Unavailable [phone] Barrie Young MD Unavailable [phone] Ann Watkins Primary Care Provider [phone] CLERK Primary Care Provider [phone] Ann Watkins Primary Care Provider [phone] Ann Watkins Unavailable [phone] Encounter Details Date Type Department Care Team (Late st Contact Info) Description 06/22/[address] [facility] Orth[facility]ics [facility] Sports Medicine Clinic [address] [place] [address] Aletha Turner MD [address] [place] [address] Orthopedics & Sports Medicine, [facility]. [place], [place] [id number] [email or web address] Social History Tobacco Use Types Packs/Day Years [...] Description 09/05/2025 11:15 AM EST Office Visit [address] [place] [address] Ann Watkins [address] [place] [address], [address] [place] [address] [email or web address] 09/14/2025 10:00 AM EST Office Visit [facility] Orthopedics formerly [facility] Sports [address] [address] Riccardo Crawley PA-C [address] [place] [address] Orthopedics Sports [facility], [place] [address] [email or web address] 09/18/2025 8:40 AM EST Office Visit [facility] Orthopedics formerly [facility] Sports [address] [address] Anatoliy Guerrero PA-C [address] [place], [place] [address]s Sports [facility], [place] [address] [email or web address] Kristan Hernandez PA-C [address] [place] [address] Orthopedics Sports [facility], [place] [address] [email or web address] 09/29/2025 3:30 PM EST Office Visit [facility] Primary [address] [place] [address] Ann Watkins [address] [place] [address], [address] [place] [address] [email or web address] 10/11/2025 Procedure Pass [place] Admitting Dept - Virtual Department [address] [place] [address] 10/11/2025 1:47 PM EST Hospital Encounter OR Admitting Dept - Virtual Department [address] [place] [address] Toi Lino MD [address] [place] [address] Orthopedics Sports [facility], [place] [address] [email or web address] 10/11/2025 1:47 PM EST - 10/11/2025 4:56 PM EST Surgery OR Admitting Dept - Virtual Department [address] [place] [address] Toi Lino MD [address] [place] [address], [place] [address] [email or web address] ARTHROPLASTY TOTAL KNEE 10/26/2025 10:00 AM EST Office Visit [facility] Orthopedics formerly [facility] Sports [facility] Clinic [address] [place] [address] Riccardo Crawley PA-C [address] [place] [address] [email or web address] 11/23/2025 10:15 AM EDT Office Visit [facility] Orthopedics and Sports [facility] Clinic [address] [place] [address] Toi Lino MD [address] [place] [address], [place] [address] [email or web address] 10/26/2026 4:00 PM EST Office Visit [facility] Primary Care Clinic [address] [place] [address] Ann Watkins [address] [facility], [address] [place] [address] [email or web address] Scheduled Procedures Name Priority Associated Diagnoses Date/Ti me ARTHROPLASTY TOTAL KNEE Primary osteoarthritis of right knee 10/11/2025 1:47 PM EST COLONOSCOPY Special screening for malignant neoplasm of colon documented as of this encounter Visit Diagnoses Not on filedocumented in this encounter Care Teams Shipping Specialist Relationship Specialty Start Date End Date Barrie Young MD [address] [place] [address] [email or web address] PCP - General 06/11/17 06/22/17 Lesa Talbot [address] [place] [address] [address] [facility] [place] [address] PCP - General 06/23/17 04/07/18 Lesa Talbot, CIRCUIT COURT CLERK [address] [place] [address] [email or web address] PCP - General Family Medicine 04/08/18 08/24/23 Ann Watkins [address] [place] [address], [address] [place] [address] PCP - General Family Medicine 08/25/23 09/27/23 Lesa Talbot, CIRCUIT COURT CLERK [address] [place] [address] [email or web address] PCP - General Family Medicine 10/13/23 10/26/23 Ann Watkins [address] [place] [address], [address] [place] [address] PCP - General Family Medicine 10/27/23 Barrie Young MD [address] [place] [address] Insurance Assigned Provider 11/21/17 03/05/19 Jennifer Rowe RN [address] [place] [address] [facility] Conveyor Line Battery Charger 05/12/19 01/16/20 Janie Galindo RN [address] [place] [address] [facility] [employer] Battery Charger 01/17/20 10/30/24 Barrie Young MD [address] [place] [address] Insurance Assigned Provider 12/01/20 08/31/21 Ann Watkins [address] [place] [address], [address] [place] [address] Insurance Assigned Provider 11/27/24 documented as of this encounter Additional Source Comments The information contained in this document represents components of the legal health record. It is not the complete legal health record.[facility]
== END 2025-08-22 17:37 | disposition home or self-care (01) ==
LOC: HO.XRAY 17:36
PROVIDERS: PCP Student in an Organized Health Care Education/Training Program; Visit Provider Nurse Practitioner Primary Care
DX: J45.31 Mild persistent asthma with (acute) exacerbation (principal)
CPT/HCPCS: 71046

== ENCOUNTER → 2025-08-22 17:46 | Outpatient (BNV) | payer MEDICARE, MEDICAID, SELFPAY | PROVIDERS: PCP Student in an Organized Health Care Education/Training Program; Visit Provider Specialist | DX: J45.31 Mild persistent asthma with (acute) exacerbation (principal) | CPT/HCPCS: 71046 ==